=== PATIENT | female | born 1935 | race African-American/Black ===

== ENCOUNTER → 2016-10-19 | Outpatient (CLI) | payer OTHER ==
[2016-08-25 11:00] VITALS: BP 120/46
[~2016-10-19] MED LIST: ACET500T68 PO; AMIT25TA PO; AMLO10TA2 PO; AMLO5TAB2 PO; AMOX1TAB61 PO; ASPI-482 PO; ASPI81TA9 PO; ATOR20TA58 PO; ATORVASTATIN CA80 MG PO; AZIT250T6 PO; BISA10SU55 RC; BUPIVACAINE MPF 0.25% 10 ML VIAL. ONE; CEFP200T PO; CEFT1VIA IM; CHOL10002 PO; CITA20TA9 PO; CLON0.2T PO; CLOP75TA PO; CLOP75TA27 PO; COLE3.754 PO; CYCL10TA2 PO; CYCL1DRO EACHEYE; DEXL60CA PO; ERGO500012 PO; ESOM40CA PO; EZET10TA3 PO; GLUC1KIT IM; GUAI-42 PO; GUAI5SYR PO; HYDR-2666 PO; Hydralazine Hcl PO; IBUP-1027 PO; INSU100I17 SQ; IOHEXOL 180 MG/ML 10 ML VIAL. ONE; ISOS30TA4 PO; ISOS60TA PO; Isosorbide Mononitrate PO; LEVO500T38 PO; LIDO1ADH4 TP; LISI-334 PO; LISI10TA2 PO; LORA1TAB PO; LOSA25TA PO; MAGN400O4 PO; MELO-150 PO; METF100010 PO; METF500T3 PO; METO25TA4 PO; NAPR500T8 PO; NITR0.4T SL; OMEG1CAP16 PO; OMEG1CAP6 PO; OXYC-244 PO; OXYC1TAB9 PO; PANT40TA3 PO; PANT40TA5 PO; PRAM0.25 PO; PRAM0.255 PO; PRAV80TA2 PO; ROPI0.5T PO; SULF1TAB24 PO; TIZA2CAP PO; TIZA4TAB PO; VERA240C2 PO; methylPREDNISolone ACETATE 40 MG/ML VIAL. ONE
--- NOTE | 2016-10-20 00:32 | PAIN ---
DATE OF SERVICE: 10/19/2016 DIAGNOSES: 1. Lumbar radiculopathy, lumbar spinal stenosis, degenerative disk disease. 2. 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 HISTORY OF PRESENT ILLNESS: This is a middle-aged female who returns for followup status post bilateral acromioclavicular joint injections, most recently in June 2016, also lumbar epidural steroid injections in November 2015, which she had 100% improvement from over about 3 months period. The patient reports that her shoulders doing very well for about 3 months as well. That is her primary complaint today. Bilateral shoulder joint pain with weightbearing movement rotation and motion of the shoulder reaching above her head any weightbearing to her side, slightly more on the right than the left, but present bilaterally. The patient reports no new motor or sensory deficits, no new bowel or bladder incontinence, but also pain in the low back, bilateral lower extremities, radiating in the posterior gluteus, posterior thighs, right greater than left, again with pain into the lower leg, mostly in the posterior aspect of the calf, worse with walking, standing, change in positions, has been waking her from sleep at night. Again, she did very well with a lumbar epidural steroid injection in the past also. The patient reports also states she has been off her clopidogrel for the past month. I asked her if she had permission to do this with her primary care physician. She said no. She just stopped taking on her own. She feels better and more energetic when she is not taking it and has had no chest pain or other symptoms since she has discontinued it after. I asked her to please check with her primary physician to make sure that this is okay to stay off It if she can get clearance to stay off it. PHYSICAL EXAMINATION: VITAL SIGNS: Today, blood pressure 182/87, pulse 68, respirations 20, temperature 97.9 degrees Fahrenheit. Weight is 126 pounds. GENERAL: The patient is awake, alert, oriented, appropriate, very pleasant demeanor. HEENT: Head shows normocephalic, atraumatic. The patient's oral cavity, mucous membranes are moist and pink. Dentition is intact. NECK: Shows anterior throat supple without palpable lymphadenopathy noted. Swallow reflex is symmetrical. CHEST: Shows normal on inspection. Breath sounds are clear to auscultation bilaterally. HEART: Shows S1 and S2 clear. No murmurs auscultated. CHEST: Chest shows breath sounds clear to auscultation bilaterally. ABDOMEN: Shows a soft, nontender, nondistended. No palpable organomegaly is noted. No rebound or guarding demonstrated. BACK: The patient's back shows spine grossly midline. Lumbar paraspinous musculature shows some moderate tenderness to palpation in the lumbar distribution of paraspinous muscles bilaterally, right equal to left, but significant tenderness to palpation, especially in the low lumbar distribution again diffusely in the paraspinous muscles. The patient shows good rotation and motion of the lumbar spine, both laterally as well as extension and flexion without significant increase in pain. No tenderness over the sacrum or sacroiliac regions. Lower extremities show deep tendon reflexes at 1+ in the patellar and tendo calcaneus tendons. Motor exam is approximately 4 on a scale of 5, but equal dorsiflexion and extension. The patient does have positive straight leg raise on the right side at about 40-45 degrees, decreased with knee flexion, left side is negative. The patient's upper extremities show deep tendon reflexes at 1+ in the biceps and triceps tendons. Motor exam is strong with pan cleaner strength rated at 5/5 and equal. Shoulder shows significant tenderness and pain over the acromioclavicular joints both anteriorly and posteriorly with direct palpation, significant pain with radiation into the deltoid anteriorly in the biceps bilaterally with palpation. Options were discussed with the patient. Time patient's old chart was reviewed as her current medication regimen updated. Current review of systems updated today as well. We will proceed with bilateral acromioclavicular joint injections with fluoroscopic guidance. Risks were again discussed including, but not limited to bleeding, infection, possibility of intravascular injection sequelae, spread of local anesthetic and numbness, side effects of steroid medications, exposure to fluoroscopy and poor results regarding pain control. The patient understands and wishes to proceed. The patient also will have her return for lumbar epidural steroid injection on her next visit after preauthorization is obtained in this patient with significant radicular qualities in bilateral lower extremities, again right greater than left, continues to affect her ability to walk and stand. She is using a walker today on her visits did very well with the last injection in November 2015. We will have the preauthorized plan on a lumbar epidural steroid injection at next visit. Again, note to Dr. German to make him aware that she has stopped her Plavix on her own by about a month now and I asked her to please follow up to make sure she has clearance to stay on that prior to maintaining the current regimen of being off of that. DIAGNOSIS: Bilateral shoulder joint pain with osteoarthritis shoulder joints. PROCEDURE: Bilateral acromioclavicular joint injection with fluoroscopic guidance. Under sterile prep and draping using local anesthetic. MEDICATIONS INJECTED: Total of 80 mg Depo-Medrol 40 mg per side and total of 4 mL of 0.25% bupivacaine, 2 mL per side after negative aspiration each site. 2 mL of the contrast Isovue for contrast 1 mL in each joint with good local spread, no washout. CONDITION AT DISCHARGE: Stable. The patient tolerated procedure well, had no complications. EKATERINA COTTON MD DR: EL/yrn JOB#: [id number] / [id number]
== END ==
LOC: PNCL 08:22
PROVIDERS: ATTEND Anesthesiology
DX: M19.011 Primary osteoarthritis, right shoulder (principal); M19.012 Primary osteoarthritis, left shoulder; M51.16 Intervertebral disc disorders with radiculopathy, lumbar region; M48.06 Spinal stenosis, lumbar region; I10 Essential (primary) hypertension; E11.9 Type 2 diabetes mellitus without complications; E78.00 Pure hypercholesterolemia, unspecified; K21.9 Gastro-esophageal reflux disease without esophagitis; M19.90 Unspecified osteoarthritis, unspecified site; F41.9 Anxiety disorder, unspecified; K57.90 Diverticulosis of intestine, part unspecified, without perforation or abscess without bleeding; Z90.49 Acquired absence of other specified parts of digestive tract; Z98.51 Tubal ligation status; Z98.49 Cataract extraction status, unspecified eye
CPT/HCPCS: 20605; 77002; J1030; J3490

== ENCOUNTER → 2017-01-02 | Outpatient (CLI) | payer OTHER ==
[2016-08-25 11:00] VITALS: BP 120/46
--- NOTE | 2017-01-02 10:12 | PAIN ---
DATE OF SERVICE: 01/02/2017 PROGRESS NOTE FOR PAIN CLINIC DIAGNOSES: 1. Bilateral shoulder joint pain with osteoarthritis, bilateral shoulders. 2. Lumbar radiculopathy with lumbar spinal stenosis, degenerative disk disease. HISTORY OF PRESENT ILLNESS: The patient is an 82-year-old female who returns for followup status post bilateral acromioclavicular joint injections, last seen 10/19/2016. The patient reports she did very well with these, the left side is still doing very well with about 90% improvement with the right side is beginning to return over the past 2-3 weeks, painful in the shoulder, radiating to the anterior aspect of the biceps as well as the lateral deltoid, difficult with raising her arm out to the side or up above her head, has difficulty getting dressed, putting her arm through a sleeve of a shirt, etc., worse with carrying items to her side as well as carrying things over her shoulder such as a purse strap. The patient reports it as a 9 on a scale of 10 and reports no loss of motor function with significant pain, left side; however, is doing very well, is having good mobility without significant pain. The patient reports no new motor or sensory deficits, no new bowel or bladder incontinence or other complaints. 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 PHYSICAL EXAMINATION: VITAL SIGNS: The patient's blood pressure 148/61, pulse 71, respirations 18, temperature 98.2 degrees Fahrenheit, weight is 119 pounds. GENERAL: The patient is awake, alert, oriented, appropriate, has a very pleasant demeanor. HEENT: Shows normocephalic, atraumatic. The patient wears eyeglasses. Extraocular movements are intact and symmetrical. Oral cavity, mucous membranes are moist and pink. NECK: Shows anterior throat supple without palpable lymphadenopathy noted. Swallow reflex is symmetrical. Neck shows full rotational motion of the cervical spine without difficulty or tenderness. CHEST: Shows breath sounds clear to auscultation bilaterally and normal on inspection. HEART: Shows S1 and S2 clear. No murmurs are auscultated. ABDOMEN: Soft, nontender, nondistended. No palpable organomegaly is noted. No rebound or guarding demonstrated. BACK: Shows spine grossly in the midline. Cervical spine shows mild tenderness with palpation in the inferior aspect of the cervical paraspinous muscles, but only diffusely and into the right superior and lateral aspect of the trapezius with the examination of the patient's shoulders, has significant pain over the right acromioclavicular joint with direct palpation both anteriorly and posteriorly. Some mild tenderness with lateral deltoid with palpation, but no specific trigger points or radiation of pain is demonstrated. The patient shows good passive range of motion with tenderness at abduction greater than about 45-50 degrees, also with reaching above her head and reports significant pain in the right shoulder as well. EXTREMITIES: Upper extremities; deep tendon reflexes are 1+/4. 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 Options were discussed with the patient. The patient's old chart was reviewed as her current medication regimen updated. Current review of systems is updated today as well. We will proceed with a right-sided acromioclavicular joint injection with C-arm fluoroscopic guidance. Risks were again discussed including, but not limited to bleeding, infection, possibility of intravascular injection sequelae, spread of local anesthetic and numbness, side effects of steroid medications, exposure to fluoroscopy and poor results regarding pain control. The patient understands and wishes to proceed. The patient will return to clinic in approximately 2 weeks for followup, was counseled on return appointment, activity level and side effects to be aware of. DIAGNOSIS: Primary osteoarthritis, right shoulder with acromioclavicular joint pain. PROCEDURE: Right acromioclavicular joint injection with C-arm fluoroscopic guidance under sterile prep and drape using local anesthetic and C-arm fluoroscopic guidance. MEDICATIONS INJECTED: 40 mg of Depo-Medrol plus 2 mL of 0.25% bupivacaine and 1 mL of Isovue for contrast. CONDITION AT DISCHARGE: Stable. The patient tolerated the procedure well, had no complications. EKATERINA COTTON MD DR: EL/yrn JOB#: [id number] / [id number]
== END | disposition home or self-care (01) ==
LOC: PNCL 08:07
PROVIDERS: ATTEND Anesthesiology
DX: M19.011 Primary osteoarthritis, right shoulder (principal); E78.00 Pure hypercholesterolemia, unspecified; I10 Essential (primary) hypertension; Z90.49 Acquired absence of other specified parts of digestive tract; Z98.51 Tubal ligation status; K21.9 Gastro-esophageal reflux disease without esophagitis; E11.9 Type 2 diabetes mellitus without complications; F41.9 Anxiety disorder, unspecified
CPT/HCPCS: 20605; 77002; J1030; J3490

== ENCOUNTER 2017-01-22 09:54 | Inpatient (IN) | payer OTHER ==
[~2017-01-22] VITALS: Ht 149.9 cm; Wt 51.7 kg
[~2017-01-22 09:54] MED LIST changes: -BUPIVACAINE MPF 0.25% 10 ML VIAL. ONE; -IOHEXOL 180 MG/ML 10 ML VIAL. ONE; -methylPREDNISolone ACETATE 40 MG/ML VIAL. ONE
--- NOTE | 2017-01-22 10:00 | PHYS DOC ---
Past Medical History Past Medical History: Diabetes-Type II, Hypertension, Other Additional Past Medical Histor: Daughter unsure of history, patient unsure of current meds Past Surgical History: Appendectomy, Cholecystectomy Alcohol Use: None Drug Use: None Adult General Chief Complaint Chief Complaint: CHEST PAIN [facility] HPI Patient is a 82 year old -[place] female who presents with right sided chest pain. She states it started 2 days ago and is been getting worse since then. It's a pressure/pain sensation and taking big deep breaths makes the pain worse. She states nothing makes it better. She's tried some [id number]-[id number] medicines however it has not helped. She is taking her oxycodone without much relief. She denies any shortness of breath, radiation of her pain, diaphoresis or nausea with this. Review of Systems Review of Systems Constitutional: Denies fever or chills [] Eyes: Denies change in visual acuity, redness, or eye pain [] HENT: Denies nasal congestion or sore throat [] Respiratory: Denies cough or shortness of breath [] Cardiovascular: No additional information not addressed in HPI [] GI: Denies abdominal pain, nausea, vomiting, bloody stools or diarrhea [] : Denies dysuria or hematuria [] Musculoskeletal: Denies back pain or joint pain [] Integument: Denies rash or skin lesions [] Neurologic: Denies headache, focal weakness or sensory changes [] Endocrine: Denies polyuria or polydipsia [] Current Medications Current Medications Current Medications Medications (Trade) Dose Ordered Sig/[facility] Start Time Stop Time Status Last Admin Dose Admin Aspirin (Divya Aspirin) 325 mg 1X ONCE 01/22/17 15:00 01/22/17 15:01 DC Info (Do NOT chart on this entry -- for MONITORING) 1 each PRN DAILY PRN 01/22/17 11:45 01/24/17 11:44 Iohexol (Omnipaque 300 Mg/ml) 75 ml 1X ONCE 01/22/17 11:45 01/22/17 11:46 DC 01/22/17 11:42 75 ML Morphine Sulfate 2 mg PRN Q15MIN PRN 01/22/17 11:00 01/23/17 10:59 Nitroglycerin (Nitrostat) 0.4 mg PRN Q5MIN PRN 01/22/17 15:00 Allergies Allergies Allergies Coded Allergies Type Severity Reaction Last Updated Verified No Known Drug Allergies 07/01/15 No Physical Exam Physical Exam Constitutional: Well developed, well nourished, no acute distress, non-toxic appearance. [] HENT: Normocephalic, atraumatic, bilateral external ears normal, oropharynx moist, no oral exudates, nose normal. [] Eyes: PERRLA, EOMI, conjunctiva normal, no discharge. [] Neck: Normal range of motion, no tenderness, supple, no stridor. [] Cardiovascular/chest wall:Heart rate regular rhythm, no murmur, tender palpation across the anterior right hemithorax Lungs & Thorax: Bilateral breath sounds clear to auscultation [] Abdomen: Bowel sounds normal, soft, no tenderness, no masses, no pulsatile masses. [] Skin: Warm, dry, no erythema, no rash. [] Back: No tenderness, no CVA tenderness. [] Extremities: No tenderness, no cyanosis, no clubbing, ROM intact, no edema. [] Neurologic: Alert and oriented X 3, normal motor function, normal sensory function, no focal deficits noted. [] Psychologic: Affect normal, judgement normal, mood normal. [] Current Patient Data Vital Signs Vital Signs Date Time Temp Pulse Resp B/P Pulse Ox O2 Delivery O2 Flow Rate FiO2 01/22/17 13:47 64 22 161/70 97 Room Air 01/22/17 10:05 98.5 98.5 Lab Values Laboratory Tests Test 01/22/17 10:23 01/22/17 10:35 01/22/17 13:50 White Blood Count 9.4x10^3/uL (4.0-11.0) Red Blood Count 3.97x10^6/uL (3.50-5.40) Hemoglobin 12.4g/dL (12.0-15.5) Hematocrit 36.9% (36.0-47.0) Mean Corpuscular Volume 93fL (79-100) Mean Corpuscular Hemoglobin 31pg (25-35) Mean Corpuscular Hemoglobin Concent 34g/dL (31-37) Red Cell Distribution Width 13.8% (11.5-14.5) Platelet Count 257x10^3/uL (140-400) Neutrophils (%) (Auto) 54% (31-73) Lymphocytes (%) (Auto) 33% (24-48) Monocytes (%) (Auto) 11% (0-9) H Eosinophils (%) (Auto) 1% (0-3) Basophils (%) (Auto) 1% (0-3) Neutrophils # (Auto) 5.1x10^3uL (1.8-7.7) Lymphocytes # (Auto) 3.1x10^3/uL (1.0-4.8) Monocytes # (Auto) 1.0x10^3/uL (0.0-1.1) Eosinophils # (Auto) 0.1x10^3/uL (0.0-0.7) Basophils # (Auto) 0.1x10^3/uL (0.0-0.2) Prothrombin Time 13.4SEC (11.7-14.0) Prothrombin Time INR 1.1 (0.8-1.1) D-Dimer (Ruma) 2.09ug/mlFEU (0.00-0.50) H Sodium Level 145mmol/L (136-145) Potassium Level 3.6mmol/L (3.5-5.1) Chloride Level 108mmol/L (98-107) H Carbon Dioxide Level 26mmol/L (21-32) Anion Gap 11 (6-14) Blood Urea Nitrogen 16mg/dL (7-20) Creatinine 1.0mg/dL (0.6-1.0) Estimated GFR (Cockcroft-Gault) 63.9 Glucose Level 108mg/dL (70-99) H Calcium Level 9.3mg/dL (8.5-10.1) Magnesium Level 1.9mg/dL (1.8-2.4) Total Bilirubin 0.3mg/dL (0.2-1.0) Direct Bilirubin 0.1mg/dL (0.0-0.2) Aspartate Amino Transferase (AST) 18U/L (15-37) Alanine Aminotransferase (ALT) 13U/L (14-59) L Alkaline Phosphatase 58U/L (46-116) Creatine Kinase 77U/L (26-192) 65U/L (26-192) Creatine Kinase MB (Mass) 1.3ng/mL (0.0-3.6) 1.5ng/mL (0.0-3.6) Creatine Kinase MB Relative Index 1.7% (0-4) % (0-4) Troponin I Quantitative < 0.017ng/mL (0.000-0.055) < 0.017ng/mL (0.000-0.055) ST-Llb-A-Type Natriuretic Peptide 210pg/mL (0-449) Total Protein 7.2g/dL (6.4-8.2) Albumin 3.4g/dL (3.4-5.0) Lipase 67U/L (73-393) L Thyroid Stimulating Hormone (TSH) 1.212uIU/mL (0.358-3.74) Urine Collection Type Unknown Urine Color Yellow Urine Clarity Hazy Urine pH 5.5 Urine Specific Z[place]ki 1.025 Urine Protein Negativemg/dL (NEG-TRACE) Urine Glucose (UA) Negativemg/dL (NEG) Urine Ketones (Stick) Negativemg/dL (NEG) Urine Blood Negative (NEG) Urine Nitrite Negative (NEG) Urine Bilirubin Negative (NEG) Urine Urobilinogen Dipstick 0.2mg/dL (0.2 mg/dL) Urine Leukocyte Esterase Moderate (NEG) Urine RBC Occ/HPF (0-2) Urine WBC 11-20/HPF (0-4) Urine Squamous Epithelial Cells Many/LPF Urine Bacteria Moderate/HPF (0-FEW) Urine Mucus Marked/LPF Laboratory Tests 01/22/17 10:23 Laboratory Tests 01/22/17 10:23 EKG EKG EKG shows normal sinus rhythm with a rate of 61 bpm with left axis deviation, flattening of the T waves in lead 3, T-wave inversions V1 through V6, QTC 435 ms , as interpreted by me. Radiology/Procedures Radiology/Procedures [facility] [address] [place] [address] IMAGING REPORT Signed PATIENT: DANIEL ARMENDARIZ ACCOUNT: [id number] : 1935 LOCATION: ER AGE: 82 SEX: F EXAM STATUS: PRE ER ORD. PHYSICIAN: LATIA CARDONA MD REASON: chest pain PROCEDURE: PORTABLE CHEST 1V Portable chest, 01/22/2017: History: Right-sided chest pain Comparison is made to a study from 08/23/2016. The heart size and pulmonary vascularity are normal. There is calcific plaquing and tortuosity of the thoracic aorta. No pulmonary infiltrate is seen. A density in the left lateral costophrenic angles compatible with a prominent epicardial fat pad. Slight blunting right lateral costophrenic angle may be due to scarring or a tiny amount of pleural fluid. IMPRESSION: 1. No acute infiltrates. 2. Blunting of the right lateral costophrenic angle compatible with a tiny amount of pleural fluid versus scarring. 3. Aortic atherosclerosis. DICTATED and SIGNED BY: MIRYAM RUBIO MD DATE: 01/22/17 1048 CC: LATIA CARDONA MD; YASEMIN TORRES MD ~ [address] [id number] [place], [place] [id number] IMAGING REPORT Signed PATIENT: DANIEL ARMENDARIZ ACCOUNT: [id number] : 1935 LOCATION: ER AGE: 82 SEX: F EXAM STATUS: REG ER ORD. PHYSICIAN: LATIA CARDONA MD REASON: soa, chest pain PROCEDURE: CT ANGIOGRAPHY CHEST CT pulmonary angiogram with contrast History: Chest pain, shortness of air. Symptoms for 2-3 days. Comparison: CT chest 08/23/2016. Technique: Helical CT angiogram of the chest with attention to the pulmonary arteries was performed after the administration of intravenous contrast, 75 mL Omnipaque 300. Axial 2-D reconstructions were obtained. Coronal 3-D MIPS were also obtained. One or more of the following individualized dose reduction techniques were utilized for the study: Automated exposure control Adjustment of mA and/or kV according to patient's size Use of iterative reconstruction technique. Findings: Pulmonary arteries are adequately opacified. There is no evidence of pulmonary embolism. Visualized thyroid appears symmetric. No mediastinal lymphadenopathy is seen. Aortic atherosclerosis is noted. No thoracic aortic dissection is seen. No pericardial thickening is identified. Cardiac chambers do not appear overtly enlarged. No pneumothorax or pleural effusion is seen. No acute airspace disease is identified. Images of the upper abdomen again demonstrate thickening of the adrenal glands, similar previous study. Right hepatic lobe again demonstrates a low-density lesion measuring approximately 1 cm, similar to previous study. Degenerative changes are present in spine. Impression: No evidence of pulmonary embolism. No acute abnormality identified in the chest. Impressions: Chest pain Diabetes Course & Med Decision Making Course & Med Decision Making Pertinent Labs and Imaging studies reviewed. (See chart for details) EKG does show T-wave inversions in V4 V5 which is different than her previous EKG. We'll admit for chest pain rule out. She's been given aspirin and nitroglycerin and is in stable condition. Dragon Disclaimer Dragon Disclaimer This electronic medical record was generated, in whole or in part, using a voice recognition dictation system. Departure Departure Impression: Primary Impression: Chest pain Admitting Physician: Yasemin Torers Condition: STABLE Referrals: YASEMIN TORRES MD (PCP) Problem Qualifiers Primary Impression: Chest pain Chest pain type: unspecified Qualified Code: R07.9 - Chest pain, unspecified LATIA CARDONA MD Jan 22, 2017 10:00
[2017-01-22 10:32] LABS: BASO # 0.1 x10^3/uL (0.0-0.2); BASO % 1 % (0-3); EOS % 1 % (0-3); HEMATOCRIT 36.9 % (36.0-47.0); HEMOGLOBIN 12.4 g/dL (12.0-15.5); LYMPH # 3.1 x10^3/uL (1.0-4.8); LYMPH % 33 % (24-48); MEAN CORPUSCULAR HEMOGLOBIN 31 pg (25-35); MEAN CORPUSCULAR HGB CONC 34 g/dL (31-37); MEAN CORPUSCULAR VOLUME 93 fL (79-100); MONO % 11 % (0-9); NEUT % 54 % (31-73); PLATELET COUNT 257 x10^3/uL (140-400); RED BLOOD COUNT 3.97 x10^6/uL (3.50-5.40); RED CELL DISTRIBUTION WIDTH 13.8 % (11.5-14.5); WHITE BLOOD COUNT 9.4 x10^3/uL (4.0-11.0)
--- NOTE | 2017-01-22 10:35 | EKG ---
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
[2017-01-22 10:42] LABS: INR 1.1 (0.8-1.1); PROTHROMBIN TIME PATIENT 13.4 SEC (11.7-14.0)
[2017-01-22] MEDS: MORPHINE SULFATE 2 MG/ML DISP.SYRIN. IV/SQ PRN ×3 (10:46→20:14)
[2017-01-22 10:50] LABS: CALCIUM 9.3 mg/dL (8.5-10.1); GFR 63.9; POTASSIUM 3.6 mmol/L (3.5-5.1)
[2017-01-22 10:53] LABS: BILIRUBIN,URINE NEGATIVE (NEG); GLUCOSE,URINE NEGATIVE (NEG); NITRITE,URINE NEGATIVE (NEG); PH,URINE 5.5; PROTEIN,URINE NEGATIVE (NEG-TRACE); UROBILINOGEN,URINE 0.2 mg/dL (0.2 mg/dL)
--- NOTE | 2017-01-22 10:54 | RAD ---
Portable chest, 01/22/2017: History: Right-sided chest pain Comparison is made to a study from 08/23/2016. The heart size and pulmonary vascularity are normal. There is calcific plaquing and tortuosity of the thoracic aorta. No pulmonary infiltrate is seen. A density in the left lateral costophrenic angles compatible with a prominent epicardial fat pad. Slight blunting right lateral costophrenic angle may be due to scarring or a tiny amount of pleural fluid. IMPRESSION: 1. No acute infiltrates. 2. Blunting of the right lateral costophrenic angle compatible with a tiny amount of pleural fluid versus scarring. 3. Aortic atherosclerosis.
[2017-01-22 10:58] LABS: ALBUMIN 3.4 g/dL (3.4-5.0); DIRECT BILIRUBIN 0.1 mg/dL (0.0-0.2); MAGNESIUM 1.9 mg/dL (1.8-2.4); TOTAL BILIRUBIN 0.3 mg/dL (0.2-1.0); TOTAL PROTEIN 7.2 g/dL (6.4-8.2)
[2017-01-22] MEDS ORDERED: MORPHINE SULFATE 2 MG/ML DISP.SYRIN. IV/SQ PRN (11:00)
[2017-01-22 11:05] LABS: CKMB MASS 1.3 ng/mL (0.0-3.6)
[2017-01-22 11:09] LABS: BACTERIA,URINE MODERATE /HPF (0-FEW); RBC,URINE OCC /HPF (0-2); SQUAMOUS EPITHELIAL CELL,UR MANY /LPF
[2017-01-22] MEDS ORDERED: CONTRAST GIVEN MC PRN (11:45)
[2017-01-22] MEDS ORDERED: IOHEXOL 300 MG/ML 75 ML VIAL IV ONE (11:45)
--- NOTE | 2017-01-22 12:18 | RAD ---
CT pulmonary angiogram with contrast History: Chest pain, shortness of air. Symptoms for 2-3 days. Comparison: CT chest 08/23/2016. Technique: Helical CT angiogram of the chest with attention to the pulmonary arteries was performed after the administration of intravenous contrast, 75 mL Omnipaque 300. Axial 2-D reconstructions were obtained. Coronal 3-D MIPS were also obtained. One or more of the following individualized dose reduction techniques were utilized for the study: Automated exposure control Adjustment of mA and/or kV according to patient's size Use of iterative reconstruction technique. Findings: Pulmonary arteries are adequately opacified. There is no evidence of pulmonary embolism. Visualized thyroid appears symmetric. No mediastinal lymphadenopathy is seen. Aortic atherosclerosis is noted. No thoracic aortic dissection is seen. No pericardial thickening is identified. Cardiac chambers do not appear overtly enlarged. No pneumothorax or pleural effusion is seen. No acute airspace disease is identified. Images of the upper abdomen again demonstrate thickening of the adrenal glands, similar previous study. Right hepatic lobe again demonstrates a low-density lesion measuring approximately 1 cm, similar to previous study. Degenerative changes are present in spine. Impression: No evidence of pulmonary embolism. No acute abnormality identified in the chest.
[2017-01-22 14:24] LABS: CKMB MASS 1.5 ng/mL (0.0-3.6); CREATINE KINASE 65 U/L (26-192)
[2017-01-22] MEDS ORDERED: ASPIRIN 325 MG TABLET PO ONE (15:00)
[2017-01-22] MEDS ORDERED: NITROGLYCERIN SUBLINGUAL 0.4 MG BOTTLE OF 25. SL PRN (15:00)
[2017-01-22] MEDS ORDERED: ONDANSETRON PF 4 MG/2 ML VIAL. IV PRN (15:15)
--- NOTE | 2017-01-22 15:38 | PDOC2 ---
CARDIAC CONSULT DATE OF CONSULT Date of Consult DATE: 01/22/17 TIME: 15:29 REASON FOR CONSULT Reason for Consult: Chest pain REFERRING PHYSICIAN Referring Physician: Dr. Mcmullen SOURCE Source: Chart review, Patient HISTORY OF PRESENT ILLNESS HISTORY OF PRESENT ILLNESS This is an 82 yo female who presented with complaints of chest pain. Patient reports pain began 4 days ago. Located in her right chest. Describes at a " hurt." Has been constant since onset. Worsened by breathing and with certain movements. Improved with oxycodone. Also worse by pressing on her right chest. Denies any associated dizziness, diaphoresis, palpitations, diaphoresis, or nausea/vomiting. No recent illness/fevers, LE edema, or orthopnea. PAST MEDICAL HISTORY Cardiovascular: CAD (s/p remote stenting), HTN, Hyperlipidemia Pulmonary: Other (NEFTALY with CPAP) GI: GERD Heme/Onc: No pertinent hx Hepatobiliary: No pertinent hx Psych: Anxiety Musculoskeletal: low back pain, Osteoarthritis Rheumatologic: No pertinent hx Infectious disease: No pertinent hx ENT: No pertinent hx Renal/: No pertinent hx Endocrine: Diabetes Dermatology: No pertinent hx PAST SURGICAL HISTORY Past Surgical History: Appendectomy, Cholecystectomy FAMILY HISTORY Family History: Heart Disease, Hypertension SOCIAL HISTORY Smoke: No ALCOHOL: none Drugs: None Lives: with Family CURRENT MEDICATIONS CURRENT MEDICATIONS Current Medications Medications (Trade) Dose Ordered Sig/Kimberly Route PRN Reason Start Time Stop Time Status Last Admin Dose Admin Morphine Sulfate 2 mg PRN Q15MIN PRN IV/SQ PAIN GREATER THAN 3/10 01/22/17 10:15 01/23/17 10:14 01/22/17 10:46 Iohexol (Omnipaque 300 Mg/ml) 75 ml 1X ONCE IV 01/22/17 11:45 01/22/17 11:46 DC 01/22/17 11:42 ALLERGIES ALLERGIES: Coded Allergies: No Known Drug Allergies (Unverified , 07/01/15) ROS Review of System 14 point ROS conducted with pertinent positives noted above in HPI PHYSICAL EXAM General: Alert, Oriented X3, Cooperative, No acute distress HEENT: Atraumatic, Mucous membr. moist/pink Lungs: Clear to auscultation, Normal air movement, Other (right chest tendness upon palpation) Heart: Regular rate, Normal S1, Normal S2, Other (soft systolic murmur ) Abdomen: Soft, No tenderness Extremities: No edema, Normal pulses Skin: No significant lesion Neuro: Normal speech, Sensation intact Psych/Mental Status: Mental status NL, Mood NL MUSCULOSKELETAL: Osteoarthritic changes both hands VITALS VITALS Vital Signs Date Time Temp Pulse Resp B/P Pulse Ox O2 Delivery O2 Flow Rate FiO2 01/22/17 13:47 64 22 161/70 97 Room Air 01/22/17 10:05 98.5 98.5 LABS Lab: Laboratory Tests Test 01/22/17 10:23 01/22/17 10:35 01/22/17 13:50 White Blood Count 9.4x10^3/uL (4.0-11.0) Red Blood Count 3.97x10^6/uL (3.50-5.40) Hemoglobin 12.4g/dL (12.0-15.5) Hematocrit 36.9% (36.0-47.0) Mean Corpuscular Volume 93fL (79-100) Mean Corpuscular Hemoglobin 31pg (25-35) Mean Corpuscular Hemoglobin Concent 34g/dL (31-37) Red Cell Distribution Width 13.8% (11.5-14.5) Platelet Count 257x10^3/uL (140-400) Neutrophils (%) (Auto) 54% (31-73) Lymphocytes (%) (Auto) 33% (24-48) Monocytes (%) (Auto) 11% (0-9) Eosinophils (%) (Auto) 1% (0-3) Basophils (%) (Auto) 1% (0-3) Neutrophils # (Auto) 5.1x10^3uL (1.8-7.7) Lymphocytes # (Auto) 3.1x10^3/uL (1.0-4.8) Monocytes # (Auto) 1.0x10^3/uL (0.0-1.1) Eosinophils # (Auto) 0.1x10^3/uL (0.0-0.7) Basophils # (Auto) 0.1x10^3/uL (0.0-0.2) Prothrombin Time 13.4SEC (11.7-14.0) Prothromb Time International Ratio 1.1 (0.8-1.1) D-Dimer (Ruma) 2.09ug/mlFEU (0.00-0.50) Sodium Level 145mmol/L (136-145) Potassium Level 3.6mmol/L (3.5-5.1) Chloride Level 108mmol/L (98-107) Carbon Dioxide Level 26mmol/L (21-32) Anion Gap 11 (6-14) Blood Urea Nitrogen 16mg/dL (7-20) Creatinine 1.0mg/dL (0.6-1.0) Estimated GFR (Cockcroft-Gault) 63.9 Glucose Level 108mg/dL (70-99) Calcium Level 9.3mg/dL (8.5-10.1) Magnesium Level 1.9mg/dL (1.8-2.4) Total Bilirubin 0.3mg/dL (0.2-1.0) Direct Bilirubin 0.1mg/dL (0.0-0.2) Aspartate Amino Transf (AST/SGOT) 18U/L (15-37) Alanine Aminotransferase (ALT/SGPT) 13U/L (14-59) Alkaline Phosphatase 58U/L (46-116) Creatine Kinase 77U/L (26-192) 65U/L (26-192) Creatine Kinase MB (Mass) 1.3ng/mL (0.0-3.6) 1.5ng/mL (0.0-3.6) Creatine Kinase MB Relative Index 1.7% (0-4) % (0-4) Troponin I Quantitative < 0.017ng/mL (0.000-0.055) < 0.017ng/mL (0.000-0.055) PN-Npu-I-Type Natriuretic Peptide 210pg/mL (0-449) Total Protein 7.2g/dL (6.4-8.2) Albumin 3.4g/dL (3.4-5.0) Lipase 67U/L (73-393) Thyroid Stimulating Hormone (TSH) 1.212uIU/mL (0.358-3.74) Urine Collection Type Unknown Urine Color Yellow Urine Clarity Hazy Urine pH 5.5 Urine Specific [place] 1.025 Urine Protein Negativemg/dL (NEG-TRACE) Urine Glucose (UA) Negativemg/dL (NEG) Urine Ketones (Stick) Negativemg/dL (NEG) Urine Blood Negative (NEG) Urine Nitrite Negative (NEG) Urine Bilirubin Negative (NEG) Urine Urobilinogen Dipstick 0.2mg/dL (0.2 mg/dL) Urine Leukocyte Esterase Moderate (NEG) Urine RBC Occ/HPF (0-2) Urine WBC 11-20/HPF (0-4) Urine Squamous Epithelial Cells Many/LPF Urine Bacteria Moderate/HPF (0-FEW) Urine Mucus Marked/LPF ECHOCARDIOGRAM ECHOCARDIOGRAM <Conclusion> The left ventricular systolic function is normal. The Ejection Fraction is 60-65%. There is normal LV segmental wall motion. Transmitral Doppler flow pattern is Grade I-abnormal relaxation pattern. Trace to mild aortic regurgitation. Trace mitral regurgitation. Mild to moderate tricuspid regurgitation. The PA pressure was estimated at 48 mmHg. There is no evidence of significant pericardial effusion. DATE: 08/10/16 1413 STRESS TEST STRESS TEST Conclusion 1. Regadenoson cardioisotope stress test did not show any evidence of ischemia or infarct. 2. Normal left ventricular systolic function with ejection fraction calculated at 72%. 3. Low risk for cardiac events. DATE: 06/06/16 1457 ASSESSMENT/PLAN ASSESSMENT/PLAN 1. Chest pain, atypical trop neg. X 2- AMI ruled out 06/16 MPI without reversible ischemia 08/16 2D echo with preserved LV function pain possibly MSK in origin as it is reproducible with palpation will repeat echo to assess new WMA 2. CAD s/p remote stenting stable continue secondary prevention repeat echo as above. 3. Hypertension labile resume home antiHTN therapy and monitor to assess need for titration 4. Hyperlipidemia statin therapy 06/16 LDL = 96 5. NEFTALY with CPAP 6. Diabetes per PCP Problems: FRANCOISE COLUNGA APRN Jan 22, 2017 15:38
[2017-01-22] MEDS ORDERED: ASPIRIN 325 MG TABLET ONE (19:10)
[2017-01-22 20:30] VITALS: BP 179/73
[2017-01-22 23:38] VITALS: BP 160/58
--- NOTE | 2017-01-23 00:06 | ACF ---
Admission Forms Criteria CHEST PAIN Clinical Indications for Admission to Inpatient Care (Place 'X' for any and all applicable criteria): Admission is indicated for chest pain and ANY ONE of the following(1)(2)(3)(4)(5 ): [ ]I. Angina with acute coronary syndrome (Also use Myocardial Infarction or Angina guideline) [ ]II. Hemodynamic instability [ ]III. Angina needing acute intervention as indicated by ALL of the following( 11)(12): [ ]a) Unstable angina is present as indicated by angina that is ANY ONE of the following: [ ]i) New onset [ ]ii) Nocturnal [ ]iii) Prolonged at rest [ ]iv) Progressive [ ]b) Angina warrants acute intervention as indicated by ANY ONE of the following: [ ]i) Recurrent angina (e.g, not responding as previously to treatment) [ ]ii) Angina at rest or with low-level activities despite initial medical therapy [ ]iii) New or presumably new ST-segment depression on ECG [ ]iv) Signs or symptoms of heart failure (eg, dyspnea, pulmonary edema) [ ]v) New or worsening mitral regurgitation [ ]vi) Hemodynamic instability [ ]vii) Dangerous arrhythmia (eg, sustained ventricular tachycardia) [ ]viii) History of percutaneous coronary intervention within 6 months [ ]ix) History of coronary artery bypass graft surgery [ ]x) BELEN risk score of 2 or greater[A] [ ]xi) History of Diabetes(14) [ ]xii) High-risk cardiac ischemia findings on noninvasive testing (e.g, echocardiogram, treadmill testing, nuclear scan) [ ]xiii) Chronic renal insufficiency (ie, estimated GFR less than 60 mL/min/1.732m) [ ]xiv) Left ventricular ejection fraction less than 40% [ ]IV. Evidence of OR (eg, cardiac biomarkers positive, ST-segment elevation on ECG) also use Myocardial Infarction Criteria Form. [ ]V. Pulmonary edema [ ]. Respiratory distress [ ]VII. Chest pain indicative of serious diagnosis other than coronary artery disease (eg, aortic dissection) [ ]VIII. Contraindications and/or Inappropriate clinical situations for Observational Care in patients with Chest Pain, when ANY ONE of the following is required: [ ]a) Patient with risk factor for pulmonary embolism, acute coronary syndrome and myocardial infarction (18) [ ]b) Patient with Pulmonary embolism require an average LOS of 4.3 days, therefore emergency department observation management is inappropriate 18,23 [ ]c) Painful condition/s in the elderly, have the highest rate of recidivism after emergency department observation management (10.8%) 20,21,22 [ ]d) Elevated cardiac biomarker requires intensive and exhaustive care (19) [X]IX. General contraindications and/or Inappropriate clinical situations for Observational Care in patients with Chest Pain, when ANY ONE of the following is required: [ ]a) Prediction of prolongation of LOS based on ANY ONE of the following may be considered as a contraindication for observational care 2, 3, 4, 5, 6, 7, 8, 9, 10, 11 [ ]i) Age > 65 yrs. [ ]ii) Patient arriving by ambulance [ ]iii) Patient with high acuity [ ]iv) Patient requiring vital sign monitoring [ ]v) Patient on IV medication [X]b) Systolic blood pressures 180mmHg 3,12 [ ]c) Patient with altered mental status including delirium and other alteration of consciousness, (3) [ ]d) Patient whose discharge disposition will be to a fdc home or rehabilitation home should not be managed in Emergency Department Observation Unit. CMS rule requires 3 days hospital stay before such placement. 3,13 [ ]e) Patient with failure to thrive due to broad array of etiologies 3,16,17 [ ]f) Inability to ambulate 3,14 Extended stay beyond goal length of stay may be needed for (1)(28): [ ]a) Specific condition diagnosed after evaluation (eg, pulmonary embolism, aortic dissection) [ ]b) Unstable angina [ ]c) Continued suspicion of acute coronary syndrome with inability to complete needed cardiac evaluation (eg, patient clinically unable to undergo stress testing) [ ]d) Myocardial infarction (Contents from ANGINA and CHEST PAIN clinical indications for admission to inpatient care have been integrated in this form) The original [facility] content created by [employer] has been revised. The portions of the content which have been revised are identified through the use of italic text or in bold, and [facility] has neither reviewed nor approved the modified material. All other unmodified content is copyright [employer]. Please see references footnoted in the original [facility] edition 2016 Admission Criteria Met?: Yes JESUS GALLARDO Jan 23, 2017 00:06
[2017-01-23 03:21] VITALS: BP 175/79
[2017-01-23] MEDS: MORPHINE SULFATE 2 MG/ML DISP.SYRIN. IV PRN ×2 (03:30→10:01)
[2017-01-23 03:59] LABS: BASO # 0.1 x10^3/uL (0.0-0.2); BASO % 1 % (0-3); EOS % 2 % (0-3); HEMATOCRIT 43.2 % (36.0-47.0); HEMOGLOBIN 14.1 g/dL (12.0-15.5); LYMPH # 3.9 x10^3/uL (1.0-4.8); LYMPH % 35 % (24-48); MEAN CORPUSCULAR HEMOGLOBIN 31 pg (25-35); MEAN CORPUSCULAR HGB CONC 33 g/dL (31-37); MEAN CORPUSCULAR VOLUME 96 fL (79-100); MONO % 9 % (0-9); NEUT % 54 % (31-73); PLATELET COUNT 222 x10^3/uL (140-400); RED BLOOD COUNT 4.52 x10^6/uL (3.50-5.40); RED CELL DISTRIBUTION WIDTH 14.1 % (11.5-14.5); WHITE BLOOD COUNT 11.2 x10^3/uL (4.0-11.0)
[2017-01-23 04:16] LABS: CALCIUM 9.9 mg/dL (8.5-10.1); CREATININE 0.7 mg/dL (0.6-1.0); GFR 96.5; POTASSIUM 4.2 mmol/L (3.5-5.1)
[2017-01-23 04:38] LABS: CHOLESTEROL/HDL RATIO 6.1
[2017-01-23 07:00] VITALS: BP 188/88
[2017-01-23] MEDS ORDERED: tiZANidine 4 MG TABLET. PO PRN (08:00)
[2017-01-23] MEDS ORDERED: DEXTROSE 50% 25 GM / 50ML DISP.SYRIN. IV PRN (08:30)
[2017-01-23] MEDS ORDERED: ALBUTEROL SULFATE 2.5 MG/3 ML NEBU. NEB PRN (08:30)
--- NOTE | 2017-01-23 08:30 | PDOC ---
Provider Note Provider Note See admission H&P dictation #[id number] Impression: 1. Atypical right chest pain likely musculoskeletal in nature: 2. Inverted T waves in leads V3, V4, V5 which is different from prior EKGs of unknown significance: 3. Hypertension: 4. Abnormal UA concerning for urinary tract infection: 5. Increased d-dimer of questionable significance: 6. Diabetes mellitus type 2: 7. Hyperlipidemia: 8. Obstructive sleep apnea: YASEMIN TORRES MD Jan 23, 2017 08:29
[2017-01-23] MEDS: cycloSPORINE 0.05% OPTH 1 DROP DROPERETTE OU SCH ×3 (09:00→20:28)
[2017-01-23] MEDS: IBUPROFEN 600 MG TABLET. PO SCH ×3 (10:02→18:04)
[2017-01-23] MEDS: ASPIRIN ENTERIC COATED 81 MG TABLET.DR. PO SCH (10:02)
[2017-01-23] MEDS: PANTOPRAZOLE 40 MG TABLET.DR. PO SCH ×2 (10:02→18:03)
[2017-01-23] MEDS: ISOSORBIDE MONONITRATE ER 60 MG TAB.ER.24H. PO SCH (10:02)
[2017-01-23] MEDS: amLODIPine BESYLATE 10 MG TABLET PO SCH (10:03)
[2017-01-23] MEDS: METOPROLOL TART IMMED RELEASE 25 MG TABLET. PO SCH ×2 (10:03→20:28)
[2017-01-23] MEDS: LOSARTAN POTASSIUM 50 MG TABLET. PO SCH (10:04)
[2017-01-23 11:00] VITALS: BP 145/65
[2017-01-23] MEDS: INSULIN ASPART 300 UNITS/3 ML INSULN.PEN SQ SCH ×2 (12:00→17:00)
--- NOTE | 2017-01-23 13:10 | CARD ---
APPROVED REPORT EXAM: Two-dimensional and M-mode echocardiogram with Doppler and color Doppler. Other Information Quality : Excellent INDICATION Chest Pain 2D DIMENSIONS RVDd2.7 (2.9-3.5cm)Left Atrium(2D)3.3 (1.6-4.0cm) IVSd1.0 (0.7-1.1cm)Aortic Root(2D)2.6 (2.0-3.7cm) LVDd3.9 (3.9-5.9cm)LVOT Diameter1.9 (1.8-2.4cm) PWd1.0 (0.7-1.1cm)LVDs2.1 (2.5-4.0cm) FS (%) 30.0 %SV49.8 ml LVEF(%)60.0 (>50%) Aortic Valve AoV Peak Danie.129.6cm/sAoV VTI23.1cm AO Peak GR.6.7mmHgLVOT Peak Danie.135.7cm/s AO Mean GR.3mmHgAVA (VMAX)2.99cm2 MELONY (VTI)3.94gz9VN P 1/2 Jgbr169kt Mitral Valve MV E Hzfajzoj68.2cm/sMV DECEL EVOJ442uc MV A Yzupnqbm89.9cm/sE/A Ratio0.7 Tricuspid Valve TR P. Qtjhiehi300eg/sRAP UAJSVTPH9byOe TR Peak Gr.61fzBvJTJT02bfLk Pulmonary Vein S1 Tiyddych38.1cm/sD2 Uqgzutfo95.5cm/s PVa [id number] LEFT VENTRICLE The left ventricle is normal size. There is normal left ventricular wall thickness. The left ventricu lar systolic function is normal and the ejection fraction is within normal range. The Ejection Fracti on is 60-65%. There is normal LV segmental wall motion. Transmitral Doppler flow pattern is Grade I-a bnormal relaxation pattern. RIGHT VENTRICLE The right ventricle is normal size. The right ventricular systolic function is normal. ATRIA The left atrium size is normal. The right atrium size is normal. The interatrial septum is intact wit h no evidence for an atrial septal defect or patent foramen ovale as noted on 2-D or Doppler imaging. AORTIC VALVE The aortic valve is normal in structure and function. Doppler and Color Flow revealed trace aortic re gurgitation. There is no significant aortic valvular stenosis. MITRAL VALVE The mitral valve is normal in structure and function. There is no evidence of mitral valve prolapse. There is no mitral valve stenosis. Doppler and Color-flow revealed trace mitral regurgitation. TRICUSPID VALVE The tricuspid valve is normal in structure and function. Doppler and Color Flow revealed trace tricus pid regurgitation. There is mild pulmonary hypertension. The PA pressure was estimated at 42 mmHg. Th ere is no tricuspid valve stenosis. PULMONIC VALVE Doppler and Color Flow revealed trace pulmonic valvular regurgitation. There is no pulmonic valvular stenosis. GREAT VESSELS The aortic root is normal in size. The ascending aorta is normal in size. The IVC is normal in size a nd collapses >50% with inspiration. PERICARDIAL EFFUSION There is no evidence of significant pericardial effusion. Critical Notification Critical Value: No <Conclusion> The left ventricular systolic function is normal and the ejection fraction is within normal range. Th e Ejection Fraction is 60-65%. There is normal LV segmental wall motion. Doppler and Color Flow revealed trace tricuspid regurgitation. There is mild pulmonary hypertension. The PA pressure was estimated at 42 mmHg.
--- NOTE | 2017-01-23 14:30 | PDOC ---
CARDIO Progress Notes Date and Time Date of Service 01/23/17 Time of Evaluation 1220 Subjective Subjective: No shortness of breath, No Palpitations Comments: having mild CP- worse with certain movements and pressing on chest Vitals Vitals Vital Signs Date Time Temp Pulse Resp B/P Pulse Ox O2 Delivery O2 Flow Rate FiO2 01/23/17 13:44 65 145/65 01/23/17 11:17 Room Air 01/23/17 11:00 98.1 18 96 98.1 Weight Weight [ ] Laboratory Labs Laboratory Tests Test 01/22/17 20:46 01/22/17 21:15 01/23/17 03:25 01/23/17 08:01 Glucose (Fingerstick) 101mg/dL (70-99) 82mg/dL (70-99) Troponin I Quantitative < 0.017ng/mL (0.000-0.055) < 0.017ng/mL (0.000-0.055) White Blood Count 11.2x10^3/uL (4.0-11.0) Red Blood Count 4.52x10^6/uL (3.50-5.40) Hemoglobin 14.1g/dL (12.0-15.5) Hematocrit 43.2% (36.0-47.0) Mean Corpuscular Volume 96fL (79-100) Mean Corpuscular Hemoglobin 31pg (25-35) Mean Corpuscular Hemoglobin Concent 33g/dL (31-37) Red Cell Distribution Width 14.1% (11.5-14.5) Platelet Count 222x10^3/uL (140-400) Neutrophils (%) (Auto) 54% (31-73) Lymphocytes (%) (Auto) 35% (24-48) Monocytes (%) (Auto) 9% (0-9) Eosinophils (%) (Auto) 2% (0-3) Basophils (%) (Auto) 1% (0-3) Neutrophils # (Auto) 6.1x10^3uL (1.8-7.7) Lymphocytes # (Auto) 3.9x10^3/uL (1.0-4.8) Monocytes # (Auto) 1.0x10^3/uL (0.0-1.1) Eosinophils # (Auto) 0.2x10^3/uL (0.0-0.7) Basophils # (Auto) 0.1x10^3/uL (0.0-0.2) Sodium Level 140mmol/L (136-145) Potassium Level 4.2mmol/L (3.5-5.1) Chloride Level 103mmol/L (98-107) Carbon Dioxide Level 25mmol/L (21-32) Anion Gap 12 (6-14) Blood Urea Nitrogen 11mg/dL (7-20) Creatinine 0.7mg/dL (0.6-1.0) Estimated GFR (Cockcroft-Gault) 96.5 Glucose Level 91mg/dL (70-99) Calcium Level 9.9mg/dL (8.5-10.1) Triglycerides Level 177mg/dL (0-150) Cholesterol Level 239mg/dL (0-200) LDL Cholesterol, Calculated 165mg/dL (0-100) VLDL Cholesterol, Calculated 35mg/dL (0-40) Non-HDL Cholesterol Calculated 200mg/dL (0-129) HDL Cholesterol 39mg/dL (40-60) Cholesterol/HDL Ratio 6.1 Test 01/23/17 10:52 Glucose (Fingerstick) 122mg/dL (70-99) Microbiology Micro Microbiology 01/22/17 Urine Culture - Preliminary, Resulted 01/22/17 Urine Culture Result 1 (JUSTO) - Preliminary, Resulted Physical Exam HEENT: Neck Supple W Full Motion Chest: Symmetric LUNGS: Clear to Auscultation Heart: S1S2, RRR Abdomen: Soft N/T Extremities: 2+ Dorsalis Pedis, No Edema, No Calf Tenderness Neurology: alert, oriented, follow commands Assessment Assessment 1. Chest pain, atypical AMI ruled out 06/16 MPI without reversible ischemia 08/16 2D echo with preserved LV function Repeat echo with LVEF 55-60%; no WMA pain most probably MSK in origin as it is reproducible with palpation no further cardiac workup warranted; may discharge from CV standpoint. 2. CAD s/p remote stenting stable echo with preserved LV function continue secondary prevention 3. Hypertension controlled with meds 4. Hyperlipidemia statin therapy 06/16 LDL = 96 5. NEFTALY with CPAP 6. Diabetes per PCP FRANCOISE COLUNGA APRN Jan 23, 2017 14:29
[2017-01-23] MEDS: oxyCODONE/APAP 10/325 1 TAB TABLET PO PRN (14:51)
[2017-01-23 15:00] VITALS: BP 118/45
[2017-01-23 19:00] VITALS: BP 144/73
[2017-01-23] MEDS ORDERED: ATORVASTATIN CALCIUM 20 MG TABLET PO SCH (21:00)
[2017-01-23] MEDS ORDERED: tiZANidine 4 MG TABLET. PO SCH (21:00)
[2017-01-23 23:00] VITALS: BP 133/52
[2017-01-24 03:00] VITALS: BP 144/61
[2017-01-24] MEDS: PANTOPRAZOLE 40 MG TABLET.DR. PO SCH ×2 (06:32→16:30)
[2017-01-24 07:00] VITALS: BP 156/65
[2017-01-24] MEDS: INSULIN ASPART 300 UNITS/3 ML INSULN.PEN SQ SCH ×3 (08:00→17:00)
[2017-01-24] MEDS: cycloSPORINE 0.05% OPTH 1 DROP DROPERETTE OU SCH (08:40)
[2017-01-24] MEDS: oxyCODONE/APAP 10/325 1 TAB TABLET PO PRN (08:43)
[2017-01-24] MEDS: METOPROLOL TART IMMED RELEASE 25 MG TABLET. PO SCH (08:44)
[2017-01-24] MEDS: amLODIPine BESYLATE 10 MG TABLET PO SCH (08:44)
[2017-01-24] MEDS: ISOSORBIDE MONONITRATE ER 60 MG TAB.ER.24H. PO SCH (08:44)
[2017-01-24] MEDS: ASPIRIN ENTERIC COATED 81 MG TABLET.DR. PO SCH (08:44)
[2017-01-24] MEDS: LOSARTAN POTASSIUM 50 MG TABLET. PO SCH (08:45)
[2017-01-24] MEDS: IBUPROFEN 600 MG TABLET. PO SCH ×3 (08:45→18:00)
[2017-01-24 11:35] VITALS: BP 143/65
[2017-01-24 15:31] VITALS: BP 138/59
--- NOTE | 2017-01-24 17:28 | DISCH ---
DISCHARGE INSTRUCTIONS Condition on Discharge Condition on Discharge: Stable Activity After Discharge Activity Instructions for Disc: Activity as tolerated Other activity instructions: Heat to area on chest with pain Diet after Discharge Diet after Discharge: Cardiac, Diabetic No Calorie Level Checks after Discharge Checks after discharge: Check blood press - daily Contacting the after DC Call your doctor for: If your condition worsens Follow-Up Follow up with: Dr Rodrigez in 1-2 weeks, call for appt YASEMIN RODRIGEZ MD Jan 24, 2017 17:28
[2017-01-24] MEDS ORDERED: IBUP-985 PO (17:31)
--- NOTE | 2017-01-24 17:55 | PDOC ---
Provider Note Provider Note See discharge summary dictation #[id number] YASEMIN TORRES MD Jan 24, 2017 17:55
--- NOTE | 2017-01-24 20:45 | HP ---
ADMIT DATE: 01/23/2017 ATTENDING PHYSICIAN: Yasemin Torres MD. CHIEF COMPLAINT: Chest pain. HISTORY OF PRESENT ILLNESS: The patient is an 82-year-old female with a history of remote coronary artery disease status post stenting. She has had pain in the right chest wall for the last 3-4 days. It is primarily anteriorly. She woke up with the pain and it was severe. She described it should be "____" hurt. The pain is worse somewhat with movement. She denies any reflux symptoms. It does radiate somewhat into the shoulders as well. She is not having any significant shortness of breath associated with this. PAST MEDICAL HISTORY: Significant for coronary artery disease with stent placement in 2011, diabetes type 2, hypertension, hyperlipidemia, chronic back pain from osteoarthritis, thoracic diskitis in 2013, hiatal hernia, periodic limb movement disorder. PAST SURGICAL HISTORY: Cholecystectomy, appendectomy. FAMILY HISTORY: Sister with diabetes. SOCIAL HISTORY: The patient does live alone, but she has a family to provide a lot of support and care for her. She does not smoke or use any alcohol. ALLERGIES TO MEDICATIONS: No known drug allergies. MEDICATIONS: At the time of admission include Norvasc 10 mg p.o. daily, aspirin 81 mg p.o. daily, Lipitor 20 mg p.o. daily, vitamin D 2000 units p.o. daily, Restasis 1 drop each eye b.i.d., Imdur 60 mg p.o. daily, losartan 50 mg p.o. daily, metformin extended release 1000 mg p.o. daily, Lopressor 25 mg p.o. b.i.d., fish oil 1000 mg p.o. daily, Percocet 10/325 one p.o. every 4 hours p.r.n., Protonix 40 mg p.o. b.i.d., tizanidine 2 mg p.o. q.i.d. p.r.n., hydralazine 50 mg p.o. t.i.d. REVIEW OF SYSTEMS: The patient denies any fevers, no upper respiratory congestion. No recent injury. She denies any significant neck pain. She is swallowing without any difficulty. She denies any shortness of breath except for pain associated with when she does take a deep breath on the right side of her chest. She denies any other left-sided chest pain. There is no palpitations, no lower extremity edema. No nausea, vomiting, diarrhea or constipation. She has had some urinary frequency. There is some occasional urgency that is may be a little more prominent than what she has had in the past, but not significant. She denies any abdominal pain. She denies any localized weakness, numbness or paresthesia. Her mood is doing okay. PHYSICAL EXAMINATION: VITAL SIGNS: At the time of admission, temperature 98.5, pulse 62, respiratory rate 17, blood pressure 144/65, O2 sat 98% on room air. GENERAL: The patient is well developed and nourished female in no acute distress. She is alert and oriented. HEENT: The pupils are equal and round. The extraocular motions are intact. Sclerae are anicteric. Oropharynx is moist. NECK: Without JVD or bruit. There is no tenderness to palpation of the neck. CHEST: Clear to auscultation bilaterally with okay air movement. BACK: There is tenderness to palpation in the posterior chest wall in the interscapular area on the right. There is also significant tenderness to palpation along the right costosternal border. There is no deformity. There is some tenderness to palpation in the right shoulder. CARDIOVASCULAR: Heart has a regular rate and rhythm without murmur. ABDOMEN: Soft and nontender, without any guarding or rebound. EXTREMITIES: No edema. NEUROLOGIC: Grossly intact and nonfocal. Motor strength is intact throughout. Sensation is intact to light touch throughout. There is no lower extremity edema. PSYCHIATRIC: Mood and affect appear appropriate. LABORATORY DATA: WBC 9.4, hemoglobin 12.4, hematocrit 36.9, platelets 257. INR is 1.1. D-dimer was 2.09. UA showed moderate leukocyte esterase, 11-20 wbc's and many epithelial cells, marked mucus and moderate bacteria. Sodium was 145, potassium 3.6, chloride 108, CO2 of 26, BUN 16, creatinine 1.0. Glucose 108. LFTs are within normal limits. Initial troponin was less than 0.017. BNP was 210. Albumin 3.4, lipase 67. Chest x-ray showed no acute infiltrates, blunting of the right lateral costophrenic angle compatible with a tiny amount of pleural fluid versus scarring. There is a Port-A-Cath arthrosclerosis. She did undergo CT scan of the chest due to the elevated D-dimer that showed no evidence of pulmonary embolism. There is no acute abnormality identified in the chest. EKG showed inverted T waves in leads V3, V4, V5, which is somewhat different than her last EKG otherwise there are no evidence of acute ischemic changes. She was in a normal sinus rhythm with controlled rate. IMPRESSION: 1. Atypical right chest pain, likely musculoskeletal in nature. 2. Inverted T waves in leads V3, V4 and V5, which is different from prior EKGs of an unknown significance. 3. Hypertension. 4. Abnormal urinalysis, concerning for possible urinary tract infection. 5. Increased D-dimer of questionable significance as there is no pulmonary embolism and does not appear to be any lower extremity deep vein thrombosis clinically. 6. Diabetes mellitus type 2. 7. Hyperlipidemia. 8. Obstructive sleep apnea. PLAN: The patient is admitted. She will be seen in consultation with Cardiology. I think this is more musculoskeletal in nature. We will begin her on ibuprofen 600 mg p.o. t.i.d., we will use muscle relaxants as needed, heat to the area, due to the inverted T waves we will continue to do serial cardiac enzymes to rule out for any ischemic etiology. She has had recent stress testing; however, which was normal. We will place her on empiric Rocephin until we get results back of her urine culture for the abnormal UA, we will use sliding scale insulin as needed for her blood sugars, although she is usually well controlled. We will continue her other home medications. YASEMIN TORRES MD DR: BHARGAV/yrn JOB#: [id number] / [id number]
--- NOTE | 2017-01-25 00:07 | DS ---
DATE OF DISCHARGE: 01/24/2017 CHIEF COMPLAINT: Chest pain. HISTORY OF PRESENT ILLNESS: The patient is an 82-year-old female with history of remote coronary artery disease, status post stenting in 2011, who presented with the onset of right chest pain that have been going on for several days prior to admission. It was noted in the Emergency Room on her EKG that she had newly found inverted T-waves in leads V3, V4 and V5. HOSPITAL COURSE: The patient was admitted for evaluation of the atypical chest pain, but with EKG changes, she underwent serial cardiac enzymes, which were negative. She was seen in consultation with Cardiology. It was felt unlikely that this was cardiac in etiology due to her history of having had normal recent stress testing. She was placed on ibuprofen with resolution of her symptoms. She did have an abnormal UA, the urine culture, which came back with nonsignificant growth and not indicative of urinary tract infection. She did receive a dose of Rocephin after admission while we are waiting for culture results. At the time of discharge, the patient was tolerating her diet without any difficulty. Her pain was much improved and almost resolved. She is feeling better than she had been in a while. She denies any shortness of breath or chest pain. She is afebrile. PHYSICAL EXAMINATION: VITAL SIGNS: Stable. CHEST: Clear to auscultation bilaterally with good air movement. HEART: Had a regular rate and rhythm without murmur. ABDOMEN: Soft and nontender, without any guarding or rebound. EXTREMITIES: Without edema. She was much better at moving her right upper arm and had good range of motion. DISCHARGE DIAGNOSES: 1. Atypical right chest wall pain, likely musculoskeletal in nature. 2. Inverted T-waves in lead V3, V4 and V5 of unknown significance. 3. Hypertension. 4. Diabetes mellitus type 2. 5. Hyperlipidemia. DISCHARGE DIET: Diabetic cardiac diet. DISCHARGE ACTIVITIES: As tolerated. FOLLOWUP: The patient is to follow up with Dr. Torres in approximately 1 week. MEDICATIONS AT THE TIME OF DISCHARGE: Include amlodipine 10 mg p.o. daily, aspirin 81 mg p.o. daily, Lipitor 20 mg p.o. daily, vitamin D 2000 units p.o. daily, Restasis one drop in each eye b.i.d., Imdur 60 mg p.o. daily, losartan 50 mg p.o. daily, Metformin extended release 1000 mg p.o. daily, Lopressor 25 mg p.o. b.i.d., fish oil 1000 mg p.o. daily, Percocet 10/325 one p.o. q. 4 hours p.r.n. pain, Protonix 40 mg p.o. daily, tizanidine 2 mg p.o. q.i.d. p.r.n., hydralazine 50 mg p.o. t.i.d., ibuprofen 600 mg p.o. t.i.d. p.r.n. YASEMIN TORRES MD DR: BHARGAV/yrn JOB#: [id number] / [id number]
[2017-01-25] MEDS ORDERED: metFORMIN XR 500 MG TAB.ER.24H PO SCH (08:00)
== END 2017-01-24 18:30 | disposition home or self-care (01) | DRG 313 ==
LOC: ER 09:54 → ED HOLD 14:45 → 4 NORTH 20:55
PROVIDERS: ADMIT Family Medicine; ATTEND Family Medicine
DX: R07.89 Other chest pain (principal); E11.9 Type 2 diabetes mellitus without complications; E78.5 Hyperlipidemia, unspecified; G47.33 Obstructive sleep apnea (adult) (pediatric); I10 Essential (primary) hypertension; I25.10 Atherosclerotic heart disease of native coronary artery without angina pectoris; F41.9 Anxiety disorder, unspecified; G89.29 Other chronic pain; M54.5 Low back pain; K21.9 Gastro-esophageal reflux disease without esophagitis; Z82.49 Family history of ischemic heart disease and other diseases of the circulatory system; Z90.49 Acquired absence of other specified parts of digestive tract; Z83.3 Family history of diabetes mellitus; Z95.5 Presence of coronary angioplasty implant and graft
CPT/HCPCS: 36415; 71010; 71275; 80048; 80061; 80076; 81001; 82553; 82947; 83690; 83735; 83880; 84443; 84484; 85027; 85379; 85610; 87086; 93005; 93306; 96374; 96376; J0696; J1815; J2270; Q9967; 99285-25

== ENCOUNTER 2017-02-24 08:20 | Emergency (ER) | payer OTHER ==
[~2017-02-24] VITALS: Ht 149.9 cm; Wt 51.7 kg
[~2017-02-24 08:20] MED LIST changes: +IBUP-985 PO
[2017-02-24 08:22] VITALS: BP 188/84
--- NOTE | 2017-02-24 08:23 | PHYS DOC ---
Past Medical History Past Medical History: Diabetes-Type II, Hypertension, Other Additional Past Medical Histor: Daughter unsure of history, patient unsure of current meds Past Surgical History: Appendectomy, Cholecystectomy Alcohol Use: None Drug Use: None Adult General Chief Complaint Chief Complaint: NAUSEA/VOMITING/DIARRHA HPI HPI Patient is a 82 year old female presenting to the emergency department for evaluation of nausea and that has been present for 3-4 days. Patient reportedly has been feeling nauseated epigastric sensation but she has continued to eat and drink. She says that she started taking ibuprofen several days ago and that has made her nausea much worse. She denies any abdominal pain per se she just feels sick to her stomach. She denies any chest pain shortness of breath diaphoresis vomiting diarrhea constipation dysuria or hematuria. She says that she is not wanting any test done just wants to get something to make her feel better and then go home. Told her that I could try giving her some dissolving medication a GI cocktail and Protonix and see if that helps her symptoms. She is agreeable to this. Review of Systems Review of Systems Constitutional: Denies fever or chills [] Respiratory: Denies cough or shortness of breath [] Cardiovascular: No additional information not addressed in HPI [] GI: Denies abdominal pain. + nausea. No vomiting, bloody stools or diarrhea [] : Denies dysuria or hematuria [] Musculoskeletal: Denies back pain or joint pain [] Current Medications Current Medications Current Medications Medications (Trade) Dose Ordered Sig/Kimberly Start Time Stop Time Status Last Admin Dose Admin Multi-Ingredient Mouthwash/Gargle (Gi Cocktail Single Dose) 15 ml 1X ONCE 02/24/17 08:45 02/24/17 08:46 DC 02/24/17 08:59 15 ML Ondansetron HCl (Zofran Odt) 8 mg 1X ONCE 02/24/17 08:45 02/24/17 08:46 DC 02/24/17 08:49 8 MG Pantoprazole Sodium (Protonix) 40 mg 1X ONCE 02/24/17 08:45 02/24/17 08:46 DC 02/24/17 08:59 40 MG Allergies Allergies Allergies Coded Allergies Type Severity Reaction Last Updated Verified No Known Drug Allergies 07/01/15 No Physical Exam Physical Exam Constitutional: Well developed, well nourished, no acute distress, non-toxic appearance. [] Cardiovascular:Heart rate regular rhythm, no murmur [] Lungs & Thorax: Bilateral breath sounds clear to auscultation [] Abdomen: Bowel sounds normal, soft, no tenderness, no masses, no pulsatile masses. [] Skin: Warm, dry, no erythema, no rash. [] Back: No tenderness, no CVA tenderness. [] Current Patient Data Vital Signs Vital Signs Date Time Temp Pulse Resp B/P (MAP) Pulse Ox O2 Delivery O2 Flow Rate FiO2 02/24/17 08:22 99.5 76 20 188/84 (118) 97 Room Air 99.5 Lab Values Laboratory Tests Test 02/24/17 08:54 Glucose (Fingerstick) 113 mg/dL (70-99) H EKG EKG [] Radiology/Procedures Radiology/Procedures [] Course & Med Decision Making Course & Med Decision Making Patient with undifferentiated nausea. ACS felt to be unlikely given her recent admission for chest pain and recent negative nuclear stress and echo. Patient does not want to have any tests done so we will try supportive treatment for now and have her return with any new or worsening symptoms. Patient's nausea gone with Protonix Zofran and GI cocktail and she is feeling much better and asking to go home. Told to follow with the primary care physician and GI doctor and come back to the ER sooner with any worsening pain fevers vomiting or other general concerns. Patient aware and agreeable with the above plan and verbalized understanding. Dragon Disclaimer Dragon Disclaimer This electronic medical record was generated, in whole or in part, using a voice recognition dictation system. Departure Departure Impression: Primary Impression: Nausea alone Disposition: 01 HOME, SELF-CARE Condition: GOOD Referrals: YASEMIN TORRES MD (PCP) HARPREET CHAVES MD Patient Instructions: Gastritis, Adult Additional Instructions: AVOID ANY NSAIDS INCLUDING IBUPROFEN, ALLEVE, NAPROXEN. FOLLOW WITH YOUR PCP/ GI DOCTOR. COME BACK TO THE ED WITH ANY NEW OR WORSENING SYMPTOMS. THANK YOU! Scripts Omeprazole Magnesium (PRILOSEC OTC) 20 Mg Tablet. 20 MG PO DAILY, #30 TAB Prov: STEPHIE SPIVEY DO 02/24/17 Ondansetron (ZOFRAN ODT) 4 Mg Tab.rapdis 4 MG PO BID Y for NAUSEA/VOMITING, #14 TAB Prov: STEPHIE SPIVEY DO 02/24/17 STEPHIE SPIVEY DO February 24, 2017 08:23
[2017-02-24] MEDS ORDERED: ONDANSETRON ODT 4 MG TAB.RAPDIS. PO ONE (08:45)
[2017-02-24] MEDS ORDERED: LIDO:MAALOX:DONNATAL 1:1:1 15 ML SINGLE DOSE SWSW ONE (08:45)
[2017-02-24] MEDS ORDERED: PANTOPRAZOLE 40 MG TABLET.DR. PO ONE (08:45)
[2017-02-24] MEDS ORDERED: ONDA4TAB10 PO (09:37)
[2017-02-24] MEDS ORDERED: OMEP20TA63 PO (09:37)
== END 2017-02-24 09:58 | disposition home or self-care (01) ==
LOC: ER 08:20
DX: R11.0 Nausea (principal); R11.2 Nausea with vomiting, unspecified; I10 Essential (primary) hypertension
CPT/HCPCS: 82962; 99284; Q0162; 99283

== ENCOUNTER → 2017-05-18 | Outpatient (CLI) | payer OTHER ==
[2017-03-30 09:03] VITALS: BP 176/74
[~2017-05-18] MED LIST changes: +ASPI-612 PO; -ASPI81TA9 PO; -CLOP75TA27 PO; +CLOP75TA57 PO; +COLE3.753 PO; -COLE3.754 PO; -DEXL60CA PO; +DEXL60CA2 PO; +DOCU-109 PO; -ERGO500012 PO; +ERGO500027 PO; +EZET10TA18 PO; -EZET10TA3 PO; +GUAI-107 PO; -GUAI-42 PO; -HYDR-2666 PO; +HYDR-2758 PO; -LEVO500T38 PO; +LEVO500T59 PO; -MAGN400O4 PO; +MAGN400O7 PO; -MELO-150 PO; +MELO15TA23 PO; -OMEG1CAP16 PO; +OMEG1CAP27 PO; +OMEP20TA63 PO; +ONDA4TAB10 PO; -OXYC-244 PO; +OXYC-327 PO
--- NOTE | 2017-05-18 10:57 | RAD ---
Radionuclide gastric emptying study, 05/18/2017: History: Persistent nausea The study was performed utilizing a solid test meal radiolabeled with 2 mCi of technetium 99m sulfur colloid. The time activity curve is relatively flat. The T1/2 was estimated at 480 minutes. IMPRESSION: Markedly delayed gastric emptying
== END | disposition home or self-care (01) ==
LOC: NM 07:41
PROVIDERS: ATTEND Internal Medicine Gastroenterology
DX: K30 Functional dyspepsia (principal); R11.0 Nausea
CPT/HCPCS: 78264; A9541

== ENCOUNTER 2017-07-14 11:10 | Emergency (ER) | payer OTHER ==
[~2017-07-14] VITALS: Ht 149.9 cm; Wt 51.7 kg
[~2017-07-14 11:10] MED LIST changes: -GUAI-107 PO; +GUAI-108 PO
--- NOTE | 2017-07-14 11:14 | PHYS DOC ---
Past Medical History Past Medical History: CAD, Diabetes-Type II, High Cholesterol, Hypertension, Other Additional Past Medical Histor: Daughter unsure of history, patient unsure of current meds Past Surgical History: Appendectomy, Cholecystectomy Alcohol Use: None Drug Use: None Adult General Chief Complaint Chief Complaint: PAIN CONTROL HPI HPI Patient is a 82 year old -[place] female who presents with left-sided back pain. She states this is her chronic pain that she takes Percocet for. She states she doesn't always have to take Percocet but over the last week her left-sided back pain is getting worse and she's been having 2 use her Percocet without any relief. She states it flares up like this she gets a pain shot from her pain clinic. She denies any fevers chills nausea vomiting abdominal pain, dysuria chest pain or shortness of breath. She denies any numbness or tingling in her legs. She denies any recent trauma. She lives with her daughter who is present at bedside. Review of Systems Review of Systems Constitutional: Denies fever or chills [] Eyes: Denies change in visual acuity, redness, or eye pain [] HENT: Denies nasal congestion or sore throat [] Respiratory: Denies cough or shortness of breath [] Cardiovascular: No additional information not addressed in HPI [] GI: Denies abdominal pain, nausea, vomiting, bloody stools or diarrhea [] : Denies dysuria or hematuria [] Musculoskeletal: Positive for back pain Integument: Denies rash or skin lesions [] Neurologic: Denies headache, focal weakness or sensory changes [] Endocrine: Denies polyuria or polydipsia [] Current Medications Current Medications Current Medications Medications (Trade) Dose Ordered Sig/[facility] Start Time Stop Time Status Last Admin Dose Admin Morphine Sulfate 2 mg 1X ONCE 07/14/17 11:45 07/14/17 11:46 UNV Allergies Allergies Allergies Coded Allergies Type Severity Reaction Last Updated Verified No Known Drug Allergies 07/01/15 No Physical Exam Physical Exam Constitutional: Well developed, well nourished, no acute distress, non-toxic appearance. [] HENT: Normocephalic, atraumatic, bilateral external ears normal, oropharynx moist, no oral exudates, nose normal. [] Eyes: PERRLA, EOMI, conjunctiva normal, no discharge. [] Neck: Normal range of motion, no tenderness, supple, no stridor. [] Cardiovascular:Heart rate regular rhythm, no murmur [] Lungs & Thorax: Bilateral breath sounds clear to auscultation [] Abdomen: Bowel sounds normal, soft, no tenderness, no masses, no pulsatile masses. [] Skin: Warm, dry, no erythema, no rash. [] Back: No midline tenderness, tender palpation of the left flank, no CVA tenderness. [] Extremities: No tenderness, no cyanosis, no clubbing, ROM intact, no edema. [] Neurologic: Alert and oriented X 3, normal motor function, normal sensory function, no focal deficits noted. [] Psychologic: Affect normal, judgement normal, mood normal. [] Current Patient Data Vital Signs Vital Signs Date Time Temp Pulse Resp B/P (MAP) Pulse Ox O2 Delivery O2 Flow Rate FiO2 07/14/17 11:30 98.7 69 20 96 Room Air 98.7 EKG EKG [] Radiology/Procedures Radiology/Procedures [] Impressions: Chronic back pain Course & Med Decision Making Course & Med Decision Making Pertinent Labs and Imaging studies reviewed. (See chart for details) Patient does not want any blood work or urinalysis performed this time. She is just requesting a shot. She states she gets shots occasionally. Doesn't sometimes she gets a steroid injection perhaps her pain management physician and her joint. She's not having any shoulder discomfort is all left-sided paraspinal muscle related pain. Get 2 mg IM morphine and is being discharged home. Return precautions given. She is agreeable to the plan and being discharged in stable condition this time. She is to follow-up with primary care physician within the week. Dragon Disclaimer Dragon Disclaimer This electronic medical record was generated, in whole or in part, using a voice recognition dictation system. Departure Departure Impression: Primary Impression: Back pain Disposition: 01 HOME, SELF-CARE Condition: STABLE Referrals: YASEMIN TORRES MD (PCP) Patient Instructions: Chronic Back Pain Additional Instructions: You were seen today for your chronic back pain. I've offered to do urinalysis and lab studies be did not want this performed. You did received 2 mg IM morphine and now being discharged home. Continue your home pain medicines. Return ER if you develop fevers, worsening pain, or other concerns. Please be careful taking Tylenol with your oxycodone prescription as her is Tylenol already in her oxycodone prescription. It sounds like every pill of oxycodone contains 500 mg of Tylenol. You are allowed to take 3,000 mg a day which is 6 tablets of oxycodone. If you take 6 tablets a day of your oxycodone tablets, then you cannot take any additional Tylenol with it. Please follow-up with your primary care physician within the week. Problem Qualifiers Primary Impression: Back pain Back pain location: low back pain Chronicity: chronic Back pain laterality : left Sciatica presence: without sciatica Qualified Codes: M54.5 - Low back pain; G89.29 - Other chronic pain LATIA CARDONA MD Jul 14, 2017 11:14
[2017-07-14 11:30] VITALS: BP 210/91
[2017-07-14] MEDS ORDERED: MORPHINE SULFATE 2 MG/ML DISP.SYRIN. ONE (11:35)
[2017-07-14] MEDS ORDERED: MORPHINE SULFATE 2 MG/ML DISP.SYRIN. IV ONE (12:00)
[2017-07-14] MEDS ORDERED: MORPHINE SULFATE 2 MG/ML DISP.SYRIN. IM ONE (12:15)
== END 2017-07-14 12:20 | disposition home or self-care (01) ==
LOC: ER 11:10
DX: G89.29 Other chronic pain (principal); M54.5 Low back pain; E11.9 Type 2 diabetes mellitus without complications; E78.00 Pure hypercholesterolemia, unspecified; I10 Essential (primary) hypertension; I25.10 Atherosclerotic heart disease of native coronary artery without angina pectoris
CPT/HCPCS: 96372; 99283; J2270

== ENCOUNTER 2017-07-16 08:15 | Emergency (ER) | payer OTHER ==
[~2017-07-16] VITALS: Ht 149.9 cm; Wt 51.7 kg
--- NOTE | 2017-07-16 08:59 | PHYS DOC ---
Past Medical History Past Medical History: CAD, Diabetes-Type II, High Cholesterol, Hypertension, Other Additional Past Medical Histor: Daughter unsure of history, patient unsure of current meds Past Surgical History: Appendectomy, Cholecystectomy Alcohol Use: None Drug Use: None Adult General Chief Complaint Chief Complaint: FLANK PAIN HPI HPI Patient is a 82 year old female presents to the emergency department for the second time in 2 days with c/o left flank pain. Patient denies trauma or injury , denies urinary symptoms. Patient states she normally takes percocet that relieves the pain however the pain medication has not worked. Patient states she had a BM this morning that was normal. Denies abdominal pain, nausea or vomiting. Review of Systems Review of Systems Constitutional: Denies fever or chills [] Eyes: Denies change in visual acuity, redness, or eye pain [] HENT: Denies nasal congestion or sore throat [] Respiratory: Denies cough or shortness of breath [] Cardiovascular: No additional information not addressed in HPI [] GI: Denies abdominal pain, nausea, vomiting, bloody stools or diarrhea [] : Denies dysuria or hematuria [] Musculoskeletal: C/o left flank pain denies joint pain Neurologic: Denies headache, focal weakness or sensory changes [] Endocrine: Denies polyuria or polydipsia [] Current Medications Current Medications Current Medications Medications (Trade) Dose Ordered Sig/[facility] Start Time Stop Time Status Last Admin Dose Admin Fentanyl Citrate (Fentanyl 2ml Vial) 25 mcg 1X ONCE 07/16/17 09:00 07/16/17 09:01 DC 07/16/17 09:36 25 MCG Allergies Allergies Allergies Coded Allergies Type Severity Reaction Last Updated Verified No Known Drug Allergies 07/01/15 No Physical Exam Physical Exam Constitutional: Well developed, well nourished, no acute distress, non-toxic appearance. [] HENT: Normocephalic, atraumatic, bilateral external ears normal, oropharynx moist, no oral exudates, nose normal. [] Eyes: PERRLA, EOMI, conjunctiva normal, no discharge. [] Neck: Normal range of motion, no tenderness, supple, no stridor. [] Cardiovascular:Heart rate regular rhythm, no murmur [] Lungs & Thorax: Bilateral breath sounds clear to auscultation [] Abdomen: Bowel sounds normal, soft, left sided abdominal tenderness, no masses, no pulsatile masses. [] Skin: Warm, dry, no erythema, no rash. [] Back: left back tenderness,left CVA tenderness. [] Extremities: No tenderness, no cyanosis, no clubbing, ROM intact, no edema. [] Neurologic: Alert and oriented X 3, normal motor function, normal sensory function, no focal deficits noted. [] Psychologic: Affect normal, judgement normal, mood normal. [] Current Patient Data Vital Signs Vital Signs Date Time Temp Pulse Resp B/P (MAP) Pulse Ox O2 Delivery O2 Flow Rate FiO2 07/16/17 09:37 58 20 192/80 (117) 98 07/16/17 08:31 98.3 Room Air 98.3 Lab Values Laboratory Tests Test 07/16/17 08:45 07/16/17 09:00 Urine Collection Type U cath Urine Color Yellow Urine Clarity Clear Urine pH 5.5 Urine Specific [place] 1.025 Urine Protein 30 mg/dL (NEG-TRACE) Urine Glucose (UA) Negative mg/dL (NEG) Urine Ketones (Stick) Negative mg/dL (NEG) Urine Blood Negative (NEG) Urine Nitrite Negative (NEG) Urine Bilirubin Negative (NEG) Urine Urobilinogen Dipstick 0.2 mg/dL (0.2 mg/dL) Urine Leukocyte Esterase Negative (NEG) Urine RBC 0 /HPF (0-2) Urine WBC 0 /HPF (0-4) Urine Squamous Epithelial Cells Occ /LPF Urine Bacteria 0 /HPF (0-FEW) Urine Mucus Marked /LPF White Blood Count 10.0 x10^3/uL (4.0-11.0) Red Blood Count 4.53 x10^6/uL (3.50-5.40) Hemoglobin 14.0 g/dL (12.0-15.5) Hematocrit 42.6 % (36.0-47.0) Mean Corpuscular Volume 94 fL (79-100) Mean Corpuscular Hemoglobin 31 pg (25-35) Mean Corpuscular Hemoglobin Concent 33 g/dL (31-37) Red Cell Distribution Width 13.6 % (11.5-14.5) Platelet Count 251 x10^3/uL (140-400) Neutrophils (%) (Auto) 66 % (31-73) Lymphocytes (%) (Auto) 21 % (24-48) L Monocytes (%) (Auto) 10 % (0-9) H Eosinophils (%) (Auto) 1 % (0-3) Basophils (%) (Auto) 1 % (0-3) Neutrophils # (Auto) 6.7 x10^3uL (1.8-7.7) Lymphocytes # (Auto) 2.1 x10^3/uL (1.0-4.8) Monocytes # (Auto) 1.0 x10^3/uL (0.0-1.1) Eosinophils # (Auto) 0.1 x10^3/uL (0.0-0.7) Basophils # (Auto) 0.1 x10^3/uL (0.0-0.2) Sodium Level 143 mmol/L (136-145) Potassium Level 4.0 mmol/L (3.5-5.1) Chloride Level 107 mmol/L (98-107) Carbon Dioxide Level 25 mmol/L (21-32) Anion Gap 11 (6-14) Blood Urea Nitrogen 15 mg/dL (7-20) Creatinine 0.9 mg/dL (0.6-1.0) Estimated GFR (Cockcroft-Gault) 72.2 BUN/Creatinine Ratio 17 (6-20) Glucose Level 102 mg/dL (70-99) H Calcium Level 9.3 mg/dL (8.5-10.1) Total Bilirubin 0.3 mg/dL (0.2-1.0) Aspartate Amino Transferase (AST) 19 U/L (15-37) Alanine Aminotransferase (ALT) 16 U/L (14-59) Alkaline Phosphatase 90 U/L (46-116) Total Protein 7.2 g/dL (6.4-8.2) Albumin 3.3 g/dL (3.4-5.0) L Albumin/Globulin Ratio 0.8 (1.0-1.7) L Laboratory Tests 07/16/17 09:00 Laboratory Tests 07/16/17 09:00 EKG EKG [] Radiology/Procedures Radiology/Procedures [][facility] [address] [place] [address] IMAGING REPORT Signed PATIENT: DANIEL ARMENDARIZ ACCOUNT: [id number] : 1935 LOCATION: ER AGE: 82 SEX: F EXAM STATUS: PRE ER ORD. PHYSICIAN: TRU AGUILAR APRN REASON: left sided abdominal tenderness PROCEDURE: ACUTE ABDOMEN SERIES Indication: Left-sided abdominal pain and back pain. Technique: Abdominal series with PA chest radiograph contains 3 images. Comparison is from December 18, 2007. Findings: There is minimal left basilar opacity. The lungs otherwise are clear. The heart is not enlarged. There is atheromatous disease in the thoracic aorta. There are degenerative changes in the shoulders. Leads overlie the patient. There is no free air. There is no dilated small bowel loop or air-fluid level. Stool burden is increased. There are degenerative changes in the lumbar spine and hips. Impression: 1. Nonobstructive bowel gas pattern. 2. Increased stool in the colon can be a finding of constipation. 3. Left basilar opacity most likely is atelectasis or scarring. Streaky infiltrate cannot be excluded. DICTATED and SIGNED BY: ARVIN LEACH MD DATE: 07/16/17929 CC: TRU AGUILAR APRN; YASEMIN TORRES MD ~ Course & Med Decision Making Course & Med Decision Making Pertinent Labs and Imaging studies reviewed. (See chart for details) CBC, UA, CMP were normal. Patient x-ray noted to have . Nonobstructive bowel gas pattern, Increased stool in the colon can be a finding of constipation, Left basilar opacity most likely is atelectasis or scarring. Streaky infiltrate cannot be excluded. Patient will be encouraged to use Miralax over counter as prescribed. Patient will be provided with norco for severe pain. She was instructed this medication will cause drowsiness do not take if you need to be alert and oriented. Patient agrees with discharge instructions, treatment regimen and followup recommendations. Signs and symptoms to return to the emergency have been provided. [] Dragon Disclaimer Dragon Disclaimer This electronic medical record was generated, in whole or in part, using a voice recognition dictation system. Departure Departure Impression: Primary Impression: Left flank discomfort Additional Impression: Constipation Disposition: HOME, SELF-CARE Condition: STABLE Referrals: YASEMIN TORRES MD (PCP) Patient Instructions: Constipation, Adult, [id number], Flank Pain, Easy-to- Read Additional Instructions: Activity as tolerated. [place] for severe pain and discomfort. This medication will cause drowsiness do not take any be alert and oriented. MiraLAX as prescribed [id number]. This will help facilitate a bowel movement. Drink plenty of fluids Followup with primary care provider in 5-7 days Return to emergency department as needed for signs and symptoms that become worse. Scripts Hydrocodone/Apap 5-325 (NORCO 5-325 TABLET) 1 Each Tablet 1 TAB PO PRN Q6HRS Y for PAIN, #10 TAB 0 Refills Prov: TRU AGUILAR APRN 07/16/17 Problem Qualifiers TRU AGUILAR APRN Jul 16, 2017 08:59
[2017-07-16] MEDS ORDERED: fentaNYL PF VIAL 100 MCG/2 ML VIAL IV ONE (09:00)
[2017-07-16 09:17] LABS: BASO # 0.1 x10^3/uL (0.0-0.2); BASO % 1 % (0-3); EOS % 1 % (0-3); HEMATOCRIT 42.6 % (36.0-47.0); LYMPH # 2.1 x10^3/uL (1.0-4.8); LYMPH % 21 % (24-48); MEAN CORPUSCULAR HEMOGLOBIN 31 pg (25-35); MEAN CORPUSCULAR HGB CONC 33 g/dL (31-37); MEAN CORPUSCULAR VOLUME 94 fL (79-100); MONO % 10 % (0-9); NEUT % 66 % (31-73); PLATELET COUNT 251 x10^3/uL (140-400); RED BLOOD COUNT 4.53 x10^6/uL (3.50-5.40); RED CELL DISTRIBUTION WIDTH 13.6 % (11.5-14.5)
[2017-07-16 09:19] LABS: CALCIUM 9.3 mg/dL (8.5-10.1); CREATININE 0.9 mg/dL (0.6-1.0); GFR 72.2
[2017-07-16 09:31] LABS: ALBUMIN 3.3 g/dL (3.4-5.0); ALBUMIN/GLOBULIN RATIO 0.8 (1.0-1.7); TOTAL BILIRUBIN 0.3 mg/dL (0.2-1.0); TOTAL PROTEIN 7.2 g/dL (6.4-8.2)
--- NOTE | 2017-07-16 09:34 | RAD ---
Indication: Left-sided abdominal pain and back pain. Technique: Abdominal series with PA chest radiograph contains 3 images. Comparison is from December 18, 2007. Findings: There is minimal left basilar opacity. The lungs otherwise are clear. The heart is not enlarged. There is atheromatous disease in the thoracic aorta. There are degenerative changes in the shoulders. Leads overlie the patient. There is no free air. There is no dilated small bowel loop or air-fluid level. Stool burden is increased. There are degenerative changes in the lumbar spine and hips. Impression: 1. Nonobstructive bowel gas pattern. 2. Increased stool in the colon can be a finding of constipation. 3. Left basilar opacity most likely is atelectasis or scarring. Streaky infiltrate cannot be excluded.
[2017-07-16 09:55] LABS: BILIRUBIN,URINE NEGATIVE (NEG); GLUCOSE,URINE NEGATIVE (NEG); NITRITE,URINE NEGATIVE (NEG); PH,URINE 5.5; PROTEIN,URINE 30 mg/dL (NEG-TRACE); UROBILINOGEN,URINE 0.2 mg/dL (0.2 mg/dL)
[2017-07-16 10:05] LABS: BACTERIA,URINE 0 /HPF (0-FEW); RBC,URINE 0 /HPF (0-2); SQUAMOUS EPITHELIAL CELL,UR OCC /LPF; WBC,URINE 0 /HPF (0-4)
[2017-07-16] MEDS ORDERED: HYDR-971 PO (10:31)
[2017-07-16 10:41] VITALS: BP 160/71
== END 2017-07-16 10:48 | disposition home or self-care (01) ==
LOC: ER 08:15
DX: R10.9 Unspecified abdominal pain (principal); K59.00 Constipation, unspecified; E78.00 Pure hypercholesterolemia, unspecified; E11.9 Type 2 diabetes mellitus without complications; I10 Essential (primary) hypertension; I25.10 Atherosclerotic heart disease of native coronary artery without angina pectoris; Z90.49 Acquired absence of other specified parts of digestive tract
CPT/HCPCS: 36415; 74022; 80053; 81001; 85025; 96374; 99285; J3010

== ENCOUNTER → 2017-07-19 | Outpatient (CLI) | payer OTHER ==
[2017-07-16 10:41] VITALS: BP 160/71
[~2017-07-19] MED LIST changes: +BUPIVACAINE MPF 0.25% 10 ML VIAL. ONE; +HYDR-971 PO; +IOHEXOL 180 MG/ML 10 ML VIAL. ONE; +methylPREDNISolone ACETATE 80 MG/ML VIAL. ONE
--- NOTE | 2017-07-19 15:17 | PAIN ---
DATE OF SERVICE: 07/19/2017 DATE OF SERVICE: 07/19/2017 DIAGNOSES: 1. Lumbar radiculopathy with lumbar degenerative disk disease, spinal stenosis. 2. Bilateral shoulder joint pain. HISTORY OF PRESENT ILLNESS: The patient is an 82-year-old female who returns for followup, last seen 03/29/2017. The patient had a lumbar epidural steroid injection as inpatient, reports the pain has decreased by about 50%, but did not last more than about 3 weeks. The patient reports her main complaint today; however, is bilateral shoulder pain, right equal to left, seems to get worse when she is using her walker and putting some weight on her upper extremities. The patient reports constant severe pain in the bilateral shoulders and also in the low back, bilateral lower extremities, radiating in the posterior gluteus and thigh as well as the posterior calves. The patient reports it 10 on a scale of 10 at all times with average, worst and least at 10/10. The patient reports no new motor or sensory deficits, but still significant pain "all over." PHYSICAL EXAMINATION: VITAL SIGNS: Today, the patient's blood pressure 178/83, pulse 61, respirations are 16, temperature 98.0 degrees Fahrenheit, weight is 114 pounds. GENERAL: The patient is awake, alert, oriented, appropriate, very pleasant demeanor. HEENT: Head shows normocephalic, atraumatic. Extraocular movements are intact and symmetrical. Oral cavity shows mucous membranes moist and pink. Dentition is intact. NECK: Shows anterior throat supple without palpable lymphadenopathy noted. Swallow reflex is symmetrical. CHEST: Shows normal on inspection. Breath sounds are clear to auscultation bilaterally. HEART: Shows S1 and S2 clear. No murmurs auscultated. ABDOMEN: Soft, nontender, nondistended. No palpable organomegaly. There is no rebound or guarding demonstrated. BACK: The patient's back shows spine grossly midline, moderate increase in thoracic kyphosis is demonstrated as some mild flattening of lumbar lordotic curvature. Lumbar paraspinous muscle shows some [id number] tenderness with palpation in the lumbar paraspinous muscles bilaterally, but without asymmetry, without radiation. The patient shows good rotation on motion both laterally as well as extension and flexion of lumbar spine without increase in pain. EXTREMITIES: The patient's upper extremities show deep tendon reflexes 2+ in the biceps and triceps tendons with palpation over the acromioclavicular joint, very tender with both anterior and posterior palpation, mostly anterior bilaterally, right and left, essentially equal, very tender, also with abduction of the shoulders away from the body about 45 degrees, significant pain reported with this as well as with resistance the pain increases even further bilaterally. Upper extremity pulses are 2+ in radial distribution. Options were discussed with the patient. At this time, the patient's old chart was reviewed as her current medication regimen updated. Current review of systems updated today as well and we will proceed with bilateral acromioclavicular joint injection with fluoroscopic guidance. Risks were again discussed including, but not limited to bleeding, infection, possibility of intravascular injection sequelae, spread of local anesthetic and numbness, side effects of steroid medication and poor results regarding pain control. The patient understands and wishes to proceed. The patient will return to clinic in approximately 2 weeks for followup, was counseled as to return appointment, activity level and side effects to be aware of. DIAGNOSIS: Bilateral shoulder joint pain and acromioclavicular joints. PROCEDURES: Bilateral acromioclavicular joint injection using C-arm fluoroscopic guidance under sterile prep and drape using local anesthetic. MEDICATIONS INJECTED: A total of 4 mL of 0.25% bupivacaine total of 80 mg Depo-Medrol and 2 mL of Isovue for contrast. CONDITION AT DISCHARGE: Stable. The patient tolerated procedure well, had no complications. EKATERINA COTTON MD DR: EL/yrn JOB#: [id number] / [id number]
== END | disposition home or self-care (01) ==
LOC: PNCL 09:11
PROVIDERS: ATTEND Anesthesiology
DX: M25.511 Pain in right shoulder (principal); M25.512 Pain in left shoulder; M51.16 Intervertebral disc disorders with radiculopathy, lumbar region; M48.061 Spinal stenosis, lumbar region without neurogenic claudication; E78.00 Pure hypercholesterolemia, unspecified; I10 Essential (primary) hypertension; K21.9 Gastro-esophageal reflux disease without esophagitis; M19.91 Primary osteoarthritis, unspecified site; E11.9 Type 2 diabetes mellitus without complications; F41.9 Anxiety disorder, unspecified; Z87.39 Personal history of other diseases of the musculoskeletal system and connective tissue; Z90.49 Acquired absence of other specified parts of digestive tract; Z82.49 Family history of ischemic heart disease and other diseases of the circulatory system; Z86.39 Personal history of other endocrine, nutritional and metabolic disease
CPT/HCPCS: 20605; J1040; J3490

== ENCOUNTER → 2017-07-26 | Outpatient (CLI) | payer OTHER ==
[2017-07-16 10:41] VITALS: BP 160/71
[~2017-07-26] MED LIST changes: -BUPIVACAINE MPF 0.25% 10 ML VIAL. ONE; +OXYC-323 PO; +methylPREDNISolone ACETATE 40 MG/ML VIAL. ONE
--- NOTE | 2017-07-26 18:19 | PAIN ---
DATE OF SERVICE: 07/26/2017 DIAGNOSES: Lumbar radiculopathy with lumbar degenerative disk disease and lumbar spinal stenosis. HISTORY OF PRESENT ILLNESS: The patient is an 82-year-old female who returns for followup status post bilateral acromioclavicular joint injections. She reports near 90% improvement in her shoulders after last injections in the acromioclavicular joints, but her main complaint today is low back pain. We discussed her back pain on her last visit too. She has had an epidural injection in the lumbar spine in March of this year with very good results, but was still returning. The patient reports the pain now is her primary complaint across the low back into the bilateral lower extremities, mostly in the posterior gluteus and posterior thighs becoming more constant and severe in the low back itself. The patient reports no new motor or sensory deficits, no new bowel or bladder incontinence, no new recent injuries or accidents. The patient reports her pain is 10 on a scale of 10 at all times, worse with walking and standing, better with sitting, but it can awaken her from sleep about every 3-4 hours as well. The patient reports no new motor or sensory deficits, no new bowel or bladder incontinence or other complaints. PHYSICAL EXAMINATION: VITAL SIGNS: The patient's blood pressure 137/76, pulse 63, respirations 18, temperature is 98.4 degrees Fahrenheit. Height is 4 feet 11 inches, weighs 105 pounds. GENERAL: The patient is awake, alert, oriented, appropriate, very pleasant demeanor. HEENT: Head shows normocephalic, atraumatic. Extraocular movements are intact and symmetrical. Oral cavity shows mucous membranes moist and pink. Dentition is intact. NECK: Shows anterior throat supple without palpable lymphadenopathy noted. Swallow reflex is symmetrical. CHEST: Shows breath sounds clear to auscultation bilaterally, normal on inspection. HEART: Shows S1 and S2 clear. No murmurs auscultated. ABDOMEN: Soft, nontender, nondistended. BACK: Shows spine grossly in midline. Lumbar paraspinous musculature shows somewhat flattened lumbar lordotic curvature and symmetrical musculature, but with palpation shows some significant tenderness especially in the lower lumbar distribution bilaterally diffusely. The patient shows good rotational motion; however, both laterally as well as extension and flexion without significant pain reported. No tenderness over the sacrum or sacroiliac regions. EXTREMITIES: Lower extremities showed deep tendon reflexes at 1+ in the patellar and tendo calcaneus tendons. Motor exam is strong with approximately 4 on a scale of 5, but equal and symmetrical with dorsiflexion and extension bilaterally. Peripheral pulses are 1+ posterior tibial bilaterally. No peripheral edema is noted. Options were discussed with the patient and the patient's old chart was reviewed as her current medication regimen updated. Current review of systems is updated today as well. We will proceed with a second in this series of lumbar epidural steroid injection today with fluoroscopic guidance. Risks were again discussed including, but not limited to bleeding, infection, possibility of epidural hematoma, subsequent neurologic compromise, dural puncture, headaches, spinal cord and/or nerve damage, side effects of steroid medication and poor results regarding pain control. The patient understands and wishes to proceed. The patient will return to clinic in approximately 2 weeks for followup, was counseled on return appointment, activity level and side effects to be aware of. DIAGNOSIS: Lumbar radiculopathy with lumbar degenerative disk disease, lumbar spinal stenosis. PROCEDURE: Lumbar epidural steroid injection in translaminar approach at the L5-S1 level with C-arm fluoroscopic guidance under sterile prep and drape using local anesthetic. MEDICATION INJECTED: A total of 120 mg Depo-Medrol plus 10 mL of preservative-free normal saline and 2 mL of Isovue for contrast. CONDITION AT DISCHARGE: Stable. The patient tolerated procedure well, had no complications. EKATERINA COTTON MD DR: EL/yrn JOB#: [id number] / [id number]
== END | disposition home or self-care (01) ==
LOC: PNCL 09:19
PROVIDERS: ATTEND Anesthesiology
DX: M51.16 Intervertebral disc disorders with radiculopathy, lumbar region (principal); E78.00 Pure hypercholesterolemia, unspecified; I10 Essential (primary) hypertension; K21.9 Gastro-esophageal reflux disease without esophagitis; M19.91 Primary osteoarthritis, unspecified site; E11.9 Type 2 diabetes mellitus without complications; F41.9 Anxiety disorder, unspecified; Z87.39 Personal history of other diseases of the musculoskeletal system and connective tissue; Z90.49 Acquired absence of other specified parts of digestive tract; Z98.890 Other specified postprocedural states; Z98.51 Tubal ligation status
CPT/HCPCS: 62323; J1030; J1040

== ENCOUNTER 2017-10-19 08:21 | Outpatient (CLI) | payer OTHER ==
[2017-10-19 08:54] LABS: ADD MAN DIFF? NO
[2017-10-19 08:58] LABS: BASO # 0.1 x10^3/uL (0.0-0.2); BASO % 1 % (0-3); EOS # 0.1 x10^3/uL (0.0-0.7); EOS % 1 % (0-3); HEMATOCRIT 42.2 % (36.0-47.0); HEMOGLOBIN 13.8 g/dL (12.0-15.5); LYMPH # 2.3 x10^3/uL (1.0-4.8); LYMPH % 27 % (24-48); MEAN CORPUSCULAR HEMOGLOBIN 31 pg (25-35); MEAN CORPUSCULAR HGB CONC 33 g/dL (31-37); MEAN CORPUSCULAR VOLUME 96 fL (79-100); MONO # 0.9 x10^3/uL (0.0-1.1); MONO % 10 % (0-9); NEUT # 5.3 x10^3uL (1.8-7.7); NEUT % 61 % (31-73); PLATELET COUNT 255 x10^3/uL (140-400); RED CELL DISTRIBUTION WIDTH 13.4 % (11.5-14.5); WHITE BLOOD COUNT 8.7 x10^3/uL (4.0-11.0)
[2017-10-19 09:15] LABS: INR 1.1 (0.8-1.1); PROTHROMBIN TIME PATIENT 13.2 SEC (11.7-14.0)
[2017-10-19] MEDS ORDERED: LIDOCAINE WITH 8.4% SOD BICARB 3 ML DISP.SYRIN. IJ (09:51)
[2017-10-19] MEDS ORDERED: fentaNYL PF VIAL 100 MCG/2 ML VIAL ×2 (10:00→10:32)
[2017-10-19] MEDS ORDERED: ceFAZolin 1GM IVPB FOR OMNI 100 ML IV (10:00)
[2017-10-19] MEDS ORDERED: MIDAZOLAM HCL/PF 2 MG/2 ML VIAL. (10:00)
[2017-10-19] MEDS ORDERED: IOHEXOL 240 MG/ML 50ML VIAL. (10:05)
[2017-10-19] MEDS ORDERED: hydrALAZINE 20 MG/ML VIAL. (10:18)
[2017-10-19] MEDS: hydrALAZINE 20 MG/ML VIAL. IVP ×2 (10:23→10:29)
[2017-10-19] MEDS: fentaNYL PF VIAL 100 MCG/2 ML VIAL IV ×2 (10:30→10:45)
[2017-10-19] MEDS: MIDAZOLAM HCL/PF 2 MG/2 ML VIAL. IV (10:30)
[2017-10-19] MEDS: LIDOCAINE WITH 8.4% SOD BICARB 3 ML DISP.SYRIN. IJ (10:30)
[2017-10-19] MEDS: IOHEXOL 240 MG/ML 50ML VIAL. IJ ×2 (10:30)
== END 2017-10-19 14:20 | disposition home or self-care (01) ==
LOC: INTRAD 08:21
DX: S32.048A Other fracture of fourth lumbar vertebra, initial encounter for closed fracture (principal); X58.XXXA Exposure to other specified factors, initial encounter; Y93.89 Activity, other specified; Y92.89 Other specified places as the place of occurrence of the external cause; Y99.8 Other external cause status; E78.00 Pure hypercholesterolemia, unspecified; I10 Essential (primary) hypertension; K21.9 Gastro-esophageal reflux disease without esophagitis; E11.9 Type 2 diabetes mellitus without complications; F41.9 Anxiety disorder, unspecified; Z98.51 Tubal ligation status; Z98.890 Other specified postprocedural states; Z87.39 Personal history of other diseases of the musculoskeletal system and connective tissue; Z86.39 Personal history of other endocrine, nutritional and metabolic disease
CPT/HCPCS: 22514; 36415; 85025; 85610; 99152; 99153; C1725; J0360; J2250; J3010; Q9966

== ENCOUNTER → 2018-03-11 | Outpatient (CLI) | payer OTHER ==
[~2018-03-11] MED LIST changes: -ACET500T68 PO; -AMIT25TA PO; -AMLO10TA2 PO; -AMLO5TAB2 PO; -AMOX1TAB61 PO; -ASPI-482 PO; -ASPI-612 PO; -ATOR20TA58 PO; -ATORVASTATIN CA80 MG PO; -AZIT250T6 PO; -BISA10SU55 RC; -CEFP200T PO; -CEFT1VIA IM; -CHOL10002 PO; -CITA20TA9 PO; -CLON0.2T PO; -CLOP75TA PO; -CLOP75TA57 PO; -COLE3.753 PO; -CYCL10TA2 PO; -CYCL1DRO EACHEYE; -DEXL60CA2 PO; -DOCU-109 PO; -ERGO500027 PO; -ESOM40CA PO; -EZET10TA18 PO; -GLUC1KIT IM; -GUAI-108 PO; -GUAI5SYR PO; -HYDR-2758 PO; -HYDR-971 PO; -Hydralazine Hcl PO; -IBUP-1027 PO; -IBUP-985 PO; -INSU100I17 SQ; +IOHEXOL 180 MG/ML 10 ML VIAL.; -IOHEXOL 180 MG/ML 10 ML VIAL. ONE; -ISOS30TA4 PO; -ISOS60TA PO; -Isosorbide Mononitrate PO; -LEVO500T59 PO; -LIDO1ADH4 TP; +LIDOCAINE 1% PF 2 ML VIAL.; -LISI-334 PO; -LISI10TA2 PO; -LORA1TAB PO; -LOSA25TA PO; -MAGN400O7 PO; -MELO15TA23 PO; -METF100010 PO; -METF500T3 PO; -METO25TA4 PO; -NAPR500T8 PO; -NITR0.4T SL; -OMEG1CAP27 PO; -OMEG1CAP6 PO; -OMEP20TA63 PO; -ONDA4TAB10 PO; -OXYC-323 PO; -OXYC-327 PO; -OXYC1TAB9 PO; -PANT40TA3 PO; -PANT40TA5 PO; -PRAM0.25 PO; -PRAM0.255 PO; -PRAV80TA2 PO; -ROPI0.5T PO; -SULF1TAB24 PO; -TIZA2CAP PO; -TIZA4TAB PO; -VERA240C2 PO; +methylPREDNISolone ACETATE 40 MG/ML VIAL.; -methylPREDNISolone ACETATE 40 MG/ML VIAL. ONE; +methylPREDNISolone ACETATE 80 MG/ML VIAL.; -methylPREDNISolone ACETATE 80 MG/ML VIAL. ONE
== END | disposition home or self-care (01) ==
LOC: PNCL 10:41
DX: M51.16 Intervertebral disc disorders with radiculopathy, lumbar region (principal); M48.061 Spinal stenosis, lumbar region without neurogenic claudication; Z98.42 Cataract extraction status, left eye; Z98.41 Cataract extraction status, right eye; Z96.1 Presence of intraocular lens; E78.00 Pure hypercholesterolemia, unspecified; I10 Essential (primary) hypertension; Z95.5 Presence of coronary angioplasty implant and graft; G47.30 Sleep apnea, unspecified; Z90.49 Acquired absence of other specified parts of digestive tract; K21.9 Gastro-esophageal reflux disease without esophagitis; Z98.51 Tubal ligation status; Z98.890 Other specified postprocedural states; M19.90 Unspecified osteoarthritis, unspecified site; E11.9 Type 2 diabetes mellitus without complications; F41.9 Anxiety disorder, unspecified; Z82.49 Family history of ischemic heart disease and other diseases of the circulatory system; Z82.0 Family history of epilepsy and other diseases of the nervous system
CPT/HCPCS: 62323; J1030; J1040; Q9965

== ENCOUNTER → 2018-06-27 | Outpatient (CLI) | payer OTHER ==
[2017-12-21 11:00] VITALS: BP 148/56
[~2018-06-27] MED LIST changes: +ACET500T68 PO; +AMIT25TA PO; +AMLO10TA6 PO; +AMLO5TAB7 PO; +AMOX1TAB61 PO; +ASPI-482 PO; +ASPI-612 PO; +ATOR20TA58 PO; +ATORVASTATIN CA80 MG PO; +AZIT250T6 PO; +BISA10SU55 RC; +CEFP200T PO; +CEFT1VIA IM; +CHOL10002 PO; +CITA20TA9 PO; +CLON0.2T PO; +CLOP75TA PO; +CLOP75TA57 PO; +COLE3.753 PO; +CYCL10TA2 PO; +CYCL1DRO EACHEYE; +DEXL60CA2 PO; +DOCU-109 PO; +ERGO500027 PO; +ERYT250T16 PO; +ESOM40CA PO; +EZET10TA18 PO; +GLUC1KIT IM; +GUAI-108 PO; +GUAI5SYR PO; +HYDR-2758 PO; +HYDR-971 PO; +Hydralazine Hcl PO; +IBUP-1027 PO; +IBUP-985 PO; +INSU100I17 SQ; -IOHEXOL 180 MG/ML 10 ML VIAL.; +IOHEXOL 180 MG/ML 10 ML VIAL. ONE; +ISOS30TA4 PO; +ISOS60TA PO; +Isosorbide Mononitrate PO; +LEVO500T59 PO; +LIDO1ADH4 TP; -LIDOCAINE 1% PF 2 ML VIAL.; +LIDOCAINE 2% PF 2ML VIAL. ONE; +LISI-334 PO; +LISI10TA2 PO; +LORA1TAB PO; +LOSA25TA PO; +LOSA25TA5 PO; +MAGN400O7 PO; +MELO15TA23 PO; +METF100010 PO; +METF500T3 PO; +METO25TA4 PO; +NAPR500T8 PO; +NITR0.4T SL; +OMEG1CAP27 PO; +OMEG1CAP6 PO; +OMEP20TA63 PO; +ONDA4TAB10 PO; +OXYC-323 PO; +OXYC-327 PO; +OXYC-411 PO; +PANT40TA3 PO; +PANT40TA5 PO; +PRAM0.25 PO; +PRAM0.255 PO; +PRAV80TA2 PO; +ROPI0.5T PO; +SULF1TAB24 PO; +TIZA2CAP PO; +TIZA4TAB PO; +VERA240C2 PO; -methylPREDNISolone ACETATE 40 MG/ML VIAL.; +methylPREDNISolone ACETATE 40 MG/ML VIAL. ONE; -methylPREDNISolone ACETATE 80 MG/ML VIAL.; +methylPREDNISolone ACETATE 80 MG/ML VIAL. ONE
--- NOTE | 2018-06-27 13:02 | PAIN ---
DATE OF SERVICE: 06/27/2018 PROGRESS NOTE FOR PAIN CLINIC DIAGNOSIS: Lumbar radiculopathy with lumbar degenerative disk disease and lumbar spinal stenosis. HISTORY OF PRESENT ILLNESS: The patient is an 83-year-old female who returns for followup status post lumbar epidural steroid injection x 1 this series, last seen on 03/11/2018. The patient reports she did fairly well with about a 75% improvement after the last injection. The patient reports pain is returning now in the low back itself, in the bilateral lower extremities, slightly worse on the left than the right, in posterior gluteus, posterior thighs and posterior calves with some weakness on the left side with walking. The patient is using a walker to ambulate. The patient reports the pain is a 10 on a scale of 10 at its worst, 9 on average, 8 at its least and is an 8 today. The patient reports it does not awaken her from sleep at night. She was increasing her activity initially after the first injection, doing greater household activities, walking greater distances without significant pain, but is beginning to return now over the past 2 weeks or so. PHYSICAL EXAMINATION: VITAL SIGNS: The patient's blood pressure is 140/60, pulse 61, respirations are 16, temperature is 98.1 degrees Fahrenheit, height is 4 feet 11 inches, weight is 103 pounds. GENERAL: The patient is awake, alert, oriented, appropriate, very pleasant demeanor. HEENT: Head shows normocephalic, atraumatic. Extraocular movements are intact and symmetrical. Oral cavity: Mucous membranes are moist and pink. Dentition is intact. NECK: Shows anterior throat supple without palpable lymphadenopathy noted. Swallow reflex is symmetrical. CHEST: Shows normal on inspection. Breath sounds are clear to auscultation bilaterally. HEART: Shows S1, S2 clear. No murmurs auscultated. ABDOMEN: Soft, nontender, nondistended. No palpable organomegaly is noted. No rebound or guarding demonstrated. BACK: Shows spine grossly in the midline. Slight exaggeration of thoracic kyphosis, mild flattening of lumbar lordotic curvature. Lumbar paraspinous muscle shows symmetrical on inspection, on palpation shows some moderate tenderness diffusely throughout the upper, middle and lower distribution of the paraspinous muscles, but without radiation, without atrophy, hypertrophy. The patient shows good rotational motion of lumbar spine, both laterally as well as extension and flexion. EXTREMITIES: Lower extremities show deep tendon reflexes at 1+ in the patellar and tendo-calcaneus tendons. Motor exam is approximately 4 on a scale of 5 but equal and symmetrical. Peripheral pulses are 1+ posterior tibia. No peripheral edema is noted bilaterally. Options were discussed with the patient. The patient's old chart was reviewed as her current medication regimen updated. Current review of systems updated today as well. We will proceed with a second in the series of lumbar epidural steroid injection today with fluoroscopic guidance. Risks were again discussed including, but not limited to bleeding, infection, possibility of epidural hematoma, subsequent neurologic compromise, dural puncture, headaches, spinal cord and/or nerve damage, side effects of steroid medication and poor results regarding pain control. The patient understands and wished to proceed. The patient will return to the clinic in approximately 2 weeks for followup, was counseled on return appointment, activity level and side effects to be aware of. DIAGNOSIS: Lumbar radiculopathy with lumbar degenerative disk disease and lumbar spinal stenosis. PROCEDURE: Lumbar epidural steroid injection, translaminar approach at the L5-S1 level using C-arm fluoroscopic guidance under sterile prep and drape using local anesthetic. MEDICATION INJECTED: A total of 120 mg Depo-Medrol plus 10 mL of preservative-free normal saline and 2 mL of Isovue for contrast. CONDITION AT DISCHARGE: Stable. The patient tolerated the procedure well, had no complications. EKATERINA COTTON MD DR: EL/yrn JOB#: [id number] / [id number]
== END | disposition home or self-care (01) ==
LOC: PNCL 08:30
PROVIDERS: ATTEND Anesthesiology
DX: M51.16 Intervertebral disc disorders with radiculopathy, lumbar region (principal); M48.061 Spinal stenosis, lumbar region without neurogenic claudication
CPT/HCPCS: 62323; J1030; J1040; J2001; Q9965

== ENCOUNTER → 2018-12-19 | Outpatient (CLI) | payer OTHER ==
[2018-08-27 10:38] VITALS: BP 162/65
[~2018-12-19] MED LIST changes: -AMLO10TA6 PO; +AMLO10TA8 PO; +AMLO5TAB10 PO; -AMLO5TAB7 PO; -HYDR-2758 PO; +HYDR-2761 PO; +HYDR-2869 PO; +HYDR-3164 PO; -HYDR-971 PO; -LIDOCAINE 2% PF 2ML VIAL. ONE; -LOSA25TA5 PO; +LOSA25TA54 PO; -OXYC-323 PO; -OXYC-327 PO; +OXYC1TAB15 PO; +OXYC1TAB19 PO
--- NOTE | 2018-12-19 21:17 | PAIN ---
DATE OF SERVICE: 12/19/2018 PROGRESS NOTE FOR PAIN CLINIC DIAGNOSES: Lumbar radiculopathy with lumbar degenerative disk disease and lumbar spinal stenosis. HISTORY OF PRESENT ILLNESS: The patient is an 83-year-old female who returns for followup status post lumbar epidural steroid injection, last seen 06/27/2018. The patient did very well with this after the injection with about 75% improvement in the low back, bilateral lower extremities. The patient reports it is returning over the past month or so in the low back, bilateral lower extremities, right and left, essentially equal some days, one worse than the other, much worse in the morning, which is first getting up. The patient reports it is constant, becoming more severe, more sharp. The patient reports her pain is a 10 on scale of 10 at its worst, 6 on average and a 4 at its least and is a 6 today. The patient reports no new motor or sensory deficits and no new bowel or bladder incontinence or other complaints but still significant pain with ambulation, especially. The patient reports it awakens her from sleep at night about every 4 hours and prior to that, she was doing great with distance walking, able to do household activities and sleeping much better. She is still using her walker and has it with her today. PHYSICAL EXAMINATION: VITAL SIGNS: The patient's blood pressure 138/60, pulse 68, respirations 18 and temperature 98.4 degrees Fahrenheit. Height is 4 feet 11 inches and weighs 106 pounds. GENERAL: The patient is awake, alert, oriented, appropriate and very pleasant demeanor. HEENT: Head shows normocephalic and atraumatic. Extraocular movements are intact and symmetrical. Oral cavity: Mucous membranes moist and pink. Dentition is intact. NECK: Shows anterior throat supple without palpable lymphadenopathy noted. Swallow reflex symmetrical. CHEST: Shows normal on inspection. Breath sounds clear to auscultation bilaterally. HEART: Shows S1 and S2 clear. No murmurs auscultated. ABDOMEN: Soft, nontender and nondistended. No palpable organomegaly is noted. No rebound or guarding demonstrated. BACK: Shows spine grossly in the midline. Slight exaggeration of the thoracic kyphosis and some minor flattening of the lumbar lordotic curvature. Lumbar paraspinous muscle shows symmetrical on inspection, with palpation shows some moderate tenderness diffusely bilaterally, but only diffusely without radiation. The patient has good rotational motion of the lumbar spine, both laterally as well as extension and flexion without difficulty. EXTREMITIES: Lower extremities show deep tendon reflexes at 1+ in the patellar and tendo-calcaneus tendons are equal. Motor exam is strong with 4/5 dorsiflexion, extension and symmetrical and equal bilaterally. Peripheral pulses are 1+ posterior tibial. No peripheral edema is noted bilaterally. Options were discussed with the patient. The patient's old chart was reviewed as well as her current medication regimen updated. Current review of systems updated today as well and we will proceed with a lumbar epidural steroid injection, the first in this series with fluoroscopic guidance. Risks were again discussed including, but not limited to bleeding, infection, possibility of epidural hematoma and subsequent neurological compromise, dural puncture, headaches, spinal cord and/or nerve damage, side effects of steroid medication and poor results regarding pain control. The patient understands and wished to proceed. The patient will return to the clinic in approximately 2 weeks for followup, was counseled as to return appointment, activity level and side effects to be aware of. DIAGNOSES: Lumbar radiculopathy with lumbar degenerative disk disease and lumbar spinal stenosis. PROCEDURE: Lumbar epidural steroid injection, translaminar approach at L5-S1 level using C-arm fluoroscopic guidance under sterile prep and drape using local anesthetic. MEDICATION INJECTED: A total of 120 mg Depo-Medrol plus 10 mL of preservative-free normal saline and 2 mL of Isovue for contrast. CONDITION AT DISCHARGE: Stable. The patient tolerated the procedure well and had no complications. EKATERINA COTTON MD DR: EL/yrn JOB#: [id number] / [id number]
== END | disposition home or self-care (01) ==
LOC: PNCL 10:34
PROVIDERS: ATTEND Anesthesiology
DX: M51.16 Intervertebral disc disorders with radiculopathy, lumbar region (principal); M48.061 Spinal stenosis, lumbar region without neurogenic claudication
CPT/HCPCS: 62323; J1030; J1040; Q9965

== ENCOUNTER 2019-01-07 12:52 | Inpatient (IN) | payer OTHER ==
[~2019-01-07] VITALS: Ht 149.9 cm; Wt 49.5 kg
[~2019-01-07 12:52] MED LIST changes: -HYDR-2869 PO; -IOHEXOL 180 MG/ML 10 ML VIAL. ONE; -methylPREDNISolone ACETATE 40 MG/ML VIAL. ONE; -methylPREDNISolone ACETATE 80 MG/ML VIAL. ONE
[2019-01-07] MEDS ORDERED: fentaNYL PF VIAL 100 MCG/2 ML VIAL IV ONE (14:45)
[2019-01-07] MEDS ORDERED: ONDANSETRON PF 4 MG/2 ML VIAL. IV ONE (14:45)
[2019-01-07] MEDS ORDERED: FAMOTIDINE 20 MG/2 ML VIAL IVP ONE (14:45)
[2019-01-07] MEDS ORDERED: IV NORMAL SALINE 1000ML BAG 1,000 ML IV ONE (14:45)
--- NOTE | 2019-01-07 15:03 | EKG ---
[facility] [address] [place] [address] Test Date: 2019-01-07 Test Time: 14:44:07 Pat Name: DANIEL ARMENDARIZ Department: Room: Gender: F [employer]: : 1935 Requested By: EMANI GREENE Order Number: [id number] Reading MD: Ruddy Chan MD Measurements Intervals [place] Rate: 61 P: 54 FL: 122 QRS: 2 QRSD: 78 T: 68 QT: 480 QTc: 485 Interpretive Statements SINUS RHYTHM ANTERIOR/LATERAL ISCHEMIA POSSIBLE Electronically Signed On 01-15-2019 9:05:16 CDT by Ruddy Chan MD
[2019-01-07 15:24] LABS: BASO # 0.1 x10^3/uL (0.0-0.2); BASO % 1 % (0-3); EOS % 0 % (0-3); HEMATOCRIT 41.8 % (36.0-47.0); HEMOGLOBIN 13.6 g/dL (12.0-15.5); LYMPH % 18 % (24-48); MEAN CORPUSCULAR HEMOGLOBIN 31 pg (25-35); MEAN CORPUSCULAR HGB CONC 33 g/dL (31-37); MEAN CORPUSCULAR VOLUME 96 fL (79-100); MONO # 0.8 x10^3/uL (0.0-1.1); MONO % 7 % (0-9); NEUT # 8.1 x10^3uL (1.8-7.7); NEUT % 74 % (31-73); PLATELET COUNT 263 x10^3/uL (140-400); RED BLOOD COUNT 4.36 x10^6/uL (3.50-5.40); RED CELL DISTRIBUTION WIDTH 12.8 % (11.5-14.5)
[2019-01-07 15:40] LABS: CALCIUM 9.3 mg/dL (8.5-10.1); CREATININE 0.7 mg/dL (0.6-1.0)
[2019-01-07 15:44] LABS: ALBUMIN 3.6 g/dL (3.4-5.0); ALBUMIN/GLOBULIN RATIO 0.9 (1.0-1.7); MAGNESIUM 2.1 mg/dL (1.8-2.4); TOTAL BILIRUBIN 0.3 mg/dL (0.2-1.0); TOTAL PROTEIN 7.4 g/dL (6.4-8.2)
[2019-01-07] MEDS ORDERED: IOHEXOL 300 MG/ML 100ML VIAL. IV ONE ×2 (16:00→16:15)
[2019-01-07] MEDS ORDERED: CONTRAST GIVEN. MC PRN ×2 (16:00)
[2019-01-07 16:04] LABS: CREATINE KINASE 65 U/L (26-192)
--- NOTE | 2019-01-07 16:11 | PHYS DOC ---
Past Medical History Past Medical History: CAD, Diabetes-Type II, High Cholesterol, Hypertension, Other Additional Past Medical Histor: Daughter unsure of history, patient unsure of current meds Past Surgical History: Appendectomy, Cholecystectomy, Other Additional Past Surgical Histo: BACK SX Alcohol Use: None Drug Use: None Adult General Chief Complaint Chief Complaint: abdominal pain [facility] HPI Patient is a 84 year old female who presents with complaining of abdominal pain. Patient complaining of generalized abdominal pain for the last 2-3 days as a constant pain with radiation to her back and associated with nausea. Patient denies denies vomiting, diarrhea, urinary symptom. Patient also complaining of generalized weakness and not feeling good. Patient complaining of shortness of breath and chest pain intermittently. Review of Systems Review of Systems Constitutional: Denies fever or chills [] Eyes: Denies change in visual acuity, redness, or eye pain [] HENT: Denies nasal congestion or sore throat [] Respiratory: Reports shortness of breath Cardiovascular: No additional information not addressed in HPI [] GI: Reports abdominal pain, nausea, denies vomiting, bloody stools or diarrhea [ ] : Denies dysuria or hematuria [] Musculoskeletal: Denies back pain or joint pain [] Integument: Denies rash or skin lesions [] Neurologic: Denies headache, focal weakness or sensory changes [] Endocrine: Denies polyuria or polydipsia [] All other systems were reviewed and found to be within normal limits, except as documented in this note. Current Medications Current Medications Current Medications Medications (Trade) Dose Ordered Sig/Kimberly Start Time Stop Time Status Last Admin Dose Admin Clonidine HCl (Catapres) 0.2 mg QID PRN 01/07/19 17:15 Docusate Sodium (Colace) 100 mg PRN DAILY PRN 01/07/19 17:15 Famotidine (Pepcid Vial) 20 mg 1X ONCE 01/07/19 14:45 01/07/19 14:46 DC 01/07/19 15:33 20 MG Fentanyl Citrate (Fentanyl 2ml Vial) 25 mcg 1X ONCE 01/07/19 14:45 01/07/19 14:46 DC 01/07/19 15:34 25 MCG Info (CONTRAST GIVEN -- Rx MONITORING) 1 each PRN DAILY PRN 01/07/19 16:00 01/09/19 15:59 Iohexol (Omnipaque 300 Mg/ml) 75 ml 1X ONCE 01/07/19 16:15 01/07/19 16:16 DC 01/07/19 16:27 75 ML Morphine Sulfate (Morphine Sulfate) 2 mg PRN Q2HR PRN 01/07/19 17:15 Ondansetron HCl (Zofran) 4 mg 1X ONCE 01/07/19 14:45 01/07/19 14:46 DC 01/07/19 15:34 4 MG Oxycodone/ Acetaminophen (Percocet 10/325) 1 tab PRN Q4HRS PRN 01/07/19 17:15 Oxycodone/ Acetaminophen (Percocet 5/325) 1 tab PRN Q4HRS PRN 01/07/19 17:15 Sodium Chloride 1,000 ml @ 0 mls/hr 1X ONCE 01/07/19 14:45 01/07/19 14:46 DC 01/07/19 15:33 999 MLS/HR Temazepam (Restoril) 7.5 mg PRN QHS PRN 01/07/19 17:15 Allergies Allergies Allergies Coded Allergies Type Severity Reaction Last Updated Verified No Known Drug Allergies 07/01/15 No Physical Exam Physical Exam Constitutional: Well developed, well nourished, mild distress, non-toxic appearance. [] HENT: Normocephalic, atraumatic, oropharynx moist. Eyes: PERRLA, EOMI, conjunctiva normal, no discharge. [] Neck: Normal range of motion, no tenderness, supple, no stridor. [] Cardiovascular:Heart rate regular rhythm, no murmur [] Lungs & Thorax: Bilateral breath sounds clear to auscultation [] Abdomen: Bowel sounds normal, soft, voluntary guarding, no tenderness, no masses , no pulsatile masses. [] Skin: Warm, dry, no erythema, no rash. [] Back: No tenderness, no CVA tenderness. [] Extremities: No tenderness, no cyanosis, no clubbing, ROM intact, no edema. [] Neurologic: Alert and oriented X 3, normal motor function, normal sensory function, no focal deficits noted. [] Psychologic: Affect anxious, judgement normal, mood normal. [] Current Patient Data Vital Signs Vital Signs Date Time Temp Pulse Resp B/P (MAP) Pulse Ox O2 Delivery O2 Flow Rate FiO2 01/07/19 14:25 98.6 64 16 143/63 (89) 97 Room Air 98.6 Lab Values Laboratory Tests Test 01/07/19 15:15 01/07/19 15:30 01/07/19 16:31 White Blood Count 11.0 x10^3/uL (4.0-11.0) Red Blood Count 4.36 x10^6/uL (3.50-5.40) Hemoglobin 13.6 g/dL (12.0-15.5) Hematocrit 41.8 % (36.0-47.0) Mean Corpuscular Volume 96 fL (79-100) Mean Corpuscular Hemoglobin 31 pg (25-35) Mean Corpuscular Hemoglobin Concent 33 g/dL (31-37) Red Cell Distribution Width 12.8 % (11.5-14.5) Platelet Count 263 x10^3/uL (140-400) Neutrophils (%) (Auto) 74 % (31-73) H Lymphocytes (%) (Auto) 18 % (24-48) L Monocytes (%) (Auto) 7 % (0-9) Eosinophils (%) (Auto) 0 % (0-3) Basophils (%) (Auto) 1 % (0-3) Neutrophils # (Auto) 8.1 x10^3uL (1.8-7.7) H Lymphocytes # (Auto) 2.0 x10^3/uL (1.0-4.8) Monocytes # (Auto) 0.8 x10^3/uL (0.0-1.1) Eosinophils # (Auto) 0.0 x10^3/uL (0.0-0.7) Basophils # (Auto) 0.1 x10^3/uL (0.0-0.2) Sodium Level 143 mmol/L (136-145) Potassium Level 4.0 mmol/L (3.5-5.1) Chloride Level 105 mmol/L (98-107) Carbon Dioxide Level 27 mmol/L (21-32) Anion Gap 11 (6-14) Blood Urea Nitrogen 13 mg/dL (7-20) Creatinine 0.7 mg/dL (0.6-1.0) Estimated GFR (Cockcroft-Gault) 96.0 BUN/Creatinine Ratio 19 (6-20) Glucose Level 95 mg/dL (70-99) Calcium Level 9.3 mg/dL (8.5-10.1) Magnesium Level 2.1 mg/dL (1.8-2.4) Total Bilirubin 0.3 mg/dL (0.2-1.0) Aspartate Amino Transferase (AST) 29 U/L (15-37) Alanine Aminotransferase (ALT) 30 U/L (14-59) Alkaline Phosphatase 55 U/L (46-116) Creatine Kinase 65 U/L (26-192) Creatine Kinase MB (Mass) 1.8 ng/mL (0.0-3.6) Creatine Kinase MB Relative Index % (0-4) Troponin I Quantitative < 0.017 ng/mL (0.000-0.055) Total Protein 7.4 g/dL (6.4-8.2) Albumin 3.6 g/dL (3.4-5.0) Albumin/Globulin Ratio 0.9 (1.0-1.7) L Lactic Acid Level 1.4 mmol/L (0.4-2.0) Urine Collection Type Unknown Urine Color Yellow Urine Clarity Clear Urine pH 6.0 Urine Specific [place] >=1.030 Urine Protein Negative mg/dL (NEG-TRACE) Urine Glucose (UA) Negative mg/dL (NEG) Urine Ketones (Stick) Negative mg/dL (NEG) Urine Blood Negative (NEG) Urine Nitrite Negative (NEG) Urine Bilirubin Negative (NEG) Urine Urobilinogen Dipstick 0.2 mg/dL (0.2 mg/dL) Urine Leukocyte Esterase Small (NEG) Urine RBC Occ /HPF (0-2) Urine WBC 5-10 /HPF (0-4) Urine Squamous Epithelial Cells Mod /LPF Urine Bacteria 0 /HPF (0-FEW) Urine Hyaline Casts Few /HPF Urine Mucus Slight /LPF Laboratory Tests 01/07/19 15:15 Laboratory Tests 01/07/19 15:15 EKG EKG EKG interpreted by me. EKG at 1444 showed normal sinus rhythm at rate of 61, T- wave abnormalities in anterior leads, no acute ST and T-wave abnormalities, prolonged QT at 480. Radiology/Procedures Radiology/Procedures [facility] [address] [place] [address] IMAGING REPORT Signed PATIENT: DANIEL ARMENDARIZ ACCOUNT: [id number] : 1935 LOCATION: ER AGE: 84 SEX: F EXAM STATUS: REG ER ORD. PHYSICIAN: EMANI GREENE MD REASON: abdominal pain, N/V PROCEDURE: CT ABD PELV W/ IV CONTRST ONLY PQRS Compliance Statement: One or more of the following individualized dose reduction techniques were utilized for this examination: 1. Automated exposure control 2. Adjustment of the mA and/or kV according to patient size 3. Use of iterative reconstruction technique CT abdomen/pelvis with contrast 01/07/2019 4:03 PM INDICATION: Abdominal pain, nausea and vomiting COMPARISON: CT pelvis December 18, 2017 TECHNIQUE: Multiple axial CT images of the abdomen and pelvis were obtained after the intravenous administration of 75 mL Omnipaque 300. Coronal and sagittal reformats are provided. FINDINGS: Interstitial changes are identified at the lung bases, likely subsegmental atelectasis. Heart size is within normal limits. There is a 3 mm hypoattenuating lesion in the inferior right hepatic lobe, segment is statistically favored to represent a simple cyst. There is a 10 mm cyst in segments VII. Portal venous system is patent. Gallbladder surgically absent. Mild intrahepatic and extrahepatic bladder ductal dilatation is likely reservoir effect status post cholecystectomy. Spleen is nonenlarged. Fusiform thickening of the adrenal glands may reflect adrenal hyperplasia. Pancreas is normal in appearance. Abdominal aorta is ectatic measuring up to 15 mm. Dense calcified atherosclerotic plaque is identified in the abdominal aorta. There are no pathologically enlarged lymph nodes in abdomen and pelvis. There is no free fluid or free intraperitoneal air. Subcentimeter renal cortical lesions are too small to characterize and statistically favored represent simple cysts. There is an indeterminate hypoattenuating lesion in the medial interpolar left kidney which measures 10 mm. This may be further assessed with ultrasound. There is moderate colonic diverticulosis. No adjacent plantar changes are identified. Appendix is not definitively visualized. No pericecal inflammatory changes are identified. Urinary bladder is within normal limits given degree of distention. 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 No suspicious adnexal masses are identified. There is a treated compression deformity involving L4. No suspicious osseous abnormality is identified. IMPRESSION: No acute abnormality is identified within the abdomen and pelvis. Appendix is not visualized, however no pericecal inflammatory changes are identified. Mild intrahepatic and extra hepatic biliary ductal dilatation may be associated with reservoir effect status post cholecystectomy. Fusiform thickening of the adrenal glands bilaterally may reflect adrenal hyperplasia. Moderate colonic diverticulosis without adjacent inflammatory changes. Indeterminate hypoattenuating lesion in the medial interpolar left kidney measures 10 mm. Further assessment with renal ultrasound may be of benefit. Findings statistically favored represent a cyst or a cyst complicated by hemorrhage or protein. Electronically signed by: Sean Dorado MD (01/07/2019 4:37 PM) [id number] DICTATED and SIGNED BY: SEAN DORADO MD DATE: 01/07/19 1637 Course & Med Decision Making Course & Med Decision Making Pertinent Labs and Imaging studies reviewed. (See chart for details) Patient requiring admission for further evaluation and treatment. Discussed with Dr. Whiting who is in agreement with admission. Discussed findings and plan with patient and family, who acknowledge understanding and agreement. Dragon Disclaimer Dragon Disclaimer This electronic medical record was generated, in whole or in part, using a voice recognition dictation system. Departure Departure Impression: Primary Impression: Abdominal pain Additional Impression: UTI (urinary tract infection) Disposition: ADMITTED INPATIENT (at 1705) Admitting Physician: Roya Whiting (accepted admission at 1703) Condition: IMPROVED Referrals: YASEMIN TORRES MD (PCP) Problem Qualifiers EMANI GREENE MD Jan 07, 2019 16:11
--- NOTE | 2019-01-07 16:40 | RAD ---
PQRS Compliance Statement: One or more of the following individualized dose reduction techniques were utilized for this examination: 1. Automated exposure control 2. Adjustment of the mA and/or kV according to patient size 3. Use of iterative reconstruction technique CT abdomen/pelvis with contrast 01/07/2019 4:03 PM INDICATION: Abdominal pain, nausea and vomiting COMPARISON: CT pelvis December 18, 2017 TECHNIQUE: Multiple axial CT images of the abdomen and pelvis were obtained after the intravenous administration of 75 mL Omnipaque 300. Coronal and sagittal reformats are provided. FINDINGS: Interstitial changes are identified at the lung bases, likely subsegmental atelectasis. Heart size is within normal limits. There is a 3 mm hypoattenuating lesion in the inferior right hepatic lobe, segment is statistically favored to represent a simple cyst. There is a 10 mm cyst in segments VII. Portal venous system is patent. Gallbladder surgically absent. Mild intrahepatic and extrahepatic bladder ductal dilatation is likely reservoir effect status post cholecystectomy. Spleen is nonenlarged. Fusiform thickening of the adrenal glands may reflect adrenal hyperplasia. Pancreas is normal in appearance. Abdominal aorta is ectatic measuring up to 15 mm. Dense calcified atherosclerotic plaque is identified in the abdominal aorta. There are no pathologically enlarged lymph nodes in abdomen and pelvis. There is no free fluid or free intraperitoneal air. Subcentimeter renal cortical lesions are too small to characterize and statistically favored represent simple cysts. There is an indeterminate hypoattenuating lesion in the medial interpolar left kidney which measures 10 mm. This may be further assessed with ultrasound. There is moderate colonic diverticulosis. No adjacent plantar changes are identified. Appendix is not definitively visualized. No pericecal inflammatory changes are identified. Urinary bladder is within normal limits given degree of distention. 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 No suspicious adnexal masses are identified. There is a treated compression deformity involving L4. No suspicious osseous abnormality is identified. IMPRESSION: No acute abnormality is identified within the abdomen and pelvis. Appendix is not visualized, however no pericecal inflammatory changes are identified. Mild intrahepatic and extra hepatic biliary ductal dilatation may be associated with reservoir effect status post cholecystectomy. Fusiform thickening of the adrenal glands bilaterally may reflect adrenal hyperplasia. Moderate colonic diverticulosis without adjacent inflammatory changes. Indeterminate hypoattenuating lesion in the medial interpolar left kidney measures 10 mm. Further assessment with renal ultrasound may be of benefit. Findings statistically favored represent a cyst or a cyst complicated by hemorrhage or protein. Electronically signed by: Adelaida Knight MD (01/07/2019 4:37 PM) [id number]
[2019-01-07 16:44] LABS: BILIRUBIN,URINE NEGATIVE (NEG); CLARITY,URINE CLEAR; COLOR,URINE YELLOW; NITRITE,URINE NEGATIVE (NEG); PROTEIN,URINE NEGATIVE (NEG-TRACE); UROBILINOGEN,URINE 0.2 mg/dL (0.2 mg/dL)
[2019-01-07 16:51] LABS: HYALINE CASTS, URINE FEW /HPF; SQUAMOUS EPITHELIAL CELL,UR MOD /LPF
[2019-01-07 16:52] LABS: BACTERIA,URINE 0 /HPF (0-FEW); RBC,URINE OCC /HPF (0-2)
[2019-01-07] MEDS ORDERED: TEMAZEPAM 7.5 MG CAPSULE PO PRN (17:15)
[2019-01-07] MEDS ORDERED: oxyCODONE/APAP 10/325 1 TAB TABLET PO PRN (17:15)
[2019-01-07] MEDS ORDERED: MORPHINE SULFATE 2 MG/ML VIAL. IV PRN (17:15)
[2019-01-07] MEDS ORDERED: cloNIDine HCL 0.2 MG TABLET PO PRN (17:15)
[2019-01-07] MEDS ORDERED: DOCUSATE SODIUM 100 MG CAPSULE. PO PRN (17:15)
[2019-01-07] MEDS ORDERED: DEXTROSE 50% 25 GM / 50ML DISP.SYRIN. IV PRN (17:30)
[2019-01-07] MEDS ORDERED: cefTRIAXone IV Push 1 GM VIAL. IVP ONE (17:30)
[2019-01-07] MEDS ORDERED: ACETAMINOPHEN 500 MG TABLET PO PRN (17:30)
--- NOTE | 2019-01-07 18:35 | NUR ---
The patient, DANIEL ARMENDARIZ, 84 y/o, F admitted by DONAVAN BONILLA MD, was given written information regarding hospital policies, unit procedures and contact persons. Valuables were checked and left in patients room with patient.
--- NOTE | 2019-01-07 19:35 | PDOC1 ---
History and Physical Date of Admission Date of Admission DATE: 01/07/19 TIME: 19:32 Identification/Chief Complaint Chief Complaint multiple Complaints, nauseated, poor by mouth 3 days Source Source: Caregiver, Chart review, Patient History of Present Illness History of Present Illness 84-year-old female who lives at home, no assistive device of ambulation, PCP Dr. Ramon German. Multiple complaints mostly nausea discomfort poor by mouth intake 3 days because of nausea and she points to her midsternal chest. Triage note is as follows: :Pt. arrives via POV for c/o chronic nausea, upper abdominal pain, bilat leg pain. Pt. states she has medications for both pain and nausea, but they are not working. Her workup at ER including imaging and labs are unremarkable with normal VS. She wanted to be admitted. Admitted OBS Past Medical History Cardiovascular: CAD, HTN, Hyperlipidemia Pulmonary: Other CENTRAL NERVOUS SYSTEM: Other GI: GERD Heme/Onc: No pertinent hx Hepatobiliary: No pertinent hx Psych: Anxiety Musculoskeletal: low back pain, Osteoarthritis Rheumatologic: No pertinent hx Infectious disease: No pertinent hx Renal/: No pertinent hx Endocrine: Diabetes Past Surgical History Past Surgical History: Appendectomy, Cholecystectomy Family History Family History: Heart Disease, Hypertension Social History Smoke: No ALCOHOL: none Drugs: None Current Problem List Problem List Problems Medical Problems: (1) Abdominal pain Status: Acute (2) UTI (urinary tract infection) Status: Acute Current Medications Current Medications Current Medications Sodium Chloride 1,000 ml @ 0 mls/hr 1X ONCE IV Last administered on 01/07/19at 15:33; Start 01/07/19 at 14:45; Stop 01/07/19 at 14:46; Status DC Famotidine (Pepcid Vial) 20 mg 1X ONCE IVP Last administered on 01/07/19at 15:33 ; Start 01/07/19 at 14:45; Stop 01/07/19 at 14:46; Status DC Ondansetron HCl (Zofran) 4 mg 1X ONCE IV Last administered on 01/07/19at 15:34; Start 01/07/19 at 14:45; Stop 01/07/19 at 14:46; Status DC Fentanyl Citrate (Fentanyl 2ml Vial) 25 mcg 1X ONCE IV Last administered on 01/07/19at 15:34; Start 01/07/19 at 14:45; Stop 01/07/19 at 14:46; Status DC Iohexol (Omnipaque 300 Mg/ml) 75 ml 1X ONCE IV ; Start 01/07/19 at 16:00; Stop 01/07/19 at 16:01; Status DC Info (CONTRAST GIVEN -- Rx MONITORING) 1 each PRN DAILY PRN MC SEE COMMENTS; Start 01/07/19 at 16:00; Stop 01/09/19 at 15:59; Status Cancel Iohexol (Omnipaque 300 Mg/ml) 75 ml 1X ONCE IV Last administered on 01/07/19at 16:27; Start 01/07/19 at 16:15; Stop 01/07/19 at 16:16; Status DC Info (CONTRAST GIVEN -- Rx MONITORING) 1 each PRN DAILY PRN MC SEE COMMENTS; Start 01/07/19 at 16:00; Stop 01/09/19 at 15:59 Morphine Sulfate (Morphine Sulfate) 2 mg PRN Q2HR PRN IV PAIN; Start 01/07/19 at 17:15 Temazepam (Restoril) 7.5 mg PRN QHS PRN PO INSOMNIA; Start 01/07/19 at 17:15 Oxycodone/ Acetaminophen (Percocet 5/325) 1 tab PRN Q4HRS PRN PO PAIN; Start at 17:15 Amlodipine Besylate (Norvasc) 10 mg DAILY PO ; Start 01/08/19 at 09:00 Aspirin (Ecotrin) 81 mg DAILY PO ; Start 01/08/19 at 09:00 Atorvastatin Calcium (Lipitor) 20 mg HS PO ; Start 01/07/19 at 21:00 Clonidine HCl (Catapres) 0.2 mg QID PRN PO ELEVATED BP, SEE COMMENTS; Start 01/07/19 at 17:15 Docusate Sodium (Colace) 100 mg PRN DAILY PRN PO CONSTIPATION; Start 01/07/19 at 17:15 Isosorbide Mononitrate (Imdur) 60 mg DAILY PO ; Start 01/08/19 at 09:00 Losartan Potassium (Cozaar) 100 mg DAILY PO ; Start 01/08/19 at 09:00 Metoprolol Tartrate (Lopressor) 25 mg BID PO ; Start 01/07/19 at 21:00 Oxycodone/ Acetaminophen (Percocet 10/325) 1 tab PRN Q4HRS PRN PO PAIN; Start 01/07/19 at 17:15 Pantoprazole Sodium (Protonix) 40 mg BIDAC PO ; Start 01/07/19 at 18:00 Erythromycin (E-Mycin) 250 mg QIDACHS PO ; Start 01/07/19 at 21:00 Metformin HCl (Glucophage Xr) 1,000 mg DAILYWBKFT PO ; Start 01/08/19 at 08:00 Hydralazine HCl (Apresoline) 50 mg TID PO ; Start 01/07/19 at 21:00 Insulin Human Lispro (HumaLOG) 0-9 UNITS TIDWMEALS SQ ; Start 01/08/19 at 08:00 Dextrose (Dextrose 50%-Water Syringe) 12.5 gm PRN Q15MIN PRN IV SEE COMMENTS; Start 01/07/19 at 17:30 Acetaminophen (Tylenol) 500 mg PRN Q6HRS PRN PO MILD PAIN / TEMP; Start at 17:30 Ondansetron HCl (Zofran) 4 mg PRN Q6HRS PRN IV NAUSEA/VOMITING; Start 01/07/19 at 17:30 Ceftriaxone Sodium (Rocephin) 1 gm 1X ONCE IVP Last administered on 01/07/19at 18:27; Start 01/07/19 at 17:30; Stop 01/07/19 at 17:31; Status DC Active Scripts Active Oxycodone-Acetaminophen 10-325 (Oxycodone Hcl/Acetaminophen) 1 Each Tablet 1 Tab PO Q4HRS PRN Colace (Docusate Sodium) 100 Mg Capsule 100 Mg PO PRN DAILY PRN Aspirin Ec (Aspirin) 81 Mg Tablet.dr 81 Mg PO DAILY Isosorbide Mononitrate Er (Isosorbide Mononitrate) 30 Mg Tab.er.24h 60 Mg PO DAILY Metoprolol Tartrate 25 Mg Tablet 25 Mg PO BID [Hydralazine Hcl] 50 MG Tablet 50 Mg PO TID Reported Alek-Tab (Erythromycin Base) 250 Mg Tablet.dr 250 Mg PO QID Losartan Potassium (Losartan Potassium) 25 Mg Tablet 100 Mg PO DAILY Clonidine Hcl 0.2 Mg Tablet 0.2 Mg PO PRN PRN Atorvastatin Calcium 20 Mg Tablet 20 Mg PO HS Metformin Hcl Er (Metformin Hcl) 1,000 Mg Tab.er.24 1,000 Mg PO DAILYWBKFT Amlodipine Besylate 10 Mg Tablet 10 Mg PO DAILY Restasis (Cyclosporine) 1 Each Droperette 1 Drop EACHEYE BID Pantoprazole Sodium 40 Mg Tablet.dr 1 Tab PO BID LAST DOSE GIVEN: DATE: 08-09-15 TIME: 9 AM NEXT DOSE DUE: DATE: 08-10-15 TIME: 9 AM Allergies Allergies: Coded Allergies: No Known Drug Allergies (Unverified , 07/01/15) ROS Review of System back pain, nausea, midsternal chest pain, some anxiety Physical Exam General: Alert, Oriented X3, Cooperative, No acute distress HEENT: Atraumatic, PERRLA, EOMI Lungs: Clear to auscultation, Normal air movement Heart: S1S2, RRR, no thrills, no rubs, no gallops, no murmurs Cardiovascular: S1, S2 Breasts: Normal, Rt breast nml w/o mass, Lt breast nml w/o mass, Nipples normal Abdomen: Normal bowel sounds, Soft, No tenderness, No hepatosplenomegaly, No masses Rectal Exam: not examined PELVIC: Nml ext genitalia Extremities: No clubbing, No cyanosis, No edema, Normal pulses, No tenderness/ swelling Skin: No rashes, No breakdown, No significant lesion Neuro: Normal gait, Normal speech, Strength at 5/5 X4 ext, Normal tone, Sensation intact, Cranial nerves 3-12 NL, Reflexes 2+ Psych/Mental Status: Mental status NL, Mood NL Vitals Vitals Vital Signs Date Time Temp Pulse Resp B/P (MAP) Pulse Ox O2 Delivery O2 Flow Rate FiO2 01/07/19 17:42 66 16 140/65 (90) 98 Room Air 01/07/19 14:25 98.6 98.6 Labs Labs Laboratory Tests Test 01/07/19 15:15 01/07/19 15:30 01/07/19 16:31 White Blood Count 11.0 x10^3/uL (4.0-11.0) Red Blood Count 4.36 x10^6/uL (3.50-5.40) Hemoglobin 13.6 g/dL (12.0-15.5) Hematocrit 41.8 % (36.0-47.0) Mean Corpuscular Volume 96 fL (79-100) Mean Corpuscular Hemoglobin 31 pg (25-35) Mean Corpuscular Hemoglobin Concent 33 g/dL (31-37) Red Cell Distribution Width 12.8 % (11.5-14.5) Platelet Count 263 x10^3/uL (140-400) Neutrophils (%) (Auto) 74 % (31-73) Lymphocytes (%) (Auto) 18 % (24-48) Monocytes (%) (Auto) 7 % (0-9) Eosinophils (%) (Auto) 0 % (0-3) Basophils (%) (Auto) 1 % (0-3) Neutrophils # (Auto) 8.1 x10^3uL (1.8-7.7) Lymphocytes # (Auto) 2.0 x10^3/uL (1.0-4.8) Monocytes # (Auto) 0.8 x10^3/uL (0.0-1.1) Eosinophils # (Auto) 0.0 x10^3/uL (0.0-0.7) Basophils # (Auto) 0.1 x10^3/uL (0.0-0.2) Sodium Level 143 mmol/L (136-145) Potassium Level 4.0 mmol/L (3.5-5.1) Chloride Level 105 mmol/L (98-107) Carbon Dioxide Level 27 mmol/L (21-32) Anion Gap 11 (6-14) Blood Urea Nitrogen 13 mg/dL (7-20) Creatinine 0.7 mg/dL (0.6-1.0) Estimated GFR (Cockcroft-Gault) 96.0 BUN/Creatinine Ratio 19 (6-20) Glucose Level 95 mg/dL (70-99) Calcium Level 9.3 mg/dL (8.5-10.1) Magnesium Level 2.1 mg/dL (1.8-2.4) Total Bilirubin 0.3 mg/dL (0.2-1.0) Aspartate Amino Transf (AST/SGOT) 29 U/L (15-37) Alanine Aminotransferase (ALT/SGPT) 30 U/L (14-59) Alkaline Phosphatase 55 U/L (46-116) Creatine Kinase 65 U/L (26-192) Creatine Kinase MB (Mass) 1.8 ng/mL (0.0-3.6) Creatine Kinase MB Relative Index % (0-4) Troponin I Quantitative < 0.017 ng/mL (0.000-0.055) Total Protein 7.4 g/dL (6.4-8.2) Albumin 3.6 g/dL (3.4-5.0) Albumin/Globulin Ratio 0.9 (1.0-1.7) Lactic Acid Level 1.4 mmol/L (0.4-2.0) Urine Collection Type Unknown Urine Color Yellow Urine Clarity Clear Urine pH 6.0 Urine Specific [place] >=1.030 Urine Protein Negative mg/dL (NEG-TRACE) Urine Glucose (UA) Negative mg/dL (NEG) Urine Ketones (Stick) Negative mg/dL (NEG) Urine Blood Negative (NEG) Urine Nitrite Negative (NEG) Urine Bilirubin Negative (NEG) Urine Urobilinogen Dipstick 0.2 mg/dL (0.2 mg/dL) Urine Leukocyte Esterase Small (NEG) Urine RBC Occ /HPF (0-2) Urine WBC 5-10 /HPF (0-4) Urine Squamous Epithelial Cells Mod /LPF Urine Bacteria 0 /HPF (0-FEW) Urine Hyaline Casts Few /HPF Urine Mucus Slight /LPF Laboratory Tests Test 01/07/19 15:15 01/07/19 15:30 01/07/19 16:31 White Blood Count 11.0 x10^3/uL (4.0-11.0) Red Blood Count 4.36 x10^6/uL (3.50-5.40) Hemoglobin 13.6 g/dL (12.0-15.5) Hematocrit 41.8 % (36.0-47.0) Mean Corpuscular Volume 96 fL (79-100) Mean Corpuscular Hemoglobin 31 pg (25-35) Mean Corpuscular Hemoglobin Concent 33 g/dL (31-37) Red Cell Distribution Width 12.8 % (11.5-14.5) Platelet Count 263 x10^3/uL (140-400) Neutrophils (%) (Auto) 74 % (31-73) Lymphocytes (%) (Auto) 18 % (24-48) Monocytes (%) (Auto) 7 % (0-9) Eosinophils (%) (Auto) 0 % (0-3) Basophils (%) (Auto) 1 % (0-3) Neutrophils # (Auto) 8.1 x10^3uL (1.8-7.7) Lymphocytes # (Auto) 2.0 x10^3/uL (1.0-4.8) Monocytes # (Auto) 0.8 x10^3/uL (0.0-1.1) Eosinophils # (Auto) 0.0 x10^3/uL (0.0-0.7) Basophils # (Auto) 0.1 x10^3/uL (0.0-0.2) Sodium Level 143 mmol/L (136-145) Potassium Level 4.0 mmol/L (3.5-5.1) Chloride Level 105 mmol/L (98-107) Carbon Dioxide Level 27 mmol/L (21-32) Anion Gap 11 (6-14) Blood Urea Nitrogen 13 mg/dL (7-20) Creatinine 0.7 mg/dL (0.6-1.0) Estimated GFR (Cockcroft-Gault) 96.0 BUN/Creatinine Ratio 19 (6-20) Glucose Level 95 mg/dL (70-99) Calcium Level 9.3 mg/dL (8.5-10.1) Magnesium Level 2.1 mg/dL (1.8-2.4) Total Bilirubin 0.3 mg/dL (0.2-1.0) Aspartate Amino Transf (AST/SGOT) 29 U/L (15-37) Alanine Aminotransferase (ALT/SGPT) 30 U/L (14-59) Alkaline Phosphatase 55 U/L (46-116) Creatine Kinase 65 U/L (26-192) Creatine Kinase MB (Mass) 1.8 ng/mL (0.0-3.6) Creatine Kinase MB Relative Index % (0-4) Troponin I Quantitative < 0.017 ng/mL (0.000-0.055) Total Protein 7.4 g/dL (6.4-8.2) Albumin 3.6 g/dL (3.4-5.0) Albumin/Globulin Ratio 0.9 (1.0-1.7) Lactic Acid Level 1.4 mmol/L (0.4-2.0) Urine Collection Type Unknown Urine Color Yellow Urine Clarity Clear Urine pH 6.0 Urine Specific [place] >=1.030 Urine Protein Negative mg/dL (NEG-TRACE) Urine Glucose (UA) Negative mg/dL (NEG) Urine Ketones (Stick) Negative mg/dL (NEG) Urine Blood Negative (NEG) Urine Nitrite Negative (NEG) Urine Bilirubin Negative (NEG) Urine Urobilinogen Dipstick 0.2 mg/dL (0.2 mg/dL) Urine Leukocyte Esterase Small (NEG) Urine RBC Occ /HPF (0-2) Urine WBC 5-10 /HPF (0-4) Urine Squamous Epithelial Cells Mod /LPF Urine Bacteria 0 /HPF (0-FEW) Urine Hyaline Casts Few /HPF Urine Mucus Slight /LPF VTE Prophylaxis Ordered VTE Prophylaxis Devices: Yes VTE Pharmacological Prophylaxi: Yes Assessment/Plan Assessment/Plan Nausea, history of GERD with normal electrolytes and she ate a full regular diet this dinner Chronic back pain Anxiety NOS Hypertension chronic stable NO UTI - WBC 5-10 only with neg nitrites or leukocytes esterase PLAN: I have reconciled home meds Regular diet, supportive emds, anti nausea meds etc Home tomorrow OBS DONAVAN BONILLA MD Jan 07, 2019 19:35
[2019-01-07] MEDS: ERYTHROMYCIN BASE 250 MG TABLET PO SCH (20:45)
[2019-01-07] MEDS: ATORVASTATIN CALCIUM 20 MG TABLET PO SCH (20:45)
[2019-01-07] MEDS: PANTOPRAZOLE 40 MG TABLET.DR. PO SCH (20:45)
[2019-01-07] MEDS: METOPROLOL TART IMMED RELEASE 25 MG TABLET. PO SCH (20:46)
[2019-01-07 22:53] VITALS: BP 129/56
[2019-01-08] VITALS (7 sets, daily range): BP systolic 81–166; BP diastolic 35–72
[2019-01-08] MEDS: oxyCODONE/APAP 5/325 1 TAB TABLET PO PRN ×2 (03:55→09:07)
[2019-01-08] MEDS: INSULIN LISPRO 300 UNITS/3 ML INSULN.PEN. SQ SCH ×3 (08:00→17:00)
[2019-01-08] MEDS: ISOSORBIDE MONONITRATE ER 30 MG TAB.ER.24H PO SCH (08:56)
[2019-01-08] MEDS: ERYTHROMYCIN BASE 250 MG TABLET PO SCH ×4 (08:58→20:37)
[2019-01-08] MEDS: ASPIRIN ENTERIC COATED 81 MG TABLET.DR. PO SCH (08:58)
[2019-01-08] MEDS: METOPROLOL TART IMMED RELEASE 25 MG TABLET. PO SCH ×2 (08:59→20:42)
[2019-01-08] MEDS: metFORMIN XR 500 MG TAB.ER.24H PO SCH (09:00)
[2019-01-08] MEDS: PANTOPRAZOLE 40 MG TABLET.DR. PO SCH ×2 (09:00→17:26)
[2019-01-08] MEDS: amLODIPine BESYLATE 10 MG TABLET PO SCH (09:01)
[2019-01-08] MEDS: LOSARTAN POTASSIUM 50 MG TABLET. PO SCH (09:06)
--- NOTE | 2019-01-08 10:50 | PDOC3 ---
Discharge Summary Visit Information Date of Admission: Jan 07, 2019 Date of Discharge: Jan 08, 2019 Admitting Diagnosis Comment: Nausea, history of GERD with normal electrolytes and she ate a full regular diet this dinner Chronic back pain Anxiety NOS Hypertension chronic stable NO UTI - WBC 5-10 only with neg nitrites or leukocytes esterase PLAN: I have reconciled home meds Regular diet, supportive emds, anti nausea meds etc Home today OBS Final Diagnosis Problems Medical Problems: (1) Abdominal pain Status: Acute (2) UTI (urinary tract infection) Status: Acute Brief Hospital Course Allergies Allergies Coded Allergies Type Severity Reaction Last Updated Verified No Known Drug Allergies 07/01/15 No Vital Signs Vital Signs Date Time Temp Pulse Resp B/P (MAP) Pulse Ox O2 Delivery O2 Flow Rate FiO2 01/08/19 09:07 18 Room Air 01/08/19 09:06 57 163/62 01/08/19 07:00 98.3 96 98.3 Lab Results Laboratory Tests Test 01/07/19 15:15 01/07/19 15:30 01/07/19 16:31 01/07/19 20:48 White Blood Count 11.0 x10^3/uL (4.0-11.0) Red Blood Count 4.36 x10^6/uL (3.50-5.40) Hemoglobin 13.6 g/dL (12.0-15.5) Hematocrit 41.8 % (36.0-47.0) Mean Corpuscular Volume 96 fL (79-100) Mean Corpuscular Hemoglobin 31 pg (25-35) Mean Corpuscular Hemoglobin Concent 33 g/dL (31-37) Red Cell Distribution Width 12.8 % (11.5-14.5) Platelet Count 263 x10^3/uL (140-400) Neutrophils (%) (Auto) 74 % (31-73) Lymphocytes (%) (Auto) 18 % (24-48) Monocytes (%) (Auto) 7 % (0-9) Eosinophils (%) (Auto) 0 % (0-3) Basophils (%) (Auto) 1 % (0-3) Neutrophils # (Auto) 8.1 x10^3uL (1.8-7.7) Lymphocytes # (Auto) 2.0 x10^3/uL (1.0-4.8) Monocytes # (Auto) 0.8 x10^3/uL (0.0-1.1) Eosinophils # (Auto) 0.0 x10^3/uL (0.0-0.7) Basophils # (Auto) 0.1 x10^3/uL (0.0-0.2) Sodium Level 143 mmol/L (136-145) Potassium Level 4.0 mmol/L (3.5-5.1) Chloride Level 105 mmol/L (98-107) Carbon Dioxide Level 27 mmol/L (21-32) Anion Gap 11 (6-14) Blood Urea Nitrogen 13 mg/dL (7-20) Creatinine 0.7 mg/dL (0.6-1.0) Estimated GFR (Cockcroft-Gault) 96.0 BUN/Creatinine Ratio 19 (6-20) Glucose Level 95 mg/dL (70-99) Calcium Level 9.3 mg/dL (8.5-10.1) Magnesium Level 2.1 mg/dL (1.8-2.4) Total Bilirubin 0.3 mg/dL (0.2-1.0) Aspartate Amino Transf (AST/SGOT) 29 U/L (15-37) Alanine Aminotransferase (ALT/SGPT) 30 U/L (14-59) Alkaline Phosphatase 55 U/L (46-116) Creatine Kinase 65 U/L (26-192) Creatine Kinase MB (Mass) 1.8 ng/mL (0.0-3.6) Creatine Kinase MB Relative Index % (0-4) Troponin I Quantitative < 0.017 ng/mL (0.000-0.055) Total Protein 7.4 g/dL (6.4-8.2) Albumin 3.6 g/dL (3.4-5.0) Albumin/Globulin Ratio 0.9 (1.0-1.7) Lactic Acid Level 1.4 mmol/L (0.4-2.0) Urine Collection Type Unknown Urine Color Yellow Urine Clarity Clear Urine pH 6.0 Urine Specific [place] >=1.030 Urine Protein Negative mg/dL (NEG-TRACE) Urine Glucose (UA) Negative mg/dL (NEG) Urine Ketones (Stick) Negative mg/dL (NEG) Urine Blood Negative (NEG) Urine Nitrite Negative (NEG) Urine Bilirubin Negative (NEG) Urine Urobilinogen Dipstick 0.2 mg/dL (0.2 mg/dL) Urine Leukocyte Esterase Small (NEG) Urine RBC Occ /HPF (0-2) Urine WBC 5-10 /HPF (0-4) Urine Squamous Epithelial Cells Mod /LPF Urine Bacteria 0 /HPF (0-FEW) Urine Hyaline Casts Few /HPF Urine Mucus Slight /LPF Glucose (Fingerstick) 153 mg/dL (70-99) Test 01/08/19 07:42 Glucose (Fingerstick) 84 mg/dL (70-99) Laboratory Tests Test 01/07/19 15:15 01/07/19 15:30 01/07/19 16:31 01/07/19 20:48 White Blood Count 11.0 x10^3/uL (4.0-11.0) Red Blood Count 4.36 x10^6/uL (3.50-5.40) Hemoglobin 13.6 g/dL (12.0-15.5) Hematocrit 41.8 % (36.0-47.0) Mean Corpuscular Volume 96 fL (79-100) Mean Corpuscular Hemoglobin 31 pg (25-35) Mean Corpuscular Hemoglobin Concent 33 g/dL (31-37) Red Cell Distribution Width 12.8 % (11.5-14.5) Platelet Count 263 x10^3/uL (140-400) Neutrophils (%) (Auto) 74 % (31-73) Lymphocytes (%) (Auto) 18 % (24-48) Monocytes (%) (Auto) 7 % (0-9) Eosinophils (%) (Auto) 0 % (0-3) Basophils (%) (Auto) 1 % (0-3) Neutrophils # (Auto) 8.1 x10^3uL (1.8-7.7) Lymphocytes # (Auto) 2.0 x10^3/uL (1.0-4.8) Monocytes # (Auto) 0.8 x10^3/uL (0.0-1.1) Eosinophils # (Auto) 0.0 x10^3/uL (0.0-0.7) Basophils # (Auto) 0.1 x10^3/uL (0.0-0.2) Sodium Level 143 mmol/L (136-145) Potassium Level 4.0 mmol/L (3.5-5.1) Chloride Level 105 mmol/L (98-107) Carbon Dioxide Level 27 mmol/L (21-32) Anion Gap 11 (6-14) Blood Urea Nitrogen 13 mg/dL (7-20) Creatinine 0.7 mg/dL (0.6-1.0) Estimated GFR (Cockcroft-Gault) 96.0 BUN/Creatinine Ratio 19 (6-20) Glucose Level 95 mg/dL (70-99) Calcium Level 9.3 mg/dL (8.5-10.1) Magnesium Level 2.1 mg/dL (1.8-2.4) Total Bilirubin 0.3 mg/dL (0.2-1.0) Aspartate Amino Transf (AST/SGOT) 29 U/L (15-37) Alanine Aminotransferase (ALT/SGPT) 30 U/L (14-59) Alkaline Phosphatase 55 U/L (46-116) Creatine Kinase 65 U/L (26-192) Creatine Kinase MB (Mass) 1.8 ng/mL (0.0-3.6) Creatine Kinase MB Relative Index % (0-4) Troponin I Quantitative < 0.017 ng/mL (0.000-0.055) Total Protein 7.4 g/dL (6.4-8.2) Albumin 3.6 g/dL (3.4-5.0) Albumin/Globulin Ratio 0.9 (1.0-1.7) Lactic Acid Level 1.4 mmol/L (0.4-2.0) Urine Collection Type Unknown Urine Color Yellow Urine Clarity Clear Urine pH 6.0 Urine Specific [place] >=1.030 Urine Protein Negative mg/dL (NEG-TRACE) Urine Glucose (UA) Negative mg/dL (NEG) Urine Ketones (Stick) Negative mg/dL (NEG) Urine Blood Negative (NEG) Urine Nitrite Negative (NEG) Urine Bilirubin Negative (NEG) Urine Urobilinogen Dipstick 0.2 mg/dL (0.2 mg/dL) Urine Leukocyte Esterase Small (NEG) Urine RBC Occ /HPF (0-2) Urine WBC 5-10 /HPF (0-4) Urine Squamous Epithelial Cells Mod /LPF Urine Bacteria 0 /HPF (0-FEW) Urine Hyaline Casts Few /HPF Urine Mucus Slight /LPF Glucose (Fingerstick) 153 mg/dL (70-99) Test 01/08/19 07:42 Glucose (Fingerstick) 84 mg/dL (70-99) Brief Hospital Course Ms. Aldana is a 84 old [sex] who presented with [ ] 84-year-old female who lives at home, no assistive device of ambulation, PCP Dr. Yasemin Torres. Multiple complaints mostly nausea discomfort poor by mouth intake 3 days because of nausea and she points to her midsternal chest. Triage note is as follows: :Pt. arrives via POV for c/o chronic nausea, upper abdominal pain, bilat leg pain. Pt. states she has medications for both pain and nausea, but they are not working. Her workup at ER including imaging and labs are unremarkable with normal VS. She wanted to be admitted. Admitted OBS Discharge Information Condition at Discharge: Improved, Stable Disposition/Orders: D/C to Home Scheduled Amlodipine Besylate (Amlodipine Besylate) 10 Mg Tablet, 10 MG PO DAILY, ( Reported) Entered as Reported by: ERWIN MORRISON on 06/06/16 1005 Last Action: Continued on 01/07/191715 by DONAVAN BONILLA Aspirin (Aspirin Ec) 81 Mg Tablet., 81 MG PO DAILY, #1 Prescribed by: YASEMIN TORRES on 06/06/16 1736 Last Action: Continued on 01/07/191715 by DONAVAN BONILLA Atorvastatin Calcium (Atorvastatin Calcium) 20 Mg Tablet, 20 MG PO HS for FOR CHOLESTEROL, #30 Ref 0 (Reported) Entered as Reported by: GABRIELLE RUIZ on 10/18/17 1501 Last Action: Continued on 01/07/191715 by DONAVAN BONILLA Cyclosporine (Restasis) 1 Each Droperette, 1 DROP EACHEYE BID, #60 Ref 3 ( Reported) Entered as Reported by: ERWIN MORRISON on 06/06/16 1005 Last Action: Reviewed on 01/07/191715 by DONAVAN BONILLA Erythromycin Base (Alek-Tab) 250 Mg Tablet., 250 MG PO QID for infection, ( Reported) Entered as Reported by: WILMA MARKHAM on 08/24/18 2145 Last Action: Converted on 01/07/191715 by DONAVAN BONILLA Isosorbide Mononitrate (Isosorbide Mononitrate Er) 30 Mg Tab.er.24h, 60 MG PO DAILY, #30 Prescribed by: YASEMIN TORRES on 06/06/161735 Last Action: Continued on 01/07/191715 by DONAVAN BONILLA Losartan Potassium (Losartan Potassium ) 25 Mg Tablet, 100 MG PO DAILY for htn , (Reported) Entered as Reported by: CAITY CONTRERAS on 03/11/18 1203 Last Action: Continued on 01/07/191715 by DONAVAN BONILLA Metformin Hcl (Metformin Hcl Er) 1,000 Mg Tab.er.24, 1,000 MG PO DAILYWBKFT for ANTI-DIABETIC, Ref 0 (Reported) Entered as Reported by: JANE DUBOSE on 01/02/17 0824 Last Action: Converted on 01/07/191715 by DONAVAN BONILLA Metoprolol Tartrate (Metoprolol Tartrate) 25 Mg Tablet, 25 MG PO BID, #60 Prescribed by: YASEMIN TORRES on 06/06/161735 Last Action: Continued on 01/07/191715 by DONAVAN BONILLA Pantoprazole Sodium (Pantoprazole Sodium) 40 Mg Tablet.dr, 1 TAB PO BID, #30 Ref 3 (Reported) LAST DOSE GIVEN: DATE: 08-09-15 TIME: 9 AM NEXT DOSE DUE: DATE: 08-10-15 TIME : 9 AM Entered as Reported by: LIEN COWART on 09/15/14 1435 Last Action: Continued on 01/07/191715 by DONAVAN BONILLA [Hydralazine Hcl] 50 MG TABLET, 50 MG PO TID, #90 Prescribed by: YASEMIN TORRES on 08/09/15 1738 Last Action: Converted on 01/07/191715 by DONAVAN BONILLA Scheduled PRN Clonidine Hcl (Clonidine Hcl) 0.2 Mg Tablet, 0.2 MG PO PRN PRN for ELEVATED BP, SEE COMMENTS, (Reported) Entered as Reported by: GABRIELLE RUIZ on 10/18/17 1501 Last Action: Continued on 01/07/191715 by DONAVAN BONILLA Docusate Sodium (Colace) 100 Mg Capsule, 100 MG PO PRN DAILY PRN for CONSTIPATION, #10 Prescribed by: LONNIE TROTTER MD on 03/29/17 1126 Last Action: Continued on 01/07/191715 by DONAVAN BONILLA Oxycodone Hcl/Acetaminophen (Oxycodone-Acetaminophen 10-325) 1 Each Tablet, 1 TAB PO Q4HRS PRN for PAIN, #50 Prescribed by: CANDI MORAES on 12/21/17 1001 Last Action: Continued on 01/07/191715 by DONAVAN HELTON MD Jan 08, 2019 10:50
[2019-01-08] MEDS ORDERED: IV NORMAL SALINE 500ML BAG 500 ML IV ONE (12:45)
--- NOTE | 2019-01-08 12:45 | PDOC ---
Provider Note Provider Note CAlled by RN, Pt dizzy, BP 80s systolic, has been running high prior to this read Echo 08/2018: good EF and mild pulm HTN PLAN: NS 500cc bolus now CHeck TSH and cortisol and orthostatics Hold dc change to inpt stay DONAVAN BONILLA MD Jan 08, 2019 12:44
--- NOTE | 2019-01-08 13:14 | NUR ---
SW following pt for anticipated dc needs. Chart reviewed. [place] with daughter. Pt was seen by PT and does not have skilled needs.
[2019-01-08] MEDS: ONDANSETRON PF 4 MG/2 ML VIAL. IV PRN ×2 (17:27→23:44)
[2019-01-08] MEDS: ATORVASTATIN CALCIUM 20 MG TABLET PO SCH (20:36)
[2019-01-09 03:00] VITALS: BP 151/60
[2019-01-09] MEDS: ONDANSETRON PF 4 MG/2 ML VIAL. IV PRN (05:52)
[2019-01-09 07:00] VITALS: BP 151/68
[2019-01-09] MEDS: INSULIN LISPRO 300 UNITS/3 ML INSULN.PEN. SQ SCH ×2 (08:00→12:00)
[2019-01-09] MEDS: metFORMIN XR 500 MG TAB.ER.24H PO SCH (08:00)
[2019-01-09] MEDS: METOPROLOL TART IMMED RELEASE 25 MG TABLET. PO SCH ×2 (09:00→10:01)
[2019-01-09] MEDS: ISOSORBIDE MONONITRATE ER 30 MG TAB.ER.24H PO SCH (09:00)
[2019-01-09] MEDS: LOSARTAN POTASSIUM 50 MG TABLET. PO SCH (09:00)
[2019-01-09] MEDS: ERYTHROMYCIN BASE 250 MG TABLET PO SCH ×2 (09:51→12:46)
[2019-01-09] MEDS: PANTOPRAZOLE 40 MG TABLET.DR. PO SCH ×2 (09:51→10:01)
[2019-01-09] MEDS: ASPIRIN ENTERIC COATED 81 MG TABLET.DR. PO SCH (09:56)
[2019-01-09] MEDS: amLODIPine BESYLATE 10 MG TABLET PO SCH (09:56)
--- NOTE | 2019-01-09 10:23 | NUR ---
pt states that the meds in our system are not accurate and is getting too many HTN meds at one time instead of spread throughout the day. Discussed medication regimen with pt's daughter. Meds reconciled and updated in our system. Will continue to monitor.
[2019-01-09 11:00] VITALS: BP 157/59
[2019-01-09 11:47] VITALS: BP 157/59
--- NOTE | 2019-01-09 12:03 | PDOC ---
Provider Note Provider Note She did not DC yesterday as I was called by RN with blood pressure 80 systolic. Did receive bolus 500 mL. Patient claims she got all 12 pills at the same time. Blood pressure is much better 150s actually now. That was an isolated reading of hypotension. I did order TSH and cortisol which are both normal. 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 No evidence of UTI hence no need for antibiotic, no new meds dc summ done yesterday dw multiple RNs DONAVAN BONILLA MD Jan 09, 2019 12:03
[2019-01-09] MEDS ORDERED: HYDR-2869 PO (13:34)
--- NOTE | 2019-01-09 14:04 | NUR ---
D/C med summary is incorrect. Updated by manually. Copies in chart and also given to pt.
--- NOTE | 2019-01-09 14:04 | NUR ---
Discharge Note: DANIEL ARMENDARIZ [place] Discharge instructions and discharge home medications reviewed with Patient and a copy given. All questions have been answered and understanding verbalized. The following instructions and handouts were given: UTI, ABT Discontinued lines and drains: peripheral IV. Patient discharged to Home or Self Care with Family Member via Wheelchair
[2019-01-09] MEDS ORDERED: metFORMIN XR 500 MG TAB.ER.24H PO SCH (17:00)
[2019-01-09] MEDS ORDERED: ISOSORBIDE MONONITRATE ER 30 MG TAB.ER.24H PO SCH (17:00)
[2019-01-09] MEDS ORDERED: LOSARTAN POTASSIUM 50 MG TABLET. PO SCH (17:00)
[2019-01-09] MEDS ORDERED: AMITRIPTYLINE HCL 25 MG TABLET. PO SCH (21:00)
== END 2019-01-09 14:06 | disposition home or self-care (01) | DRG 392 ==
LOC: ER 12:52 → 5 NORTH 17:17 → UNDOADMIN 17:17 → UNDOADMOB 17:17 → OBSVTOIN 01-08 12:43 → UNDODISIN 01-09 14:06 → UNDODISOB 01-09 14:06
PROVIDERS: ADMIT Internal Medicine; ATTEND Internal Medicine
DX: K21.9 Gastro-esophageal reflux disease without esophagitis (principal); I10 Essential (primary) hypertension; E11.9 Type 2 diabetes mellitus without complications; I25.10 Atherosclerotic heart disease of native coronary artery without angina pectoris; E78.00 Pure hypercholesterolemia, unspecified; E78.5 Hyperlipidemia, unspecified; M19.90 Unspecified osteoarthritis, unspecified site; G89.29 Other chronic pain; M54.9 Dorsalgia, unspecified; F41.9 Anxiety disorder, unspecified; I27.20 Pulmonary hypertension, unspecified; R11.0 Nausea; Z90.49 Acquired absence of other specified parts of digestive tract; Z82.49 Family history of ischemic heart disease and other diseases of the circulatory system
CPT/HCPCS: 36415; 74177; 80053; 81001; 82533; 82553; 82962; 83605; 83735; 84443; 84484; 85025; 87086; 93005; 96361; 96374; 96375; G0378; G0379; J0696; J1815; J2270; J2405; J3010; J3490; J7030; J7040; Q9967; 99285-25

== ENCOUNTER → 2019-02-03 | Outpatient (CLI) | payer OTHER ==
[2019-01-09 11:47] VITALS: BP 157/59
[~2019-02-03] MED LIST changes: +BUPIVACAINE MPF 0.25% 10 ML VIAL. ONE; +HYDR-2869 PO; +IOHEXOL 180 MG/ML 10 ML VIAL. ONE; +methylPREDNISolone ACETATE 80 MG/ML VIAL. ONE
--- NOTE | 2019-02-04 05:23 | PAIN ---
DATE OF SERVICE: 02/03/2019 PROGRESS NOTE FOR PAIN CLINIC DIAGNOSES: 1. Lumbar radiculopathy with lumbar spinal stenosis and lumbar degenerative disk disease. 2. Bilateral shoulder joint pain. HISTORY OF PRESENT ILLNESS: The patient is an 84-year-old female who returns for followup status post lumbar epidural steroid injection, last seen 12/19/2018. The patient did very well with about 90% improvement and now about 50% improvement overall in her low back and lower extremities, right essentially equal to left, but her main complaint today is left shoulder pain and she has had issues with her acromioclavicular joints in the past as well. Most recently, we had injected those in 2017. The patient reports that her left side only as well and that is painful, worse with standing and reaching items lifting things, carrying things at her side as well as reaching over her head with her left side and shoulder. The patient reports it as a 10 on a scale of 10 at its worst, 9 on average, 7 at its least and is a 7 today, is severe at times with repetitive motions, weightbearing on the left arm and shoulder. Sharp and dull, alternating and tight in the left shoulder as well as some tingling and burning pain. The patient reports no new motor or sensory deficits and no new bowel or bladder incontinence. It does awaken her from sleep every 3-4 hours between her back and her left shoulder. PHYSICAL EXAMINATION: VITAL SIGNS: The patient's blood pressure is 149/74, pulse 81, respirations 16 and temperature 98.5 degrees Fahrenheit. Height is 4 feet 11 inches and weight is 105 pounds. GENERAL: The patient is awake, alert, oriented, appropriate and very pleasant demeanor. HEENT: Head shows normocephalic and atraumatic. Extraocular movements are intact and symmetrical. Oral cavity: Mucous membranes moist and pink. Dentition is intact. NECK: Shows anterior throat supple without palpable lymphadenopathy noted. The patient is wearing eyeglasses. CHEST: Shows normal on inspection. Breath sounds clear to auscultation bilaterally. HEART: Shows S1 and S2 clear. No murmurs auscultated. ABDOMEN: Soft, nontender and nondistended. No palpable organomegaly is noted. There is no rebound or guarding. BACK: Shows spine grossly in the midline, normal-appearing cervical lordotic curvature, thoracic kyphotic curvature and lumbar lordotic curvature. Lumbar paraspinous musculature shows symmetrical on inspection and palpation shows some mild tenderness in the low lumbar distribution bilaterally but only diffusely without radiation. The patient has good rotational motion of the lumbar spine, both laterally as well as extension and flexion without difficulty. EXTREMITIES: The patient's lower extremities show deep tendon reflexes 1+ in the patellar and tendo-calcaneus tendons. Motor exam is approximately 4 on a scale of 5 but equal and symmetrical bilaterally with dorsiflexion, extension, quadriceps and hamstring flexion. Peripheral pulses are 1+ posterior tibia. No peripheral edema is noted. The patient's upper extremities show deep tendon reflexes 2+ in the biceps and triceps tendons. The patient's shoulder shows left shoulder with significant pain over the acromioclavicular joint especially on the anterior superior aspect as it is worse with abduction of the shoulders, both actively and passively as well as with reaching to her side and reaching down towards her knee with significant pain with this maneuver. Options were discussed with the patient. The patient's old chart was reviewed as well as her current medication regimen updated. Current review of systems updated today as well. We will proceed with a left acromioclavicular joint injection. Risks were again discussed including, but not limited to bleeding, infection, possibility of intravascular injection sequelae, spread of local anesthetic and numbness, side effects of steroid medication, exposure to fluoroscopy and poor results regarding pain control. The patient understands and wished to proceed. The patient will return to the clinic in approximately 2 weeks for followup, was counseled as to return appointment, activity level and side effects to be aware of. DIAGNOSIS: Left shoulder pain with acromioclavicular osteoarthritis. PROCEDURE: Left acromioclavicular joint injection using C-arm fluoroscopic guidance under sterile prep and drape using local anesthetic. MEDICATION INJECTED: A total of 2 mL of 0.25% bupivacaine, 80 mg Depo-Medrol and 1.5 mL of contrast. CONDITION AT DISCHARGE: Stable. The patient tolerated procedure well and had no complications. EKATERINA COTTON MD DR: EL/yrn JOB#: [id number] / [id number]
== END | disposition home or self-care (01) ==
LOC: PNCL 08:56
PROVIDERS: ATTEND Anesthesiology
DX: M19.012 Primary osteoarthritis, left shoulder (principal); M51.16 Intervertebral disc disorders with radiculopathy, lumbar region; M48.061 Spinal stenosis, lumbar region without neurogenic claudication
CPT/HCPCS: 20605; 77002; J1040; J3490; Q9965

== ENCOUNTER 2019-04-15 10:03 | Emergency (ER) | payer OTHER ==
[~2019-04-15] VITALS: Ht 149.9 cm; Wt 48.1 kg
[~2019-04-15 10:03] MED LIST changes: -BUPIVACAINE MPF 0.25% 10 ML VIAL. ONE; -IOHEXOL 180 MG/ML 10 ML VIAL. ONE; -PANT40TA3 PO; -PANT40TA5 PO; +PANT40TA77 PO; -methylPREDNISolone ACETATE 80 MG/ML VIAL. ONE
[2019-04-15] MEDS ORDERED: oxyCODONE/APAP 10/325 1 TAB TABLET PO ONE (11:45)
--- NOTE | 2019-04-15 12:21 | EKG ---
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
--- NOTE | 2019-04-15 12:27 | RAD ---
EXAM: CHEST 1 VIEW History: Chest pain COMPARISON: 08/25/2018 TECHNIQUE: Single portable radiograph of the chest FINDINGS: The cardiac silhouette is unremarkable. The lungs are clear bilaterally. The costophrenic sulci are clear and well demarcated. IMPRESSION: No radiographic evidence of an acute cardiopulmonary process. Electronically signed by: Enrique Galloway MD (04/15/2019 12:24 PM) [id number]
--- NOTE | 2019-04-15 12:30 | RAD ---
Examination: 2 views of the right hip with frontal view the pelvis and 3 views of the lumbar spine HISTORY: History of hip pain, back pain COMPARISON: Lumbar spine from 03/27/2017 FINDINGS: The bilateral femoral heads within the acetabula. There is no acute fracture or dislocation identified. Moderate joint space loss identified in the bilateral hip joint likely degeneration. Moderate compression change of L1 vertebral body with kyphoplasty changes identified. Osseous demineralization changes identified. Moderate intervertebral disc identified throughout the lumbar spine likely degeneration. IMPRESSION: 1. Moderate degenerative changes lumbar spine and bilateral hip joints. Electronically signed by: Enrique Galloway MD (04/15/2019 12:27 PM) [id number]
[2019-04-15] MEDS: oxyCODONE IR 5 MG TABLET PO ONE ×2 (12:37→14:15)
[2019-04-15] MEDS: LIDO:MAALOX 1:1 20 ML SINGLE DOSE. PO ONE (12:38)
[2019-04-15 12:58] LABS: BASO # 0.1 x10^3/uL (0.0-0.2); BASO % 1 % (0-3); EOS # 0.1 x10^3/uL (0.0-0.7); EOS % 1 % (0-3); HEMATOCRIT 41.9 % (36.0-47.0); HEMOGLOBIN 14.1 g/dL (12.0-15.5); LYMPH # 2.9 x10^3/uL (1.0-4.8); LYMPH % 29 % (24-48); MEAN CORPUSCULAR HEMOGLOBIN 33 pg (25-35); MEAN CORPUSCULAR HGB CONC 34 g/dL (31-37); MEAN CORPUSCULAR VOLUME 98 fL (79-100); MONO # 0.9 x10^3/uL (0.0-1.1); MONO % 9 % (0-9); NEUT # 6.3 x10^3/uL (1.8-7.7); NEUT % 61 % (31-73); PLATELET COUNT 230 x10^3/uL (140-400); RED CELL DISTRIBUTION WIDTH 12.9 % (11.5-14.5); WHITE BLOOD COUNT 10.3 x10^3/uL (4.0-11.0)
[2019-04-15 13:18] LABS: BILIRUBIN,URINE NEGATIVE (NEG); CLARITY,URINE CLEAR; COLOR,URINE YELLOW; NITRITE,URINE NEGATIVE (NEG); PH,URINE 6.5; PROTEIN,URINE NEGATIVE (NEG-TRACE); UROBILINOGEN,URINE 0.2 mg/dL (0.2 mg/dL)
[2019-04-15 13:25] LABS: BACTERIA,URINE FEW /HPF (0-FEW); RBC,URINE 0 /HPF (0-2); SQUAMOUS EPITHELIAL CELL,UR OCC /LPF
[2019-04-15 13:31] LABS: CALCIUM 9.6 mg/dL (8.5-10.1); CREATININE 0.7 mg/dL (0.6-1.0); POTASSIUM 4.1 mmol/L (3.5-5.1)
[2019-04-15 13:37] LABS: ALBUMIN 3.3 g/dL (3.4-5.0); ALBUMIN/GLOBULIN RATIO 0.8 (1.0-1.7); TOTAL BILIRUBIN 0.2 mg/dL (0.2-1.0); TOTAL PROTEIN 7.3 g/dL (6.4-8.2)
[2019-04-15] MEDS ORDERED: PANT20TA2 PO (13:52)
--- NOTE | 2019-04-15 13:52 | PHYS DOC ---
Past Medical History Past Medical History: CAD, Diabetes-Type II, High Cholesterol, Hypertension, Other Additional Past Medical Histor: Daughter unsure of history, patient unsure of current meds Past Surgical History: Appendectomy, Cholecystectomy, Other Additional Past Surgical Histo: BACK SX Alcohol Use: None Drug Use: None Adult General Chief Complaint Chief Complaint: NAUSEA/VOMITING/DIARRHA HPI HPI Patient is a 84 year old female who presents the ER with for evaluation of multiple vague and chronic complaints. #1. Patient primarily concerned about her chronic back pain with radiation to bilateral hips. This is on state long-standing for many years. Patient follows with the pain clinic and has had corticosteroid injections before. Patient takes oxycodone muscle times a day but ran out approximately one week ago. Patient with complaint of uncontrolled pain. Is scheduled to get her prescription tomorrow. Patient denies any new trauma. No saddle anesthesia. No loss of bowel or bladder control #2. Patient with complaint of intermittent diarrhea, nausea, poor appetite for the last 4-5 days. No abdominal pain. No fever. No dysuria. No GI bleed symptoms. Review of Systems Review of Systems Constitutional: Denies fever or chills [] Eyes: Denies change in visual acuity, redness, or eye pain [] HENT: Denies nasal congestion or sore throat [] Respiratory: Denies cough or shortness of breath [] Cardiovascular: No chest pain, no palpitations, no edema. GI: +nausea, +diarrhea, no abdominal pain, no GI Bleed symptoms. : Denies dysuria or hematuria [] Musculoskeletal: +back pain, +bilateral hip pain] Integument: Denies rash or skin lesions [] Neurologic: Denies headache, focal weakness or sensory changes [] Endocrine: Denies polyuria or polydipsia [] All other systems were reviewed and found to be within normal limits, except as documented in this note. Current Medications Current Medications Current Medications Medications (Trade) Dose Ordered Sig/Kimberly Start Time Stop Time Status Last Admin Dose Admin Multi-Ingredient Mouthwash/Gargle (Gi Cocktail) 20 ml ONCE ONCE 04/15/19 11:45 04/15/19 11:46 DC 04/15/19 12:38 20 ML Oxycodone HCl (Roxicodone) 10 mg 1X ONCE 04/15/19 14:00 04/15/19 14:01 DC 04/15/19 14:15 10 MG Oxycodone/ Acetaminophen (Percocet ) 1 tab 1X ONCE 04/15/19 11:45 04/15/19 11:47 DC Allergies Allergies Allergies Coded Allergies Type Severity Reaction Last Updated Verified No Known Drug Allergies 07/01/15 No Physical Exam Physical Exam Constitutional: Frail, appears stated age. HENT: Normocephalic, atraumatic Eyes: PERRLA, EOMI, Neck: Normal range of motion, no tenderness, supple, no stridor. [] Cardiovascular:Heart rate regular rhythm, no murmur [] Lungs & Thorax: Bilateral breath sounds clear to auscultation [] Abdomen: Bowel sounds normal, soft, no tenderness, no masses, no pulsatile masses. [] Skin: Warm, dry, no erythema, no rash. [] Back: No midline spinal tenderness, moderately decreased ROM 2/2 age/pain Extremities:No swelling/deformities to extremities. Deconditioned strength to bilateral LE Neurologic: Alert and oriented X 3, no focal deficits noted. [] Psychologic: Affect normal, judgement normal, mood normal. [] Current Patient Data Vital Signs Vital Signs Date Time Temp Pulse Resp B/P (MAP) Pulse Ox O2 Delivery O2 Flow Rate FiO2 04/15/19 14:11 60 18 178/79 (112) 97 Room Air 04/15/19 11:48 98.7 98.7 Lab Values Laboratory Tests Test 04/15/19 12:40 04/15/19 12:55 White Blood Count 10.3 x10^3/uL (4.0-11.0) Red Blood Count 4.30 x10^6/uL (3.50-5.40) Hemoglobin 14.1 g/dL (12.0-15.5) Hematocrit 41.9 % (36.0-47.0) Mean Corpuscular Volume 98 fL (79-100) Mean Corpuscular Hemoglobin 33 pg (25-35) Mean Corpuscular Hemoglobin Concent 34 g/dL (31-37) Red Cell Distribution Width 12.9 % (11.5-14.5) Platelet Count 230 x10^3/uL (140-400) Neutrophils (%) (Auto) 61 % (31-73) Lymphocytes (%) (Auto) 29 % (24-48) Monocytes (%) (Auto) 9 % (0-9) Eosinophils (%) (Auto) 1 % (0-3) Basophils (%) (Auto) 1 % (0-3) Neutrophils # (Auto) 6.3 x10^3/uL (1.8-7.7) Lymphocytes # (Auto) 2.9 x10^3/uL (1.0-4.8) Monocytes # (Auto) 0.9 x10^3/uL (0.0-1.1) Eosinophils # (Auto) 0.1 x10^3/uL (0.0-0.7) Basophils # (Auto) 0.1 x10^3/uL (0.0-0.2) Sodium Level 138 mmol/L (136-145) Potassium Level 4.1 mmol/L (3.5-5.1) Chloride Level 103 mmol/L (98-107) Carbon Dioxide Level 25 mmol/L (21-32) Anion Gap 10 (6-14) Blood Urea Nitrogen 11 mg/dL (7-20) Creatinine 0.7 mg/dL (0.6-1.0) Estimated GFR (Cockcroft-Gault) 96.0 BUN/Creatinine Ratio 16 (6-20) Glucose Level 83 mg/dL (70-99) Calcium Level 9.6 mg/dL (8.5-10.1) Total Bilirubin 0.2 mg/dL (0.2-1.0) Aspartate Amino Transferase (AST) 23 U/L (15-37) Alanine Aminotransferase (ALT) 21 U/L (14-59) Alkaline Phosphatase 48 U/L (46-116) Troponin I Quantitative < 0.017 ng/mL (0.000-0.055) Total Protein 7.3 g/dL (6.4-8.2) Albumin 3.3 g/dL (3.4-5.0) L Albumin/Globulin Ratio 0.8 (1.0-1.7) L Lipase 86 U/L (73-393) Urine Collection Type Unknown Urine Color Yellow Urine Clarity Clear Urine pH 6.5 Urine Specific [place] 1.020 Urine Protein Negative mg/dL (NEG-TRACE) Urine Glucose (UA) Negative mg/dL (NEG) Urine Ketones (Stick) Negative mg/dL (NEG) Urine Blood Negative (NEG) Urine Nitrite Negative (NEG) Urine Bilirubin Negative (NEG) Urine Urobilinogen Dipstick 0.2 mg/dL (0.2 mg/dL) Urine Leukocyte Esterase Negative (NEG) Urine RBC 0 /HPF (0-2) Urine WBC 1-4 /HPF (0-4) Urine Squamous Epithelial Cells Occ /LPF Urine Bacteria Few /HPF (0-FEW) Urine Mucus Slight /LPF Laboratory Tests 04/15/19 12:40 Laboratory Tests 04/15/19 12:40 EKG EKG 11:35: Normal sinus rhythm, heart rate 61, no significant ST segment changes. T- wave inversions in leads V4, V5, V6[] Radiology/Procedures Radiology/Procedures CXR IMPRESSION: No radiographic evidence of an acute cardiopulmonary process. Lumbar IMPRESSION: 1. Moderate degenerative changes lumbar spine and bilateral hip joints. [] Bilateral Hip XR 1. Moderate degenerative changes lumbar spine and bilateral hip joints. Electronically signed by: Enrique Galloway MD (04/15/2019 12:27 PM) [email or web address] Course & Med Decision Making Course & Med Decision Making Pertinent Labs and Imaging studies reviewed. (See chart for details) X-rays with no acute fractures. Patient's pain control with her home oxycodone. Suspect patient's generalized GI upset secondary to narcotic withdrawal as patient is typically taking oxycodone 10 mg multiple times a day and has been out of it for the past 7 days. Patient is due to get her prescription filled tomorrow. Advised patient to contact her pain management doctor that she should not be requiring this much narcotics and should not be running out early. Labs otherwise reassuring with no acute life-threatening pathology in the current cli nical setting. Advised close PCP follow-up. ER return precautions given. Patient verbalized understanding. All questions answered. Dragon Disclaimer Dragon Disclaimer This electronic medical record was generated, in whole or in part, using a voice recognition dictation system. Departure Departure Impression: Primary Impression: Nausea Additional Impressions: Back pain Narcotic withdrawal Disposition: HOME, SELF-CARE Condition: STABLE Referrals: UNKNOWN PCP NAME (PCP) Patient Instructions: Narcotic Withdrawal Additional Instructions: Thank you for coming to [facility]. Please read the attached handouts. Please follow-up with your primary care physician. Return to the ER if your symptoms worsen or you have any other concerns. Please follow-up with your pain management doctor Scripts Pantoprazole Sodium (PROTONIX) 20 Mg Tablet. 1 TAB PO DAILY, #30 TAB Prov: STEPHENIE BACON DO 04/15/19 Problem Qualifiers STEPHENIE BACON DO Apr 15, 2019 13:52
[2019-04-15 14:11] VITALS: BP 178/79
== END 2019-04-15 15:01 | disposition home or self-care (01) ==
LOC: ER 10:03
DX: M54.5 Low back pain (principal); G89.29 Other chronic pain; R11.0 Nausea; F11.23 Opioid dependence with withdrawal; R19.7 Diarrhea, unspecified; M25.551 Pain in right hip; R07.89 Other chest pain; I25.10 Atherosclerotic heart disease of native coronary artery without angina pectoris; E11.9 Type 2 diabetes mellitus without complications; E78.00 Pure hypercholesterolemia, unspecified; I10 Essential (primary) hypertension; Z90.89 Acquired absence of other organs; Z90.49 Acquired absence of other specified parts of digestive tract
CPT/HCPCS: 36415; 71045; 72100; 73502; 80053; 81001; 83690; 84484; 85025; 93005; 99285

== ENCOUNTER 2019-07-11 18:48 | Inpatient (IN) | payer OTHER ==
[~2019-07-11] VITALS: Ht 149.9 cm; Wt 48.3 kg
[~2019-07-11 18:48] MED LIST changes: -EZET10TA18 PO; +EZET10TA20 PO; -NITR0.4T SL; +NITR0.4T24 SL; +PANT20TA2 PO; -TIZA4TAB PO; +TIZA4TAB2 PO
[2019-07-11] MEDS ORDERED: IV NORMAL SALINE 1000ML BAG 1,000 ML IV SCH (20:02)
--- NOTE | 2019-07-11 20:12 | PHYS DOC ---
Past Medical History Past Medical History: CAD, Diabetes-Type II, High Cholesterol, Hypertension, Other Additional Past Medical Histor: Daughter unsure of history, patient unsure of current meds Past Surgical History: Appendectomy, Cholecystectomy, Other Additional Past Surgical Histo: BACK SX Alcohol Use: None Drug Use: None Adult General Chief Complaint Chief Complaint: BACK PAIN OR INJURY HPI HPI Patient is a 84 year old Female who presents with chronic lower back with bilateral sciatica. Patient's daughter states the patient is in physical therapy for this but the back pain or worse. Patient and daughter also states the patient has been having epigastric pain cannot keep her medications down has been vomiting. Patient states she will vomit her food back up. Patient also states she's been having chills. Review of Systems Review of Systems Constitutional: fever or chills [] GI: Epigastric abdominal pain, nausea, vomiting, denies bloody stools or diarrhea [] Musculoskeletal: bilateral low back pain with sciatica or joint pain [] Neurologic: Denies headache, focal weakness or sensory changes [] All other systems were reviewed and found to be within normal limits, except as documented in this note. Current Medications Current Medications Current Medications Medications (Trade) Dose Ordered Sig/Kimberly Start Time Stop Time Status Last Admin Dose Admin Famotidine (Pepcid Vial) 20 mg 1X ONCE 07/11/19 20:15 07/11/19 20:16 DC 07/11/19 20:59 20 MG Fentanyl Citrate (Fentanyl 2ml Vial) 25 mcg 1X ONCE 07/11/19 20:15 07/11/19 20:16 DC 07/11/19 20:59 25 MCG Iohexol (Omnipaque 300 Mg/ml) 75 ml 1X ONCE 07/11/19 20:30 07/11/19 20:31 DC 07/11/19 20:30 75 ML Ondansetron HCl (Zofran) 4 mg 1X ONCE 07/11/19 20:15 07/11/19 20:16 DC 07/11/19 20:59 4 MG Sodium Chloride 1,000 ml @ 1,000 mls/hr Q1H 07/11/19 20:02 07/11/19 21:01 DC 07/11/19 20:02 1,000 MLS/HR Allergies Allergies Allergies Coded Allergies Type Severity Reaction Last Updated Verified No Known Drug Allergies 07/01/15 No Physical Exam Physical Exam Constitutional: Well developed, well nourished, no acute distress, non-toxic appearance. [] HENT: Normocephalic, atraumatic, bilateral external ears normal, oropharynx moist, no oral exudates, nose normal. [] Eyes: PERRLA, EOMI, conjunctiva normal, no discharge. [] Cardiovascular:Heart rate regular rhythm, no murmur [] Lungs & Thorax: Bilateral breath sounds clear to auscultation [] Abdomen: Bowel sounds normal, soft, generalized tenderness, no masses, no pulsatile masses. [] Skin: Warm, dry, no erythema, no rash. [] Back: No tenderness, no CVA tenderness. [] Extremities: No tenderness, no cyanosis, no clubbing, ROM intact, no edema. [] Neurologic: Alert and oriented X 3, normal motor function, normal sensory function, no focal deficits noted. [] Psychologic: Affect normal, judgement normal, mood normal. [] Current Patient Data Vital Signs Vital Signs Date Time Temp Pulse Resp B/P (MAP) Pulse Ox O2 Delivery O2 Flow Rate FiO2 07/11/19 20:59 Room Air 07/11/19 19:08 98.7 90 20 152/67 (95) 94 98.7 Lab Values Laboratory Tests Test 07/11/19 20:35 07/11/19 21:07 07/11/19 22:15 White Blood Count 10.1 x10^3/uL (4.0-11.0) Red Blood Count 3.92 x10^6/uL (3.50-5.40) Hemoglobin 13.0 g/dL (12.0-15.5) Hematocrit 38.2 % (36.0-47.0) Mean Corpuscular Volume 98 fL (79-100) Mean Corpuscular Hemoglobin 33 pg (25-35) Mean Corpuscular Hemoglobin Concent 34 g/dL (31-37) Red Cell Distribution Width 13.2 % (11.5-14.5) Platelet Count 280 x10^3/uL (140-400) Neutrophils (%) (Auto) 67 % (31-73) Lymphocytes (%) (Auto) 22 % (24-48) L Monocytes (%) (Auto) 10 % (0-9) H Eosinophils (%) (Auto) 1 % (0-3) Basophils (%) (Auto) 1 % (0-3) Neutrophils # (Auto) 6.8 x10^3/uL (1.8-7.7) Lymphocytes # (Auto) 2.2 x10^3/uL (1.0-4.8) Monocytes # (Auto) 1.0 x10^3/uL (0.0-1.1) Eosinophils # (Auto) 0.1 x10^3/uL (0.0-0.7) Basophils # (Auto) 0.1 x10^3/uL (0.0-0.2) Prothrombin Time 12.5 SEC (11.7-14.0) Prothrombin Time INR 1.0 (0.8-1.1) Urine Collection Type Unknown Urine Color Yellow Urine Clarity Clear Urine pH 7.0 Urine Specific [place] 1.020 Urine Protein Negative mg/dL (NEG-TRACE) Urine Glucose (UA) Negative mg/dL (NEG) Urine Ketones (Stick) Negative mg/dL (NEG) Urine Blood Negative (NEG) Urine Nitrite Negative (NEG) Urine Bilirubin Negative (NEG) Urine Urobilinogen Dipstick 0.2 mg/dL (0.2 mg/dL) Urine Leukocyte Esterase Small (NEG) Urine RBC 0 /HPF (0-2) Urine WBC 5-10 /HPF (0-4) Urine Squamous Epithelial Cells Few /LPF Urine Bacteria Few /HPF (0-FEW) Urine Mucus Slight /LPF Sodium Level 145 mmol/L (136-145) Potassium Level 4.5 mmol/L (3.5-5.1) Chloride Level 111 mmol/L (98-107) H Carbon Dioxide Level 22 mmol/L (21-32) Anion Gap 12 (6-14) Blood Urea Nitrogen 19 mg/dL (7-20) Creatinine 0.8 mg/dL (0.6-1.0) Estimated GFR (Cockcroft-Gault) 82.3 BUN/Creatinine Ratio 24 (6-20) H Glucose Level 93 mg/dL (70-99) Calcium Level 8.9 mg/dL (8.5-10.1) Total Bilirubin 0.1 mg/dL (0.2-1.0) L Aspartate Amino Transferase (AST) 25 U/L (15-37) Alanine Aminotransferase (ALT) 16 U/L (14-59) Alkaline Phosphatase 42 U/L (46-116) L Troponin I Quantitative < 0.017 ng/mL (0.000-0.055) Total Protein 6.2 g/dL (6.4-8.2) L Albumin 3.1 g/dL (3.4-5.0) L Albumin/Globulin Ratio 1.0 (1.0-1.7) Lipase 50 U/L (73-393) L Laboratory Tests 07/11/19 20:35 Laboratory Tests 07/11/19 22:15 EKG EKG Sinus Rhythm and no STEMI[] Interpretation Time: [address] Carrillo Radiology/Procedures Radiology/Procedures [] Impressions: [facility] [id number] [place] [address] IMAGING REPORT Signed PATIENT: DANIEL ARMENDARIZ ACCOUNT: [id number] : 1935 LOCATION: ER AGE: 84 SEX: F EXAM STATUS: REG ER ORD. PHYSICIAN: TRU UREÑA APRN REASON: epigastric pain PROCEDURE: PORTABLE CHEST 1V Exam: Chest one view INDICATION: Epigastric pain TECHNIQUE: Frontal view of the chest Comparisons: 04/15/2019 FINDINGS: The cardiomediastinal silhouette and pulmonary vessels are within normal limits. The lung and pleural spaces are clear. IMPRESSION: No acute cardiopulmonary process. Electronically signed by: Radha Katz MD (07/11/2019 8:35 PM) [facility] DICTATED and SIGNED BY: RADHA KATZ MD DATE: 07/11/192034 [address] [address] IMAGING REPORT Signed PATIENT: DANIEL ARMENDARIZ ACCOUNT: [id number] : 1935 LOCATION: ER AGE: 84 SEX: F EXAM STATUS: REG ER ORD. PHYSICIAN: TRU UREÑA APRN REASON: vomiting, epigastric pain PROCEDURE: CT ABD PELV W/ IV CONTRST ONLY Exam: CT abdomen and pelvis with contrast INDICATION: Vomiting and epigastric pain TECHNIQUE: Sequential axial images through the abdomen and pelvis obtained following the administration of 75 mL of Omni 300 IV contrast. Sagittal and coronal reformatted images were reconstructed from the axial data and reviewed. Comparisons: 01/07/2019 FINDINGS: Heart size is normal. No pericardial effusion. Strandy opacities at the dependent portion the lung bases likely representing atelectasis. No pleural effusion. Liver, spleen, and pancreas are unremarkable. Gallbladder surgically absent. There is stable thickening of the adrenal glands bilaterally. Kidneys demonstrate symmetric enhancement. No perinephric inflammation or hydronephrosis. No renal or ureteral calculi are identified. Several hypoattenuating cystic lesions are noted within the kidneys bilaterally which are too small to characterize. Bladder is distended and appears thin-walled. Uterus is not enlarged. No abnormal adnexal mass. Scattered diverticulosis noted predominantly in the descending and sigmoid colon without evidence of acute diverticulitis. Remainder of the large and small bowel are unremarkable. Appendix is not identified. No free intra-abdominal air or fluid. No obstruction. Abdominal aorta has a normal course and caliber. Abdominal vasculature is patent. No enlarged intra-abdominal lymph nodes are identified. No suspicious osseous lesions or acute fractures. Stable compression deformities of the L4 and L5 vertebral bodies. IMPRESSION: 1. No acute process identified within the abdomen or pelvis. 2. Stable incidental findings as described above. Exposure: One or more of the following in the visualized dose reduction techniques were utilized for this examination: 1. Automated exposure control 2. Adjustment of the MA and/or KV according to patient size 3. Use of iterative of reconstructive technique Electronically signed by: Radha Katz MD (07/11/2019 11:10 PM) [facility] DICTATED and SIGNED BY: RADHA KATZ MD DATE: 07/11/19 2208 Course & Med Decision Making Course & Med Decision Making Patient is a 84 year old Female who presents with chronic lower back with bilateral sciatica. Patient's daughter states the patient is in physical therapy for this but the back pain or worse. Patient and daughter also states the patient has been having epigastric pain cannot keep her medications down has b een vomiting. Patient states she will vomit her food back up for the last couple of days. Patient states she has not ate or drank much in the past week. Patient also states she's been having chills. Patient denies chest pain or shortness of air, cough, dizziness,dysuria, syncope, headache, visual changes, focal weaknesses, numbness or tingling. No extremity edema. Lungs are clear to upper lobes but diminished in lower lobes bilaterally. PERRLA. Skin pink warm and dry. Patient is tearful. Patient states generalized abdominal tenderness with palpation. I have spoken to Dr. Higginbotham for admission. Dragon Disclaimer Dragon Disclaimer This electronic medical record was generated, in whole or in part, using a voice recognition dictation system. Departure Departure Impression: Primary Impression: UTI (urinary tract infection) Additional Impressions: Nausea and vomiting Chronic back pain Disposition: ADMITTED INPATIENT Admitting Physician: Nilay Higginbotham Condition: STABLE Referrals: CELENA OWENS MD (PCP) Problem Qualifiers Primary Impression: UTI (urinary tract infection) Urinary tract infection type: site unspecified Hematuria presence: without hematuria Qualified Codes: N39.0 - Urinary tract infection, site not specified Additional Impressions: Nausea and vomiting Vomiting type: unspecified Vomiting Intractability: non-intractable Qualified Codes: R11.2 - Nausea with vomiting, unspecified Chronic back pain Back pain location: low back pain Back pain laterality: bilateral Sciatica presence: with sciatica Sciatica laterality: bilateral sciatica Qualified Codes: M54.42 - Lumbago with sciatica, left side; M54.41 - Lumbago with sciatica, right side; G89.29 - Other chronic pain TRU UREÑA APRN Jul 11, 2019 20:12
[2019-07-11] MEDS ORDERED: FAMOTIDINE 20 MG/2 ML VIAL IVP ONE (20:15)
[2019-07-11] MEDS ORDERED: fentaNYL PF VIAL 100 MCG/2 ML VIAL IV ONE (20:15)
[2019-07-11] MEDS ORDERED: ONDANSETRON PF 4 MG/2 ML VIAL. IV ONE (20:15)
[2019-07-11] MEDS ORDERED: IOHEXOL 300 MG/ML 100ML VIAL. IV ONE (20:30)
--- NOTE | 2019-07-11 20:38 | RAD ---
Exam: Chest one view INDICATION: Epigastric pain TECHNIQUE: Frontal view of the chest Comparisons: 04/15/2019 FINDINGS: The cardiomediastinal silhouette and pulmonary vessels are within normal limits. The lung and pleural spaces are clear. IMPRESSION: No acute cardiopulmonary process. Electronically signed by: Radha Jackson MD (07/11/2019 8:35 PM) [facility]
[2019-07-11 20:44] LABS: BASO # 0.1 x10^3/uL (0.0-0.2); BASO % 1 % (0-3); EOS # 0.1 x10^3/uL (0.0-0.7); EOS % 1 % (0-3); HEMATOCRIT 38.2 % (36.0-47.0); LYMPH # 2.2 x10^3/uL (1.0-4.8); LYMPH % 22 % (24-48); MEAN CORPUSCULAR HEMOGLOBIN 33 pg (25-35); MEAN CORPUSCULAR HGB CONC 34 g/dL (31-37); MEAN CORPUSCULAR VOLUME 98 fL (79-100); MONO % 10 % (0-9); NEUT # 6.8 x10^3/uL (1.8-7.7); NEUT % 67 % (31-73); PLATELET COUNT 280 x10^3/uL (140-400); RED BLOOD COUNT 3.92 x10^6/uL (3.50-5.40); RED CELL DISTRIBUTION WIDTH 13.2 % (11.5-14.5); WHITE BLOOD COUNT 10.1 x10^3/uL (4.0-11.0)
[2019-07-11 20:54] LABS: PROTHROMBIN TIME PATIENT 12.5 SEC (11.7-14.0)
[2019-07-11 21:20] LABS: BILIRUBIN,URINE NEGATIVE (NEG); CLARITY,URINE CLEAR; COLOR,URINE YELLOW; NITRITE,URINE NEGATIVE (NEG); PROTEIN,URINE NEGATIVE (NEG-TRACE); UROBILINOGEN,URINE 0.2 mg/dL (0.2 mg/dL)
[2019-07-11 21:25] LABS: BACTERIA,URINE FEW /HPF (0-FEW); RBC,URINE 0 /HPF (0-2); SQUAMOUS EPITHELIAL CELL,UR FEW /LPF
[2019-07-11 22:35] LABS: CALCIUM 8.9 mg/dL (8.5-10.1); CREATININE 0.8 mg/dL (0.6-1.0); GFR 82.3; POTASSIUM 4.5 mmol/L (3.5-5.1)
[2019-07-11 22:41] LABS: ALBUMIN 3.1 g/dL (3.4-5.0); TOTAL BILIRUBIN 0.1 mg/dL (0.2-1.0); TOTAL PROTEIN 6.2 g/dL (6.4-8.2)
[2019-07-11] MEDS ORDERED: CONTRAST GIVEN. MC PRN (23:00)
--- NOTE | 2019-07-11 23:13 | RAD ---
Exam: CT abdomen and pelvis with contrast INDICATION: Vomiting and epigastric pain TECHNIQUE: Sequential axial images through the abdomen and pelvis obtained following the administration of 75 mL of Omni 300 IV contrast. Sagittal and coronal reformatted images were reconstructed from the axial data and reviewed. Comparisons: 01/07/2019 FINDINGS: Heart size is normal. No pericardial effusion. Strandy opacities at the dependent portion the lung bases likely representing atelectasis. No pleural effusion. Liver, spleen, and pancreas are unremarkable. Gallbladder surgically absent. There is stable thickening of the adrenal glands bilaterally. Kidneys demonstrate symmetric enhancement. No perinephric inflammation or hydronephrosis. No renal or ureteral calculi are identified. Several hypoattenuating cystic lesions are noted within the kidneys bilaterally which are too small to characterize. Bladder is distended and appears thin-walled. Uterus is not enlarged. No abnormal adnexal mass. Scattered diverticulosis noted predominantly in the descending and sigmoid colon without evidence of acute diverticulitis. Remainder of the large and small bowel are unremarkable. Appendix is not identified. No free intra-abdominal air or fluid. No obstruction. Abdominal aorta has a normal course and caliber. Abdominal vasculature is patent. No enlarged intra-abdominal lymph nodes are identified. No suspicious osseous lesions or acute fractures. Stable compression deformities of the L4 and L5 vertebral bodies. IMPRESSION: 1. No acute process identified within the abdomen or pelvis. 2. Stable incidental findings as described above. Exposure: One or more of the following in the visualized dose reduction techniques were utilized for this examination: 1. Automated exposure control 2. Adjustment of the MA and/or KV according to patient size 3. Use of iterative of reconstructive technique Electronically signed by: Radha Jackson MD (07/11/2019 11:10 PM) [facility]
[2019-07-11] MEDS ORDERED: ACETAMINOPHEN 325 MG TABLET. PO PRN (23:45)
[2019-07-11] MEDS ORDERED: ONDANSETRON PF 4 MG/2 ML VIAL. IV PRN (23:45)
[2019-07-12] VITALS (9 sets, daily range): BP systolic 112–169; BP diastolic 43–162
[2019-07-12] MEDS ORDERED: cefTRIAXone IV Push 1 GM VIAL. IVP ONE
[2019-07-12] MEDS: fentaNYL PF VIAL 100 MCG/2 ML VIAL IV PRN ×4 (00:15→06:47)
[2019-07-12] MEDS ORDERED: ERGO500027 PO (01:20)
[2019-07-12] MEDS ORDERED: AMIT25TA PO (01:20)
[2019-07-12] MEDS ORDERED: OXYC1TAB22 PO (01:20)
[2019-07-12] MEDS: IV NORMAL SALINE 1000ML BAG 1,000 ML IV SCH ×2 (01:40→17:02)
[2019-07-12] MEDS ORDERED: DOCUSATE SODIUM 100 MG CAPSULE. PO PRN (11:30)
[2019-07-12] MEDS ORDERED: cloNIDine HCL 0.2 MG TABLET PO PRN (11:30)
[2019-07-12] MEDS: PANTOPRAZOLE 40 MG TABLET.DR. PO SCH (12:00)
--- NOTE | 2019-07-12 12:01 | HP ---
ADMIT DATE: 07/11/2019 CHIEF COMPLAINT: Abdominal pain. HISTORY OF PRESENT ILLNESS AND HOSPITAL COURSE: This patient is an 84-year-old female who has longstanding chronic back pain. She states that 3 days ago, she began having some increased nausea and vomiting. She also had frequent urination every 15 minutes. She became weaker and unable to care for herself; therefore came to the Emergency Room for further evaluation. She was found to have evidence of UTI and early signs of dehydration with BUN and creatinine ratio of greater than 20. She was also found to have mild protein malnutrition. Due to these findings, she was admitted for IV fluids, IV antibiotics, PT and OT modalities. PAST MEDICAL HISTORY: Significant for: 1. Coronary artery disease. 2. Type 2 diabetes. 3. High cholesterol. 4. Spinal stenosis and chronic low back pain. 5. Hypertension. 6. Reflux disease. FAMILY HISTORY: Significant for heart disease and hypertension. PAST SURGICAL HISTORY: Significant for appendectomy and cholecystectomy. The patient has had back surgery x 2. SOCIAL HISTORY: The patient does not smoke. She does not use alcohol. She has good family support. REVIEW OF SYSTEMS: The patient was doing well until approximately 3 days ago when she began having nausea and vomiting. She also had frequent urination and significant back pain. She also complains of chills. She has had no diarrhea. No significant shortness of breath or chest pains. PHYSICAL EXAMINATION: GENERAL: This is a well-nourished, well-developed, mildly obese female. HEENT: Benign. NECK: Supple. CARDIAC: Regular rate and rhythm. LUNGS: Clear. ABDOMEN: Diffusely tender without rebound or guarding. She has positive bowel sounds. She was more exquisitely tender in the parapubic area. EXTREMITIES: There are 2+ pulses without significant edema. NEUROLOGIC: Showed no unilateral findings. ASSESSMENT: 1. Abdominal pain, possible diabetic gastroparesis. 2. Urinary tract infection. 3. Debilitation. 4. Mild protein malnutrition. 5. Chronic low back pain with spinal stenosis. PLAN: To proceed with IV fluids, IV antibiotics, pain control. Monitor diet, consider senior care if the patient does not improve. Monitor the patient's hydration and pain levels and discharge to home with home health if symptoms do improve. MATTHEW COLUNGA MD DR: DIONICIO/yrn JOB#: [id number] / [id number]
[2019-07-12] MEDS: ISOSORBIDE MONONITRATE ER 30 MG TAB.ER.24H PO SCH (12:30)
[2019-07-12] MEDS: amLODIPine BESYLATE 10 MG TABLET PO SCH (12:31)
[2019-07-12] MEDS: LOSARTAN POTASSIUM 50 MG TABLET. PO SCH (12:31)
[2019-07-12] MEDS: cycloSPORINE 0.05% OPHTH DROPERETTE. OU SCH ×2 (12:32→22:08)
[2019-07-12] MEDS: ASPIRIN ENTERIC COATED 81 MG TABLET.DR. PO SCH (12:32)
[2019-07-12] MEDS: oxyCODONE/APAP 10/325 1 TAB TABLET PO PRN ×2 (12:32→22:07)
[2019-07-12] MEDS: ENOXAPARIN 30 MG/0.3 ML SYRINGE. SQ SCH (16:59)
[2019-07-12] MEDS: ATORVASTATIN CALCIUM 20 MG TABLET PO SCH (22:08)
[2019-07-12] MEDS: LACTOBACILLUS RHAMNOSUS GG 1 CAPSULE. PO SCH (22:08)
[2019-07-12] MEDS: AMITRIPTYLINE HCL 25 MG TABLET. PO SCH (22:08)
[2019-07-12] MEDS: cefTRIAXone IV Push 1 GM VIAL. IVP SCH (22:08)
[2019-07-13] VITALS (9 sets, daily range): BP systolic 103–157; BP diastolic 41–75
[2019-07-13 07:29] LABS: BASO % 1 % (0-3); EOS # 0.1 x10^3/uL (0.0-0.7); EOS % 2 % (0-3); HEMATOCRIT 36.8 % (36.0-47.0); HEMOGLOBIN 12.3 g/dL (12.0-15.5); LYMPH # 2.7 x10^3/uL (1.0-4.8); LYMPH % 34 % (24-48); MEAN CORPUSCULAR HEMOGLOBIN 33 pg (25-35); MEAN CORPUSCULAR HGB CONC 34 g/dL (31-37); MEAN CORPUSCULAR VOLUME 98 fL (79-100); MONO # 0.8 x10^3/uL (0.0-1.1); MONO % 10 % (0-9); NEUT # 4.2 x10^3/uL (1.8-7.7); NEUT % 53 % (31-73); PLATELET COUNT 243 x10^3/uL (140-400); RED BLOOD COUNT 3.75 x10^6/uL (3.50-5.40); RED CELL DISTRIBUTION WIDTH 13.3 % (11.5-14.5); WHITE BLOOD COUNT 7.8 x10^3/uL (4.0-11.0)
[2019-07-13 07:41] LABS: CALCIUM 8.8 mg/dL (8.5-10.1); CREATININE 0.7 mg/dL (0.6-1.0); POTASSIUM 4.4 mmol/L (3.5-5.1)
[2019-07-13] MEDS: PANTOPRAZOLE 40 MG TABLET.DR. PO SCH (08:07)
[2019-07-13] MEDS: LACTOBACILLUS RHAMNOSUS GG 1 CAPSULE. PO SCH ×2 (08:28→20:09)
[2019-07-13] MEDS: ASPIRIN ENTERIC COATED 81 MG TABLET.DR. PO SCH (08:28)
[2019-07-13] MEDS: oxyCODONE/APAP 10/325 1 TAB TABLET PO PRN ×3 (08:28→20:21)
[2019-07-13] MEDS: cycloSPORINE 0.05% OPHTH DROPERETTE. OU SCH ×2 (08:28→20:10)
[2019-07-13] MEDS: amLODIPine BESYLATE 10 MG TABLET PO SCH (08:28)
[2019-07-13] MEDS: ISOSORBIDE MONONITRATE ER 30 MG TAB.ER.24H PO SCH (08:29)
[2019-07-13] MEDS: LOSARTAN POTASSIUM 50 MG TABLET. PO SCH (08:30)
--- NOTE | 2019-07-13 11:39 | EKG ---
[facility] [address] [place] [address] Test Date: 2019-07-11 Test Time: 20:36:11 Pat Name: DANIEL ARMENDARIZ Department: Room: 548 1 Gender: F [employer]iting Internship: : 1935 Requested By: TRU UREÑA Order Number: [id number] Reading MD: Ruddy Chan MD Measurements Intervals [place] Rate: 74 P: 47 OK: 126 QRS: 18 QRSD: 78 T: 75 QT: 400 QTc: 449 Interpretive Statements SINUS RHYTHM NON-SPECIFIC ST/T CHANGES Electronically Signed On 07-21-2019 8:54:51 CDT by Ruddy Chan MD
[2019-07-13] MEDS: ENOXAPARIN 30 MG/0.3 ML SYRINGE. SQ SCH (15:55)
[2019-07-13] MEDS ORDERED: ONDANSETRON PF 4 MG/2 ML VIAL. IVP PRN (19:30)
[2019-07-13] MEDS: AMITRIPTYLINE HCL 25 MG TABLET. PO SCH (20:09)
[2019-07-13] MEDS: cefTRIAXone IV Push 1 GM VIAL. IVP SCH (20:09)
[2019-07-13] MEDS: ATORVASTATIN CALCIUM 20 MG TABLET PO SCH (20:10)
--- NOTE | 2019-07-13 20:36 | PDOC ---
PROGRESS NOTES Subjective Subjective Patient c/o pain down left leg. Patient has less nausea and tolerating diet today. OT recc SNU at this time. Objective Objective Vital Signs Date Time Temp Pulse Resp B/P (MAP) Pulse Ox O2 Delivery O2 Flow Rate FiO2 07/13/19 20:21 Room Air 07/13/19 19:00 98.4 66 18 114/66 (82) 99 98.4 Intake and Output 07/13/19 07:00 Intake Total 980 ml Output Total 3785 ml Balance -2805 ml Intake Oral 980 ml Output Urine Total 3785 ml # Voids 1 Physical Exam Abdomen: Normal bowel sounds Heart: Regular rate Extremities: No edema General: Alert Lungs: Clear to auscultation Assessment Assessment Problems Medical Problems: (1) Chronic back pain Status: Acute (2) Nausea and vomiting Status: Acute (3) UTI (urinary tract infection) Status: Acute Urinary tract infection. Debilitation. Mild protein malnutrition. Chronic low back pain with spinal stenosis. Plan Plan of Care Continue IV antibx Continue PT/OT possible SNU after 3 day stay If needed Comment Review of Relevant I have reviewed the following items rj (where applicable) has been applied. Labs Laboratory Tests Test 07/11/19 20:35 07/11/19 21:07 07/11/19 22:15 07/12/19 07:24 White Blood Count 10.1 x10^3/uL (4.0-11.0) Red Blood Count 3.92 x10^6/uL (3.50-5.40) Hemoglobin 13.0 g/dL (12.0-15.5) Hematocrit 38.2 % (36.0-47.0) Mean Corpuscular Volume 98 fL (79-100) Mean Corpuscular Hemoglobin 33 pg (25-35) Mean Corpuscular Hemoglobin Concent 34 g/dL (31-37) Red Cell Distribution Width 13.2 % (11.5-14.5) Platelet Count 280 x10^3/uL (140-400) Neutrophils (%) (Auto) 67 % (31-73) Lymphocytes (%) (Auto) 22 % (24-48) Monocytes (%) (Auto) 10 % (0-9) Eosinophils (%) (Auto) 1 % (0-3) Basophils (%) (Auto) 1 % (0-3) Neutrophils # (Auto) 6.8 x10^3/uL (1.8-7.7) Lymphocytes # (Auto) 2.2 x10^3/uL (1.0-4.8) Monocytes # (Auto) 1.0 x10^3/uL (0.0-1.1) Eosinophils # (Auto) 0.1 x10^3/uL (0.0-0.7) Basophils # (Auto) 0.1 x10^3/uL (0.0-0.2) Prothrombin Time 12.5 SEC (11.7-14.0) Prothromb Time International Ratio 1.0 (0.8-1.1) Urine Collection Type Unknown Urine Color Yellow Urine Clarity Clear Urine pH 7.0 Urine Specific [place] 1.020 Urine Protein Negative mg/dL (NEG-TRACE) Urine Glucose (UA) Negative mg/dL (NEG) Urine Ketones (Stick) Negative mg/dL (NEG) Urine Blood Negative (NEG) Urine Nitrite Negative (NEG) Urine Bilirubin Negative (NEG) Urine Urobilinogen Dipstick 0.2 mg/dL (0.2 mg/dL) Urine Leukocyte Esterase Small (NEG) Urine RBC 0 /HPF (0-2) Urine WBC 5-10 /HPF (0-4) Urine Squamous Epithelial Cells Few /LPF Urine Bacteria Few /HPF (0-FEW) Urine Mucus Slight /LPF Sodium Level 145 mmol/L (136-145) Potassium Level 4.5 mmol/L (3.5-5.1) Chloride Level 111 mmol/L (98-107) Carbon Dioxide Level 22 mmol/L (21-32) Anion Gap 12 (6-14) Blood Urea Nitrogen 19 mg/dL (7-20) Creatinine 0.8 mg/dL (0.6-1.0) Estimated GFR (Cockcroft-Gault) 82.3 BUN/Creatinine Ratio 24 (6-20) Glucose Level 93 mg/dL (70-99) Calcium Level 8.9 mg/dL (8.5-10.1) Total Bilirubin 0.1 mg/dL (0.2-1.0) Aspartate Amino Transf (AST/SGOT) 25 U/L (15-37) Alanine Aminotransferase (ALT/SGPT) 16 U/L (14-59) Alkaline Phosphatase 42 U/L (46-116) Troponin I Quantitative < 0.017 ng/mL (0.000-0.055) Total Protein 6.2 g/dL (6.4-8.2) Albumin 3.1 g/dL (3.4-5.0) Albumin/Globulin Ratio 1.0 (1.0-1.7) Lipase 50 U/L (73-393) Glucose (Fingerstick) 87 mg/dL (70-99) Test 07/12/19 11:42 07/12/19 17:12 07/12/19 21:17 07/13/19 05:15 Glucose (Fingerstick) 102 mg/dL (70-99) 112 mg/dL (70-99) 92 mg/dL (70-99) White Blood Count 7.8 x10^3/uL (4.0-11.0) Red Blood Count 3.75 x10^6/uL (3.50-5.40) Hemoglobin 12.3 g/dL (12.0-15.5) Hematocrit 36.8 % (36.0-47.0) Mean Corpuscular Volume 98 fL (79-100) Mean Corpuscular Hemoglobin 33 pg (25-35) Mean Corpuscular Hemoglobin Concent 34 g/dL (31-37) Red Cell Distribution Width 13.3 % (11.5-14.5) Platelet Count 243 x10^3/uL (140-400) Neutrophils (%) (Auto) 53 % (31-73) Lymphocytes (%) (Auto) 34 % (24-48) Monocytes (%) (Auto) 10 % (0-9) Eosinophils (%) (Auto) 2 % (0-3) Basophils (%) (Auto) 1 % (0-3) Neutrophils # (Auto) 4.2 x10^3/uL (1.8-7.7) Lymphocytes # (Auto) 2.7 x10^3/uL (1.0-4.8) Monocytes # (Auto) 0.8 x10^3/uL (0.0-1.1) Eosinophils # (Auto) 0.1 x10^3/uL (0.0-0.7) Basophils # (Auto) 0.0 x10^3/uL (0.0-0.2) Sodium Level 145 mmol/L (136-145) Potassium Level 4.4 mmol/L (3.5-5.1) Chloride Level 110 mmol/L (98-107) Carbon Dioxide Level 26 mmol/L (21-32) Anion Gap 9 (6-14) Blood Urea Nitrogen 10 mg/dL (7-20) Creatinine 0.7 mg/dL (0.6-1.0) Estimated GFR (Cockcroft-Gault) 96.0 Glucose Level 87 mg/dL (70-99) Calcium Level 8.8 mg/dL (8.5-10.1) Test 07/13/19 08:10 07/13/19 12:15 07/13/19 16:56 07/13/19 19:25 Glucose (Fingerstick) 90 mg/dL (70-99) 126 mg/dL (70-99) 85 mg/dL (70-99) 141 mg/dL (70-99) Laboratory Tests Test 07/12/19 21:17 07/13/19 05:15 07/13/19 08:10 07/13/19 12:15 Glucose (Fingerstick) 92 mg/dL (70-99) 90 mg/dL (70-99) 126 mg/dL (70-99) White Blood Count 7.8 x10^3/uL (4.0-11.0) Red Blood Count 3.75 x10^6/uL (3.50-5.40) Hemoglobin 12.3 g/dL (12.0-15.5) Hematocrit 36.8 % (36.0-47.0) Mean Corpuscular Volume 98 fL (79-100) Mean Corpuscular Hemoglobin 33 pg (25-35) Mean Corpuscular Hemoglobin Concent 34 g/dL (31-37) Red Cell Distribution Width 13.3 % (11.5-14.5) Platelet Count 243 x10^3/uL (140-400) Neutrophils (%) (Auto) 53 % (31-73) Lymphocytes (%) (Auto) 34 % (24-48) Monocytes (%) (Auto) 10 % (0-9) Eosinophils (%) (Auto) 2 % (0-3) Basophils (%) (Auto) 1 % (0-3) Neutrophils # (Auto) 4.2 x10^3/uL (1.8-7.7) Lymphocytes # (Auto) 2.7 x10^3/uL (1.0-4.8) Monocytes # (Auto) 0.8 x10^3/uL (0.0-1.1) Eosinophils # (Auto) 0.1 x10^3/uL (0.0-0.7) Basophils # (Auto) 0.0 x10^3/uL (0.0-0.2) Sodium Level 145 mmol/L (136-145) Potassium Level 4.4 mmol/L (3.5-5.1) Chloride Level 110 mmol/L (98-107) Carbon Dioxide Level 26 mmol/L (21-32) Anion Gap 9 (6-14) Blood Urea Nitrogen 10 mg/dL (7-20) Creatinine 0.7 mg/dL (0.6-1.0) Estimated GFR (Cockcroft-Gault) 96.0 Glucose Level 87 mg/dL (70-99) Calcium Level 8.8 mg/dL (8.5-10.1) Test 07/13/19 16:56 07/13/19 19:25 Glucose (Fingerstick) 85 mg/dL (70-99) 141 mg/dL (70-99) Medications Current Medications Sodium Chloride 1,000 ml @ 1,000 mls/hr Q1H IV Last administered on 07/11/19 20:02; Start 07/11/19 at 20:02; Stop 07/11/19 at 21:01; Status DC Fentanyl Citrate (Fentanyl 2ml Vial) 25 mcg 1X ONCE IV Last administered on 07/11/19 20:59; Start 07/11/19 at 20:15; Stop 07/11/19 at 20:16; Status DC Ondansetron HCl (Zofran) 4 mg 1X ONCE IV Last administered on 07/11/19 20:59; Start 07/11/19 at 20:15; Stop 07/11/19 at 20:16; Status DC Famotidine (Pepcid Vial) 20 mg 1X ONCE IVP Last administered on 07/11/19at 20:59; Start 07/11/19 at 20:15; Stop 07/11/19 at 20:16; Status DC Iohexol (Omnipaque 300 Mg/ml) 75 ml 1X ONCE IV Last administered on 07/11/19at 20:30; Start 07/11/19 at 20:30; Stop 07/11/19 at 20:31; Status DC Ceftriaxone Sodium (Rocephin) 1 gm 1X ONCE IVP Last administered on 07/12/19at 00:14; Start 07/12/19 at 00:00; Stop 07/12/19 at 00:01; Status DC Ondansetron HCl (Zofran) 4 mg PRN Q8HRS PRN IV NAUSEA/VOMITING 1ST CHOICE; Start 07/11/19 at 23:45; Stop 07/12/19 at 23:44; Status DC Fentanyl Citrate (Fentanyl 2ml Vial) 50 mcg PRN Q1HR PRN IV SEVERE PAIN 7-10 Last administered on 07/12/19at 06:47; Start 07/11/19 at 23:45; Stop 07/12/19 at 11:31; Status DC Sodium Chloride 1,000 ml @ 75 mls/hr [id number] IV Last administered on 17:02; Start 07/12/19 at 00:00; Stop 07/13/19 at 00:00; Status DC Acetaminophen (Tylenol) 650 mg PRN Q4HRS PRN PO FEVER; Start 07/11/19 at 23:45; Stop 07/12/19 at 23:44; Status DC Amitriptyline HCl (Elavil) 25 mg HS PO Last administered on 07/13/19 20:09; Start 07/12/19 at 21:00 Amlodipine Besylate (Norvasc) 10 mg DAILY PO Last administered on 07/13/19at 08:28; Start 07/12/19 at 12:00 Aspirin (Ecotrin) 81 mg DAILY PO Last administered on 07/13/19 08:28; Start 07/12/19 at 12:00 Atorvastatin Calcium (Lipitor) 20 mg HS PO Last administered on 07/13/19 20:10; Start 07/12/19 at 21:00 Clonidine HCl (Catapres) 0.2 mg PRN Q3HRS PRN PO ELEVATED BP, SEE COMMENTS; Start 07/12/19 at 11:30 Cyclosporine (Restasis) 1 drop BID OU Last administered on 07/13/19at 20:10; Start 07/12/19 at 12:00 Docusate Sodium (Colace) 100 mg PRN DAILY PRN PO CONSTIPATION; Start 07/12/19 at 11:30 Ergocalciferol (Vitamin D2) 50,000 unit We@0900 PO ; Start 07/16/19 at 09:00 Hydralazine HCl (Apresoline) 50 mg DAILY PO Last administered on 07/13/19 08:29; Start 07/12/19 at 12:00 Isosorbide Mononitrate (Imdur) 60 mg DAILY PO Last administered on 07/13/19 08:29; Start 07/12/19 at 12:00 Losartan Potassium (Cozaar) 100 mg DAILY PO Last administered on 07/13/19 08:30; Start 07/12/19 at 12:00 Oxycodone/ Acetaminophen (Percocet 10/325) 1 tab PRN TID PRN PO PAIN Last administered on 07/13/19 20:21; Start 07/12/19 at 11:30 Metformin HCl (Glucophage Xr) 1,000 mg DAILYWBKFT PO ; Start 07/14/19 at 08:00 Pantoprazole Sodium (Protonix) 40 mg DAILYAC PO Last administered on 07/13/19 08:07; Start 07/12/19 at 12:00 Enoxaparin Sodium (Lovenox 30mg Syringe) 30 mg Q24H SQ Last administered on 07/13/19 15:55; Start 07/12/19 at 16:00 Info (CONTRAST GIVEN -- Rx MONITORING) 1 each PRN DAILY PRN MC SEE COMMENTS; Start 07/11/19 at 23:00; Stop 07/13/19 at 22:59 Ceftriaxone Sodium (Rocephin) 1 gm Q24H IVP Last administered on 07/13/19 20:09; Start 07/12/19 at 21:00 Lactobacillus Rhamnosus (Culturelle) 1 cap BID PO Last administered on 07/13/19 20:09; Start 07/12/19 at 21:00 Ondansetron HCl (Zofran) 4 mg PRN Q4HRS PRN IVP NAUSEA/VOMITING Last administered on 07/13/19 20:09; Start 07/13/19 at 19:30 Active Scripts Active Protonix (Pantoprazole Sodium) 20 Mg Tablet.dr 1 Tab PO DAILY Hydralazine Hcl 50 Mg Tablet 1 Tab PO DAILY Colace (Docusate Sodium) 100 Mg Capsule 100 Mg PO PRN DAILY PRN Aspirin Ec (Aspirin) 81 Mg Tablet.dr 81 Mg PO DAILY Isosorbide Mononitrate Er (Isosorbide Mononitrate) 30 Mg Tab.er.24h 60 Mg PO DAILY Reported Vitamin D2 (Ergocalciferol (Vitamin D2)) 50,000 Unit Capsule 50,000 Unit PO QWE Amitriptyline Hcl 25 Mg Tablet 25 Mg PO HS Percocet 10-325 Mg Tablet (Oxycodone/Acetaminophen) 1 Each Tablet 1-2 Tab PO PRN TID PRN MDD 3 Tablet(s) 30 Days Losartan Potassium (Losartan Potassium) 25 Mg Tablet 100 Mg PO DAILY Clonidine Hcl 0.2 Mg Tablet 0.2 Mg PO PRN PRN Atorvastatin Calcium 20 Mg Tablet 20 Mg PO HS Metformin Hcl Er (Metformin Hcl) 1,000 Mg Tab.er.24 1,000 Mg PO DAILYWBKFT Amlodipine Besylate 10 Mg Tablet 10 Mg PO DAILY Restasis (Cyclosporine) 1 Each Droperette 1 Drop EACHEYE BID Vitals/I & O Vital Sign - Last 24 Hours 07/12/19 07/12/19 07/12/19 07/13/19 22:07 23:00 23:08 03:00 Temp 97.7 97.9 97.7 97.9 Pulse 77 62 Resp 16 20 B/P (MAP) 169/74 (105) 134/67 (89) Pulse Ox 95 96 O2 Delivery Room Air Room Air Room Air Room Air 07/13/19 07/13/19 07/13/19 07/13/19 07:00 08:12 08:20 08:28 Temp 98.1 98.1 Pulse 68 68 Resp 18 B/P (MAP) 113/71 (85) 113/71 Pulse Ox 94 O2 Delivery Room Air Room Air Room Air 07/13/19 07/13/19 07/13/19 07/13/19 08:28 08:29 08:29 08:30 Pulse 68 68 68 B/P (MAP) 113/71 113/71 113/71 O2 Delivery Room Air 07/13/19 07/13/19 07/13/19 07/13/19 10:26 10:28 15:11 15:48 Temp 97.9 98.0 97.6 97.9 98.0 97.6 Pulse 78 63 72 Resp 18 18 18 B/P (MAP) 157/75 (102) 117/41 (66) 103/62 (76) Pulse Ox 94 95 92 O2 Delivery Room Air Room Air Room Air Room Air 07/13/19 07/13/19 07/13/19 07/13/19 15:57 17:31 19:00 20:21 Temp 98.4 98.4 Pulse 66 Resp 18 B/P (MAP) 114/66 (82) Pulse Ox 99 O2 Delivery Room Air Room Air Room Air Room Air Intake and Output 07/12/19 07/12/19 07/13/19 15:00 23:00 07:00 Intake Total 120 ml 500 ml 360 ml Output Total 1335 ml 2450 ml Balance 120 ml -835 ml -2090 ml MATTHEW COLUNGA MD Jul 13, 2019 20:36
[2019-07-14 02:19] VITALS: BP 146/65
[2019-07-14] MEDS: oxyCODONE/APAP 10/325 1 TAB TABLET PO PRN ×3 (04:42→23:46)
[2019-07-14 07:00] VITALS: BP 170/76
[2019-07-14] MEDS: metFORMIN XR 500 MG TAB.ER.24H PO SCH (08:41)
[2019-07-14] MEDS: cycloSPORINE 0.05% OPHTH DROPERETTE. OU SCH ×2 (08:42→23:46)
[2019-07-14] MEDS: ISOSORBIDE MONONITRATE ER 30 MG TAB.ER.24H PO SCH (08:42)
[2019-07-14] MEDS: LOSARTAN POTASSIUM 50 MG TABLET. PO SCH (08:43)
[2019-07-14] MEDS: ASPIRIN ENTERIC COATED 81 MG TABLET.DR. PO SCH (08:43)
[2019-07-14] MEDS: LACTOBACILLUS RHAMNOSUS GG 1 CAPSULE. PO SCH ×2 (08:43→23:47)
[2019-07-14] MEDS: PANTOPRAZOLE 40 MG TABLET.DR. PO SCH (08:43)
[2019-07-14] MEDS: amLODIPine BESYLATE 10 MG TABLET PO SCH (08:44)
[2019-07-14 11:03] VITALS: BP 131/59
--- NOTE | 2019-07-14 13:15 | NUR ---
HARHSA consulted for SNU eval at [facility]. HARSHA phoned and faxed referral this morning. Pt acceptance and admission pending. Will continue to follow.
--- NOTE | 2019-07-14 13:43 | SNU/HH DC ---
DISCHARGE ORDERS DISCHARGE INFORMATION: DISCHARGE DATE: Jul 14, 2019 FINAL DIAGNOSIS Problems Medical Problems: (1) Chronic back pain Status: Acute (2) Debilitated Status: Acute (3) Nausea and vomiting Status: Acute (4) UTI (urinary tract infection) Status: Acute CONDITION ON DISCHARGE: Stable CODE STATUS: Code Status: Full LONGTERM: SNF STAY <30 DAYS: Yes POST DISCHARGE ORDERS: ACTIVITY ORDERS: Activity as tolerated WEIGHT BEARING STATUS: No restrictions DIET AFTER DISCHARGE: Regular WOUND/INCISION CARE: No wound care needed CHECKS AFTER DISCHARGE: CHECKS AFTER DISCHARGE: Check blood press - daily TREATMENT/EQUIPMENT ORDERS: ADAPTIVE EQUIPMENT NEEDED: None Physical Therapy For: Evalulation/Treatment Occupational Therapy For: Evaluation/Treatment DISCHARGE MEDICATIONS: Home Meds Active Scripts Pantoprazole Sodium (PROTONIX) 20 Mg Tablet.dr, 1 TAB PO DAILY, #30 TAB Prov:STEPHENIE BACON DO 04/15/19 Hydralazine Hcl (HYDRALAZINE HCL) 50 Mg Tablet, 1 TAB PO DAILY for htn, #90 TAB 5 Refills Prov:DONAVAN BONILLA MD 01/09/19 Docusate Sodium (COLACE) 100 Mg Capsule, 100 MG PO PRN DAILY PRN for CONSTIPATION, #10 CAP Prov:LONNIE TROTTER MD 03/29/17 Aspirin (ASPIRIN EC) 81 Mg Tablet.dr, 81 MG PO DAILY, #1 TAB Prov:YASEMIN TORRES MD 06/06/16 Isosorbide Mononitrate (ISOSORBIDE MONONITRATE ER) 30 Mg Tab.er.24h, 60 MG PO DAILY, #30 TAB Prov:YASEMIN TORRES MD 06/06/16 Reported Medications Ergocalciferol (Vitamin D2) (VITAMIN D2) 50,000 Unit Capsule, 00671 UNIT PO QWE for vitamin 07/12/19 Amitriptyline Hcl (AMITRIPTYLINE HCL) 25 Mg Tablet, 25 MG PO HS for sleep 07/12/19 Oxycodone/Apap 10-325 (PERCOCET 10-325 MG TABLET ) 1 Each Tablet, 1-2 TAB PO PRN TID PRN for PAIN MDD 3 Tablet(s) for 30 Days, #90 TAB 0 Refills 07/12/19 Losartan Potassium (LOSARTAN POTASSIUM ) 25 Mg Tablet, 100 MG PO DAILY for htn, TAB 03/11/18 Clonidine Hcl (CLONIDINE HCL) 0.2 Mg Tablet, 0.2 MG PO PRN PRN for ELEVATED BP, SEE COMMENTS, TAB 10/18/17 Atorvastatin Calcium (ATORVASTATIN CALCIUM) 20 Mg Tablet, 20 MG PO HS for FOR CHOLESTEROL, #30 TAB 0 Refills 10/18/17 Metformin Hcl (METFORMIN HCL ER) 1,000 Mg Tab.er.24, 1000 MG PO DAILYWBKFT for ANTI-DIABETIC, TAB 0 Refills 01/02/17 Amlodipine Besylate (AMLODIPINE BESYLATE) 10 Mg Tablet, 10 MG PO DAILY, TAB 06/06/16 Cyclosporine (RESTASIS) 1 Each Droperette, 1 DROP EACHEYE BID, #60 VIAL 3 Refills 06/06/16 Discontinued Reported Medications Pantoprazole Sodium (PANTOPRAZOLE SODIUM ) 40 Mg Tablet., 1 TAB PO BID, #30 TAB 3 Refills LAST DOSE GIVEN: DATE: 08-09-15 TIME: 9 AM NEXT DOSE DUE: DATE: 08-10-15 TIME: 9 AM 09/15/14 MATTHEW COLUNGA MD Jul 14, 2019 13:43
--- NOTE | 2019-07-14 13:47 | SNU/HH DC ---
DISCHARGE ORDERS DISCHARGE INFORMATION: DISCHARGE DATE: Jul 14, 2019 FINAL DIAGNOSIS Problems Medical Problems: (1) Chronic back pain Status: Acute (2) Debilitated Status: Acute (3) Nausea and vomiting Status: Acute (4) UTI (urinary tract infection) Status: Acute CONDITION ON DISCHARGE: Stable CODE STATUS: Code Status: Full POST DISCHARGE ORDERS: ACTIVITY ORDERS: Activity as tolerated WEIGHT BEARING STATUS: No restrictions DIET AFTER DISCHARGE: ADA WOUND/INCISION CARE: No wound care needed CHECKS AFTER DISCHARGE: CHECKS AFTER DISCHARGE: Check blood press - daily TREATMENT/EQUIPMENT ORDERS: ADAPTIVE EQUIPMENT NEEDED: None Physical Therapy For: Evalulation/Treatment Occupational Therapy For: Evaluation/Treatment DISCHARGE MEDICATIONS: Home Meds Active Scripts Pantoprazole Sodium (PROTONIX) 20 Mg Tablet.dr, 1 TAB PO DAILY, #30 TAB Prov:STEPHENIE BACON DO 04/15/19 Hydralazine Hcl (HYDRALAZINE HCL) 50 Mg Tablet, 1 TAB PO DAILY for htn, #90 TAB 5 Refills Prov:DONAVAN BONILLA MD 01/09/19 Docusate Sodium (COLACE) 100 Mg Capsule, 100 MG PO PRN DAILY PRN for CONSTIPATION, #10 CAP Prov:LONNIE TROTTER MD 03/29/17 Aspirin (ASPIRIN EC) 81 Mg Tablet.dr, 81 MG PO DAILY, #1 TAB Prov:YASEMIN TORRES MD 06/06/16 Isosorbide Mononitrate (ISOSORBIDE MONONITRATE ER) 30 Mg Tab.er.24h, 60 MG PO DAILY, #30 TAB Prov:YASEMIN TORRES MD 06/06/16 Reported Medications Ergocalciferol (Vitamin D2) (VITAMIN D2) 50,000 Unit Capsule, 63006 UNIT PO QWE for vitamin 07/12/19 Amitriptyline Hcl (AMITRIPTYLINE HCL) 25 Mg Tablet, 25 MG PO HS for sleep 07/12/19 Oxycodone/Apap 10-325 (PERCOCET 10-325 MG TABLET ) 1 Each Tablet, 1-2 TAB PO PRN TID PRN for PAIN MDD 3 Tablet(s) for 30 Days, #90 TAB 0 Refills 07/12/19 Losartan Potassium (LOSARTAN POTASSIUM ) 25 Mg Tablet, 100 MG PO DAILY for htn, TAB 03/11/18 Clonidine Hcl (CLONIDINE HCL) 0.2 Mg Tablet, 0.2 MG PO PRN PRN for ELEVATED BP, SEE COMMENTS, TAB 10/18/17 Atorvastatin Calcium (ATORVASTATIN CALCIUM) 20 Mg Tablet, 20 MG PO HS for FOR CHOLESTEROL, #30 TAB 0 Refills 10/18/17 Metformin Hcl (METFORMIN HCL ER) 1,000 Mg Tab.er.24, 1000 MG PO DAILYWBKFT for ANTI-DIABETIC, TAB 0 Refills 01/02/17 Amlodipine Besylate (AMLODIPINE BESYLATE) 10 Mg Tablet, 10 MG PO DAILY, TAB 06/06/16 Cyclosporine (RESTASIS) 1 Each Droperette, 1 DROP EACHEYE BID, #60 VIAL 3 Refills 06/06/16 Discontinued Reported Medications Pantoprazole Sodium (PANTOPRAZOLE SODIUM ) 40 Mg Tablet., 1 TAB PO BID, #30 TAB 3 Refills LAST DOSE GIVEN: DATE: 08-09-15 TIME: 9 AM NEXT DOSE DUE: DATE: 08-10-15 TIME: 9 AM 09/15/14 MATTHEW COLUNGA MD Jul 14, 2019 13:47
[2019-07-14 15:00] VITALS: BP 133/60
--- NOTE | 2019-07-14 15:22 | DS ---
DATE OF DISCHARGE: 07/14/2019 ADMIT DIAGNOSIS: Abdominal pain with nausea and vomiting. DISMISSAL DIAGNOSIS: Lumbar spinal stenosis with mobility deficit. ADDITIONAL DIAGNOSES: 1. Urinary tract infection, culture negative at the time of discharge. 2. Mild protein malnutrition. 3. Lumbar spinal stenosis. 4. 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 5. Coronary artery disease. 6. Hypertension. 7. Gastrointestinal reflux. HISTORY OF PRESENT ILLNESS AND HOSPITAL COURSE: This is an 84-year-old -[place] female who came to the Emergency Room, unable to care for herself complaining of nausea, vomiting, and abdominal pain. She was found to have a UTI. She also said her legs were weak; therefore, she underwent PT and OT modalities. The patient improved with IV fluids and IV antibiotics and PT and OT modalities, but still was unable to care for herself. UA, urine culture returned negative for bacteria; therefore, antibiotics were discontinued. PT and OT recommended senior living; therefore, this was ordered. The patient's biggest issue is mobility and radicular low back pain and leg weakness; therefore, MRI scan of the L-spine was ordered and Physical Rehab Medicine was consulted just prior to discharge. These will be done prior to discharge or early upon senior living course. She will be discharged on the following medications: Amitriptyline 25 mg at bedtime, amlodipine 10 mg daily, aspirin 81 mg daily, atorvastatin 20 mg daily, clonidine 0.2 p.r.n. blood pressures greater than 185/105, Restasis eye drops 1 drop to each eye b.i.d., Colace 100 mg daily, vitamin D 50,000 units weekly, hydralazine 50 mg daily, Imdur 60 mg daily, losartan 100 mg daily, metformin 500 mg b.i.d., oxycodone 10 1-2 q. 8 hours p.r.n. pain, pantoprazole 20 mg daily. MATTHEW COLUNGA MD DR: DIONICIO/yrn JOB#: [id number] / [id number]
--- NOTE | 2019-07-14 16:08 | NUR ---
HARSHA following pt. [facility] has been accepted [facility] pending insurance authJameel Higgins will submit for auth today. Pt and RN notified.
[2019-07-14] MEDS ORDERED: methylPREDNISolone ACETATE 40 MG/ML VIAL. IM ONE (17:00)
[2019-07-14] MEDS ORDERED: BUPIVACAINE MPF 0.25% 10 ML VIAL. IJ ONE (17:00)
[2019-07-14] MEDS: LIDOCAINE (700MG/PATCH) PATCH. TD SCH (17:12)
[2019-07-14] MEDS: ENOXAPARIN 30 MG/0.3 ML SYRINGE. SQ SCH (17:13)
[2019-07-14 19:00] VITALS: BP 149/71
[2019-07-14] MEDS ORDERED: PATCH REMOVAL. MC SCH (21:00)
[2019-07-14 23:00] VITALS: BP 120/68
[2019-07-14] MEDS: cefTRIAXone IV Push 1 GM VIAL. IVP SCH (23:47)
[2019-07-14] MEDS: AMITRIPTYLINE HCL 25 MG TABLET. PO SCH (23:47)
[2019-07-14] MEDS: ATORVASTATIN CALCIUM 20 MG TABLET PO SCH (23:47)
--- NOTE | 2019-07-15 01:46 | CONS ---
DATE OF CONSULTATION: 07/14/2019 I saw her at the request of Dr. Nilay Higginbotham on 07/14/2019. LOCATION: She is in room 548. HISTORY OF PRESENT ILLNESS: This is an 84-year-old female known to me. The patient with known coronary artery disease, hypertension, hyperlipidemia, gastroesophageal reflux disease, anxiety, chronic lower back pain, osteoarthritis, diabetes mellitus, status post appendectomy, cholecystectomy, family history of heart disease and hypertension, not known allergic to any medication. She lives in a high-rise apartment with her daughter and has been independent with her mobility and self-care skills and she had L4 kyphoplasty done in early 2017. She was admitted in 11/2017 when I saw her last time after she slid off from the chair to the floor slowly on 12/17/2017 and had increased lower back pain with radiation to her right lower extremity without any trouble with her bowel or bladder control. She usually walks using a roller walker. CT scan of the pelvis and lumbar spine done at that time revealed diverticulosis, mild grade 1 anterolisthesis of L5 on S1 which is stable and compression fracture of inferior endplate of L5 that was not noted in the prior study and probably acute. She also had multilevel degenerative disk disease and degenerative joint disease of lumbar vertebrae combined with ligamentum flavum redundancy, produces multilevel central spinal and neural foraminal compromise, more so at L4-L5. The patient was admitted with increasing lower back pain with associated abdominal pain on 07/11/2019. She had chest x-ray, which failed to reveal any acute abnormalities and CT scan of the abdomen and pelvis done on the same date of 07/11/2019 revealed no acute process, stable compression deformities of L4-L5 vertebral bodies was noted. The patient admits continued lower back pain with radiation to her left lower extremity. She denies any trouble with her bowel or bladder control. PHYSICAL EXAMINATION: On physical examination today revealed an elderly female. She is alert, oriented to time, place, person and circumstance and follows commands appropriately, moves all 4 extremities voluntarily where she had 4+/5 grade muscle strength. Deep tendon reflexes are decreased at both knees, absent at both ankles and she had equal perception of touch and pinprick sensation bilaterally. She had painful limited movements of her lumbar spine and tenderness to palpation over right lower thoracic and lumbar paraspinal muscles extending over to sacroiliac joint area and straight leg raising test is negative bilaterally. She had pain free range of motion of both lower extremity joints. She is independent with bed mobility and transfers and up walking using a roller walker. ASSESSMENT: An elderly female with chronic lower back pain from degenerative joint disease and degenerative disk disease of lumbar vertebrae with some degree of lumbar spinal stenosis. No clinical evidence of ongoing lumbar radiculopathy, but she presents with clinical evidence of peripheral neuropathy from her diabetes mellitus. The patient also with known coronary artery disease, hyperlipidemia, hypertension, gastroesophageal reflux disease, status post L4-L5 kyphoplasty done last year. RECOMMENDATIONS: At her request, I have injected under aseptic skin technique painful left sacroiliac joint area using Marcaine 0.25%, 2 mL and 1 mL of Depo-Medrol 40 mg per 1 mL solution after skin prep using alcohol swab to her left sacroiliac joint area and she tolerated the procedure satisfactorily without any side effects. Agree with the plan for transfer to custodial care unit when medically stable. Dr. Higginbotham, I appreciate asking me to participate in the care of this interesting patient. I will be glad to see her for followup with you on an as-needed basis. NAVEED VELÁZQUEZ MD DR: NATALY/yrn JOB#: [id number] / [id number]
[2019-07-15 03:00] VITALS: BP 131/70
[2019-07-15 07:00] VITALS: BP 165/64
[2019-07-15] MEDS: cycloSPORINE 0.05% OPHTH DROPERETTE. OU SCH (09:01)
[2019-07-15] MEDS: metFORMIN XR 500 MG TAB.ER.24H PO SCH (09:01)
[2019-07-15] MEDS: oxyCODONE/APAP 10/325 1 TAB TABLET PO PRN (09:02)
[2019-07-15] MEDS: amLODIPine BESYLATE 10 MG TABLET PO SCH (09:02)
[2019-07-15] MEDS: PANTOPRAZOLE 40 MG TABLET.DR. PO SCH (09:02)
[2019-07-15] MEDS: ISOSORBIDE MONONITRATE ER 30 MG TAB.ER.24H PO SCH (09:02)
[2019-07-15] MEDS: ASPIRIN ENTERIC COATED 81 MG TABLET.DR. PO SCH (09:03)
[2019-07-15] MEDS: LOSARTAN POTASSIUM 50 MG TABLET. PO SCH (09:03)
[2019-07-15] MEDS: LACTOBACILLUS RHAMNOSUS GG 1 CAPSULE. PO SCH (09:03)
[2019-07-15] MEDS: LIDOCAINE (700MG/PATCH) PATCH. TD SCH (09:04)
[2019-07-15] MEDS ORDERED: methylPREDNISolone ACETATE 40 MG/ML VIAL. IM ONE (09:15)
[2019-07-15] MEDS ORDERED: BUPIVACAINE MPF 0.25% 10 ML VIAL. IJ ONE (09:15)
--- NOTE | 2019-07-15 09:38 | PDOC ---
PROGRESS NOTES Subjective Subjective She admits some help with left sacroiliac joint injection and wants right side injected. Objective Objective Vital Signs Date Time Temp Pulse Resp B/P (MAP) Pulse Ox O2 Delivery O2 Flow Rate FiO2 07/15/19 09:03 62 165/64 07/15/19 07:00 98.0 16 99 98.0 07/15/19 00:46 Room Air Intake and Output 07/15/19 07:00 Intake Total 1240 ml Output Total 400 ml Balance 840 ml Intake Oral 1240 ml Output Urine Total 400 ml # Voids 6 # Bowel Movements 1 Physical Exam Physical Exam She is alert and slept better and seh had tenderness to palpation over right sacroiliac joint and adjoining lumbar paraspinal muscles. Assessment Assessment Problems Medical Problems: (1) Chronic back pain Status: Acute (2) Debilitated Status: Acute (3) Nausea and vomiting Status: Acute (4) UTI (urinary tract infection) Status: Acute Plan Plan of Care At her request,I have injected painful right sacroiliac joint under aseptic skin technique with alcohol skin prep using 2 ml of ).25% bupivacaine solution mixed with 1 ml of methylprednisone 40 mg/ 1 ml solution and she tolerated the procedure satisfactorily without any side effects. Comment Review of Relevant I have reviewed the following items rj (where applicable) has been applied. Labs Laboratory Tests Test 07/13/19 12:15 07/13/19 16:56 07/13/19 19:25 07/14/19 07:32 Glucose (Fingerstick) 126 mg/dL (70-99) 85 mg/dL (70-99) 141 mg/dL (70-99) 78 mg/dL (70-99) Test 07/14/19 11:07 07/14/19 16:21 07/14/19 21:24 07/15/19 08:16 Glucose (Fingerstick) 82 mg/dL (70-99) 89 mg/dL (70-99) 110 mg/dL (70-99) 111 mg/dL (70-99) Laboratory Tests Test 07/14/19 11:07 07/14/19 16:21 07/14/19 21:24 07/15/19 08:16 Glucose (Fingerstick) 82 mg/dL (70-99) 89 mg/dL (70-99) 110 mg/dL (70-99) 111 mg/dL (70-99) Microbiology 07/11/19 Urine Culture - Final, Complete 07/11/19 Urine Culture Result 1 (JUSTO) - Final, Complete Medications Current Medications Sodium Chloride 1,000 ml @ 1,000 mls/hr Q1H IV Last administered on 07/11/19 20:02; Start 07/11/19 at 20:02; Stop 07/11/19 at 21:01; Status DC Fentanyl Citrate (Fentanyl 2ml Vial) 25 mcg 1X ONCE IV Last administered on 07/11/19 20:59; Start 07/11/19 at 20:15; Stop 07/11/19 at 20:16; Status DC Ondansetron HCl (Zofran) 4 mg 1X ONCE IV Last administered on 07/11/19at 20:59; Start 07/11/19 at 20:15; Stop 07/11/19 at 20:16; Status DC Famotidine (Pepcid Vial) 20 mg 1X ONCE IVP Last administered on 07/11/19at 20:59; Start 07/11/19 at 20:15; Stop 07/11/19 at 20:16; Status DC Iohexol (Omnipaque 300 Mg/ml) 75 ml 1X ONCE IV Last administered on 07/11/19at 20:30; Start 07/11/19 at 20:30; Stop 07/11/19 at 20:31; Status DC Ceftriaxone Sodium (Rocephin) 1 gm 1X ONCE IVP Last administered on 07/12/19at 00:14; Start 07/12/19 at 00:00; Stop 07/12/19 at 00:01; Status DC Ondansetron HCl (Zofran) 4 mg PRN Q8HRS PRN IV NAUSEA/VOMITING 1ST CHOICE; Start 07/11/19 at 23:45; Stop 07/12/19 at 23:44; Status DC Fentanyl Citrate (Fentanyl 2ml Vial) 50 mcg PRN Q1HR PRN IV SEVERE PAIN 7-10 Last administered on 07/12/19at 06:47; Start 07/11/19 at 23:45; Stop 07/12/19 at 11:31; Status DC Sodium Chloride 1,000 ml @ 75 mls/hr [id number] IV Last administered on 07/12/19at 17:02; Start 07/12/19 at 00:00; Stop 07/13/19 at 00:00; Status DC Acetaminophen (Tylenol) 650 mg PRN Q4HRS PRN PO FEVER; Start 07/11/19 at 23:45; Stop 07/12/19 at 23:44; Status DC Amitriptyline HCl (Elavil) 25 mg HS PO Last administered on 07/14/19 23:47; Start 07/12/19 at 21:00 Amlodipine Besylate (Norvasc) 10 mg DAILY PO Last administered on 07/15/19 09:02; Start 07/12/19 at 12:00 Aspirin (Ecotrin) 81 mg DAILY PO Last administered on 07/15/19 09:03; Start 07/12/19 at 12:00 Atorvastatin Calcium (Lipitor) 20 mg HS PO Last administered on 07/14/19 23:47; Start 07/12/19 at 21:00 Clonidine HCl (Catapres) 0.2 mg PRN Q3HRS PRN PO ELEVATED BP, SEE COMMENTS; Start 07/12/19 at 11:30 Cyclosporine (Restasis) 1 drop BID OU Last administered on 07/15/19 09:01; Start 07/12/19 at 12:00 Docusate Sodium (Colace) 100 mg PRN DAILY PRN PO CONSTIPATION Last administered on 07/14/19 17:43; Start 07/12/19 at 11:30 Ergocalciferol (Vitamin D2) 50,000 unit We@0900 PO ; Start 07/16/19 at 09:00 Hydralazine HCl (Apresoline) 50 mg DAILY PO Last administered on 07/15/19 09:03; Start 07/12/19 at 12:00 Isosorbide Mononitrate (Imdur) 60 mg DAILY PO Last administered on 07/15/19 09:02; Start 07/12/19 at 12:00 Losartan Potassium (Cozaar) 100 mg DAILY PO Last administered on 07/15/19 09:03; Start 07/12/19 at 12:00 Oxycodone/ Acetaminophen (Percocet 10/325) 1 tab PRN TID PRN PO PAIN Last a dministered on 07/15/19 09:02; Start 07/12/19 at 11:30 Metformin HCl (Glucophage Xr) 1,000 mg DAILYWBKFT PO Last administered on 07/15/19 09:01; Start 07/14/19 at 08:00 Pantoprazole Sodium (Protonix) 40 mg DAILYAC PO Last administered on 07/15/19 09:02; Start 07/12/19 at 12:00 Enoxaparin Sodium (Lovenox 30mg Syringe) 30 mg Q24H SQ Last administered on 07/14/19at 17:13; Start 07/12/19 at 16:00 Info (CONTRAST GIVEN -- Rx MONITORING) 1 each PRN DAILY PRN MC SEE COMMENTS; Start 07/11/19 at 23:00; Stop 07/13/19 at 22:59; Status DC Ceftriaxone Sodium (Rocephin) 1 gm Q24H IVP Last administered on 07/14/19at 23:47; Start 07/12/19 at 21:00 Lactobacillus Rhamnosus (Culturelle) 1 cap BID PO Last administered on 07/15/19 09:03; Start 07/12/19 at 21:00 Ondansetron HCl (Zofran) 4 mg PRN Q4HRS PRN IVP NAUSEA/VOMITING Last administered on 07/13/19at 20:09; Start 07/13/19 at 19:30 Methylprednisolone Acetate (DEPO-Medrol 40MG VIAL) 40 mg 1X ONCE IM Last administered on 07/14/19at 17:00; Start 07/14/19 at 17:00; Stop 07/14/19 at 17:01; Status DC Bupivacaine HCl (Sensorcaine-Mpf 0.25%) 10 ml 1X ONCE IJ Last administered on 07/14/19 17:00; Start 07/14/19 at 17:00; Stop 07/14/19 at 17:01; Status DC Lidocaine (Lidoderm) 1 patch DAILY TD Last administered on 07/15/19 09:04; Start 07/14/19 at 17:00 Miscellaneous (Lidoderm Patch Removal) 1 ea QHS MC Last administered on 07/14/19at 21:00; Start 07/14/19 at 21:00 Methylprednisolone Acetate (DEPO-Medrol 40MG VIAL) 40 mg 1X ONCE IM ; Start 07/15/19 at 09:15; Stop 07/15/19 at 09:16; Status DC Bupivacaine HCl (Sensorcaine-Mpf 0.25%) 10 ml 1X ONCE IJ ; Start 07/15/19 at 09:15; Stop 07/15/19 at 09:16; Status DC Active Scripts Active Protonix (Pantoprazole Sodium) 20 Mg Tablet.dr 1 Tab PO DAILY Hydralazine Hcl 50 Mg Tablet 1 Tab PO DAILY Colace (Docusate Sodium) 100 Mg Capsule 100 Mg PO PRN DAILY PRN Aspirin Ec (Aspirin) 81 Mg Tablet.dr 81 Mg PO DAILY Isosorbide Mononitrate Er (Isosorbide Mononitrate) 30 Mg Tab.er.24h 60 Mg PO DAILY Reported Vitamin D2 (Ergocalciferol (Vitamin D2)) 50,000 Unit Capsule 50,000 Unit PO QWE Amitriptyline Hcl 25 Mg Tablet 25 Mg PO HS Percocet 10-325 Mg Tablet (Oxycodone/Acetaminophen) 1 Each Tablet 1-2 Tab PO PRN TID PRN MDD 3 Tablet(s) 30 Days Losartan Potassium (Losartan Potassium) 25 Mg Tablet 100 Mg PO DAILY Clonidine Hcl 0.2 Mg Tablet 0.2 Mg PO PRN PRN Atorvastatin Calcium 20 Mg Tablet 20 Mg PO HS Metformin Hcl Er (Metformin Hcl) 1,000 Mg Tab.er.24 1,000 Mg PO DAILYWBKFT Amlodipine Besylate 10 Mg Tablet 10 Mg PO DAILY Restasis (Cyclosporine) 1 Each Droperette 1 Drop EACHEYE BID Vitals/I & O Vital Sign - Last 24 Hours 07/14/19 07/14/19 07/14/19 07/14/19 11:03 15:00 19:00 19:54 Temp 97.7 97.8 98.8 97.7 97.8 98.8 Pulse 67 68 71 Resp 17 17 20 B/P (MAP) 131/59 (83) 133/60 (84) 149/71 (97) Pulse Ox 97 96 99 O2 Delivery Room Air Room Air Room Air Room Air 07/14/19 07/14/19 07/15/19 07/15/19 23:00 23:46 00:46 03:00 Temp 99.1 99.0 99.1 99.0 Pulse 69 67 Resp 16 18 18 16 B/P (MAP) 120/68 (85) 131/70 (90) Pulse Ox 100 100 100 98 O2 Delivery Room Air Room Air 07/15/19 07/15/19 07/15/19 07/15/19 07:00 09:02 09:02 09:03 Temp 98.0 98.0 Pulse 62 62 62 62 Resp 16 B/P (MAP) 165/64 (97) 165/64 165/64 165/64 Pulse Ox 99 07/15/19 09:03 Pulse 62 B/P (MAP) 165/64 Intake and Output 07/14/19 07/14/19 07/15/19 15:00 23:00 07:00 Intake Total 600 ml 400 ml 240 ml Output Total 400 ml Balance 200 ml 400 ml 240 ml NAVEED VELÁZQUEZ MD Jul 15, 2019 09:38
[2019-07-15 11:00] VITALS: BP 165/63
--- NOTE | 2019-07-15 12:02 | NUR ---
[facility] following pt. Insurance has approved SNU and orders faxed to [facility]. SW arranged transport via central transport at 1300. Pt, pt's daughter and RN notified.
--- NOTE | 2019-07-15 13:50 | NUR ---
pt discharged to [facility]. report given to Steve @ . meds and follow up reviewed. pt iv removed, cath intact. pt dressed by daughter. transported via our transportation service in w/c. stable upon dc.
[2019-07-16] MEDS ORDERED: ERGOCALCIFEROL (VITAMIN D2) 50,000 UNIT CAPSULE. PO SCH (09:00)
== END 2019-07-15 13:30 | DRG 74 ==
LOC: ER 18:48 → 5 SOUTH 23:57
PROVIDERS: ADMIT Family Medicine; ATTEND Family Medicine
PROC: 3E0U33Z Introduction of Anti-inflammatory into Joints, Percutaneous Approach (ICD-10-PCS; principal; 2019-07-11)
PROC: 3E0U3BZ Introduction of Anesthetic Agent into Joints, Percutaneous Approach (ICD-10-PCS; 2019-07-11)
DX: E11.42 Type 2 diabetes mellitus with diabetic polyneuropathy (principal); N39.0 Urinary tract infection, site not specified; E44.1 Mild protein-calorie malnutrition; M48.061 Spinal stenosis, lumbar region without neurogenic claudication; M48.00 Spinal stenosis, site unspecified; E78.00 Pure hypercholesterolemia, unspecified; E78.5 Hyperlipidemia, unspecified; G89.29 Other chronic pain; I10 Essential (primary) hypertension; I25.10 Atherosclerotic heart disease of native coronary artery without angina pectoris; K21.9 Gastro-esophageal reflux disease without esophagitis; M47.816 Spondylosis without myelopathy or radiculopathy, lumbar region; M51.36 Other intervertebral disc degeneration, lumbar region; M54.31 Sciatica, right side; M54.32 Sciatica, left side; Z82.49 Family history of ischemic heart disease and other diseases of the circulatory system; Z90.49 Acquired absence of other specified parts of digestive tract; Z68.21 Body mass index [BMI] 21.0-21.9, adult
CPT/HCPCS: 36415; 71045; 72148; 74177; 80048; 80053; 81001; 82962; 83690; 84484; 85025; 85610; 87086; 93005; 96360; J0696; J1030; J1650; J2405; J3010; J3490; J7030; Q9967; 97116; 97530; 97535; 99285-25; G0378

== ENCOUNTER → 2019-10-01 | Outpatient (CLI) | payer OTHER ==
[~2019-10-01] MED LIST changes: +OXYC1TAB22 PO
[2019-10-01 06:04] LABS: ALBUMIN 3.2 g/dL (3.4-5.0); ALBUMIN/GLOBULIN RATIO 0.8 (1.0-1.7); CALCIUM 8.8 mg/dL (8.5-10.1); CREATININE 0.7 mg/dL (0.6-1.0); POTASSIUM 3.8 mmol/L (3.5-5.1); TOTAL BILIRUBIN 0.1 mg/dL (0.2-1.0); TOTAL PROTEIN 7.3 g/dL (6.4-8.2)
[2019-10-01 06:05] LABS: CHOLESTEROL/HDL RATIO 3.5
[2019-10-07 05:13] LABS: VITAMIN D3 6.5 ng/mL (.)
== END | disposition home or self-care (01) ==
LOC: SPEC
PROVIDERS: ATTEND Family Medicine
DX: E11.9 Type 2 diabetes mellitus without complications (principal); E55.9 Vitamin D deficiency, unspecified; E78.5 Hyperlipidemia, unspecified
CPT/HCPCS: 36415; 80053; 80061; 82306; 83036

== ENCOUNTER → 2019-10-10 | Outpatient (CLI) | payer OTHER ==
[2019-10-10 05:30] LABS: BASO # 0.1 x10^3/uL (0.0-0.2); BASO % 1 % (0-3); EOS # 0.1 x10^3/uL (0.0-0.7); EOS % 2 % (0-3); HEMATOCRIT 36.7 % (36.0-47.0); HEMOGLOBIN 12.1 g/dL (12.0-15.5); LYMPH # 3.2 x10^3/uL (1.0-4.8); LYMPH % 38 % (24-48); MEAN CORPUSCULAR HEMOGLOBIN 32 pg (25-35); MEAN CORPUSCULAR HGB CONC 33 g/dL (31-37); MEAN CORPUSCULAR VOLUME 97 fL (79-100); MONO % 12 % (0-9); NEUT # 4.1 x10^3/uL (1.8-7.7); NEUT % 48 % (31-73); PLATELET COUNT 272 x10^3/uL (140-400); RED BLOOD COUNT 3.78 x10^6/uL (3.50-5.40); RED CELL DISTRIBUTION WIDTH 13.1 % (11.5-14.5); WHITE BLOOD COUNT 8.4 x10^3/uL (4.0-11.0)
[2019-10-10 06:01] LABS: ALBUMIN 3.1 g/dL (3.4-5.0); CALCIUM 9.3 mg/dL (8.5-10.1); CREATININE 0.9 mg/dL (0.6-1.0); GFR 71.8; TOTAL BILIRUBIN 0.1 mg/dL (0.2-1.0); TOTAL PROTEIN 6.2 g/dL (6.4-8.2)
== END | disposition home or self-care (01) ==
LOC: SPEC 02:42
PROVIDERS: ATTEND Family Medicine
DX: E11.22 Type 2 diabetes mellitus with diabetic chronic kidney disease (principal); E44.1 Mild protein-calorie malnutrition; E78.5 Hyperlipidemia, unspecified; N18.9 Chronic kidney disease, unspecified
CPT/HCPCS: 36415; 80053; 85025

== ENCOUNTER → 2019-11-09 | Outpatient (CLI) | payer OTHER | END | disposition home or self-care (01) | PROVIDERS: ATTEND Family Medicine | DX: Z01.818 Encounter for other preprocedural examination (principal); M48.061 Spinal stenosis, lumbar region without neurogenic claudication; Z79.899 Other long term (current) drug therapy | CPT/HCPCS: 36415; 87641 ==

== ENCOUNTER → 2019-11-10 | Outpatient (CLI) | payer OTHER ==
[2019-11-10 06:23] LABS: BASO # 0.1 x10^3/uL (0.0-0.2); BASO % 1 % (0-3); EOS # 0.1 x10^3/uL (0.0-0.7); EOS % 2 % (0-3); HEMATOCRIT 38.3 % (36.0-47.0); HEMOGLOBIN 12.6 g/dL (12.0-15.5); LYMPH % 33 % (24-48); MEAN CORPUSCULAR HEMOGLOBIN 32 pg (25-35); MEAN CORPUSCULAR HGB CONC 33 g/dL (31-37); MEAN CORPUSCULAR VOLUME 97 fL (79-100); MONO # 1.2 x10^3/uL (0.0-1.1); MONO % 13 % (0-9); NEUT # 4.7 x10^3/uL (1.8-7.7); NEUT % 52 % (31-73); PLATELET COUNT 299 x10^3/uL (140-400); RED BLOOD COUNT 3.95 x10^6/uL (3.50-5.40)
[2019-11-10 06:34] LABS: PROTHROMBIN TIME PATIENT 13.2 SEC (11.7-14.0)
[2019-11-10 06:41] LABS: ALBUMIN 3.1 g/dL (3.4-5.0); ALBUMIN/GLOBULIN RATIO 0.8 (1.0-1.7); CALCIUM 9.3 mg/dL (8.5-10.1); CREATININE 0.8 mg/dL (0.6-1.0); GFR 82.3; TOTAL BILIRUBIN 0.1 mg/dL (0.2-1.0); TOTAL PROTEIN 6.8 g/dL (6.4-8.2)
[2019-11-10 23:08] LABS: HEMOGLOBIN A1C 6.6 % (4.8-5.6)
== END | disposition home or self-care (01) ==
LOC: SPEC 00:12
PROVIDERS: ATTEND Family Medicine
DX: Z01.818 Encounter for other preprocedural examination (principal); M48.061 Spinal stenosis, lumbar region without neurogenic claudication; Z79.899 Other long term (current) drug therapy
CPT/HCPCS: 36415; 80053; 83036; 85025; 85610; 85730

== ENCOUNTER → 2020-03-03 | Outpatient (CLI) | payer OTHER ==
[2019-11-13 15:00] VITALS: BP 123/46
[2020-03-03 13:39] LABS: BILIRUBIN,URINE NEGATIVE (NEG); CLARITY,URINE CLEAR; COLOR,URINE YELLOW; NITRITE,URINE NEGATIVE (NEG); PROTEIN,URINE NEGATIVE (NEG-TRACE); UROBILINOGEN,URINE 0.2 mg/dL (0.2 mg/dL)
[2020-03-03 13:53] LABS: SQUAMOUS EPITHELIAL CELL,UR MOD /LPF
[2020-03-03 13:55] LABS: BACTERIA,URINE FEW /HPF (0-FEW); HYALINE CASTS, URINE FEW /HPF; RBC,URINE OCC /HPF (0-2); WBC,URINE OCC /HPF (0-4)
== END ==
LOC: SPEC 11:36
PROVIDERS: ATTEND Family Medicine
DX: R39.198 Other difficulties with micturition (principal); R10.9 Unspecified abdominal pain
CPT/HCPCS: 81001

== ENCOUNTER → 2020-03-11 | Outpatient (CLI) | payer OTHER ==
[2019-11-13 15:00] VITALS: BP 123/46
[2020-03-11 09:44] LABS: BASO # 0.1 x10^3/uL (0.0-0.2); BASO % 1 % (0-3); EOS # 0.1 x10^3/uL (0.0-0.7); EOS % 2 % (0-3); HEMATOCRIT 38.9 % (36.0-47.0); HEMOGLOBIN 12.8 g/dL (12.0-15.5); LYMPH # 2.1 x10^3/uL (1.0-4.8); LYMPH % 26 % (24-48); MEAN CORPUSCULAR HEMOGLOBIN 31 pg (25-35); MEAN CORPUSCULAR HGB CONC 33 g/dL (31-37); MEAN CORPUSCULAR VOLUME 93 fL (79-100); MONO # 0.9 x10^3/uL (0.0-1.1); MONO % 11 % (0-9); NEUT % 61 % (31-73); PLATELET COUNT 286 x10^3/uL (140-400); RED BLOOD COUNT 4.16 x10^6/uL (3.50-5.40); RED CELL DISTRIBUTION WIDTH 13.1 % (11.5-14.5); WHITE BLOOD COUNT 8.2 x10^3/uL (4.0-11.0)
[2020-03-11 09:59] LABS: ALBUMIN 3.3 g/dL (3.4-5.0); CALCIUM 9.2 mg/dL (8.5-10.1); GFR 63.5; POTASSIUM 4.1 mmol/L (3.5-5.1); TOTAL BILIRUBIN 0.1 mg/dL (0.2-1.0); TOTAL PROTEIN 6.6 g/dL (6.4-8.2)
[2020-03-12 01:08] LABS: HEMOGLOBIN A1C 6.5 % (4.8-5.6)
== END ==
LOC: SPEC 09:18
PROVIDERS: ATTEND Family Medicine
DX: E11.22 Type 2 diabetes mellitus with diabetic chronic kidney disease (principal); I25.10 Atherosclerotic heart disease of native coronary artery without angina pectoris
CPT/HCPCS: 36415; 80053; 83036; 85025

== ENCOUNTER → 2020-03-22 | Outpatient (CLI) | payer OTHER ==
[2019-11-13 15:00] VITALS: BP 123/46
[~2020-03-22] MED LIST changes: +BUPIVACAINE MPF 0.25% 10 ML VIAL. ONE; +DENO60DI SQ; +FAMO-63 PO; +GABA-585 PO; +IOHEXOL 180 MG/ML 10 ML VIAL. ONE; +METH-38 PO; +OXYC-325 PO; +POLY17PO29 PO; +SENN1TAB62 PO; +methylPREDNISolone ACETATE 80 MG/ML VIAL. ONE
--- NOTE | 2020-03-22 12:12 | PAIN ---
DATE OF SERVICE: 03/22/2020 PROGRESS NOTE FOR PAIN CLINIC DIAGNOSES: 1. Lumbar radiculopathy with lumbar degenerative disk disease and lumbar spinal stenosis and post-lumbar laminectomy syndrome. 2. Left sacroiliitis. 3. Bilateral shoulder joint pain, acromioclavicular joint. HISTORY OF PRESENT ILLNESS: The patient is an 85-year-old female who returns for followup status post left acromioclavicular joint injection in 01/2019. The patient had lumbar epidural steroid injections prior to that, did very well, eventually had surgery at the L3-L4, L4-L5 and L5-S1 levels with hemilaminectomies at each of these levels with Dr. Edinson Hoang in November of this year and did very well. The patient reports nearly 100% improvement of the pain in her back. Her chief complaint is pain in the left posterior hip radiating into the posterior thigh and some into the lower lateral thigh, mostly just in the upper thigh and into the hip itself. The patient reports it is sharp and constant at times, worse with walking, standing, changing positions, getting up from seated position or standing for more than 5-10 minutes. The patient reports it generally does not awaken her from sleep at night, much better with sitting or lying down. The pain is fairly sharp and constant in the low back and the posterior aspect of the hip. The patient reports she is doing better with distance walking since her surgery, doing household activities, sleeping much better. Again, does not awaken her from sleep. The patient reports the pain is an 8 on a scale of 10 at its worst over the past week, 6 on average, 4 at its least and is 6 today. PHYSICAL EXAMINATION: VITAL SIGNS: The patient's blood pressure 120/57, pulse 81, respirations 16, temperature is 98.2 degrees Fahrenheit, height is 4 feet 11 inches, weight is 131 pounds. GENERAL: The patient is awake, alert, oriented, appropriate, very pleasant demeanor. The patient is accompanied by her daughter. HEENT: Shows normocephalic, atraumatic. Extraocular movements are intact and symmetrical. Oral cavity: Mucous membranes moist and pink. Dentition is intact. NECK: Shows anterior throat supple without palpable lymphadenopathy noted. Swallow reflex symmetrical. CHEST: Shows normal on inspection. Breath sounds are clear bilaterally. No rales, rhonchi, or wheezes auscultated. HEART: Shows S1, S2 clear. No murmurs auscultated. ABDOMEN: Soft, nontender, nondistended. No palpable organomegaly is noted. No rebound or guarding demonstrated. BACK: Shows spine grossly in the midline. Normal appearing thoracic kyphosis and some flattening of lumbar lordotic curvature with well-healed midline surgical scar. Lumbar paraspinous muscle shows symmetrical on inspection, on palpation shows some moderate tenderness diffusely bilaterally, but only diffusely without significant radiation. The patient shows good rotational motion of lumbar spine, both laterally as well as extension and flexion without significant increase in pain. EXTREMITIES: Lower extremities show deep tendon reflexes 2+ in the patellar, 1+ tendo-calcaneus tendons. Motor exam is 5/5 with dorsiflexion, extension and equal. The patient's left posterior superior iliac spine shows significant tenderness with palpation over the posterior spine compared to the right, also over the superior and middle aspect of the left sacroiliac joint shows very tender with palpation, even moderate palpation, significant tenderness with deeper palpation, but with some radiation into the left posterior and lateral thigh and gluteus. Options were discussed with the patient and patient's daughter. The patient's old chart was reviewed as her current medication regimen updated. Current review of systems updated today as well. We will proceed with a left sacroiliac joint injection today with fluoroscopic guidance. Risks were discussed including but not limited to bleeding, infection, possibility of intravascular injection sequelae, spread of local anesthetic and numbness, side effects of steroid medication, exposure to fluoroscopy and poor results regarding pain control. The patient understands and wished to proceed. The patient will return to the clinic in approximately 2 weeks for followup. She was counseled on return appointment, activity level and side effects to be aware of. DIAGNOSIS: Left sacroiliitis. PROCEDURE: Left sacroiliac joint injection using C-arm fluoroscopic guidance under sterile prep and drape using local anesthetic. MEDICATION INJECTED: Total of 80 mg Depo-Medrol plus 3 mL of 0.25% bupivacaine, 2 mL of contrast. CONDITION AT DISCHARGE: Stable. The patient tolerated procedure well, had no complications. EKATERINA COTTON MD DR: EL/yrn JOB#: [id number] / [id number]
== END ==
LOC: PNCL 10:09
PROVIDERS: ATTEND Anesthesiology
DX: M46.1 Sacroiliitis, not elsewhere classified (principal); M51.16 Intervertebral disc disorders with radiculopathy, lumbar region; M48.061 Spinal stenosis, lumbar region without neurogenic claudication; M96.1 Postlaminectomy syndrome, not elsewhere classified; M19.011 Primary osteoarthritis, right shoulder; M19.012 Primary osteoarthritis, left shoulder
CPT/HCPCS: 27096; J1040; J3490; Q9965

== ENCOUNTER → 2020-04-19 | Outpatient (CLI) | payer OTHER ==
[2019-11-13 15:00] VITALS: BP 123/46
[~2020-04-19] MED LIST changes: -ASPI-612 PO; +ASPI-886 PO; -BUPIVACAINE MPF 0.25% 10 ML VIAL. ONE; -IOHEXOL 180 MG/ML 10 ML VIAL. ONE; -OXYC-411 PO; +OXYC1TAB20 PO; -methylPREDNISolone ACETATE 80 MG/ML VIAL. ONE
[2020-04-19 20:15] LABS: BILIRUBIN,URINE NEGATIVE (NEG); CLARITY,URINE CLEAR; COLOR,URINE YELLOW; NITRITE,URINE NEGATIVE (NEG); PROTEIN,URINE NEGATIVE (NEG-TRACE); UROBILINOGEN,URINE 0.2 mg/dL (0.2 mg/dL)
[2020-04-19 20:24] LABS: BACTERIA,URINE 0 /HPF (0-FEW); SQUAMOUS EPITHELIAL CELL,UR FEW /LPF
== END | disposition home or self-care (01) ==
LOC: SPEC 19:58
PROVIDERS: ATTEND Family Medicine
DX: R35.0 Frequency of micturition (principal)
CPT/HCPCS: 81001; 87086

== ENCOUNTER → 2020-06-23 | Outpatient (CLI) | payer OTHER ==
[2019-11-13 15:00] VITALS: BP 123/46
--- NOTE | 2020-06-23 13:55 | RAD ---
ABDOMEN COMPLETE History: Abdominal pain Comparison: None. Findings: Multiple sonographic images of the abdomen are submitted. There is coarsening of the hepatic echotexture. Right lobe of the liver measured 13.3 cm longitudinal. There has been cholecystectomy. Right kidney measured 11 x 5.4 x 4.9 cm, no hydronephrosis. Left kidney measured 9 x 4 x 4.7 cm, no hydronephrosis. There is no abnormality of the visualized pancreas, tail not as well-visualized due to bowel gas. There is no abnormality of the spleen, measuring about 6.4 cm. Common bile duct at 0.7 cm is within normal limits given the patient's age. There is segmental visualization of the inferior vena cava. Visualized abdominal aortic caliber is within normal limits in greatest dimension 2 cm proximally, distal abdominal aorta obscured by bowel gas. Impression: 1. There is hepatic steatosis. 2. There has been cholecystectomy. Electronically signed by: Teofilo Valdez MD (06/23/2020 1:52 PM) [id number]
== END | disposition home or self-care (01) ==
LOC: US 07:57
PROVIDERS: ATTEND Family Medicine
DX: K76.0 Fatty (change of) liver, not elsewhere classified (principal); R10.9 Unspecified abdominal pain; Z90.49 Acquired absence of other specified parts of digestive tract
CPT/HCPCS: 76700

== ENCOUNTER → 2020-06-28 | Outpatient (CLI) | payer OTHER ==
[2019-11-13 15:00] VITALS: BP 123/46
[~2020-06-28] MED LIST changes: +IOHEXOL 180 MG/ML 10 ML VIAL. ONE; +methylPREDNISolone ACETATE 40 MG/ML VIAL. ONE; +methylPREDNISolone ACETATE 80 MG/ML VIAL. ONE
--- NOTE | 2020-06-28 09:31 | PDOC ---
Progress Note - Pain Clinic Date of Service: DOS: DATE: 06/28/20 TIME: 09:27 Diagnosis: Dx: Lumbar radiculopathy with lumbar degenerative disc disease lumbar spinal stenosis and post lumbar laminectomy syndrome Left sacroiliitis Bilateral shoulder joint pain with osteoarthritis History or Present Illness: HPI: 85-year-old female returns follow-up status post left sacroiliac joint injection March 22, 2020. Patient reports the pain is still significant in the back of the left hip is doing better but she is now having pain traveling into the posterior gluteus posterior thighs bilaterally with standing and walking weightbearing patient reports is better with sitting or laying down but now traveling down both legs worse on the left than the right patient which is aching and sharp at times can be cramping and stabbing in the back with more constant severe pain with standing walking and weightbearing. Patient is using an walker to ambulate patient reports her pain is a 9 on scale 10 is worse over the past week 7 on average 6 its least is a 7 today. Patient reports no loss of motor function no bowel or bladder incontinence Physical Exam: VS: Blood pressure is 151/58 pulse 78 respirations are 16 temperature is 98.3 F weight is 133 pounds PE: PHYSICAL EXAMINATION: GENERAL: The patient is awake, alert, oriented, appropriate, very pleasant demeanor, patient accompanied by her daughter HEENT: Shows normocephalic, atraumatic. Extraocular movements are intact and symmetrical. Oral cavity: Mucous membranes moist and pink. NECK: Shows anterior throat supple without palpable lymphadenopathy noted. Swallow reflex symmetrical. CHEST: Shows normal on inspection. Breath sounds are clear bilaterally, no rales rhonchi or wheezes auscultated. HEART: Shows S1, S2 clear. No murmurs auscultated. ABDOMEN: Soft, nontender, nondistended. No palpable organomegaly is noted. No rebound or guarding demonstrated. BACK: Shows spine grossly in the midline. Normal-appearing cervical lordotic curvature. There is slightly increased thoracic kyphosis, some minor flattening of the lumbar lordotic curvature. Lumbar paraspinous muscles show symmetrical on inspection, on palpation shows some moderate tenderness diffusely throughout the upper, middle and lower distribution of the paraspinous muscles bilaterally without specific trigger points, without radiation of pain. The patient has good rotational motion of the lumbar spine, both laterally as well as extension and flexion without significant difficulty. No tenderness over the spinous processes,or sacrum, sacroiliac regions shows moderate tenderness posterior superior iliac spine on the left but not the right but without radiation. EXTREMITIES: Lower extremities show deep tendon reflexes 1+ in the patellar and tendo calcaneus tendons. Motor exam is 5 on a scale of 5 with right dorsiflexion, extension, quadriceps and hamstring flexion and 5/5 on the left. Peripheral pulses are 1+ posterior tibial. No peripheral edema is noted bilaterally. Lower extremities are warm and dry to touch, equal in color and appearance. SKIN: Shows warm and dry, good turgor. No edema. No sores, rashes or bruising throughout. Procedure: Procedure: Options were discussed with the patient patient daughter who accompanied her to her visit today. We will plan on a lumbar epidural steroid injection today with fluoroscopic guidance. Risks were discussed including but not limited to: Bleeding, infection, possibility of epidural hematoma and subsequent neurological compromise, dural puncture, headaches, spinal cord and/or nerve damage, side effects of steroid medication, and poor results regarding pain control. Patient understands wished to proceed. Patient return to the clinic in approximate 2 weeks for follow-up was counseled as to return appointment activity level and side effects to be aware of. Medication Injected: Med Injected: Procedure is lumbar epidural steroid injection under local anesthetic using sterile prep and drape at the L5-S1 level using C-arm fluoroscopic guidance in both AP and lateral views medications injected is 120 mg Depo-Medrol + 10 mL preservative-free normal saline and 2 mL contrast- condition at discharge is stable patient tolerated procedure well had no complications. Condition at Discharge: Condition at Discharge: Condition at discharge is stable patient tolerated procedure well had no complications. EKATERINA COTTON MD Jun 28, 2020 09:31
== END | disposition home or self-care (01) ==
LOC: PNCL 08:34
PROVIDERS: ATTEND Anesthesiology
DX: M51.16 Intervertebral disc disorders with radiculopathy, lumbar region (principal); M96.1 Postlaminectomy syndrome, not elsewhere classified; M48.061 Spinal stenosis, lumbar region without neurogenic claudication; M46.1 Sacroiliitis, not elsewhere classified; M19.012 Primary osteoarthritis, left shoulder; M19.011 Primary osteoarthritis, right shoulder; Z98.890 Other specified postprocedural states; Z91.041 Radiographic dye allergy status
CPT/HCPCS: 62323; J1030; J1040; Q9965

== ENCOUNTER → 2020-09-07 | Outpatient (CLI) | payer OTHER ==
[2019-11-13 15:00] VITALS: BP 123/46
[~2020-09-07] MED LIST changes: +AMLO-186 PO; +AMLO-187 PO; -AMLO10TA8 PO; -AMLO5TAB10 PO; -IOHEXOL 180 MG/ML 10 ML VIAL. ONE; -methylPREDNISolone ACETATE 40 MG/ML VIAL. ONE; -methylPREDNISolone ACETATE 80 MG/ML VIAL. ONE
[2020-09-07 12:02] LABS: BASO # 0.1 x10^3/uL (0.0-0.2); BASO % 1 % (0-3); EOS # 0.2 x10^3/uL (0.0-0.7); EOS % 2 % (0-3); HEMATOCRIT 38.6 % (36.0-47.0); LYMPH # 2.9 x10^3/uL (1.0-4.8); LYMPH % 32 % (24-48); MEAN CORPUSCULAR HEMOGLOBIN 33 pg (25-35); MEAN CORPUSCULAR HGB CONC 34 g/dL (31-37); MEAN CORPUSCULAR VOLUME 97 fL (79-100); MONO # 1.1 x10^3/uL (0.0-1.1); MONO % 12 % (0-9); NEUT # 4.8 x10^3/uL (1.8-7.7); NEUT % 53 % (31-73); PLATELET COUNT 302 x10^3/uL (140-400); RED CELL DISTRIBUTION WIDTH 12.7 % (11.5-14.5)
[2020-09-07 12:41] LABS: ALBUMIN 3.4 g/dL (3.4-5.0); CALCIUM 9.5 mg/dL (8.5-10.1); CREATININE 0.8 mg/dL (0.6-1.0); GFR 82.1; TOTAL BILIRUBIN 0.2 mg/dL (0.2-1.0); TOTAL PROTEIN 6.9 g/dL (6.4-8.2)
[2020-09-08 03:13] LABS: HEMOGLOBIN A1C 6.7 % (4.8-5.6)
== END ==
LOC: SPEC 09:32
PROVIDERS: ATTEND Family Medicine
DX: E55.9 Vitamin D deficiency, unspecified (principal)
CPT/HCPCS: 36415; 80053; 82306; 83036; 85025

== ENCOUNTER → 2020-09-08 | Outpatient (CLI) | payer OTHER ==
[2019-11-13 15:00] VITALS: BP 123/46
--- NOTE | 2020-09-08 10:14 | RAD ---
Right shoulder 3 views. HISTORY: Pain, M 25.511 3 views were taken of the right shoulder. There is loss of the space between the humeral head and acromion consistent with rotator cuff degeneration. There is spurring on the humeral head and glenoid from moderate glenohumeral arthritis. There is no fracture or dislocation. IMPRESSION: 1. Arthritis right shoulder. 2. Rotator cuff degeneration. 3. No fracture or dislocation. Electronically signed by: Yan Dumont MD (09/08/2020 10:11 AM) [id number]
== END ==
LOC: RAD 09:27
PROVIDERS: ATTEND Family Medicine
DX: S43.421A Sprain of right rotator cuff capsule, initial encounter (principal); M19.011 Primary osteoarthritis, right shoulder; X58.XXXA Exposure to other specified factors, initial encounter; Y93.89 Activity, other specified; Y92.89 Other specified places as the place of occurrence of the external cause; Y99.8 Other external cause status
CPT/HCPCS: 73030

== ENCOUNTER → 2020-11-23 | Outpatient (CLI) | payer OTHER ==
[2019-11-13 15:00] VITALS: BP 123/46
[~2020-11-23] MED LIST changes: +IOHEXOL 180 MG/ML 10 ML VIAL. ONE; -ISOS30TA4 PO; +ISOS30TA68 PO; -LISI-334 PO; +LISI10TA16 PO; -LISI10TA2 PO; +LISI20TA18 PO; +methylPREDNISolone ACETATE 40 MG/ML VIAL. ONE; +methylPREDNISolone ACETATE 80 MG/ML VIAL. ONE
--- NOTE | 2020-11-23 11:39 | PDOC ---
Progress Note - Pain Clinic Date of Service: DOS: DATE: 11/23/20 TIME: 11:36 Diagnosis: Dx: Lumbar radiculopathy with lumbar degenerative disease lumbar spinal stenosis with post lumbar laminectomy Left sacroiliitis Bilateral shoulder joint pain History or Present Illness: HPI: 85-year-old female returns in follow-up status post lumbar epidurals or injection x1 on June 28, 2020. Patient reports this was helpful but only a little bit was not long-lasting the pain in the low back the bilateral posterior gluteus and thighs. Patient reports is increasing getting worse with walking standing changing positions better with sitting or laying down generally not awaken her from sleep but over the last few weeks it has every 3-4 hours patient reports worse with changing positions standing getting up from seated position and walking and weightbearing patient ports pain is a 10 on scale 10 is worse over the past week 9 on average 7 its least is a 9 today patient ports aching and sharp in the low back and the bilateral lower extremities posterior gluteus posterior thighs primarily right equal to left. Patient reports function but difficulty with all ambulation. Patient is using a walker which she has with her today. Physical Exam: VS: Pressure is 181/77 pulse 76 respirations 18 temperature 98.2 F height is 4 feet 11 inches weight 122 pounds PE: PHYSICAL EXAMINATION: GENERAL: The patient is awake, alert, oriented, appropriate, very pleasant demeanor HEENT: Shows normocephalic, atraumatic. Extraocular movements are intact and symmetrical. NECK: Shows anterior throat supple without palpable lymphadenopathy noted. Swallow reflex symmetrical. CHEST: Shows normal on inspection. Breath sounds are clear bilaterally, distant but no rales or rhonchi. HEART: Shows S1, S2 clear. No murmurs auscultated. ABDOMEN: Soft, nontender, nondistended, obese. No palpable organomegaly is noted. BACK: Shows spine grossly in the midline. Normal-appearing cervical lordotic curvature. There is slightly increased thoracic kyphosis, some minor flattening of the lumbar lordotic curvature. Lumbar paraspinous muscles show symmetrical on inspection, on palpation shows some moderate tenderness diffusely throughout the upper, middle and lower distribution of the paraspinous muscles bilaterally, without specific trigger points, without radiation of pain. The patient has good rotational motion of the lumbar spine, both laterally as well as extension and flexion without significant difficulty. EXTREMITIES: Lower extremities show deep tendon reflexes 1+ in the patellar and tendo calcaneus tendons. Motor exam is 5 on a scale of 5 with right dorsiflexion, extension, quadriceps and hamstring flexion and 5/5 on the left. Peripheral pulses are 1+ posterior tibial. No peripheral edema is noted bilaterally. Lower extremities are warm and dry to touch, equal in color and appearance. SKIN: Shows warm and dry, good turgor. No edema. No sores, rashes or bruising throughout. Procedure: Procedure: Options were discussed with the patient. Patient chart reviews her current medication regimen updated current review of systems updated today as well. We will proceed with a second in the series lumbar epidural steroid injection today with fluoroscopic guidance. Risks were discussed including but not limited to: Bleeding, infection, possibility of epidural hematoma and subsequent neurological compromise, dural puncture, headaches, spinal cord and/or nerve damage, side effects of steroid medication, and poor results regarding pain control. Patient understands and wished to proceed. Patient return to clinic in approximate 2 weeks for follow-up, was counseled as return appointment activity level and side effects to be aware of. Medication Injected: Med Injected: Procedure is lumbar epidural steroid injection under local anesthetic using sterile prep and drape at the L5-S1 level using C-arm fluoroscopic guidance in both AP and lateral views medications injected is 120 mg Depo-Medrol + 10 mL preservative-free normal saline and 2 mL contrast- condition at discharge is stable patient tolerated procedure well had no complications. Condition at Discharge: Condition at Discharge: Condition at discharge stable, patient alert procedure well and had no complications. EKATERINA COTTON MD Nov 23, 2020 11:39
--- NOTE | 2020-11-23 11:39 | PDOC4 ---
PROCEDURE Procedure Patient was consented for lumbar epidural steroid injection. Risks were dis cussed including but not limited to: Bleeding, infection, possibility of epidural hematoma and subsequent neurological compromise, dural puncture, headaches, spinal cord and/or nerve damage, side effects of steroid medication, and poor results regarding pain control. Patient understands and wished to proceed. Procedure is lumbar epidural steroid injection under local anesthetic using sterile prep and drape at the L5-S1 level using C-arm fluoroscopic guidance in both AP and lateral views medications injected is 120 mg Depo-Medrol + 10 mL preservative-free normal saline and 2 mL contrast- condition at discharge is stable patient tolerated procedure well had no complications. EKATERINA COTTON MD Nov 23, 2020 11:39
== END | disposition home or self-care (01) ==
LOC: PNCL 10:01
PROVIDERS: ATTEND Anesthesiology
DX: M51.16 Intervertebral disc disorders with radiculopathy, lumbar region (principal); M48.061 Spinal stenosis, lumbar region without neurogenic claudication; M96.1 Postlaminectomy syndrome, not elsewhere classified; M25.512 Pain in left shoulder; M25.511 Pain in right shoulder; M46.1 Sacroiliitis, not elsewhere classified; E78.00 Pure hypercholesterolemia, unspecified; I10 Essential (primary) hypertension; G47.30 Sleep apnea, unspecified; K21.9 Gastro-esophageal reflux disease without esophagitis; M19.90 Unspecified osteoarthritis, unspecified site; E11.9 Type 2 diabetes mellitus without complications; F41.9 Anxiety disorder, unspecified; Z90.49 Acquired absence of other specified parts of digestive tract; Z98.51 Tubal ligation status; Z90.710 Acquired absence of both cervix and uterus; Z98.890 Other specified postprocedural states; Z79.82 Long term (current) use of aspirin; Z79.84 Long term (current) use of oral hypoglycemic drugs; Z79.899 Other long term (current) drug therapy; Z88.8 Allergy status to other drugs, medicaments and biological substances; Z82.49 Family history of ischemic heart disease and other diseases of the circulatory system
CPT/HCPCS: 62323; J1030; J1040; Q9965

== ENCOUNTER 2021-03-09 16:08 | Observation (INO) | payer OTHER ==
[~2021-03-09] VITALS: Ht 147.3 cm; Wt 52.5 kg
[~2021-03-09 16:08] MED LIST changes: -ERYT250T16 PO; +ERYT250T84 PO; -IOHEXOL 180 MG/ML 10 ML VIAL. ONE; -methylPREDNISolone ACETATE 40 MG/ML VIAL. ONE; -methylPREDNISolone ACETATE 80 MG/ML VIAL. ONE
[2021-03-09 17:04] LABS: BASO # 0.1 x10^3/uL (0.0-0.2); BASO % 1 % (0-3); EOS % 0 % (0-3); HEMATOCRIT 40.9 % (36.0-47.0); HEMOGLOBIN 13.8 g/dL (12.0-15.5); LYMPH # 2.3 x10^3/uL (1.0-4.8); LYMPH % 22 % (24-48); MEAN CORPUSCULAR HEMOGLOBIN 33 pg (25-35); MEAN CORPUSCULAR HGB CONC 34 g/dL (31-37); MEAN CORPUSCULAR VOLUME 98 fL (79-100); MONO # 1.1 x10^3/uL (0.0-1.1); MONO % 10 % (0-9); NEUT # 6.9 x10^3/uL (1.8-7.7); NEUT % 66 % (31-73); PLATELET COUNT 320 x10^3/uL (140-400); RED BLOOD COUNT 4.19 x10^6/uL (3.50-5.40); RED CELL DISTRIBUTION WIDTH 13.2 % (11.5-14.5); WHITE BLOOD COUNT 10.5 x10^3/uL (4.0-11.0)
[2021-03-09 17:11] LABS: CALCIUM 10.4 mg/dL (8.5-10.1); CREATININE 0.9 mg/dL (0.6-1.0); GFR 71.5; POTASSIUM 3.5 mmol/L (3.5-5.1)
[2021-03-09 17:18] LABS: ALBUMIN 3.8 g/dL (3.4-5.0); DIRECT BILIRUBIN 0.1 mg/dL (0.0-0.2); TOTAL BILIRUBIN 0.4 mg/dL (0.2-1.0); TOTAL PROTEIN 7.8 g/dL (6.4-8.2)
[2021-03-09] MEDS ORDERED: IOHEXOL 300 MG/ML 100ML VIAL. IV ONE (17:30)
[2021-03-09] MEDS ORDERED: CONTRAST GIVEN. MC PRN (17:30)
--- NOTE | 2021-03-09 17:52 | PHYS DOC ---
Past Medical History Past Medical History: CAD, Diabetes-Type II, High Cholesterol, Hypertension Additional Past Medical Histor: Daughter unsure of history, patient unsure of current meds Past Surgical History: Appendectomy, Cholecystectomy, Other Additional Past Surgical Histo: BACK SX Smoking Status: Never Smoker Alcohol Use: None Drug Use: None General Adult EDM: Chief Complaint: ABDOMINAL PAIN HPI: HPI: This is a pleasant 86-year-old female who presents with decreased appetite and general nausea after taking Tylenol yesterday. She denies any abdominal pain but feels generally unwell and mildly generally weak without a focal neurologic deficit. She denies chest pain or shortness of breath. She is well-appearing in the examination room and comfortable. Location generalized. Duration intermittent. No alleviating factors. Review of systems negative for abdominal pain chest pain shortness of breath vomiting fevers chills head injury. Negative for syncope. All other review of systems negative. Heart Score: C/O Chest Pain: No Risk Factors: Risk Factors: DM, Current or recent (<one month) smoker, HTN, HLP, family history of CAD, obesity. Risk Scores: Score 0 - 3: 2.5% MACE over next 6 weeks - Discharge Home Score 4 - 6: 20.3% MACE over next 6 weeks - Admit for Clinical Observation Score 7 - 10: 72.7% MACE over next 6 weeks - Early Invasive Strategies Current Medications: Current Medications Medications (Trade) Dose Ordered Sig/Kimberly Start Time Stop Time Status Last Admin Dose Admin Info (CONTRAST GIVEN -- Rx MONITORING) 1 each PRN DAILY PRN 03/09/21 17:30 03/11/21 17:29 Iohexol (Omnipaque 300 Mg/ml) 75 ml 1X ONCE 03/09/21 17:30 03/09/21 17:31 DC 03/09/21 17:27 75 ML Allergies: Allergies: Allergies Coded Allergies Type Severity Reaction Last Updated Verified No Known Medication Allergies Allergy Intermediate 11/11/19 Yes I S O L A T I O N *CONTACT* Allergy Unknown Unknown 11/11/19 Yes Physical Exam: PE: Constitutional: Well developed, well nourished, no acute distress, non-toxic appearance. [] HENT: Normocephalic, atraumatic, bilateral external ears normal, oropharynx moist, no oral exudates, nose normal. [] Eyes: PERRLA, EOMI, conjunctiva normal, no discharge. [] Neck: Normal range of motion, no tenderness, supple, no stridor. [] Cardiovascular:Heart rate regular rhythm, no murmur [] Lungs & Thorax: Bilateral breath sounds clear to auscultation [] Abdomen: Bowel sounds normal, soft, no tenderness, no masses, no pulsatile masses. [] Skin: Warm, dry, no erythema, no rash. [] Back: No tenderness, no CVA tenderness. [] Extremities: No tenderness, no cyanosis, no clubbing, ROM intact, no edema. [] Neurologic: Mental status: Awake oriented and alert x3 Cranial nerves: Extraocular movements intact, eyebrows sydnie bilaterally, smile symmetric, uvula elevation nl, shoulder shrug intact bilaterally, tongue protrusion normal Clear speech. Normal [id number]. Sensation: equal and normal in all extremities Strength: 5/5 in upper and lower extremities bilaterally Psychologic: Affect normal, judgement normal, mood normal. [] Current Patient Data: Labs: Laboratory Tests Test 03/09/21 16:50 White Blood Count 10.5 x10^3/uL (4.0-11.0) Red Blood Count 4.19 x10^6/uL (3.50-5.40) Hemoglobin 13.8 g/dL (12.0-15.5) Hematocrit 40.9 % (36.0-47.0) Mean Corpuscular Volume 98 fL (79-100) Mean Corpuscular Hemoglobin 33 pg (25-35) Mean Corpuscular Hemoglobin Concent 34 g/dL (31-37) Red Cell Distribution Width 13.2 % (11.5-14.5) Platelet Count 320 x10^3/uL (140-400) Neutrophils (%) (Auto) 66 % (31-73) Lymphocytes (%) (Auto) 22 % (24-48) L Monocytes (%) (Auto) 10 % (0-9) H Eosinophils (%) (Auto) 0 % (0-3) Basophils (%) (Auto) 1 % (0-3) Neutrophils # (Auto) 6.9 x10^3/uL (1.8-7.7) Lymphocytes # (Auto) 2.3 x10^3/uL (1.0-4.8) Monocytes # (Auto) 1.1 x10^3/uL (0.0-1.1) Eosinophils # (Auto) 0.0 x10^3/uL (0.0-0.7) Basophils # (Auto) 0.1 x10^3/uL (0.0-0.2) Sodium Level 145 mmol/L (136-145) Potassium Level 3.5 mmol/L (3.5-5.1) Chloride Level 107 mmol/L (98-107) Carbon Dioxide Level 26 mmol/L (21-32) Anion Gap 12 (6-14) Blood Urea Nitrogen 16 mg/dL (7-20) Creatinine 0.9 mg/dL (0.6-1.0) Estimated GFR (Cockcroft-Gault) 71.5 Glucose Level 132 mg/dL (70-99) H Calcium Level 10.4 mg/dL (8.5-10.1) H Total Bilirubin 0.4 mg/dL (0.2-1.0) Direct Bilirubin 0.1 mg/dL (0.0-0.2) Aspartate Amino Transferase (AST) 21 U/L (15-37) Alanine Aminotransferase (ALT) 18 U/L (14-59) Alkaline Phosphatase 57 U/L (46-116) Troponin I Quantitative < 0.017 ng/mL (0.000-0.055) Total Protein 7.8 g/dL (6.4-8.2) Albumin 3.8 g/dL (3.4-5.0) Lipase 40 U/L (73-393) L Laboratory Tests 03/09/21 16:50 Laboratory Tests 03/09/21 16:50 Vital Signs: Vital Signs Date Time Temp Pulse Resp B/P (MAP) Pulse Ox O2 Delivery O2 Flow Rate FiO2 03/09/21 16:36 99.9 75 16 171/78 (109) 97 Room Air 99.9 EKG: EKG: EKG shows sinus rhythm with a regular rate. ST segments show some mild ST depression in the lateral leads. Does not meet STEMI criteria. Nonspecific. [] Radiology/Procedures: Radiology/Procedures: [] Course & Med Decision Making: Course & Med Decision Making Pertinent Labs and Imaging studies reviewed. (See chart for details) []86 yo female with nausea and lack of appetite. mildly elevated temp at triage. workup here is unremarkable. will give a dose of rocephin to cover for underlying infection. ct neg. will admit for observation. Dragon Disclaimer: Dragon Disclaimer: This electronic medical record was generated, in whole or in part, using a voice recognition dictation system. Departure Departure Impression: Primary Impression: Nausea Additional Impression: Abdominal pain Disposition: ADMITTED INPATIENT Condition: STABLE Referrals: CELENA OWENS MD (PCP) CK VERA MD Mar 09, 2021 17:52
--- NOTE | 2021-03-09 17:52 | RAD ---
Exam: CT abdomen/pelvis with intravenous contrast Indication: Abdominal pain Comparison: CT abdomen and pelvis 07/11/2019 Technique: Helical CT imaging performed of the abdomen and pelvis after the intravenous administratio n of 75 mL Omnipaque 300 contrast. Sagittal and coronal reformats were obtained. One or more of the following individualized dose reduction techniques were utilized for this examinat ion: 1. Automated exposure control 2. Adjustment of the mA and/or kV according to patient size 3. Use of iterative reconstruction technique. Findings: Lower chest: Mild atelectasis in the lower lobes the heart is normal in size. There are coronary luigi ry calcifications. Liver: There is a 9 mm cyst in the posterior right hepatic lobe. Gallbladder/Biliary Tree: The gallbladder is absent. Bile ducts are prominent, likely related to chol ecystectomy. Pancreas: Normal. Spleen: Normal. Adrenal Glands: Unchanged thickening of the adrenal glands bilaterally. Kidneys/Ureters/Bladder: There is unchanged focal atrophy or scarring of the inferior left renal pole . The right kidney is normal in size. Both kidneys enhance normally. There is a 1.5 cm peripelvic cys t in the left kidney. Ureters and bladder are normal Reproductive Organs: Uterus and ovaries are prominent for age. There calcified parametrial vessels an d probable calcified fibroid in the uterus. Stomach, small bowel, and colon: Small hiatal hernia. No small bowel obstruction. There is mild sigmo id diverticulosis. Vasculature: No aortic aneurysm. Moderate calcified atherosclerosis. Lymph Nodes: There is no lymphadenopathy. Peritoneum and retroperitoneum: No free fluid or free air. Bones: Old compression fractures of L4 and L5 with mild height loss are unchanged. There is bone ceme nt in the L4 vertebral body. The bones are diffusely demineralized. There is severe facet arthrosis a t L3-L4 through L5-S1. There are surgical changes of laminectomies at L4 and L5. Impression: 1. No acute abnormality in the abdomen and pelvis. 2. Unchanged bilateral adrenal gland thickening. 3. Probable 1.5 cm peripelvic cyst in the left kidney. Unchanged scarring or atrophy in the inferior left renal pole. 4. Unchanged prominent size of uterus and ovaries for age, probable small fibroids. 5. Unchanged L4 and L5 compression fractures. Electronically signed by: Elizabeth Muir MD (03/09/2021 5:49 PM) [id number]
[2021-03-09] MEDS ORDERED: IV NORMAL SALINE 1000ML BAG 1,000 ML IV SCH (18:00)
[2021-03-09] MEDS ORDERED: ONDANSETRON PF 4 MG/2 ML VIAL. IV PRN (18:00)
[2021-03-09 18:17] LABS: BILIRUBIN,URINE NEGATIVE (NEG); CLARITY,URINE CLEAR; COLOR,URINE YELLOW; NITRITE,URINE NEGATIVE (NEG); PROTEIN,URINE NEGATIVE (NEG-TRACE); UROBILINOGEN,URINE 0.2 mg/dL (0.2 mg/dL)
[2021-03-09 18:29] LABS: BACTERIA,URINE 0 /HPF (0-FEW); RBC,URINE OCC /HPF (0-2); WBC,URINE OCC /HPF (0-4)
[2021-03-09] MEDS ORDERED: cefTRIAXone IV Push 1 GM VIAL. IVP ONE (18:30)
[2021-03-09 19:00] VITALS: BP 154/60
[2021-03-09] MEDS ORDERED: ALPRAZolam 0.5 MG TABLET PO ONE (19:00)
--- NOTE | 2021-03-09 20:26 | PDOC1 ---
History and Physical Date of Admission Date of Admission DATE: 03/09/21 TIME: 20:25 History of Present Illness History of Present Illness Ms. Corbin, is a pleasant 86-year-old female admit with headache abd nuasea. She has marked decreased appetite for 2 days and general nausea after taking Tylenol yesterday. She was takign tylenol for her headache pain. She denies any abdominal pain but feels generally unwell and mildly generally weak without a focal neurologic deficit. She denies chest pain or shortness of breath. She is well-appearing in the examination room and comfortable. Location generalized. Duration intermittent. No alleviating factors. PCP has been Dr. Marrufo, has recently seen Dr. Klein for insomnia Past Medical History Cardiovascular: CAD, HTN, Hyperlipidemia Pulmonary: Other CENTRAL NERVOUS SYSTEM: Other GI: GERD Heme/Onc: No pertinent hx Hepatobiliary: No pertinent hx Psych: Anxiety Musculoskeletal: low back pain, Osteoarthritis Rheumatologic: No pertinent hx Infectious disease: No pertinent hx Renal/: No pertinent hx Endocrine: Diabetes Past Surgical History Past Surgical History: Appendectomy, Cholecystectomy Family History Family History: Heart Disease, Hypertension Social History Smoke: No ALCOHOL: none Drugs: None Current Problem List Problem List Problems Medical Problems: (1) Abdominal pain Status: Acute (2) Nausea Status: Acute Current Medications Current Medications Current Medications Iohexol (Omnipaque 300 Mg/ml) 75 ml 1X ONCE IV Last administered on 03/09/21at 17:27; Start 03/09/21 at 17:30; Stop 03/09/21 at 17:31; Status DC Info (CONTRAST GIVEN -- Rx MONITORING) 1 each PRN DAILY PRN MC SEE COMMENTS; Start 03/09/21 at 17:30; Stop 03/11/21 at 17:29 Ondansetron HCl (Zofran) 4 mg PRN Q8HRS PRN IV NAUSEA/VOMITING Last administered on 03/09/21at 18:20; Start 03/09/21 at 18:00; Stop 03/10/21 at 17:59 Sodium Chloride 1,000 ml @ 100 mls/hr Q10H IV Last administered on 03/09/21at 18:20; Start 03/09/21 at 18:00; Stop 03/09/21 at 21:59 Ceftriaxone Sodium (Rocephin) 1 gm 1X ONCE IVP Last administered on 03/09/21at 18:20; Start 03/09/21 at 18:30; Stop 03/09/21 at 18:31; Status DC Alprazolam (Xanax) 0.5 mg 1X ONCE PO ; Start 03/09/21 at 19:00; Stop 03/09/21 at 19:01; Status Cancel Active Scripts Active Hydralazine Hcl 50 Mg Tablet 1 Tab PO DAILY Colace (Docusate Sodium) 100 Mg Capsule 100 Mg PO PRN DAILY PRN Aspirin Ec (Aspirin) 81 Mg Tablet. 81 Mg PO DAILY Isosorbide Mononitrate Er (Isosorbide Mononitrate) 30 Mg Tab.er.24h 60 Mg PO DAILY Reported Nitrostat (Nitroglycerin) 0.4 Mg Tab.subl 0.4 Mg SL PRN Q5MIN PRN Nexium Capsule (Esomeprazole Magnesium) 40 Mg Capsule.dr 1 Cap PO DAILY Prolia (Denosumab) 60 Mg/1 Ml Disp.syrin 60 Mg SQ EVERY 6 MOS Miralax (Polyethylene Glycol 3350) 17 Gm Powd.pack 1 Packet PO DAILY PRN 2 Days dissolve in water Gabapentin (Gabapentin) 100 Mg Capsule 100 Mg PO TID Percocet 5-325 mg Tablet (Oxycodone HCl/Acetaminophen) 1 Each Tablet 2 Tab PO QIDPRN PRN MDD 4 Tablet(s) 5 Days Senna Plus Tablet (Sennosides/Docusate Sodium) 1 Each Tablet 1 Each PO BID Robaxin-750 (Methocarbamol) 750 Mg Tablet 1 Tab PO TID PRN 30 Days Pepcid (Famotidine) 20 Mg Tablet 20 Mg PO BID Vitamin D2 (Ergocalciferol (Vitamin D2)) 50,000 Unit Capsule 50,000 Unit PO QWE Losartan Potassium (Losartan Potassium) 25 Mg Tablet 100 Mg PO DAILY Atorvastatin Calcium 20 Mg Tablet 20 Mg PO HS Metformin Hcl Er (Metformin Hcl) 1,000 Mg Tab.er.24 1,000 Mg PO DAILYWBKFT Amlodipine Besylate 10 Mg Tablet 10 Mg PO DAILY Restasis (Cyclosporine) 1 Each Droperette 1 Drop EACHEYE BID Allergies Allergies: Coded Allergies: No Known Medication Allergies (Verified Allergy, Intermediate, 11/11/19) I S O L A T I O N *CONTACT* (Verified Allergy, Unknown, Unknown, 11/11/19) ROS Review of System Review of systems negative for abdominal pain chest pain shortness of breath vomiting fevers chills head injury, no syncope General: YES: Chills, Fatigue PSYCHOLOGICAL ROS: No: Anxiety, Behavioral Disorder, Concentration difficultie, Decreased libido, Depression, Disorientation, Hallucinations, Hostility, Irritablity, Memory difficulties, Mood Swings, Obsessive thoughts, Physical abuse, Sexual abuse, Sleep disturbances, Suicidal ideation, Other Eyes: No Blurry vision, No Decreased vision, No Double vision, No Dry eyes, No Excessive tearing, No Eye Pain, No Itchy Eyes, No Loss of vision, No Photophobia, No Scotomata, No Uses contacts, No Uses glasses, No Other HEENT: YES: Heacaches Respiratory: No: Cough, Hemoptysis, Orthopnea, Pleuritic Pain, Shortness of breath, SOB with excertion, Sputum Changes, Stridor, Tachypnea, Wheezing, Other Cardiovascular: No Chest Pain, No Palpitations, No Orthopnea, No Paroxysmal Noc. Dyspnea, No Edema, No Lt Headedness, No Other Gastrointestinal: Yes Nausea, Yes Abdominal Pain; No Vomiting, No Diarrhea, No Constipation, No Melena, No Hematochezia, No Other Genitourinary: No Dysuria, No Frequency, No Incontinence, No Hematuria, No Retention, No Discharge, No Urgency, No Pain, No Flank Pain, No Other, No , No , No , No , No , No , No Musculoskeletal: Yes Joint Pain, Yes Joint Stiffness Neurological: No Behavorial Changes, No Bowel/Bladder ControlChng, No Confusion, No Dizziness, No Gait Disturbance, No Headaches, No Impaired Coord/balance, No Memory Loss, No Numbness/Tingling, No Seizures, No Speech Problems, No Tremors, No Visual Changes, No Weakness, No Other Skin: Yes Dry Skin; No Eczema, No Hair Changes, No Lumps, No Mole Changes, No Mottling, No Nail Changes, No Pruritus, No Rash, No Skin Lesion Changes, No Other, No Acne Physical Exam General: Alert, Oriented X3, Cooperative, moderate distress HEENT: PERRLA Lungs: Clear to auscultation Heart: S1S2, RRR Abdomen: Soft (tender, + sounds, ) Extremities: No clubbing, Normal pulses Skin: No rashes, No significant lesion Neuro: Normal speech, Sensation intact Psych/Mental Status: Mental status NL, Mood NL Vitals Vitals Vital Signs Date Time Temp Pulse Resp B/P (MAP) Pulse Ox O2 Delivery O2 Flow Rate FiO2 03/09/21 16:36 99.9 75 16 171/78 (109) 97 Room Air 99.9 Labs Labs Laboratory Tests Test 03/09/21 16:50 03/09/21 18:07 White Blood Count 10.5 x10^3/uL (4.0-11.0) Red Blood Count 4.19 x10^6/uL (3.50-5.40) Hemoglobin 13.8 g/dL (12.0-15.5) Hematocrit 40.9 % (36.0-47.0) Mean Corpuscular Volume 98 fL (79-100) Mean Corpuscular Hemoglobin 33 pg (25-35) Mean Corpuscular Hemoglobin Concent 34 g/dL (31-37) Red Cell Distribution Width 13.2 % (11.5-14.5) Platelet Count 320 x10^3/uL (140-400) Neutrophils (%) (Auto) 66 % (31-73) Lymphocytes (%) (Auto) 22 % (24-48) Monocytes (%) (Auto) 10 % (0-9) Eosinophils (%) (Auto) 0 % (0-3) Basophils (%) (Auto) 1 % (0-3) Neutrophils # (Auto) 6.9 x10^3/uL (1.8-7.7) Lymphocytes # (Auto) 2.3 x10^3/uL (1.0-4.8) Monocytes # (Auto) 1.1 x10^3/uL (0.0-1.1) Eosinophils # (Auto) 0.0 x10^3/uL (0.0-0.7) Basophils # (Auto) 0.1 x10^3/uL (0.0-0.2) Sodium Level 145 mmol/L (136-145) Potassium Level 3.5 mmol/L (3.5-5.1) Chloride Level 107 mmol/L (98-107) Carbon Dioxide Level 26 mmol/L (21-32) Anion Gap 12 (6-14) Blood Urea Nitrogen 16 mg/dL (7-20) Creatinine 0.9 mg/dL (0.6-1.0) Estimated GFR (Cockcroft-Gault) 71.5 Glucose Level 132 mg/dL (70-99) Calcium Level 10.4 mg/dL (8.5-10.1) Total Bilirubin 0.4 mg/dL (0.2-1.0) Direct Bilirubin 0.1 mg/dL (0.0-0.2) Aspartate Amino Transf (AST/SGOT) 21 U/L (15-37) Alanine Aminotransferase (ALT/SGPT) 18 U/L (14-59) Alkaline Phosphatase 57 U/L (46-116) Troponin I Quantitative < 0.017 ng/mL (0.000-0.055) Total Protein 7.8 g/dL (6.4-8.2) Albumin 3.8 g/dL (3.4-5.0) Lipase 40 U/L (73-393) Urine Collection Type Void Urine Color Yellow Urine Clarity Clear Urine pH 6.0 (<5.0-8.0) Urine Specific [place] >=1.030 (1.000-1.030) Urine Protein Negative mg/dL (NEG-TRACE) Urine Glucose (UA) Negative mg/dL (NEG) Urine Ketones (Stick) Negative mg/dL (NEG) Urine Blood Negative (NEG) Urine Nitrite Negative (NEG) Urine Bilirubin Negative (NEG) Urine Urobilinogen Dipstick 0.2 mg/dL (0.2 mg/dL) Urine Leukocyte Esterase Negative (NEG) Urine RBC Occ /HPF (0-2) Urine WBC Occ /HPF (0-4) Urine Squamous Epithelial Cells Few /LPF Urine Bacteria 0 /HPF (0-FEW) Laboratory Tests Test 03/09/21 16:50 03/09/21 18:07 White Blood Count 10.5 x10^3/uL (4.0-11.0) Red Blood Count 4.19 x10^6/uL (3.50-5.40) Hemoglobin 13.8 g/dL (12.0-15.5) Hematocrit 40.9 % (36.0-47.0) Mean Corpuscular Volume 98 fL (79-100) Mean Corpuscular Hemoglobin 33 pg (25-35) Mean Corpuscular Hemoglobin Concent 34 g/dL (31-37) Red Cell Distribution Width 13.2 % (11.5-14.5) Platelet Count 320 x10^3/uL (140-400) Neutrophils (%) (Auto) 66 % (31-73) Lymphocytes (%) (Auto) 22 % (24-48) Monocytes (%) (Auto) 10 % (0-9) Eosinophils (%) (Auto) 0 % (0-3) Basophils (%) (Auto) 1 % (0-3) Neutrophils # (Auto) 6.9 x10^3/uL (1.8-7.7) Lymphocytes # (Auto) 2.3 x10^3/uL (1.0-4.8) Monocytes # (Auto) 1.1 x10^3/uL (0.0-1.1) Eosinophils # (Auto) 0.0 x10^3/uL (0.0-0.7) Basophils # (Auto) 0.1 x10^3/uL (0.0-0.2) Sodium Level 145 mmol/L (136-145) Potassium Level 3.5 mmol/L (3.5-5.1) Chloride Level 107 mmol/L (98-107) Carbon Dioxide Level 26 mmol/L (21-32) Anion Gap 12 (6-14) Blood Urea Nitrogen 16 mg/dL (7-20) Creatinine 0.9 mg/dL (0.6-1.0) Estimated GFR (Cockcroft-Gault) 71.5 Glucose Level 132 mg/dL (70-99) Calcium Level 10.4 mg/dL (8.5-10.1) Total Bilirubin 0.4 mg/dL (0.2-1.0) Direct Bilirubin 0.1 mg/dL (0.0-0.2) Aspartate Amino Transf (AST/SGOT) 21 U/L (15-37) Alanine Aminotransferase (ALT/SGPT) 18 U/L (14-59) Alkaline Phosphatase 57 U/L (46-116) Troponin I Quantitative < 0.017 ng/mL (0.000-0.055) Total Protein 7.8 g/dL (6.4-8.2) Albumin 3.8 g/dL (3.4-5.0) Lipase 40 U/L (73-393) Urine Collection Type Void Urine Color Yellow Urine Clarity Clear Urine pH 6.0 (<5.0-8.0) Urine Specific [place] >=1.030 (1.000-1.030) Urine Protein Negative mg/dL (NEG-TRACE) Urine Glucose (UA) Negative mg/dL (NEG) Urine Ketones (Stick) Negative mg/dL (NEG) Urine Blood Negative (NEG) Urine Nitrite Negative (NEG) Urine Bilirubin Negative (NEG) Urine Urobilinogen Dipstick 0.2 mg/dL (0.2 mg/dL) Urine Leukocyte Esterase Negative (NEG) Urine RBC Occ /HPF (0-2) Urine WBC Occ /HPF (0-4) Urine Squamous Epithelial Cells Few /LPF Urine Bacteria 0 /HPF (0-FEW) VTE Prophylaxis Ordered VTE Prophylaxis Devices: Yes VTE Pharmacological Prophylaxi: Yes Assessment/Plan Assessment/Plan headache, poss migrane, will try tryptan acute abdominal pain with nausea imaging, labs, urine OK likely viral enteritis, will give pain and nausea meds and supportive care htn, chronic diastolic CHF Dm2 peripheral neuropathy Justifications for Admission Other Justification CANDI MORAES MD Mar 09, 2021 20:26
[2021-03-09] MEDS ORDERED: oxyCODONE/APAP 5/325 1 TAB TABLET PO PRN (20:30)
[2021-03-09] MEDS ORDERED: NITROGLYCERIN SUBLINGUAL 0.4 MG BOTTLE OF 25. SL PRN (20:30)
[2021-03-09] MEDS ORDERED: METHOCARBAMOL 750 MG TABLET PO PRN (20:30)
[2021-03-09] MEDS ORDERED: POLYETHYLENE GLYCOL 3350 17 GM PACKET. PO PRN (20:30)
[2021-03-09] MEDS ORDERED: DOCUSATE SODIUM 100 MG CAPSULE. PO PRN (20:30)
[2021-03-09] MEDS ORDERED: ACETAMINOPHEN 325 MG TABLET. PO PRN (21:00)
[2021-03-09] MEDS ORDERED: ONDANSETRON PF 4 MG/2 ML VIAL. IM PRN (21:00)
[2021-03-09] MEDS ORDERED: ATORVASTATIN CALCIUM 20 MG TABLET PO SCH (21:00)
[2021-03-09] MEDS: SENNOSIDES/DOCUSATE 8.6/50MG TABLET. PO SCH (21:14)
[2021-03-09] MEDS: cycloSPORINE 0.05% OPHTH DROPERETTE. OU SCH (21:14)
[2021-03-09] MEDS: GABAPENTIN 100 MG CAPSULE. PO SCH (21:14)
[2021-03-09] MEDS ORDERED: MORPHINE SULFATE 2 MG/ML VIAL. IV ONE (21:30)
[2021-03-09 23:00] VITALS: BP 143/56
[2021-03-10 03:00] VITALS: BP 157/60
[2021-03-10 06:17] LABS: ALBUMIN 3.4 g/dL (3.4-5.0); ALBUMIN/GLOBULIN RATIO 1.1 (1.0-1.7); CALCIUM 9.2 mg/dL (8.5-10.1); CREATININE 0.8 mg/dL (0.6-1.0); GFR 81.9; POTASSIUM 3.8 mmol/L (3.5-5.1); TOTAL BILIRUBIN 0.2 mg/dL (0.2-1.0); TOTAL PROTEIN 6.5 g/dL (6.4-8.2)
[2021-03-10 06:39] LABS: BASO # 0.1 x10^3/uL (0.0-0.2); BASO % 1 % (0-3); EOS # 0.1 x10^3/uL (0.0-0.7); EOS % 1 % (0-3); HEMATOCRIT 39.4 % (36.0-47.0); HEMOGLOBIN 13.1 g/dL (12.0-15.5); LYMPH # 3.3 x10^3/uL (1.0-4.8); LYMPH % 30 % (24-48); MEAN CORPUSCULAR HEMOGLOBIN 33 pg (25-35); MEAN CORPUSCULAR HGB CONC 33 g/dL (31-37); MEAN CORPUSCULAR VOLUME 98 fL (79-100); MONO # 1.2 x10^3/uL (0.0-1.1); MONO % 11 % (0-9); NEUT # 6.5 x10^3/uL (1.8-7.7); NEUT % 58 % (31-73); PLATELET COUNT 284 x10^3/uL (140-400); RED CELL DISTRIBUTION WIDTH 13.1 % (11.5-14.5); WHITE BLOOD COUNT 11.2 x10^3/uL (4.0-11.0)
[2021-03-10 07:00] VITALS: BP 136/53
[2021-03-10] MEDS: cycloSPORINE 0.05% OPHTH DROPERETTE. OU SCH (08:36)
[2021-03-10] MEDS: GABAPENTIN 100 MG CAPSULE. PO SCH (08:37)
[2021-03-10] MEDS: SENNOSIDES/DOCUSATE 8.6/50MG TABLET. PO SCH (08:38)
[2021-03-10] MEDS ORDERED: FAMOTIDINE 20 MG TABLET. PO SCH (09:00)
[2021-03-10] MEDS ORDERED: ASPIRIN ENTERIC COATED 81 MG TABLET.DR. PO SCH (09:00)
[2021-03-10] MEDS ORDERED: ISOSORBIDE MONONITRATE ER 30 MG TAB.ER.24H PO SCH (09:00)
[2021-03-10] MEDS ORDERED: LOSARTAN POTASSIUM 50 MG TABLET. PO SCH (09:00)
--- NOTE | 2021-03-10 09:50 | NUR ---
SW following. Discussed with RN, pt from home with daughter, room air, regular diet, ad maria fernanda. RN advised no SW needs at this time. SW will continue to follow.
[2021-03-10 11:00] VITALS: BP 113/43
[2021-03-10] MEDS ORDERED: SUMA25TA3 PO (11:07)
--- NOTE | 2021-03-10 11:11 | PDOC ---
[employer] PROGRESS NOTE Date of Service DOS: DATE: 03/10/21 TIME: 10:53 Chief Complaint Chief Complaint A/P: Headache, poss migrane, will try triptan. Not worst of life Acute abdominal pain with nausea - imaging, labs, urine OK. likely viral enteritis, will give pain and nausea meds and supportive care HTN - cont home meds Chronic diastolic CHF DM2 Peripheral neuropathy Unchanged L4 and L5 compression fractures. History of Present Illness History of Present Illness Ms. Corbin is an 86 yo F w/ PMHx CAD, HTN, HLD, GERD, DM2 admitted through ED c/o headache abdominal pain and nausea. She has marked decreased appetite for 2 days and general nausea after taking Tylenol. She denies any abdominal pain but feels generally unwell and mildly generally weak without a focal neurologic deficit. She denies chest pain or shortness of breath. She is well-appearing in the examination room and comfortable. Location generalized. Duration intermittent. No alleviating factors. EKG with lateral ST depressions unchanged from prior in 2019. Labs no abnormalities CT abdomen pelvis with L4-5 compression fractures previously seen. Adnexal cyst on the left side of pelvis. Otherwise no GI abnormalities. Some right shoulder pain. After 150 mg dose of Imitrex for abdominal pain and headache completely resolved. Advised she can take 25 mg tabs no more than 3/month at home needs cardiology follow-up. Okay to go home today Vitals/I&O Vitals/I&O: Vital Signs Date Time Temp Pulse Resp B/P (MAP) Pulse Ox O2 Delivery O2 Flow Rate FiO2 03/10/21 08:38 63 136/53 03/10/21 08:00 Room Air 03/10/21 07:00 98.0 18 97 98.0 I & O 03/09/21 03/09/21 03/10/21 15:00 23:00 07:00 Intake Total 250 ml 1000 ml Balance 250 ml 1000 ml Physical Exam General: Alert, Oriented X3, Cooperative, moderate distress Lungs: Clear Abdomen: Soft (tender, + sounds, ) Extremities: No clubbing, Normal pulses Skin: No rashes, No significant lesion Labs Labs: Laboratory Tests Test 03/09/21 16:50 03/09/21 18:07 03/09/21 23:10 03/10/21 00:40 White Blood Count 10.5 x10^3/uL (4.0-11.0) Red Blood Count 4.19 x10^6/uL (3.50-5.40) Hemoglobin 13.8 g/dL (12.0-15.5) Hematocrit 40.9 % (36.0-47.0) Mean Corpuscular Volume 98 fL (79-100) Mean Corpuscular Hemoglobin 33 pg (25-35) Mean Corpuscular Hemoglobin Concent 34 g/dL (31-37) Red Cell Distribution Width 13.2 % (11.5-14.5) Platelet Count 320 x10^3/uL (140-400) Neutrophils (%) (Auto) 66 % (31-73) Lymphocytes (%) (Auto) 22 % (24-48) Monocytes (%) (Auto) 10 % (0-9) Eosinophils (%) (Auto) 0 % (0-3) Basophils (%) (Auto) 1 % (0-3) Neutrophils # (Auto) 6.9 x10^3/uL (1.8-7.7) Lymphocytes # (Auto) 2.3 x10^3/uL (1.0-4.8) Monocytes # (Auto) 1.1 x10^3/uL (0.0-1.1) Eosinophils # (Auto) 0.0 x10^3/uL (0.0-0.7) Basophils # (Auto) 0.1 x10^3/uL (0.0-0.2) Sodium Level 145 mmol/L (136-145) Potassium Level 3.5 mmol/L (3.5-5.1) Chloride Level 107 mmol/L (98-107) Carbon Dioxide Level 26 mmol/L (21-32) Anion Gap 12 (6-14) Blood Urea Nitrogen 16 mg/dL (7-20) Creatinine 0.9 mg/dL (0.6-1.0) Estimated GFR (Cockcroft-Gault) 71.5 Glucose Level 132 mg/dL (70-99) Calcium Level 10.4 mg/dL (8.5-10.1) Total Bilirubin 0.4 mg/dL (0.2-1.0) Direct Bilirubin 0.1 mg/dL (0.0-0.2) Aspartate Amino Transf (AST/SGOT) 21 U/L (15-37) Alanine Aminotransferase (ALT/SGPT) 18 U/L (14-59) Alkaline Phosphatase 57 U/L (46-116) Troponin I Quantitative < 0.017 ng/mL (0.000-0.055) < 0.017 ng/mL (0.000-0.055) Total Protein 7.8 g/dL (6.4-8.2) Albumin 3.8 g/dL (3.4-5.0) Lipase 40 U/L (73-393) Urine Collection Type Void Urine Color Yellow Urine Clarity Clear Urine pH 6.0 (<5.0-8.0) Urine Specific [place] >=1.030 (1.000-1.030) Urine Protein Negative mg/dL (NEG-TRACE) Urine Glucose (UA) Negative mg/dL (NEG) Urine Ketones (Stick) Negative mg/dL (NEG) Urine Blood Negative (NEG) Urine Nitrite Negative (NEG) Urine Bilirubin Negative (NEG) Urine Urobilinogen Dipstick 0.2 mg/dL (0.2 mg/dL) Urine Leukocyte Esterase Negative (NEG) Urine RBC Occ /HPF (0-2) Urine WBC Occ /HPF (0-4) Urine Squamous Epithelial Cells Few /LPF Urine Bacteria 0 /HPF (0-FEW) Glucose (Fingerstick) 152 mg/dL (70-99) Test 03/10/21 05:47 03/10/21 07:46 White Blood Count 11.2 x10^3/uL (4.0-11.0) Red Blood Count 4.00 x10^6/uL (3.50-5.40) Hemoglobin 13.1 g/dL (12.0-15.5) Hematocrit 39.4 % (36.0-47.0) Mean Corpuscular Volume 98 fL (79-100) Mean Corpuscular Hemoglobin 33 pg (25-35) Mean Corpuscular Hemoglobin Concent 33 g/dL (31-37) Red Cell Distribution Width 13.1 % (11.5-14.5) Platelet Count 284 x10^3/uL (140-400) Neutrophils (%) (Auto) 58 % (31-73) Lymphocytes (%) (Auto) 30 % (24-48) Monocytes (%) (Auto) 11 % (0-9) Eosinophils (%) (Auto) 1 % (0-3) Basophils (%) (Auto) 1 % (0-3) Neutrophils # (Auto) 6.5 x10^3/uL (1.8-7.7) Lymphocytes # (Auto) 3.3 x10^3/uL (1.0-4.8) Monocytes # (Auto) 1.2 x10^3/uL (0.0-1.1) Eosinophils # (Auto) 0.1 x10^3/uL (0.0-0.7) Basophils # (Auto) 0.1 x10^3/uL (0.0-0.2) Sodium Level 147 mmol/L (136-145) Potassium Level 3.8 mmol/L (3.5-5.1) Chloride Level 111 mmol/L (98-107) Carbon Dioxide Level 25 mmol/L (21-32) Anion Gap 11 (6-14) Blood Urea Nitrogen 12 mg/dL (7-20) Creatinine 0.8 mg/dL (0.6-1.0) Estimated GFR (Cockcroft-Gault) 81.9 BUN/Creatinine Ratio 15 (6-20) Glucose Level 103 mg/dL (70-99) Calcium Level 9.2 mg/dL (8.5-10.1) Ionized Calcium 1.24 mmol/L (1.13-1.32) Total Bilirubin 0.2 mg/dL (0.2-1.0) Aspartate Amino Transf (AST/SGOT) 19 U/L (15-37) Alanine Aminotransferase (ALT/SGPT) 17 U/L (14-59) Alkaline Phosphatase 54 U/L (46-116) Troponin I Quantitative < 0.017 ng/mL (0.000-0.055) Total Protein 6.5 g/dL (6.4-8.2) Albumin 3.4 g/dL (3.4-5.0) Albumin/Globulin Ratio 1.1 (1.0-1.7) Glucose (Fingerstick) 108 mg/dL (70-99) Assessment and Plan Assessmemt and Plan Problems Medical Problems: (1) Abdominal pain Status: Acute (2) Nausea Status: Acute Comment Review of Relevant I have reviewed the following items rj (where applicable) has been applied. Medications: Current Medications Medications (Trade) Dose Ordered Sig/Kimberly Route PRN Reason Start Time Stop Time Status Last Admin Dose Admin Iohexol (Omnipaque 300 Mg/ml) 75 ml 1X ONCE IV 03/09/21 17:30 03/09/21 17:31 DC 03/09/21 17:27 Ondansetron HCl (Zofran) 4 mg PRN Q8HRS PRN IV NAUSEA/VOMITING 03/09/21 18:00 03/10/21 17:59 03/09/21 18:20 Sodium Chloride 1,000 ml @ 100 mls/hr Q10H IV 03/09/21 18:00 03/09/21 21:59 DC 03/09/21 18:20 Ceftriaxone Sodium (Rocephin) 1 gm 1X ONCE IVP 03/09/21 18:30 03/09/21 18:31 DC 03/09/21 18:20 Methocarbamol (Robaxin) 750 mg PRN TID PRN PO muscle spasms 03/09/21 20:30 03/09/21 21:17 Amlodipine Besylate (Norvasc) 10 mg DAILY PO 03/10/21 09:00 03/10/21 08:38 Aspirin (Ecotrin) 81 mg DAILY PO 03/10/21 09:00 03/10/21 08:38 Atorvastatin Calcium (Lipitor) 20 mg HS PO 03/09/21 21:00 03/09/21 21:14 Cyclosporine (Restasis) 1 drop BID OU 03/09/21 21:00 03/10/21 08:36 Famotidine (Pepcid) 20 mg DAILY PO 03/10/21 09:00 03/10/21 08:37 Gabapentin (Neurontin) 100 mg TID PO 03/09/21 21:00 03/10/21 08:37 Hydralazine HCl (Apresoline) 50 mg DAILY PO 03/10/21 09:00 03/10/21 08:37 Isosorbide Mononitrate (Imdur) 60 mg DAILY PO 03/10/21 09:00 03/10/21 08:37 Losartan Potassium (Cozaar) 100 mg DAILY PO 03/10/21 09:00 03/10/21 08:37 Senna/Docusate Sodium (Senna Plus) 1 tab BID PO 03/09/21 21:00 03/10/21 08:38 Morphine Sulfate (Morphine Sulfate) 2 mg 1X ONCE IV 03/09/21 21:30 03/09/21 21:31 DC 03/09/21 21:14 Sumatriptan Succinate (Imitrex) 50 mg PRN Q8HRS PRN PO MIGRAINE HEADACHE 03/09/21 20:45 03/10/21 08:38 Justifications for Admission Other Justification ARVIN BAEKR MD Mar 10, 2021 11:11
--- NOTE | 2021-03-10 11:12 | PDOC3 ---
Discharge Summary Visit Information Date of Admission: Mar 09, 2021 Date of Discharge: Mar 10, 2021 Admitting Diagnosis: Abdominal pain, migraine headache Final Diagnosis Problems Medical Problems: (1) Abdominal pain Status: Acute (2) Nausea Status: Acute Brief Hospital Course Allergies Allergies Coded Allergies Type Severity Reaction Last Updated Verified No Known Medication Allergies Allergy Intermediate 11/11/19 Yes I S O L A T I O N *CONTACT* Allergy Unknown Unknown 11/11/19 Yes Vital Signs Vital Signs Date Time Temp Pulse Resp B/P (MAP) Pulse Ox O2 Delivery O2 Flow Rate FiO2 03/10/21 08:38 63 136/53 03/10/21 08:00 Room Air 03/10/21 07:00 98.0 18 97 98.0 Lab Results Laboratory Tests Test 03/09/21 16:50 03/09/21 18:07 03/09/21 23:10 03/10/21 00:40 White Blood Count 10.5 x10^3/uL (4.0-11.0) Red Blood Count 4.19 x10^6/uL (3.50-5.40) Hemoglobin 13.8 g/dL (12.0-15.5) Hematocrit 40.9 % (36.0-47.0) Mean Corpuscular Volume 98 fL (79-100) Mean Corpuscular Hemoglobin 33 pg (25-35) Mean Corpuscular Hemoglobin Concent 34 g/dL (31-37) Red Cell Distribution Width 13.2 % (11.5-14.5) Platelet Count 320 x10^3/uL (140-400) Neutrophils (%) (Auto) 66 % (31-73) Lymphocytes (%) (Auto) 22 % (24-48) Monocytes (%) (Auto) 10 % (0-9) Eosinophils (%) (Auto) 0 % (0-3) Basophils (%) (Auto) 1 % (0-3) Neutrophils # (Auto) 6.9 x10^3/uL (1.8-7.7) Lymphocytes # (Auto) 2.3 x10^3/uL (1.0-4.8) Monocytes # (Auto) 1.1 x10^3/uL (0.0-1.1) Eosinophils # (Auto) 0.0 x10^3/uL (0.0-0.7) Basophils # (Auto) 0.1 x10^3/uL (0.0-0.2) Sodium Level 145 mmol/L (136-145) Potassium Level 3.5 mmol/L (3.5-5.1) Chloride Level 107 mmol/L (98-107) Carbon Dioxide Level 26 mmol/L (21-32) Anion Gap 12 (6-14) Blood Urea Nitrogen 16 mg/dL (7-20) Creatinine 0.9 mg/dL (0.6-1.0) Estimated GFR (Cockcroft-Gault) 71.5 Glucose Level 132 mg/dL (70-99) Calcium Level 10.4 mg/dL (8.5-10.1) Total Bilirubin 0.4 mg/dL (0.2-1.0) Direct Bilirubin 0.1 mg/dL (0.0-0.2) Aspartate Amino Transf (AST/SGOT) 21 U/L (15-37) Alanine Aminotransferase (ALT/SGPT) 18 U/L (14-59) Alkaline Phosphatase 57 U/L (46-116) Troponin I Quantitative < 0.017 ng/mL (0.000-0.055) < 0.017 ng/mL (0.000-0.055) Total Protein 7.8 g/dL (6.4-8.2) Albumin 3.8 g/dL (3.4-5.0) Lipase 40 U/L (73-393) Urine Collection Type Void Urine Color Yellow Urine Clarity Clear Urine pH 6.0 (<5.0-8.0) Urine Specific [place] >=1.030 (1.000-1.030) Urine Protein Negative mg/dL (NEG-TRACE) Urine Glucose (UA) Negative mg/dL (NEG) Urine Ketones (Stick) Negative mg/dL (NEG) Urine Blood Negative (NEG) Urine Nitrite Negative (NEG) Urine Bilirubin Negative (NEG) Urine Urobilinogen Dipstick 0.2 mg/dL (0.2 mg/dL) Urine Leukocyte Esterase Negative (NEG) Urine RBC Occ /HPF (0-2) Urine WBC Occ /HPF (0-4) Urine Squamous Epithelial Cells Few /LPF Urine Bacteria 0 /HPF (0-FEW) Glucose (Fingerstick) 152 mg/dL (70-99) Test 03/10/21 05:47 03/10/21 07:46 White Blood Count 11.2 x10^3/uL (4.0-11.0) Red Blood Count 4.00 x10^6/uL (3.50-5.40) Hemoglobin 13.1 g/dL (12.0-15.5) Hematocrit 39.4 % (36.0-47.0) Mean Corpuscular Volume 98 fL (79-100) Mean Corpuscular Hemoglobin 33 pg (25-35) Mean Corpuscular Hemoglobin Concent 33 g/dL (31-37) Red Cell Distribution Width 13.1 % (11.5-14.5) Platelet Count 284 x10^3/uL (140-400) Neutrophils (%) (Auto) 58 % (31-73) Lymphocytes (%) (Auto) 30 % (24-48) Monocytes (%) (Auto) 11 % (0-9) Eosinophils (%) (Auto) 1 % (0-3) Basophils (%) (Auto) 1 % (0-3) Neutrophils # (Auto) 6.5 x10^3/uL (1.8-7.7) Lymphocytes # (Auto) 3.3 x10^3/uL (1.0-4.8) Monocytes # (Auto) 1.2 x10^3/uL (0.0-1.1) Eosinophils # (Auto) 0.1 x10^3/uL (0.0-0.7) Basophils # (Auto) 0.1 x10^3/uL (0.0-0.2) Sodium Level 147 mmol/L (136-145) Potassium Level 3.8 mmol/L (3.5-5.1) Chloride Level 111 mmol/L (98-107) Carbon Dioxide Level 25 mmol/L (21-32) Anion Gap 11 (6-14) Blood Urea Nitrogen 12 mg/dL (7-20) Creatinine 0.8 mg/dL (0.6-1.0) Estimated GFR (Cockcroft-Gault) 81.9 BUN/Creatinine Ratio 15 (6-20) Glucose Level 103 mg/dL (70-99) Calcium Level 9.2 mg/dL (8.5-10.1) Ionized Calcium 1.24 mmol/L (1.13-1.32) Total Bilirubin 0.2 mg/dL (0.2-1.0) Aspartate Amino Transf (AST/SGOT) 19 U/L (15-37) Alanine Aminotransferase (ALT/SGPT) 17 U/L (14-59) Alkaline Phosphatase 54 U/L (46-116) Troponin I Quantitative < 0.017 ng/mL (0.000-0.055) Total Protein 6.5 g/dL (6.4-8.2) Albumin 3.4 g/dL (3.4-5.0) Albumin/Globulin Ratio 1.1 (1.0-1.7) Glucose (Fingerstick) 108 mg/dL (70-99) Laboratory Tests Test 03/09/21 16:50 03/09/21 18:07 03/09/21 23:10 03/10/21 00:40 White Blood Count 10.5 x10^3/uL (4.0-11.0) Red Blood Count 4.19 x10^6/uL (3.50-5.40) Hemoglobin 13.8 g/dL (12.0-15.5) Hematocrit 40.9 % (36.0-47.0) Mean Corpuscular Volume 98 fL (79-100) Mean Corpuscular Hemoglobin 33 pg (25-35) Mean Corpuscular Hemoglobin Concent 34 g/dL (31-37) Red Cell Distribution Width 13.2 % (11.5-14.5) Platelet Count 320 x10^3/uL (140-400) Neutrophils (%) (Auto) 66 % (31-73) Lymphocytes (%) (Auto) 22 % (24-48) Monocytes (%) (Auto) 10 % (0-9) Eosinophils (%) (Auto) 0 % (0-3) Basophils (%) (Auto) 1 % (0-3) Neutrophils # (Auto) 6.9 x10^3/uL (1.8-7.7) Lymphocytes # (Auto) 2.3 x10^3/uL (1.0-4.8) Monocytes # (Auto) 1.1 x10^3/uL (0.0-1.1) Eosinophils # (Auto) 0.0 x10^3/uL (0.0-0.7) Basophils # (Auto) 0.1 x10^3/uL (0.0-0.2) Sodium Level 145 mmol/L (136-145) Potassium Level 3.5 mmol/L (3.5-5.1) Chloride Level 107 mmol/L (98-107) Carbon Dioxide Level 26 mmol/L (21-32) Anion Gap 12 (6-14) Blood Urea Nitrogen 16 mg/dL (7-20) Creatinine 0.9 mg/dL (0.6-1.0) Estimated GFR (Cockcroft-Gault) 71.5 Glucose Level 132 mg/dL (70-99) Calcium Level 10.4 mg/dL (8.5-10.1) Total Bilirubin 0.4 mg/dL (0.2-1.0) Direct Bilirubin 0.1 mg/dL (0.0-0.2) Aspartate Amino Transf (AST/SGOT) 21 U/L (15-37) Alanine Aminotransferase (ALT/SGPT) 18 U/L (14-59) Alkaline Phosphatase 57 U/L (46-116) Troponin I Quantitative < 0.017 ng/mL (0.000-0.055) < 0.017 ng/mL (0.000-0.055) Total Protein 7.8 g/dL (6.4-8.2) Albumin 3.8 g/dL (3.4-5.0) Lipase 40 U/L (73-393) Urine Collection Type Void Urine Color Yellow Urine Clarity Clear Urine pH 6.0 (<5.0-8.0) Urine Specific [place] >=1.030 (1.000-1.030) Urine Protein Negative mg/dL (NEG-TRACE) Urine Glucose (UA) Negative mg/dL (NEG) Urine Ketones (Stick) Negative mg/dL (NEG) Urine Blood Negative (NEG) Urine Nitrite Negative (NEG) Urine Bilirubin Negative (NEG) Urine Urobilinogen Dipstick 0.2 mg/dL (0.2 mg/dL) Urine Leukocyte Esterase Negative (NEG) Urine RBC Occ /HPF (0-2) Urine WBC Occ /HPF (0-4) Urine Squamous Epithelial Cells Few /LPF Urine Bacteria 0 /HPF (0-FEW) Glucose (Fingerstick) 152 mg/dL (70-99) Test 03/10/21 05:47 03/10/21 07:46 White Blood Count 11.2 x10^3/uL (4.0-11.0) Red Blood Count 4.00 x10^6/uL (3.50-5.40) Hemoglobin 13.1 g/dL (12.0-15.5) Hematocrit 39.4 % (36.0-47.0) Mean Corpuscular Volume 98 fL (79-100) Mean Corpuscular Hemoglobin 33 pg (25-35) Mean Corpuscular Hemoglobin Concent 33 g/dL (31-37) Red Cell Distribution Width 13.1 % (11.5-14.5) Platelet Count 284 x10^3/uL (140-400) Neutrophils (%) (Auto) 58 % (31-73) Lymphocytes (%) (Auto) 30 % (24-48) Monocytes (%) (Auto) 11 % (0-9) Eosinophils (%) (Auto) 1 % (0-3) Basophils (%) (Auto) 1 % (0-3) Neutrophils # (Auto) 6.5 x10^3/uL (1.8-7.7) Lymphocytes # (Auto) 3.3 x10^3/uL (1.0-4.8) Monocytes # (Auto) 1.2 x10^3/uL (0.0-1.1) Eosinophils # (Auto) 0.1 x10^3/uL (0.0-0.7) Basophils # (Auto) 0.1 x10^3/uL (0.0-0.2) Sodium Level 147 mmol/L (136-145) Potassium Level 3.8 mmol/L (3.5-5.1) Chloride Level 111 mmol/L (98-107) Carbon Dioxide Level 25 mmol/L (21-32) Anion Gap 11 (6-14) Blood Urea Nitrogen 12 mg/dL (7-20) Creatinine 0.8 mg/dL (0.6-1.0) Estimated GFR (Cockcroft-Gault) 81.9 BUN/Creatinine Ratio 15 (6-20) Glucose Level 103 mg/dL (70-99) Calcium Level 9.2 mg/dL (8.5-10.1) Ionized Calcium 1.24 mmol/L (1.13-1.32) Total Bilirubin 0.2 mg/dL (0.2-1.0) Aspartate Amino Transf (AST/SGOT) 19 U/L (15-37) Alanine Aminotransferase (ALT/SGPT) 17 U/L (14-59) Alkaline Phosphatase 54 U/L (46-116) Troponin I Quantitative < 0.017 ng/mL (0.000-0.055) Total Protein 6.5 g/dL (6.4-8.2) Albumin 3.4 g/dL (3.4-5.0) Albumin/Globulin Ratio 1.1 (1.0-1.7) Glucose (Fingerstick) 108 mg/dL (70-99) Brief Hospital Course Ms. Corbin is an 86 yo F w/ PMHx CAD, HTN, HLD, GERD, DM2 admitted through ED c/o headache abdominal pain and nausea. She has marked decreased appetite for 2 days and general nausea after taking Tylenol. She denies any abdominal pain but feels generally unwell and mildly generally weak without a focal neurologic deficit. She denies chest pain or shortness of breath. She is well-appearing in the examination room and comfortable. Location generalized. Duration intermittent. No alleviating factors. EKG with lateral ST depressions unchanged from prior in 2019. Labs no abnormalities CT abdomen pelvis with L4-5 compression fractures previously seen. Adnexal cyst on the left side of pelvis. Otherwise no GI abnormalities. Some right shoulder pain. After 150 mg dose of Imitrex for abdominal pain and headache completely resolved. Advised she can take 25 mg tabs no more than 3/month at home needs cardiology follow-up. Okay to go home today Problem list: Headache, poss migrane, will try triptan. Not worst of life Acute abdominal pain with nausea - imaging, labs, urine OK. likely viral enteritis, will give pain and nausea meds and supportive care HTN - cont home meds Chronic diastolic CHF DM2 Peripheral neuropathy Unchanged L4 and L5 compression fractures. Greater than 30 minutes spent on d/c home Discharge Information Condition at Discharge: Improved Follow Up: Weeks (1) Disposition/Orders: D/C to Home Scheduled Amlodipine Besylate (Amlodipine Besylate) 10 Mg Tablet, 10 MG PO DAILY, (Reported) Entered as Reported by: ERWIN MORRISON on 06/06/16 1005 Last Action: Continued on 03/09/212028 by CANDI MORAES Aspirin (Aspirin Ec) 81 Mg Tablet., 81 MG PO DAILY, #1 Prescribed by: YASEMIN TORRES on 06/06/16 1736 Last Action: Continued on 03/09/212028 by CANDI MORAES Atorvastatin Calcium (Atorvastatin Calcium) 20 Mg Tablet, 20 MG PO HS for FOR CHOLESTEROL, #30 Ref 0 (Reported) Entered as Reported by: GABRIELLE RUIZ on 10/18/17 1501 Last Action: Continued on 03/09/212028 by CANDI MORAES Cyclosporine (Restasis) 1 Each Droperette, 1 DROP EACHEYE BID, #60 Ref 3 (Reported) Entered as Reported by: ERWIN MORRISON on 06/06/16 1005 Last Action: Continued on 03/09/212028 by CANDI MORAES Denosumab (Prolia) 60 Mg/1 Ml Disp.syrin, 60 MG SQ every 6 mos for osteoporosis, (Reported) Entered as Reported by: CAITY CONTRERAS on 03/22/20 1259 Ergocalciferol (Vitamin D2) (Vitamin D2) 50,000 Unit Capsule, 50,000 UNIT PO QWE for vitamin, (Reported) Entered as Reported by: JON RIVAS on 07/12/19 0120 Last Action: HELD on 03/09/212028 by CANDI MORAES Esomeprazole Magnesium (Nexium Capsule) 40 Mg Capsule.dr, 1 CAP PO DAILY for gerd, #30 Ref 5 (Reported) Entered as Reported by: CAITY CONTRERAS on 03/22/20 1259 Famotidine (Pepcid) 20 Mg Tablet, 20 MG PO BID for gerd, (Reported) Entered as Reported by: CAITY CONTRERAS on 03/22/20 1259 Last Action: Continued on 03/09/212028 by CANDI MORAES Gabapentin (Gabapentin ) 100 Mg Capsule, 100 MG PO TID for NEUROGENIC PAIN, (Reported) Entered as Reported by: CAITY CONTRERAS on 03/22/20 1259 Last Action: Continued on 03/09/212028 by CANDI MORAES Hydralazine Hcl (Hydralazine Hcl) 50 Mg Tablet, 1 TAB PO DAILY for htn, #90 Ref 5 Prescribed by: DONAVAN BONILLA on 01/09/19 1334 Last Action: Continued on 03/09/212028 by CANDI MORAES Isosorbide Mononitrate (Isosorbide Mononitrate Er) 30 Mg Tab.er.24h, 60 MG PO DAILY, #30 Prescribed by: YASEMIN TORRES on 06/06/16 1736 Last Action: Continued on 03/09/212028 by CANDI MORAES Losartan Potassium (Losartan Potassium ) 25 Mg Tablet, 100 MG PO DAILY for htn, (Reported) Entered as Reported by: CAITY CONTRERAS on 03/11/18 1203 Last Action: Continued on 03/09/212028 by CANDI MORAES Sennosides/Docusate Sodium (Senna Plus Tablet) 1 Each Tablet, 1 EACH PO BID for constipation, (Reported) Entered as Reported by: CAITY CONTRERAS on 03/22/20 125 Last Action: Continued on 03/09/212028 by CANDI MORAES Scheduled PRN Docusate Sodium (Colace) 100 Mg Capsule, 100 MG PO PRN DAILY PRN for CONSTIPATION, #10 Prescribed by: LONNIE TROTTER MD on 03/29/17 1126 Last Action: Continued on 03/09/212028 by CANDI MORAES Methocarbamol (Robaxin-750) 750 Mg Tablet, 1 TAB PO TID PRN for spasms for 30 Days, #90 Ref 0 (Reported) Entered as Reported by: CAITY CONTRERAS on 03/22/201258 Last Action: Continued on 03/09/212026 by CANDI MORAES Nitroglycerin (Nitrostat) 0.4 Mg Tab.subl, 0.4 MG SL PRN Q5MIN PRN for CHEST PAIN, (Reported) Entered as Reported by: CAITY CONTRERAS on 03/22/201258 Last Action: Continued on 03/09/212028 by CANDI MORAES Oxycodone HCl/Acetaminophen (Percocet 5-325 mg Tablet) 1 Each Tablet, 2 TAB PO QIDPRN PRN for PAIN MDD 4 Tablet(s) for 5 Days, #20 Ref 0 (Reported) Entered as Reported by: CAITY CONTRERAS on 03/22/201258 Last Action: Continued on 03/09/212028 by CANDI MORAES Polyethylene Glycol 3350 (Miralax) 17 Gm Powd.pack, 1 PACKET PO DAILY PRN for CONSTIPATION for 2 Days, #2 Ref 0 (Reported) dissolve in water Entered as Reported by: CIATY CONTRERAS on 03/22/201258 Last Action: Continued on 03/09/212028 by CANDI MORAES Sumatriptan Succinate (Imitrex) 25 Mg Tablet, 25 MG PO PRN Q8HRS PRN for MIGRAINE HEADACHE for 30 Days, #3 Prescribed by: ARVIN BAKER MD on 03/10/21 1107 Discontinued Medications Metformin Hcl (Metformin Hcl Er) 1,000 Mg Tab.er.24, 1,000 MG PO DAILYWBKFT for ANTI-DIABETIC, Ref 0 (Reported) Entered as Reported by: JANE DUBOSE on 01/02/17 0824 Justicifation of Admission Dx: Justifications for Admission: Justification of Admission Dx: Yes ARVIN BAKER MD Mar 10, 2021 11:12
--- NOTE | 2021-03-10 13:57 | NUR ---
Pt discharged to home with daughter. Discharge teaching done with both. Stressed the importance of using the imatrex only in case of a severe headache. Medication should not be used routinely. Both verbalized understanding.
== END 2021-03-10 11:19 | disposition home or self-care (01) ==
LOC: ER 16:08 → 4 NORTH 18:02
PROVIDERS: ADMIT Internal Medicine; ATTEND Internal Medicine
DX: R51.9 Headache, unspecified (principal); I11.0 Hypertensive heart disease with heart failure; I50.32 Chronic diastolic (congestive) heart failure; E11.42 Type 2 diabetes mellitus with diabetic polyneuropathy; G62.9 Polyneuropathy, unspecified; G47.00 Insomnia, unspecified; I25.10 Atherosclerotic heart disease of native coronary artery without angina pectoris; A08.4 Viral intestinal infection, unspecified; E78.5 Hyperlipidemia, unspecified; M48.56XA Collapsed vertebra, not elsewhere classified, lumbar region, initial encounter for fracture; R11.0 Nausea; M19.90 Unspecified osteoarthritis, unspecified site; Z90.49 Acquired absence of other specified parts of digestive tract; Z79.899 Other long term (current) drug therapy; Z98.890 Other specified postprocedural states; Z79.82 Long term (current) use of aspirin; Z79.84 Long term (current) use of oral hypoglycemic drugs
CPT/HCPCS: 36415; 74177; 80048; 80053; 80076; 81001; 82310; 82962; 83690; 84484; 85025; 87641; 93005; 96361; 96374; 96375; 99285; G0378; J0696; J2270; J2405; J7030; Q9967; G0379

== ENCOUNTER 2021-04-04 12:49 | Inpatient (IN) | payer OTHER ==
[~2021-04-04] VITALS: Ht 175.3 cm; Wt 54.6 kg
[~2021-04-04 12:49] MED LIST changes: +SUMA25TA3 PO
[2021-04-04] MEDS ORDERED: IV NORMAL SALINE 1000ML BAG 1,000 ML IV ONE ×2 (14:00→17:00)
[2021-04-04] MEDS ORDERED: FAMOTIDINE 20 MG/2 ML VIAL IVP ONE (14:15)
[2021-04-04] MEDS ORDERED: ONDANSETRON PF 4 MG/2 ML VIAL. IVP ONE (14:15)
--- NOTE | 2021-04-04 14:15 | EKG ---
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
[2021-04-04 15:01] LABS: BASO # 0.1 x10^3/uL (0.0-0.2); BASO % 1 % (0-3); EOS % 0 % (0-3); HEMATOCRIT 38.5 % (36.0-47.0); LYMPH # 2.2 x10^3/uL (1.0-4.8); LYMPH % 20 % (24-48); MEAN CORPUSCULAR HEMOGLOBIN 32 pg (25-35); MEAN CORPUSCULAR HGB CONC 34 g/dL (31-37); MEAN CORPUSCULAR VOLUME 96 fL (79-100); MONO # 0.8 x10^3/uL (0.0-1.1); MONO % 7 % (0-9); NEUT # 8.3 x10^3/uL (1.8-7.7); NEUT % 72 % (31-73); PLATELET COUNT 292 x10^3/uL (140-400); RED BLOOD COUNT 4.02 x10^6/uL (3.50-5.40); RED CELL DISTRIBUTION WIDTH 12.9 % (11.5-14.5); WHITE BLOOD COUNT 11.4 x10^3/uL (4.0-11.0)
[2021-04-04 15:14] LABS: CREATININE 0.9 mg/dL (0.6-1.0); GFR 71.5; POTASSIUM 3.2 mmol/L (3.5-5.1)
[2021-04-04 15:20] LABS: ALBUMIN 3.5 g/dL (3.4-5.0); ALBUMIN/GLOBULIN RATIO 0.9 (1.0-1.7); MAGNESIUM 2.2 mg/dL (1.8-2.4); TOTAL BILIRUBIN 0.4 mg/dL (0.2-1.0); TOTAL PROTEIN 7.2 g/dL (6.4-8.2)
[2021-04-04] MEDS ORDERED: POTASSIUM CHLORIDE 20 MEQ TABLET.ER. PO ONE (16:00)
[2021-04-04 16:45] LABS: BILIRUBIN,URINE NEGATIVE (NEG); CLARITY,URINE CLEAR; COLOR,URINE YELLOW; NITRITE,URINE NEGATIVE (NEG); PROTEIN,URINE NEGATIVE (NEG-TRACE); UROBILINOGEN,URINE 0.2 mg/dL (0.2 mg/dL)
[2021-04-04] MEDS ORDERED: cloNIDine HCL 0.1 MG TABLET PO ONE (16:45)
[2021-04-04 16:57] LABS: RBC,URINE 0 /HPF (0-2); WBC,URINE OCC /HPF (0-4)
[2021-04-04 16:58] LABS: BACTERIA,URINE FEW /HPF (0-FEW)
--- NOTE | 2021-04-04 17:24 | PDOC1 ---
History and Physical Date of Admission Date of Admission DATE: 04/04/21 TIME: 17:20 Identification/Chief Complaint Chief Complaint Nausea and Weakness Source Source: Patient History of Present Illness History of Present Illness Ms. Aldana is an 86 yo F w/ PMHx CAD, HTN, HLD, GERD, DM2 admitted through ED c/o progressive weakness and nausea. She has marked decreased appetite for 2 days and general nausea after taking Tylenol 1000mg QHS. She denies any abdominal pain but feels generally unwell and mildly generally weak without a focal neurologic deficit. She denies chest pain or shortness of breath. She is well-appearing in the examination room and comfortable. Duration intermittent. No alleviating factors. Abdominal imaging reviewed from prior hospital stay. No change in bowel or bladder habits She notes the nausea is persistent and she really has not eaten anything significant for over 3 days. She is also been having difficulty sleeping. She was admitted 1 month ago for headaches and nausea. This improved with as needed Zofran and triptan's but she has run out. She also notes anxiety which has been progressive for her recently. Sinus bradycardia rate of 58 bpm leftward axis, LVH criteria met, lateral ST depressions unchanged from prior in 2019 and 1 month ago. Labs with bland urinalysis positive for ketones. WBC 11.4, Hb 13, platelets 292, NA 145, K3.2, mag 2.2 BUN 9, Cr 0.9, glucose 114 ,tsh 0.380. Troponin 0 BP notably 205/92 and HR 48 BPM. She takes no AV reji blocking agents at home, just losartan, amlodipine, Imdur, hydralazine. She is unable to rn circulating the ED without assistance. No focal neurologic deficits, just generalized weakness. CT head ordered and admitted for further care. Past Medical History Cardiovascular: CAD, HTN, Hyperlipidemia Pulmonary: Other CENTRAL NERVOUS SYSTEM: Other GI: GERD Heme/Onc: No pertinent hx Hepatobiliary: No pertinent hx Psych: Anxiety Musculoskeletal: low back pain, Osteoarthritis Rheumatologic: No pertinent hx Infectious disease: No pertinent hx Renal/: No pertinent hx Endocrine: Diabetes Past Surgical History Past Surgical History: Appendectomy, Cholecystectomy Family History Family History: Heart Disease, Hypertension Social History Smoke: No ALCOHOL: none Drugs: None Current Medications Current Medications Current Medications Sodium Chloride 1,000 ml @ 1,000 mls/hr 1X ONCE IV Last administered on 04/04/21at 14:49; Start 04/04/21 at 14:00; Stop 04/04/21 at 14:59; Status DC Ondansetron HCl (Zofran) 4 mg 1X ONCE IVP Last administered on 04/04/21at 14:49; Start 04/04/21 at 14:15; Stop 04/04/21 at 14:16; Status DC Famotidine (Pepcid Vial) 20 mg 1X ONCE IVP Last administered on 04/04/21at 14:49; Start 04/04/21 at 14:15; Stop 04/04/21 at 14:16; Status DC Potassium Chloride (Klor-Con) 40 meq 1X ONCE PO Last administered on 04/04/21at 16:24; Start 04/04/21 at 16:00; Stop 04/04/21 at 16:01; Status DC Clonidine HCl (Catapres) 0.2 mg 1X ONCE PO Last administered on 04/04/21at 16:48; Start 04/04/21 at 16:45; Stop 04/04/21 at 16:46; Status DC Sodium Chloride 1,000 ml @ 1,000 mls/hr 1X ONCE IV ; Start 04/04/21 at 17:00; Stop 04/04/21 at 17:59 Active Scripts Active Imitrex (Sumatriptan Succinate) 25 Mg Tablet 25 Mg PO PRN Q8HRS PRN 30 Days Hydralazine Hcl 50 Mg Tablet 1 Tab PO DAILY Colace (Docusate Sodium) 100 Mg Capsule 100 Mg PO PRN DAILY PRN Aspirin Ec (Aspirin) 81 Mg Tablet.dr 81 Mg PO DAILY Isosorbide Mononitrate Er (Isosorbide Mononitrate) 30 Mg Tab.er.24h 60 Mg PO DAILY Reported Nitrostat (Nitroglycerin) 0.4 Mg Tab.subl 0.4 Mg SL PRN Q5MIN PRN Nexium Capsule (Esomeprazole Magnesium) 40 Mg Capsule.dr 1 Cap PO DAILY Prolia (Denosumab) 60 Mg/1 Ml Disp.syrin 60 Mg SQ EVERY 6 MOS Miralax (Polyethylene Glycol 3350) 17 Gm Powd.pack 1 Packet PO DAILY PRN 2 Days dissolve in water Gabapentin (Gabapentin) 100 Mg Capsule 100 Mg PO TID Percocet 5-325 mg Tablet (Oxycodone HCl/Acetaminophen) 1 Each Tablet 2 Tab PO QIDPRN PRN MDD 4 Tablet(s) 5 Days Senna Plus Tablet (Sennosides/Docusate Sodium) 1 Each Tablet 1 Each PO BID Robaxin-750 (Methocarbamol) 750 Mg Tablet 1 Tab PO TID PRN 30 Days Pepcid (Famotidine) 20 Mg Tablet 20 Mg PO BID Vitamin D2 (Ergocalciferol (Vitamin D2)) 50,000 Unit Capsule 50,000 Unit PO QWE Losartan Potassium (Losartan Potassium) 25 Mg Tablet 100 Mg PO DAILY Atorvastatin Calcium 20 Mg Tablet 20 Mg PO HS Amlodipine Besylate 10 Mg Tablet 10 Mg PO DAILY Restasis (Cyclosporine) 1 Each Droperette 1 Drop EACHEYE BID Allergies Allergies: Coded Allergies: No Known Medication Allergies (Verified Allergy, Intermediate, 11/11/19) I S O L A T I O N *CONTACT* (Verified Allergy, Unknown, Unknown, 11/11/19) ROS General: YES: Fatigue, Malaise, Appetite; No: Chills, Night Sweats, Other PSYCHOLOGICAL ROS: YES: Anxiety, Sleep disturbances; No: Behavioral Disorder, Concentration difficultie, Decreased libido, Depression, Disorientation, Hallucinations, Hostility, Irritablity, Memory difficulties, Mood Swings, Obsessive thoughts, Physical abuse, Sexual abuse, Suicidal ideation, Other Eyes: No Blurry vision, No Decreased vision, No Double vision, No Dry eyes, No Excessive tearing, No Eye Pain, No Itchy Eyes, No Loss of vision, No Photophobia, No Scotomata, No Uses contacts, No Uses glasses, No Other HEENT: No: Heacaches, Visual Changes, Hearing change, Nasal congestion, Nasal discharge, Oral lesions, Sinus pain, Sore Throat, Epistaxis, Sneezing, Snoring, Tinnitus, Vertigo, Vocal changes, Other ALLERGY AND IMMUNOLOGY: No: Hives, Insect Bite Sensitivity, Itchy/Watery Eyes, Nasal Congestion, Post Nasal Drip, Seasonal Allergies, Other Hematological and Lymphatic: No: Bleeding Problems, Blood Clots, Blood Transfusions, Brusing, Night Sweats, Pallor, Swollen Lymph Nodes, Other ENDOCRINE: No: Breast Changes, Galactorrhea, Hair Pattern Changes, Hot Flashes, Malaise/lethargy, Mood Swings, Palpitations, Polydipsia/polyuria, Skin Changes, Temperature Intolerance, Unexpected Weight Changes, Other Breast: No New/Changing Breast Lumps, No Nipple changes, No Nipple discharge, No Other Respiratory: No: Cough, Hemoptysis, Orthopnea, Pleuritic Pain, Shortness of breath, SOB with excertion, Sputum Changes, Stridor, Tachypnea, Wheezing, Other Cardiovascular: yes Lt Headedness; No Chest Pain, No Palpitations, No Orthopnea, No Paroxysmal Noc. Dyspnea, No Edema, No Other Gastrointestinal: Yes Nausea; No Vomiting, No Abdominal Pain, No Diarrhea, No Constipation, No Melena, No Hematochezia, No Other Genitourinary: No Dysuria, No Frequency, No Incontinence, No Hematuria, No Retention, No Discharge, No Urgency, No Pain, No Flank Pain, No Other, No , No , No , No , No , No , No Musculoskeletal: Yes Gait Disturbance, Yes Muscular Weakness; No Joint Pain, No Joint Stiffness, No Joint Swelling, No Muscle Pain, No Pain In:, No Swelling In:, No Other Neurological: Yes Gait Disturbance; No Behavorial Changes, No Bowel/Bladder ControlChng, No Confusion, No Dizziness, No Headaches, No Impaired Coord/balance, No Memory Loss, No Numbness/Tingling, No Seizures, No Speech Problems, No Tremors, No Visual Changes, No Weakness, No Other Skin: No Dry Skin, No Eczema, No Hair Changes, No Lumps, No Mole Changes, No Mottling, No Nail Changes, No Pruritus, No Rash, No Skin Lesion Changes, No Other, No Acne Physical Exam General: Alert, Oriented X3, Cooperative, mild distress HEENT: Atraumatic, PERRLA, EOMI, Mucous membr. moist/pink Lungs: Clear to auscultation, Normal air movement Heart: S1S2, RRR, no thrills, no rubs, no gallops, no murmurs Abdomen: Normal bowel sounds, Soft, No tenderness, No hepatosplenomegaly, No masses Rectal Exam: not examined Extremities: No clubbing, No cyanosis, No edema, Normal pulses, No tenderness/swelling Skin: No rashes, No breakdown, No significant lesion Neuro: Normal gait, Normal speech, Strength at 5/5 X4 ext, Normal tone, Sensation intact, Cranial nerves 3-12 NL, Reflexes 2+ Psych/Mental Status: Mental status NL, Mood NL Vitals Vitals Vital Signs Date Time Temp Pulse Resp B/P (MAP) Pulse Ox O2 Delivery O2 Flow Rate FiO2 04/04/21 16:48 56 207/81 04/04/21 16:30 26 98 Room Air 04/04/21 13:46 98.0 98.0 Labs Labs Laboratory Tests Test 04/04/21 14:40 04/04/21 16:29 White Blood Count 11.4 x10^3/uL (4.0-11.0) Red Blood Count 4.02 x10^6/uL (3.50-5.40) Hemoglobin 13.0 g/dL (12.0-15.5) Hematocrit 38.5 % (36.0-47.0) Mean Corpuscular Volume 96 fL (79-100) Mean Corpuscular Hemoglobin 32 pg (25-35) Mean Corpuscular Hemoglobin Concent 34 g/dL (31-37) Red Cell Distribution Width 12.9 % (11.5-14.5) Platelet Count 292 x10^3/uL (140-400) Neutrophils (%) (Auto) 72 % (31-73) Lymphocytes (%) (Auto) 20 % (24-48) Monocytes (%) (Auto) 7 % (0-9) Eosinophils (%) (Auto) 0 % (0-3) Basophils (%) (Auto) 1 % (0-3) Neutrophils # (Auto) 8.3 x10^3/uL (1.8-7.7) Lymphocytes # (Auto) 2.2 x10^3/uL (1.0-4.8) Monocytes # (Auto) 0.8 x10^3/uL (0.0-1.1) Eosinophils # (Auto) 0.0 x10^3/uL (0.0-0.7) Basophils # (Auto) 0.1 x10^3/uL (0.0-0.2) Sodium Level 145 mmol/L (136-145) Potassium Level 3.2 mmol/L (3.5-5.1) Chloride Level 107 mmol/L (98-107) Carbon Dioxide Level 31 mmol/L (21-32) Anion Gap 7 (6-14) Blood Urea Nitrogen 9 mg/dL (7-20) Creatinine 0.9 mg/dL (0.6-1.0) Estimated GFR (Cockcroft-Gault) 71.5 BUN/Creatinine Ratio 10 (6-20) Glucose Level 114 mg/dL (70-99) Calcium Level 10.0 mg/dL (8.5-10.1) Magnesium Level 2.2 mg/dL (1.8-2.4) Total Bilirubin 0.4 mg/dL (0.2-1.0) Aspartate Amino Transf (AST/SGOT) 23 U/L (15-37) Alanine Aminotransferase (ALT/SGPT) 15 U/L (14-59) Alkaline Phosphatase 55 U/L (46-116) Troponin I Quantitative < 0.017 ng/mL (0.000-0.055) Total Protein 7.2 g/dL (6.4-8.2) Albumin 3.5 g/dL (3.4-5.0) Albumin/Globulin Ratio 0.9 (1.0-1.7) Lipase 30 U/L (73-393) Thyroid Stimulating Hormone (TSH) 0.380 uIU/mL (0.358-3.74) Urine Collection Type Unknown Urine Color Yellow Urine Clarity Clear Urine pH 6.0 (<5.0-8.0) Urine Specific [place] 1.015 (1.000-1.030) Urine Protein Negative mg/dL (NEG-TRACE) Urine Glucose (UA) Negative mg/dL (NEG) Urine Ketones (Stick) Trace mg/dL (NEG) Urine Blood Negative (NEG) Urine Nitrite Negative (NEG) Urine Bilirubin Negative (NEG) Urine Urobilinogen Dipstick 0.2 mg/dL (0.2 mg/dL) Urine Leukocyte Esterase Trace (NEG) Urine RBC 0 /HPF (0-2) Urine WBC Occ /HPF (0-4) Urine Squamous Epithelial Cells Few /LPF Urine Bacteria Few /HPF (0-FEW) Urine Mucus Mod /LPF Laboratory Tests Test 04/04/21 14:40 04/04/21 16:29 White Blood Count 11.4 x10^3/uL (4.0-11.0) Red Blood Count 4.02 x10^6/uL (3.50-5.40) Hemoglobin 13.0 g/dL (12.0-15.5) Hematocrit 38.5 % (36.0-47.0) Mean Corpuscular Volume 96 fL (79-100) Mean Corpuscular Hemoglobin 32 pg (25-35) Mean Corpuscular Hemoglobin Concent 34 g/dL (31-37) Red Cell Distribution Width 12.9 % (11.5-14.5) Platelet Count 292 x10^3/uL (140-400) Neutrophils (%) (Auto) 72 % (31-73) Lymphocytes (%) (Auto) 20 % (24-48) Monocytes (%) (Auto) 7 % (0-9) Eosinophils (%) (Auto) 0 % (0-3) Basophils (%) (Auto) 1 % (0-3) Neutrophils # (Auto) 8.3 x10^3/uL (1.8-7.7) Lymphocytes # (Auto) 2.2 x10^3/uL (1.0-4.8) Monocytes # (Auto) 0.8 x10^3/uL (0.0-1.1) Eosinophils # (Auto) 0.0 x10^3/uL (0.0-0.7) Basophils # (Auto) 0.1 x10^3/uL (0.0-0.2) Sodium Level 145 mmol/L (136-145) Potassium Level 3.2 mmol/L (3.5-5.1) Chloride Level 107 mmol/L (98-107) Carbon Dioxide Level 31 mmol/L (21-32) Anion Gap 7 (6-14) Blood Urea Nitrogen 9 mg/dL (7-20) Creatinine 0.9 mg/dL (0.6-1.0) Estimated GFR (Cockcroft-Gault) 71.5 BUN/Creatinine Ratio 10 (6-20) Glucose Level 114 mg/dL (70-99) Calcium Level 10.0 mg/dL (8.5-10.1) Magnesium Level 2.2 mg/dL (1.8-2.4) Total Bilirubin 0.4 mg/dL (0.2-1.0) Aspartate Amino Transf (AST/SGOT) 23 U/L (15-37) Alanine Aminotransferase (ALT/SGPT) 15 U/L (14-59) Alkaline Phosphatase 55 U/L (46-116) Troponin I Quantitative < 0.017 ng/mL (0.000-0.055) Total Protein 7.2 g/dL (6.4-8.2) Albumin 3.5 g/dL (3.4-5.0) Albumin/Globulin Ratio 0.9 (1.0-1.7) Lipase 30 U/L (73-393) Thyroid Stimulating Hormone (TSH) 0.380 uIU/mL (0.358-3.74) Urine Collection Type Unknown Urine Color Yellow Urine Clarity Clear Urine pH 6.0 (<5.0-8.0) Urine Specific [place] 1.015 (1.000-1.030) Urine Protein Negative mg/dL (NEG-TRACE) Urine Glucose (UA) Negative mg/dL (NEG) Urine Ketones (Stick) Trace mg/dL (NEG) Urine Blood Negative (NEG) Urine Nitrite Negative (NEG) Urine Bilirubin Negative (NEG) Urine Urobilinogen Dipstick 0.2 mg/dL (0.2 mg/dL) Urine Leukocyte Esterase Trace (NEG) Urine RBC 0 /HPF (0-2) Urine WBC Occ /HPF (0-4) Urine Squamous Epithelial Cells Few /LPF Urine Bacteria Few /HPF (0-FEW) Urine Mucus Mod /LPF VTE Prophylaxis Ordered VTE Prophylaxis Devices: No VTE Pharmacological Prophylaxi: Yes Assessment/Plan Assessment/Plan A/P: Weakness - possibly symptomatic bradycardia. PT/OT eval and treat Nausea - no clear etiology, though symptomatic bradycardia is possible. abdominal imaging reviewed from prior hospital stay. No abdominal pain, no change in bowel or bladder habits Bradycardia - symptomatic currently. Will maintain on telemetry and if persistent will consult cardiology HTN urgency - concerning with bradycardia, CT head ordered to r/o intracranial pathology. PRN hydralazine Headache, poss migrane, will try triptan. Not worst of life HTN - cont home meds Insomnia - will add low dose remeron Chronic diastolic CHF - cannot take BB with bradycardia. On imdur, hydralazine DM2 - sliding scale Peripheral neuropathy - gabapentin Unchanged L4 and L5 compression fractures - no back pain currently FEN - ADA cardiac diet PPX - lovenox CODE - FULL Dispo - inpatient Justifications for Admission Other Justification ARVIN BAKER MD Apr 04, 2021 17:24
[2021-04-04] MEDS ORDERED: hydrALAZINE 20 MG/ML VIAL. IVP PRN (17:45)
[2021-04-04] MEDS ORDERED: ONDANSETRON PF 4 MG/2 ML VIAL. IVP PRN (17:45)
[2021-04-04] MEDS ORDERED: ONDANSETRON ODT 4 MG TAB.RAPDIS. PO PRN (17:45)
[2021-04-04] MEDS ORDERED: ACETAMINOPHEN 325 MG TABLET. PO PRN ×2 (17:45→18:30)
--- NOTE | 2021-04-04 17:48 | EKG ---
[facility] [address] [place] [address] Test Date: 2021-04-04 Test Time: 17:03:53 Pat Name: DANIEL ARMENDARIZ Department: Room: Gender: F Ladle Operator: : [id number] Requested By: ERNIE BRAND Order Number: [id number] Reading MD: Preston Ruiz Measurements Intervals [place] Rate: 49 P: 47 CA: 132 QRS: -3 QRSD: 74 T: 30 QT: 468 QTc: 425 Interpretive Statements SINUS BRADYCARDIA LEFTWARD AXIS T ABNORMALITY IN ANTERIOR LEADS ABNORMAL ECG Electronically Signed On 04-06-2021 11:56:38 CDT by Preston Ruiz
[2021-04-04] MEDS ORDERED: DEXTROSE 50% 25 GM / 50ML DISP.SYRIN. IV PRN (18:00)
--- NOTE | 2021-04-04 18:06 | RAD ---
CT brain without contrast. HISTORY: Weakness CT scan of brain was done without contrast. Sinuses are clear. There is no skull fracture. There is m ild diffuse atrophy. There is no intracranial hemorrhage or subdural hematoma. An acute CVA is not id entified. There is an old lacunar infarct in the white matter adjacent to the lateral ventricle on th e right also involving the superior basal ganglia. The pattern is unchanged from the old study. IMPRESSION: 1. 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 2. Mild atrophy and diffuse chronic white matter changes. 3. No intracranial hemorrhage or acute CVA noted. PQRS Compliance Statement: One or more of the following individualized dose reduction techniques were utilized for this examinat ion: 1. Automated exposure control 2. Adjustment of the mA and/or kV according to patient size 3. Use of iterative reconstruction technique Electronically signed by: Yan Dumont MD (04/04/2021 6:04 PM) [facility]
--- NOTE | 2021-04-04 18:16 | PHYS DOC ---
Past Medical History Past Medical History: CAD, Diabetes-Type II, High Cholesterol, Hypertension Additional Past Medical Histor: Daughter unsure of history, patient unsure of current meds (ERNIE BRAND SENIOR RUBY DEVELOPER) Past Surgical History: Appendectomy, Cholecystectomy, Other Additional Past Surgical Histo: BACK SX (ERNIE BRAND SENIOR RUBY DEVELOPER) Smoking Status: Never Smoker Alcohol Use: None Drug Use: None (ERNIE BRAND SENIOR RUBY DEVELOPER) General Adult EDM: Chief Complaint: WEAKNESS/GENERALIZED HPI: HPI: Patient is a 86 year old female with a history of diabetes type 2, hypertension, high cholesterol, CAD, who presents to the ED today complaining of nausea and generalized weakness. Patient states symptoms have been going on and off for the last 3 weeks. She states 3 weeks ago she was admitted to the hospital for similar symptoms. Patient states the nausea has been inhibiting her eating. Denies any abdominal pain. Denies any diarrhea. She states she has tried taking Tylenol every night with no relief. She states she does not feel well for 3 weeks. (ERNIE BRAND SENIOR RUBY DEVELOPER) Review of Systems: Review of Systems: Constitutional: Reports generalized weakness. Denies fever or chills. [] Eyes: Denies change in visual acuity. [] HENT: Denies nasal congestion or sore throat. [] Respiratory: Denies cough or shortness of breath. [] Cardiovascular: Denies chest pain or edema. [] GI: Reports nausea, denies abdominal pain, vomiting, bloody stools or diarr hea. [] : Denies dysuria. [] Musculoskeletal: Denies back pain or joint pain. [] Integument: Denies rash. [] Neurologic: Denies headache, focal weakness or sensory changes. [] Psychiatric: Denies depression or anxiety. [] (ERNIE BRAND SENIOR RUBY DEVELOPER) Heart Score: C/O Chest Pain: N/A Risk Factors: Risk Factors: DM, Current or recent (<one month) smoker, HTN, HLP, family history of CAD, obesity. Risk Scores: Score 0 - 3: 2.5% MACE over next 6 weeks - Discharge Home Score 4 - 6: 20.3% MACE over next 6 weeks - Admit for Clinical Observation Score 7 - 10: 72.7% MACE over next 6 weeks - Early Invasive Strategies (ERNIE BRAND SENIOR RUBY DEVELOPER) Current Medications: Current Medications Medications (Trade) Dose Ordered Sig/Kimberly Start Time Stop Time Status Last Admin Dose Admin Acetaminophen (Tylenol) 650 mg PRN Q6HRS PRN 04/04/21 17:45 Clonidine HCl (Catapres) 0.2 mg 1X ONCE 04/04/21 16:45 04/04/21 16:46 DC 04/04/21 16:48 0.2 MG Dextrose (Dextrose 50%-Water Syringe) 12.5 gm PRN Q15MIN PRN 04/04/21 18:00 Famotidine (Pepcid Vial) 20 mg 1X ONCE 04/04/21 14:15 04/04/21 14:16 DC 04/04/21 14:49 20 MG Hydralazine HCl (Apresoline Inj) 10 mg PRN Q4HRS PRN 04/04/21 17:45 Insulin Human Lispro (HumaLOG) 0-7 UNITS TIDWMEALS 04/05/21 08:00 Mirtazapine (Remeron) 7.5 mg QHS 04/04/21 21:00 Olanzapine (ZyPREXA ZYDIS) 5 mg PRN BID PRN 04/04/21 17:45 Ondansetron HCl (Zofran Odt) 4 mg PRN Q4HRS PRN 04/04/21 17:45 Ondansetron HCl (Zofran) 4 mg PRN Q4HRS PRN 04/04/21 17:45 Potassium Chloride (Klor-Con) 40 meq 1X ONCE 04/04/21 16:00 04/04/21 16:01 DC 04/04/21 16:24 40 MEQ Sodium Chloride 1,000 ml @ 1,000 mls/hr 1X ONCE 04/04/21 17:00 04/04/21 17:59 04/04/21 17:00 1,000 MLS/HR (ERNIE BRAND APRN) Allergies: Allergies: Allergies Coded Allergies Type Severity Reaction Last Updated Verified No Known Medication Allergies Allergy Intermediate 11/11/19 Yes I S O L A T I O N *CONTACT* Allergy Unknown Unknown 11/11/19 Yes (ERNIE BRAND APRN) Physical Exam: PE: Constitutional: Well developed, well nourished, no acute distress, non-toxic appearance. [] HENT: Normocephalic, atraumatic, bilateral external ears normal, oropharynx moist, no oral exudates, nose normal. [] Eyes: PERRLA, EOMI, conjunctiva normal, no discharge. [] Neck: Normal range of motion, no tenderness, supple, no stridor. [] Cardiovascular:Heart rate regular rhythm, no murmur [] Lungs & Thorax: Bilateral breath sounds clear to auscultation [] Abdomen: Bowel sounds normal, soft, no tenderness, no masses, no pulsatile masses. [] Skin: Warm, dry, no erythema, no rash. [] Back: No tenderness, no CVA tenderness. [] Extremities: No tenderness, no cyanosis, no clubbing, ROM intact, no edema. [] Neurologic: Alert and oriented X 3, normal motor function, normal sensory functi on, no focal deficits noted. Cranial nerves II through XII intact Psychologic: Affect normal, judgement normal, mood normal. [] (ERNIE BRAND SENIOR RUBY DEVELOPER) Current Patient Data: Labs: Laboratory Tests Test 04/04/21 14:40 04/04/21 16:29 White Blood Count 11.4 x10^3/uL (4.0-11.0) H Red Blood Count 4.02 x10^6/uL (3.50-5.40) Hemoglobin 13.0 g/dL (12.0-15.5) Hematocrit 38.5 % (36.0-47.0) Mean Corpuscular Volume 96 fL (79-100) Mean Corpuscular Hemoglobin 32 pg (25-35) Mean Corpuscular Hemoglobin Concent 34 g/dL (31-37) Red Cell Distribution Width 12.9 % (11.5-14.5) Platelet Count 292 x10^3/uL (140-400) Neutrophils (%) (Auto) 72 % (31-73) Lymphocytes (%) (Auto) 20 % (24-48) L Monocytes (%) (Auto) 7 % (0-9) Eosinophils (%) (Auto) 0 % (0-3) Basophils (%) (Auto) 1 % (0-3) Neutrophils # (Auto) 8.3 x10^3/uL (1.8-7.7) H Lymphocytes # (Auto) 2.2 x10^3/uL (1.0-4.8) Monocytes # (Auto) 0.8 x10^3/uL (0.0-1.1) Eosinophils # (Auto) 0.0 x10^3/uL (0.0-0.7) Basophils # (Auto) 0.1 x10^3/uL (0.0-0.2) Sodium Level 145 mmol/L (136-145) Potassium Level 3.2 mmol/L (3.5-5.1) L Chloride Level 107 mmol/L (98-107) Carbon Dioxide Level 31 mmol/L (21-32) Anion Gap 7 (6-14) Blood Urea Nitrogen 9 mg/dL (7-20) Creatinine 0.9 mg/dL (0.6-1.0) Estimated GFR (Cockcroft-Gault) 71.5 BUN/Creatinine Ratio 10 (6-20) Glucose Level 114 mg/dL (70-99) H Calcium Level 10.0 mg/dL (8.5-10.1) Magnesium Level 2.2 mg/dL (1.8-2.4) Total Bilirubin 0.4 mg/dL (0.2-1.0) Aspartate Amino Transferase (AST) 23 U/L (15-37) Alanine Aminotransferase (ALT) 15 U/L (14-59) Alkaline Phosphatase 55 U/L (46-116) Troponin I Quantitative < 0.017 ng/mL (0.000-0.055) Total Protein 7.2 g/dL (6.4-8.2) Albumin 3.5 g/dL (3.4-5.0) Albumin/Globulin Ratio 0.9 (1.0-1.7) L Lipase 30 U/L (73-393) L Thyroid Stimulating Hormone (TSH) 0.380 uIU/mL (0.358-3.74) Urine Collection Type Unknown Urine Color Yellow Urine Clarity Clear Urine pH 6.0 (<5.0-8.0) Urine Specific [place] 1.015 (1.000-1.030) Urine Protein Negative mg/dL (NEG-TRACE) Urine Glucose (UA) Negative mg/dL (NEG) Urine Ketones (Stick) Trace mg/dL (NEG) Urine Blood Negative (NEG) Urine Nitrite Negative (NEG) Urine Bilirubin Negative (NEG) Urine Urobilinogen Dipstick 0.2 mg/dL (0.2 mg/dL) Urine Leukocyte Esterase Trace (NEG) Urine RBC 0 /HPF (0-2) Urine WBC Occ /HPF (0-4) Urine Squamous Epithelial Cells Few /LPF Urine Bacteria Few /HPF (0-FEW) Urine Mucus Mod /LPF Laboratory Tests 04/04/21 14:40 Laboratory Tests 04/04/21 14:40 Vital Signs: Vital Signs Date Time Temp Pulse Resp B/P (MAP) Pulse Ox O2 Delivery O2 Flow Rate FiO2 04/04/21 16:48 56 207/81 04/04/21 16:30 26 98 Room Air 04/04/21 13:46 98.0 98.0 (ERNIE BRAND SENIOR RUBY DEVELOPER) EKG: EK interpreted by Dr. Cool sinus rhythm heart rate 58 no STEMI [] [address] Cool sinus bradycardia heart rate 49 no STEMI [] (ERNIE BRAND SENIOR RUBY DEVELOPER) Radiology/Procedures: Radiology/Procedures: []PROCEDURE: CT HEAD WO CONTRAST CT brain without contrast. HISTORY: Weakness CT scan of brain was done without contrast. Sinuses are clear. There is no skull fracture. There is mild diffuse atrophy. There is no intracranial hemorrhage or subdural hematoma. An acute CVA is not identified. There is an old lacunar infarct in the white matter adjacent to the lateral ventricle on the right also involving the superior basal ganglia. The pattern is unchanged from the old study. IMPRESSION: 1. 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 2. Mild atrophy and diffuse chronic white matter changes. 3. No intracranial hemorrhage or acute CVA noted. PQRS Compliance Statement: One or more of the following individualized dose reduction techniques were utilized for this examination: 1. Automated exposure control 2. Adjustment of the mA and/or kV according to patient size 3. Use of iterative reconstruction technique Electronically signed by: Yan Dumont MD (04/04/2021 6:04 PM) [facility] DICTATED and SIGNED BY: YAN DUMONT MD DATE: 04/04/21 [id number] 0 (ERNIE BRAND SENIOR RUBY DEVELOPER) Course & Med Decision Making: Course & Med Decision Making Pertinent Labs and Imaging studies reviewed. (See chart for details) This is a 86-year-old female patient presented to the ED today with generalized weakness and nausea intermittently for 3 weeks. Vitals on arrival to the ED temperature 98.0 heart rate 57 respiration 23 on room air blood pressure 131/65 O2 sats 98%. CBC with nothing really acute, CMP with potassium of 3.2, patient was given oral potassium replacement. Patient's heart rate started to slow down into the high 40s with blood pressure in the 200s over 80s, CT of the head was ordered, CT is negative. Spoke with Dr. Pollock who accepted patient for admission (ERNIE BRAND APRN) Course & Med Decision Making I oversaw on the above date of service of this patient. This patient was evaluated, examined, treated, and dispositioned from the emergency department by the mid-level practitioner. I reviewed care with the PATIENT SERVICES REPRESENTATIVE and agreed need for hospital admission. I reviewed note and agree to findings, plan of care, and disposition as stated. Electronically signed, Jackie Cool DO (JACKIE COOL DO) Delilah Disclaimer: Delilah Disclaimer: This electronic medical record was generated, in whole or in part, using a voice recognition dictation system. (ERNIE BRAND APRN) Departure Departure Impression: Primary Impression: Generalized weakness Additional Impression: Nausea Disposition: ADMITTED INPATIENT Condition: STABLE Referrals: CELENA OWENS MD (PCP) ERNIE BRAND APRN Apr 04, 2021 18:16 JACKIE COOL DO Apr 05, 2021 05:59
[2021-04-04] MEDS ORDERED: ONDANSETRON PF 4 MG/2 ML VIAL. IV PRN (18:30)
[2021-04-04 19:30] VITALS: BP 132/67
[2021-04-04] MEDS ORDERED: MIRTAZAPINE 7.5 MG TABLET. PO SCH (21:00)
[2021-04-04] MEDS ORDERED: METHOCARBAMOL 750 MG TABLET PO PRN (21:15)
[2021-04-04] MEDS ORDERED: POLYETHYLENE GLYCOL 3350 17 GM PACKET. PO PRN (21:15)
[2021-04-04] MEDS ORDERED: DOCUSATE SODIUM 100 MG CAPSULE. PO PRN (21:15)
[2021-04-04] MEDS ORDERED: NITROGLYCERIN SUBLINGUAL 0.4 MG BOTTLE OF 25. SL PRN (21:15)
[2021-04-04] MEDS ORDERED: oxyCODONE/APAP 5/325 1 TAB TABLET PO PRN (21:30)
[2021-04-04] MEDS: GABAPENTIN 100 MG CAPSULE. PO SCH (21:54)
[2021-04-04] MEDS: cycloSPORINE 0.05% OPHTH DROPERETTE. OU SCH (21:57)
[2021-04-04] MEDS ORDERED: ATORVASTATIN CALCIUM 20 MG TABLET PO SCH (22:00)
[2021-04-04 23:47] VITALS: BP 125/80
[2021-04-05 02:54] VITALS: BP 146/65
--- NOTE | 2021-04-05 06:53 | NUR ---
IP: Pt has a rcent hx of + mrsa screen on 03/10/21. Pt to be in contact precautions. Recommend Jovanni and CATE protocol.
[2021-04-05 07:00] VITALS: BP 142/65
[2021-04-05 07:20] LABS: BASO # 0.1 x10^3/uL (0.0-0.2); BASO % 1 % (0-3); EOS # 0.1 x10^3/uL (0.0-0.7); EOS % 1 % (0-3); HEMATOCRIT 36.3 % (36.0-47.0); HEMOGLOBIN 12.3 g/dL (12.0-15.5); LYMPH % 28 % (24-48); MEAN CORPUSCULAR HEMOGLOBIN 33 pg (25-35); MEAN CORPUSCULAR HGB CONC 34 g/dL (31-37); MEAN CORPUSCULAR VOLUME 98 fL (79-100); MONO # 0.9 x10^3/uL (0.0-1.1); MONO % 8 % (0-9); NEUT # 6.6 x10^3/uL (1.8-7.7); NEUT % 61 % (31-73); PLATELET COUNT 222 x10^3/uL (140-400); RED BLOOD COUNT 3.72 x10^6/uL (3.50-5.40); WHITE BLOOD COUNT 10.8 x10^3/uL (4.0-11.0)
[2021-04-05] MEDS ORDERED: PANTOPRAZOLE 40 MG TABLET.DR. PO SCH (07:30)
[2021-04-05 07:53] LABS: CALCIUM 9.1 mg/dL (8.5-10.1); CREATININE 0.8 mg/dL (0.6-1.0); GFR 81.9; POTASSIUM 4.3 mmol/L (3.5-5.1); TOTAL BILIRUBIN 0.1 mg/dL (0.2-1.0); TOTAL PROTEIN 6.1 g/dL (6.4-8.2)
--- NOTE | 2021-04-05 07:56 | PDOC ---
[employer] PROGRESS NOTE Date of Service DOS: DATE: 04/05/21 TIME: 07:51 History of Present Illness History of Present Illness Ms. Aldana is an 86 yo F w/ PMHx CAD, HTN, HLD, GERD, DM2 admitted through ED c/o progressive weakness and nausea. She has marked decreased appetite for 2 days and general nausea after taking Tylenol 1000mg QHS. She denies any abdominal pain but feels generally unwell and mildly generally weak without a focal neurologic deficit. She denies chest pain or shortness of breath. She is well-appearing in the examination room and comfortable. Duration intermittent. No alleviating factors. Abdominal imaging reviewed from prior hospital stay. No change in bowel or bladder habits She notes the nausea is persistent and she really has not eaten anything significant for over 3 days. She is also been having difficulty sleeping. She was admitted 1 month ago for headaches and nausea. This improved with as needed Zofran and triptan's but she has run out. She also notes anxiety which has been progressive for her recently. Sinus bradycardia rate of 58 bpm leftward axis, LVH criteria met, lateral ST depressions unchanged from prior in 2019 and 1 month ago. Labs with bland urinalysis positive for ketones. WBC 11.4, Hb 13, platelets 292, NA 145, K3.2, mag 2.2 BUN 9, Cr 0.9, glucose 114 ,tsh 0.380. Troponin 0 BP notably 205/92 and HR 48 BPM. She takes no AV reji blocking agents at home, just losartan, amlodipine, Imdur, hydralazine. She is unable to county ordinary the ED without assistance. No focal neurologic deficits, just generalized weakness. CT head ordered and admitted for further care. 04/05/2021: Afebrile, no acute events overnight. CTA yesterday old lacunar infarct on the right, mild atrophy and diffuse chronic white matter changes, no intracranial hemorrhage or acute CVA. Encouraged working with PT and OT. Still with complaint of some nausea; denies abdominal pain or vomiting. Still with significant bradycardia noted on telemetry, heart rate as low as [address] consultation to cardiology. Vitals/I&O Vitals/I&O: Vital Signs Date Time Temp Pulse Resp B/P (MAP) Pulse Ox O2 Delivery O2 Flow Rate FiO2 04/05/21 02:54 97.6 55 18 146/65 (92) 94 Room Air 97.6 I & O 04/04/21 04/04/21 04/05/21 15:00 23:00 07:00 Intake Total 2000 ml 60 ml Balance 2000 ml 60 ml Physical Exam General: Alert, Oriented X3, Cooperative, No acute distress Heart: Other (Bradycardic) Lungs: Clear Abdomen: Normal bowel sounds, Soft, No tenderness, No hepatosplenomegaly, No masses Extremities: No clubbing, No cyanosis, No edema, Normal pulses, No tenderness/swelling Skin: No rashes, No breakdown, No significant lesion Labs Labs: Laboratory Tests Test 04/04/21 14:40 04/04/21 16:29 04/04/21 19:50 04/05/21 06:40 White Blood Count 11.4 x10^3/uL (4.0-11.0) 10.8 x10^3/uL (4.0-11.0) Red Blood Count 4.02 x10^6/uL (3.50-5.40) 3.72 x10^6/uL (3.50-5.40) Hemoglobin 13.0 g/dL (12.0-15.5) 12.3 g/dL (12.0-15.5) Hematocrit 38.5 % (36.0-47.0) 36.3 % (36.0-47.0) Mean Corpuscular Volume 96 fL (79-100) 98 fL (79-100) Mean Corpuscular Hemoglobin 32 pg (25-35) 33 pg (25-35) Mean Corpuscular Hemoglobin Concent 34 g/dL (31-37) 34 g/dL (31-37) Red Cell Distribution Width 12.9 % (11.5-14.5) 13.0 % (11.5-14.5) Platelet Count 292 x10^3/uL (140-400) 222 x10^3/uL (140-400) Neutrophils (%) (Auto) 72 % (31-73) 61 % (31-73) Lymphocytes (%) (Auto) 20 % (24-48) 28 % (24-48) Monocytes (%) (Auto) 7 % (0-9) 8 % (0-9) Eosinophils (%) (Auto) 0 % (0-3) 1 % (0-3) Basophils (%) (Auto) 1 % (0-3) 1 % (0-3) Neutrophils # (Auto) 8.3 x10^3/uL (1.8-7.7) 6.6 x10^3/uL (1.8-7.7) Lymphocytes # (Auto) 2.2 x10^3/uL (1.0-4.8) 3.0 x10^3/uL (1.0-4.8) Monocytes # (Auto) 0.8 x10^3/uL (0.0-1.1) 0.9 x10^3/uL (0.0-1.1) Eosinophils # (Auto) 0.0 x10^3/uL (0.0-0.7) 0.1 x10^3/uL (0.0-0.7) Basophils # (Auto) 0.1 x10^3/uL (0.0-0.2) 0.1 x10^3/uL (0.0-0.2) Sodium Level 145 mmol/L (136-145) Potassium Level 3.2 mmol/L (3.5-5.1) Chloride Level 107 mmol/L (98-107) Carbon Dioxide Level 31 mmol/L (21-32) Anion Gap 7 (6-14) Blood Urea Nitrogen 9 mg/dL (7-20) Creatinine 0.9 mg/dL (0.6-1.0) Estimated GFR (Cockcroft-Gault) 71.5 BUN/Creatinine Ratio 10 (6-20) Glucose Level 114 mg/dL (70-99) Calcium Level 10.0 mg/dL (8.5-10.1) Magnesium Level 2.2 mg/dL (1.8-2.4) Total Bilirubin 0.4 mg/dL (0.2-1.0) Aspartate Amino Transf (AST/SGOT) 23 U/L (15-37) Alanine Aminotransferase (ALT/SGPT) 15 U/L (14-59) Alkaline Phosphatase 55 U/L (46-116) Troponin I Quantitative < 0.017 ng/mL (0.000-0.055) < 0.017 ng/mL (0.000-0.055) Total Protein 7.2 g/dL (6.4-8.2) Albumin 3.5 g/dL (3.4-5.0) Albumin/Globulin Ratio 0.9 (1.0-1.7) Lipase 30 U/L (73-393) Thyroid Stimulating Hormone (TSH) 0.380 uIU/mL (0.358-3.74) Urine Collection Type Unknown Urine Color Yellow Urine Clarity Clear Urine pH 6.0 (<5.0-8.0) Urine Specific [place] 1.015 (1.000-1.030) Urine Protein Negative mg/dL (NEG-TRACE) Urine Glucose (UA) Negative mg/dL (NEG) Urine Ketones (Stick) Trace mg/dL (NEG) Urine Blood Negative (NEG) Urine Nitrite Negative (NEG) Urine Bilirubin Negative (NEG) Urine Urobilinogen Dipstick 0.2 mg/dL (0.2 mg/dL) Urine Leukocyte Esterase Trace (NEG) Urine RBC 0 /HPF (0-2) Urine WBC Occ /HPF (0-4) Urine Squamous Epithelial Cells Few /LPF Urine Bacteria Few /HPF (0-FEW) Urine Mucus Mod /LPF Assessment and Plan Assessmemt and Plan Problems Medical Problems: (1) Generalized weakness Status: Acute (2) Nausea Status: Acute Comment Review of Relevant I have reviewed the following items rj (where applicable) has been applied. Medications: Current Medications Medications (Trade) Dose Ordered Sig/Kimberly Route PRN Reason Start Time Stop Time Status Last Admin Dose Admin Sodium Chloride 1,000 ml @ 1,000 mls/hr 1X ONCE IV 04/04/21 14:00 04/04/21 14:59 DC 04/04/21 14:49 Ondansetron HCl (Zofran) 4 mg 1X ONCE IVP 04/04/21 14:15 04/04/21 14:16 DC 04/04/21 14:49 Famotidine (Pepcid Vial) 20 mg 1X ONCE IVP 04/04/21 14:15 04/04/21 14:16 DC 04/04/21 14:49 Potassium Chloride (Klor-Con) 40 meq 1X ONCE PO 04/04/21 16:00 04/04/21 16:01 DC 04/04/21 16:24 Clonidine HCl (Catapres) 0.2 mg 1X ONCE PO 04/04/21 16:45 7/5/21 16:46 DC 04/04/21 16:48 Sodium Chloride 1,000 ml @ 1,000 mls/hr 1X ONCE IV 04/04/21 17:00 04/04/21 17:59 DC 04/04/21 17:00 Mirtazapine (Remeron) 7.5 mg QHS PO 04/04/21 21:00 04/04/21 21:54 Atorvastatin Calcium (Lipitor) 20 mg HS PO 04/04/21 22:00 04/04/21 21:55 Gabapentin (Neurontin) 100 mg TID PO 04/04/21 22:00 04/04/21 21:54 Hydralazine HCl (Apresoline) 50 mg TID PO 04/04/21 22:00 04/04/21 21:55 Justifications for Admission Other Justification RICHIE ADAN MD Apr 05, 2021 07:56
[2021-04-05] MEDS: INSULIN LISPRO 300 UNITS/3 ML VIAL. SQ SCH ×3 (08:00→17:00)
[2021-04-05] MEDS: GABAPENTIN 100 MG CAPSULE. PO SCH ×2 (08:42→15:05)
[2021-04-05] MEDS: cycloSPORINE 0.05% OPHTH DROPERETTE. OU SCH (08:44)
[2021-04-05] MEDS ORDERED: SENNOSIDES/DOCUSATE 8.6/50MG TABLET. PO SCH (09:00)
[2021-04-05] MEDS ORDERED: ASPIRIN ENTERIC COATED 81 MG TABLET.DR. PO SCH (09:00)
[2021-04-05] MEDS ORDERED: ISOSORBIDE MONONITRATE ER 30 MG TAB.ER.24H PO SCH (09:00)
[2021-04-05 11:00] VITALS: BP 167/71
--- NOTE | 2021-04-05 12:10 | PDOC2 ---
FRANCOISE COLUNGA READING PROFESSOR 04/05/21 1210: CARDIAC CONSULT DATE OF CONSULT Date of Consult DATE: 04/05/21 TIME: 11:54 REASON FOR CONSULT Reason for Consult: Symptomatic bradycardia REFERRING PHYSICIAN Referring Physician: Dr. Kendall SOURCE Source: Chart review, Patient HISTORY OF PRESENT ILLNESS HISTORY OF PRESENT ILLNESS This is an 86 yo female who presented secondary to weakness and nausea. Patient reports intermittent nausea for the last week. Waxes and wanes. No specific precipitating factors. No dizziness, lightheadedness, vision changes, chest pain, or near syncope. No recent illness/fevers. No changes in bowel patterns. Nausea improved today and patient is wanting to be discharged. PAST MEDICAL HISTORY Past Medical History Cardiovascular: HTN, Hyperlipidemia Pulmonary: Other (NEFTALY with CPAP) CENTRAL NERVOUS SYSTEM: Other (CVA) GI: GERD Heme/Onc: No pertinent hx Hepatobiliary: No pertinent hx Psych: Anxiety Musculoskeletal: low back pain, Osteoarthritis Rheumatologic: No pertinent hx Infectious disease: No pertinent hx Renal/: No pertinent hx Endocrine: Diabetes PAST SURGICAL HISTORY Past Surgical History: Appendectomy, Cholecystectomy, Hernia Repair FAMILY HISTORY Family History: Heart Disease, Hypertension SOCIAL HISTORY Smoke: No ALCOHOL: none Drugs: None CURRENT MEDICATIONS CURRENT MEDICATIONS Current Medications Medications (Trade) Dose Ordered Sig/Kimberly Route PRN Reason Start Time Stop Time Status Last Admin Dose Admin Sodium Chloride 1,000 ml @ 1,000 mls/hr 1X ONCE IV 04/04/21 14:00 04/04/21 14:59 DC 04/04/21 14:49 Ondansetron HCl (Zofran) 4 mg 1X ONCE IVP 04/04/21 14:15 04/04/21 14:16 DC 04/04/21 14:49 Famotidine (Pepcid Vial) 20 mg 1X ONCE IVP 04/04/21 14:15 04/04/21 14:16 DC 04/04/21 14:49 Potassium Chloride (Klor-Con) 40 meq 1X ONCE PO 04/04/21 16:00 04/04/21 16:01 DC 04/04/21 16:24 Clonidine HCl (Catapres) 0.2 mg 1X ONCE PO 04/04/21 16:45 04/04/21 16:46 DC 04/04/21 16:48 Sodium Chloride 1,000 ml @ 1,000 mls/hr 1X ONCE IV 04/04/21 17:00 04/04/21 17:59 DC 04/04/21 17:00 Mirtazapine (Remeron) 7.5 mg QHS PO 04/04/21 21:00 04/04/21 21:54 Amlodipine Besylate (Norvasc) 10 mg DAILY PO 04/05/21 09:00 04/05/21 08:42 Aspirin (Ecotrin) 81 mg DAILY PO 04/05/21 09:00 04/05/21 08:41 Atorvastatin Calcium (Lipitor) 20 mg HS PO 04/04/21 22:00 04/04/21 21:55 Cyclosporine (Restasis) 1 drop BID OU 04/04/21 22:00 04/05/21 08:44 Gabapentin (Neurontin) 100 mg TID PO 04/04/21 22:00 04/05/21 08:42 Isosorbide Mononitrate (Imdur) 60 mg DAILY PO 04/05/21 09:00 04/05/21 08:42 Pantoprazole Sodium (Protonix) 40 mg DAILYAC PO 04/05/21 07:30 04/05/21 08:41 Hydralazine HCl (Apresoline) 50 mg TID PO 04/04/21 22:00 04/05/21 08:42 ALLERGIES ALLERGIES: Coded Allergies: No Known Medication Allergies (Verified Allergy, Intermediate, 11/11/19) I S O L A T I O N *CONTACT* (Verified Allergy, Unknown, Unknown, 11/11/19) ROS Review of System 14 point ROS conducted with pertinent positives noted above in hPI PHYSICAL EXAM General: Alert, Oriented X3, Cooperative, No acute distress HEENT: Atraumatic, Mucous membr. moist/pink Lungs: Clear to auscultation Heart: Regular rate Abdomen: Soft, No tenderness Extremities: No edema, Normal pulses Skin: No significant lesion Neuro: Normal speech, Sensation intact Psych/Mental Status: Mental status NL, Mood NL MUSCULOSKELETAL: Osteoarthritic changes both hands VITALS/I&O VITALS/I&O: Vital Signs Date Time Temp Pulse Resp B/P (MAP) Pulse Ox O2 Delivery O2 Flow Rate FiO2 04/05/21 11:00 97.8 74 18 167/71 (103) 96 Room Air 97.8 I & O 04/04/21 04/04/21 04/05/21 15:00 23:00 07:00 Intake Total 2000 ml 60 ml Balance 2000 ml 60 ml LABS Lab: Laboratory Tests Test 04/04/21 14:40 04/04/21 16:29 04/04/21 19:50 04/05/21 06:40 White Blood Count 11.4 x10^3/uL (4.0-11.0) H 10.8 x10^3/uL (4.0-11.0) Red Blood Count 4.02 x10^6/uL (3.50-5.40) 3.72 x10^6/uL (3.50-5.40) Hemoglobin 13.0 g/dL (12.0-15.5) 12.3 g/dL (12.0-15.5) Hematocrit 38.5 % (36.0-47.0) 36.3 % (36.0-47.0) Mean Corpuscular Volume 96 fL (79-100) 98 fL (79-100) Mean Corpuscular Hemoglobin 32 pg (25-35) 33 pg (25-35) Mean Corpuscular Hemoglobin Concent 34 g/dL (31-37) 34 g/dL (31-37) Red Cell Distribution Width 12.9 % (11.5-14.5) 13.0 % (11.5-14.5) Platelet Count 292 x10^3/uL (140-400) 222 x10^3/uL (140-400) Neutrophils (%) (Auto) 72 % (31-73) 61 % (31-73) Lymphocytes (%) (Auto) 20 % (24-48) L 28 % (24-48) Monocytes (%) (Auto) 7 % (0-9) 8 % (0-9) Eosinophils (%) (Auto) 0 % (0-3) 1 % (0-3) Basophils (%) (Auto) 1 % (0-3) 1 % (0-3) Neutrophils # (Auto) 8.3 x10^3/uL (1.8-7.7) H 6.6 x10^3/uL (1.8-7.7) Lymphocytes # (Auto) 2.2 x10^3/uL (1.0-4.8) 3.0 x10^3/uL (1.0-4.8) Monocytes # (Auto) 0.8 x10^3/uL (0.0-1.1) 0.9 x10^3/uL (0.0-1.1) Eosinophils # (Auto) 0.0 x10^3/uL (0.0-0.7) 0.1 x10^3/uL (0.0-0.7) Basophils # (Auto) 0.1 x10^3/uL (0.0-0.2) 0.1 x10^3/uL (0.0-0.2) Sodium Level 145 mmol/L (136-145) 148 mmol/L (136-145) H Potassium Level 3.2 mmol/L (3.5-5.1) L 4.3 mmol/L (3.5-5.1) # Chloride Level 107 mmol/L (98-107) 112 mmol/L (98-107) H Carbon Dioxide Level 31 mmol/L (21-32) 27 mmol/L (21-32) Anion Gap 7 (6-14) 9 (6-14) Blood Urea Nitrogen 9 mg/dL (7-20) 7 mg/dL (7-20) Creatinine 0.9 mg/dL (0.6-1.0) 0.8 mg/dL (0.6-1.0) Estimated GFR (Cockcroft-Gault) 71.5 81.9 BUN/Creatinine Ratio 10 (6-20) 9 (6-20) Glucose Level 114 mg/dL (70-99) H 97 mg/dL (70-99) Calcium Level 10.0 mg/dL (8.5-10.1) 9.1 mg/dL (8.5-10.1) Magnesium Level 2.2 mg/dL (1.8-2.4) Total Bilirubin 0.4 mg/dL (0.2-1.0) 0.1 mg/dL (0.2-1.0) L Aspartate Amino Transferase (AST) 23 U/L (15-37) 20 U/L (15-37) Alanine Aminotransferase (ALT) 15 U/L (14-59) 15 U/L (14-59) Alkaline Phosphatase 55 U/L (46-116) 48 U/L (46-116) Troponin I Quantitative < 0.017 ng/mL (0.000-0.055) < 0.017 ng/mL (0.000-0.055) < 0.017 ng/mL (0.000-0.055) Total Protein 7.2 g/dL (6.4-8.2) 6.1 g/dL (6.4-8.2) L Albumin 3.5 g/dL (3.4-5.0) 3.0 g/dL (3.4-5.0) L Albumin/Globulin Ratio 0.9 (1.0-1.7) L 1.0 (1.0-1.7) Lipase 30 U/L (73-393) L Thyroid Stimulating Hormone (TSH) 0.380 uIU/mL (0.358-3.74) Urine Collection Type Unknown Urine Color Yellow Urine Clarity Clear Urine pH 6.0 (<5.0-8.0) Urine Specific [place] 1.015 (1.000-1.030) Urine Protein Negative mg/dL (NEG-TRACE) Urine Glucose (UA) Negative mg/dL (NEG) Urine Ketones (Stick) Trace mg/dL (NEG) Urine Blood Negative (NEG) Urine Nitrite Negative (NEG) Urine Bilirubin Negative (NEG) Urine Urobilinogen Dipstick 0.2 mg/dL (0.2 mg/dL) Urine Leukocyte Esterase Trace (NEG) Urine RBC 0 /HPF (0-2) Urine WBC Occ /HPF (0-4) Urine Squamous Epithelial Cells Few /LPF Urine Bacteria Few /HPF (0-FEW) Urine Mucus Mod /LPF Test 04/05/21 08:10 Glucose (Fingerstick) 100 mg/dL (70-99) H Laboratory Tests 04/04/21 14:40 04/05/21 06:40 Laboratory Tests 04/04/21 14:40 04/05/21 06:40 ECHOCARDIOGRAM ECHOCARDIOGRAM <Conclusion> The left ventricular systolic function is normal. The Ejection Fraction is 60-65%. There is normal LV segmental wall motion. Transmitral Doppler flow pattern is Grade I-abnormal relaxation pattern. Doppler and color suggests possible left to right interatrial shunt. Mild to moderate aortic regurgitation. Mild mitral regurgitation. Mild to moderate tricuspid regurgitation. There is mild pulmonary hypertension. The PA pressure was estimated at 37 mmHg. There is no evidence of significant pericardial effusion. DATE: 08/26/18 1210 STRESS TEST STRESS TEST Conclusion 1. Regadenoson cardioisotope stress test did not show any evidence of ischemia or infarct. 2. Normal left ventricular systolic function with ejection fraction calculated at 72%. 3. Low risk for cardiac events. DATE: 06/06/16 1457 ASSESSMENT/PLAN ASSESSMENT/PLAN 1. Recurrent nausea; resolved 2. Bradycardia; lowest 43 overnight. No pauses. appropriate chronotropic response. Presently SR with HR 60-70 range 3. Accelerated hypertension; now controlled 4. Hyperlipidemia; statin 5. Diabetes, II 6. NEFTALY with CPAP 7. H/o CVA Recommendations Secondary prevention Avoid AV reji blocking agents Will arrange outpatient event monitor and follow up Consider outpatient ischemic evaluation given risk factors BELA BORGES MD 04/05/21 1807: CARDIAC CONSULT ASSESSMENT/PLAN ASSESSMENT/PLAN The patient was seen and interviewed as well as examined at the bedside. The chart was reviewed. The case was discussed. Agree with the plan of care. FRANCOISE COLUNGA APRN Apr 05, 2021 12:10 BELA BORGES MD Apr 05, 2021 18:07
--- NOTE | 2021-04-05 14:40 | NUR ---
SS following for discharge planning. SS reviewed pt chart and discussed with pt RN. Pt is from home with family and is currently on room air. PT/OT recommended home independent. SS will continue to follow for discharge planning.
--- NOTE | 2021-04-05 14:50 | PDOC3 ---
Discharge Summary Visit Information Date of Admission: Apr 04, 2021 Date of Discharge: Apr 05, 2021 Final Diagnosis Problems Medical Problems: (1) Generalized weakness Status: Acute (2) Nausea Status: Acute Brief Hospital Course Allergies Allergies Coded Allergies Type Severity Reaction Last Updated Verified No Known Medication Allergies Allergy Intermediate 11/11/19 Yes I S O L A T I O N *CONTACT* Allergy Unknown Unknown 11/11/19 Yes Vital Signs Vital Signs Date Time Temp Pulse Resp B/P (MAP) Pulse Ox O2 Delivery O2 Flow Rate FiO2 04/05/21 12:27 18 Room Air 04/05/21 11:00 97.8 74 167/71 (103) 96 97.8 Lab Results Laboratory Tests Test 04/04/21 14:40 04/04/21 16:29 04/04/21 19:50 04/05/21 06:40 White Blood Count 11.4 x10^3/uL (4.0-11.0) 10.8 x10^3/uL (4.0-11.0) Red Blood Count 4.02 x10^6/uL (3.50-5.40) 3.72 x10^6/uL (3.50-5.40) Hemoglobin 13.0 g/dL (12.0-15.5) 12.3 g/dL (12.0-15.5) Hematocrit 38.5 % (36.0-47.0) 36.3 % (36.0-47.0) Mean Corpuscular Volume 96 fL (79-100) 98 fL (79-100) Mean Corpuscular Hemoglobin 32 pg (25-35) 33 pg (25-35) Mean Corpuscular Hemoglobin Concent 34 g/dL (31-37) 34 g/dL (31-37) Red Cell Distribution Width 12.9 % (11.5-14.5) 13.0 % (11.5-14.5) Platelet Count 292 x10^3/uL (140-400) 222 x10^3/uL (140-400) Neutrophils (%) (Auto) 72 % (31-73) 61 % (31-73) Lymphocytes (%) (Auto) 20 % (24-48) 28 % (24-48) Monocytes (%) (Auto) 7 % (0-9) 8 % (0-9) Eosinophils (%) (Auto) 0 % (0-3) 1 % (0-3) Basophils (%) (Auto) 1 % (0-3) 1 % (0-3) Neutrophils # (Auto) 8.3 x10^3/uL (1.8-7.7) 6.6 x10^3/uL (1.8-7.7) Lymphocytes # (Auto) 2.2 x10^3/uL (1.0-4.8) 3.0 x10^3/uL (1.0-4.8) Monocytes # (Auto) 0.8 x10^3/uL (0.0-1.1) 0.9 x10^3/uL (0.0-1.1) Eosinophils # (Auto) 0.0 x10^3/uL (0.0-0.7) 0.1 x10^3/uL (0.0-0.7) Basophils # (Auto) 0.1 x10^3/uL (0.0-0.2) 0.1 x10^3/uL (0.0-0.2) Sodium Level 145 mmol/L (136-145) 148 mmol/L (136-145) Potassium Level 3.2 mmol/L (3.5-5.1) 4.3 mmol/L (3.5-5.1) Chloride Level 107 mmol/L (98-107) 112 mmol/L (98-107) Carbon Dioxide Level 31 mmol/L (21-32) 27 mmol/L (21-32) Anion Gap 7 (6-14) 9 (6-14) Blood Urea Nitrogen 9 mg/dL (7-20) 7 mg/dL (7-20) Creatinine 0.9 mg/dL (0.6-1.0) 0.8 mg/dL (0.6-1.0) Estimated GFR (Cockcroft-Gault) 71.5 81.9 BUN/Creatinine Ratio 10 (6-20) 9 (6-20) Glucose Level 114 mg/dL (70-99) 97 mg/dL (70-99) Calcium Level 10.0 mg/dL (8.5-10.1) 9.1 mg/dL (8.5-10.1) Magnesium Level 2.2 mg/dL (1.8-2.4) Total Bilirubin 0.4 mg/dL (0.2-1.0) 0.1 mg/dL (0.2-1.0) Aspartate Amino Transf (AST/SGOT) 23 U/L (15-37) 20 U/L (15-37) Alanine Aminotransferase (ALT/SGPT) 15 U/L (14-59) 15 U/L (14-59) Alkaline Phosphatase 55 U/L (46-116) 48 U/L (46-116) Troponin I Quantitative < 0.017 ng/mL (0.000-0.055) < 0.017 ng/mL (0.000-0.055) < 0.017 ng/mL (0.000-0.055) Total Protein 7.2 g/dL (6.4-8.2) 6.1 g/dL (6.4-8.2) Albumin 3.5 g/dL (3.4-5.0) 3.0 g/dL (3.4-5.0) Albumin/Globulin Ratio 0.9 (1.0-1.7) 1.0 (1.0-1.7) Lipase 30 U/L (73-393) Thyroid Stimulating Hormone (TSH) 0.380 uIU/mL (0.358-3.74) Urine Collection Type Unknown Urine Color Yellow Urine Clarity Clear Urine pH 6.0 (<5.0-8.0) Urine Specific [place] 1.015 (1.000-1.030) Urine Protein Negative mg/dL (NEG-TRACE) Urine Glucose (UA) Negative mg/dL (NEG) Urine Ketones (Stick) Trace mg/dL (NEG) Urine Blood Negative (NEG) Urine Nitrite Negative (NEG) Urine Bilirubin Negative (NEG) Urine Urobilinogen Dipstick 0.2 mg/dL (0.2 mg/dL) Urine Leukocyte Esterase Trace (NEG) Urine RBC 0 /HPF (0-2) Urine WBC Occ /HPF (0-4) Urine Squamous Epithelial Cells Few /LPF Urine Bacteria Few /HPF (0-FEW) Urine Mucus Mod /LPF Test 04/05/21 08:10 04/05/21 11:58 Glucose (Fingerstick) 100 mg/dL (70-99) 139 mg/dL (70-99) Laboratory Tests Test 04/04/21 16:29 04/04/21 19:50 04/05/21 06:40 04/05/21 08:10 Urine Collection Type Unknown Urine Color Yellow Urine Clarity Clear Urine pH 6.0 (<5.0-8.0) Urine Specific [place] 1.015 (1.000-1.030) Urine Protein Negative mg/dL (NEG-TRACE) Urine Glucose (UA) Negative mg/dL (NEG) Urine Ketones (Stick) Trace mg/dL (NEG) Urine Blood Negative (NEG) Urine Nitrite Negative (NEG) Urine Bilirubin Negative (NEG) Urine Urobilinogen Dipstick 0.2 mg/dL (0.2 mg/dL) Urine Leukocyte Esterase Trace (NEG) Urine RBC 0 /HPF (0-2) Urine WBC Occ /HPF (0-4) Urine Squamous Epithelial Cells Few /LPF Urine Bacteria Few /HPF (0-FEW) Urine Mucus Mod /LPF Troponin I Quantitative < 0.017 ng/mL (0.000-0.055) < 0.017 ng/mL (0.000-0.055) White Blood Count 10.8 x10^3/uL (4.0-11.0) Red Blood Count 3.72 x10^6/uL (3.50-5.40) Hemoglobin 12.3 g/dL (12.0-15.5) Hematocrit 36.3 % (36.0-47.0) Mean Corpuscular Volume 98 fL (79-100) Mean Corpuscular Hemoglobin 33 pg (25-35) Mean Corpuscular Hemoglobin Concent 34 g/dL (31-37) Red Cell Distribution Width 13.0 % (11.5-14.5) Platelet Count 222 x10^3/uL (140-400) Neutrophils (%) (Auto) 61 % (31-73) Lymphocytes (%) (Auto) 28 % (24-48) Monocytes (%) (Auto) 8 % (0-9) Eosinophils (%) (Auto) 1 % (0-3) Basophils (%) (Auto) 1 % (0-3) Neutrophils # (Auto) 6.6 x10^3/uL (1.8-7.7) Lymphocytes # (Auto) 3.0 x10^3/uL (1.0-4.8) Monocytes # (Auto) 0.9 x10^3/uL (0.0-1.1) Eosinophils # (Auto) 0.1 x10^3/uL (0.0-0.7) Basophils # (Auto) 0.1 x10^3/uL (0.0-0.2) Sodium Level 148 mmol/L (136-145) Potassium Level 4.3 mmol/L (3.5-5.1) Chloride Level 112 mmol/L (98-107) Carbon Dioxide Level 27 mmol/L (21-32) Anion Gap 9 (6-14) Blood Urea Nitrogen 7 mg/dL (7-20) Creatinine 0.8 mg/dL (0.6-1.0) Estimated GFR (Cockcroft-Gault) 81.9 BUN/Creatinine Ratio 9 (6-20) Glucose Level 97 mg/dL (70-99) Calcium Level 9.1 mg/dL (8.5-10.1) Total Bilirubin 0.1 mg/dL (0.2-1.0) Aspartate Amino Transf (AST/SGOT) 20 U/L (15-37) Alanine Aminotransferase (ALT/SGPT) 15 U/L (14-59) Alkaline Phosphatase 48 U/L (46-116) Total Protein 6.1 g/dL (6.4-8.2) Albumin 3.0 g/dL (3.4-5.0) Albumin/Globulin Ratio 1.0 (1.0-1.7) Glucose (Fingerstick) 100 mg/dL (70-99) Test 04/05/21 11:58 Glucose (Fingerstick) 139 mg/dL (70-99) Brief Hospital Course Ms. Aldana is a 86 old female who presented with weakness, nausea, and bradycardia. Consultation was placed to cardiology. She was recommended secondary prevention, avoid AV reji blockers, and outpatient event monitor and ischemic evaluation. She worked with physical therapy and was recommended home independently. Patient was stable for discharge with PCP and cardiology follow- up. Discharge Information Condition at Discharge: Stable Follow Up: Weeks Disposition/Orders: D/C to Home Scheduled Amlodipine Besylate (Amlodipine Besylate) 10 Mg Tablet, 10 MG PO DAILY, (Reported) Entered as Reported by: ERWIN MORRISON on 06/06/16 1005 Last Action: Continued on 04/04/212115 by JOSEPH ESPARZA RN Aspirin (Aspirin Ec) 81 Mg Tablet.dr, 81 MG PO DAILY, #1 Prescribed by: YASEMIN TORRES on 06/06/16 1736 Last Action: Continued on 04/04/212115 by JOSEPH ESPARZA RN Atorvastatin Calcium (Atorvastatin Calcium) 20 Mg Tablet, 20 MG PO HS for FOR CHOLESTEROL, #30 Ref 0 (Reported) Entered as Reported by: GABRIELLE RUIZ on 10/18/17 1501 Last Action: Continued on 04/04/212115 by JOSEPH ESPARZA RN Cyclosporine (Restasis) 1 Each Droperette, 1 DROP EACHEYE BID, #60 Ref 3 (Reported) Entered as Reported by: ERWIN MORRISON on 06/06/16 1005 Last Action: Continued on 04/04/212115 by JOSEPH ESPARZA RN Denosumab (Prolia) 60 Mg/1 Ml Disp.syrin, 60 MG SQ every 6 mos for osteoporosis, (Reported) Entered as Reported by: CAITY CONTRERAS on 03/22/20 125 Last Action: Reviewed on 04/04/212104 by JOSEPH ESPARZA RN Ergocalciferol (Vitamin D2) (Vitamin D2) 50,000 Unit Capsule, 50,000 UNIT PO QWE for vitamin, (Reported) Entered as Reported by: JON RIVAS on 07/12/19 0120 Last Action: Continued on 04/04/212115 by JOSEPH ESPARZA RN Esomeprazole Magnesium (Nexium Capsule) 40 Mg Capsule.dr, 1 CAP PO DAILY for gerd, #30 Ref 5 (Reported) Entered as Reported by: CAITY CONTRERAS on 03/22/201258 Last Action: Converted on 04/04/212115 by JOSEPH ESPARZA RN Famotidine (Pepcid) 20 Mg Tablet, 20 MG PO BID for gerd, (Reported) Entered as Reported by: CAITY CONTRERAS on 03/22/201258 Last Action: Reviewed on 04/04/212104 by JOSEPH ESPARZA RN Gabapentin (Gabapentin ) 100 Mg Capsule, 100 MG PO TID for NEUROGENIC PAIN, (Reported) Entered as Reported by: CAITY CONTRERAS on 03/22/201258 Last Action: Continued on 04/04/212115 by JOSEPH ESPARZA RN Hydralazine Hcl (Hydralazine Hcl) 50 Mg Tablet, 1 TAB PO DAILY for htn, #90 Ref 5 Prescribed by: DONAVAN BONILLA on 01/09/19 1334 Last Action: Reviewed on 04/04/212104 by JOSEPH ESPARZA RN Isosorbide Mononitrate (Isosorbide Mononitrate Er) 30 Mg Tab.er.24h, 60 MG PO DAILY, #30 Prescribed by: YASEMIN TORRES on 06/06/16 1736 Last Action: Continued on 04/04/212115 by JOSEPH ESPARZA RN Losartan Potassium (Losartan Potassium ) 25 Mg Tablet, 100 MG PO DAILY for htn, (Reported) Entered as Reported by: CAITY CONTRERAS on 03/11/18 1203 Last Action: Reviewed on 04/04/212104 by JOSEPH ESPARZA RN Sennosides/Docusate Sodium (Senna Plus Tablet) 1 Each Tablet, 1 EACH PO BID for constipation, (Reported) Entered as Reported by: CAITY CONTRERAS on 03/22/20 1259 Last Action: Continued on 04/04/212115 by JOSEPH ESPARZA RN Scheduled PRN Docusate Sodium (Colace) 100 Mg Capsule, 100 MG PO PRN DAILY PRN for CONSTIPATION, #10 Prescribed by: LONNIE TROTTER MD on 03/29/17 1126 Last Action: Continued on 04/04/212115 by JOSEPH ESPARZA RN Methocarbamol (Robaxin-750) 750 Mg Tablet, 1 TAB PO TID PRN for spasms for 30 Days, #90 Ref 0 (Reported) Entered as Reported by: CAITY CONTRERAS on 03/22/20 1259 Last Action: Continued on 04/04/212115 by JOSEPH ESPARZA RN Nitroglycerin (Nitrostat) 0.4 Mg Tab.subl, 0.4 MG SL PRN Q5MIN PRN for CHEST PAIN, (Reported) Entered as Reported by: CAITY CONTRERAS on 03/22/20 125 Last Action: Continued on 04/04/212115 by JOSEPH ESPARZA RN Oxycodone HCl/Acetaminophen (Percocet 5-325 mg Tablet) 1 Each Tablet, 2 TAB PO QIDPRN PRN for PAIN MDD 4 Tablet(s) for 5 Days, #20 Ref 0 (Reported) Entered as Reported by: CAITY CONTRERAS on 03/22/201258 Last Action: Reviewed on 04/04/212104 by JOSEPH ESPARZA RN Polyethylene Glycol 3350 (Miralax) 17 Gm Powd.pack, 1 PACKET PO DAILY PRN for CONSTIPATION for 2 Days, #2 Ref 0 (Reported) dissolve in water Entered as Reported by: CAITY CONTRERAS on 03/22/201258 Last Action: Continued on 04/04/212115 by JOSEPH ESPARZA RN Sumatriptan Succinate (Imitrex) 25 Mg Tablet, 25 MG PO PRN Q8HRS PRN for MIGRAINE HEADACHE for 30 Days, #3 Prescribed by: ARVIN BAKER MD on 03/10/211106 Last Action: Continued on 04/04/212115 by JOSEPH ESPARZA RN Justicifation of Admission Dx: Justifications for Admission: Justification of Admission Dx: Yes RICHIE ADAN MD Apr 05, 2021 14:50
[2021-04-05] MEDS ORDERED: ONDA4TAB12 PO (14:55)
[2021-04-05] MEDS ORDERED: SUMA25TA3 PO (14:55)
[2021-04-05 15:00] VITALS: BP 97/50
--- NOTE | 2021-04-05 17:40 | NUR ---
Discharge Note: MONY ARMENDARIZ [facility] Discharge instructions and discharge home medications reviewed with Patient and a copy given. All questions have been answered and understanding verbalized. Patient given follow up appointment information with Dr. Chan. Heart monitor applied by This RN before discharge. Education given. The following instructions and handouts were given: Bradycardia, Nausea, Zofran, and Imitrex. Discontinued lines and drains: Peripheral IV intact. Patient discharged to Home or Self Care with Family Member via Wheelchair
[2021-04-06] MEDS ORDERED: ERGOCALCIFEROL (VITAMIN D2) 50,000 UNIT CAPSULE. PO SCH (16:00)
== END 2021-04-05 17:40 | disposition home or self-care (01) | DRG 309 ==
LOC: ER 12:49 → 2 SOUTH 18:10
PROVIDERS: ADMIT Internal Medicine; ATTEND Internal Medicine
DX: R00.1 Bradycardia, unspecified (principal); M48.56XA Collapsed vertebra, not elsewhere classified, lumbar region, initial encounter for fracture; I50.32 Chronic diastolic (congestive) heart failure; I16.0 Hypertensive urgency; E11.42 Type 2 diabetes mellitus with diabetic polyneuropathy; E78.00 Pure hypercholesterolemia, unspecified; E78.5 Hyperlipidemia, unspecified; G47.33 Obstructive sleep apnea (adult) (pediatric); I25.10 Atherosclerotic heart disease of native coronary artery without angina pectoris; F41.9 Anxiety disorder, unspecified; K21.9 Gastro-esophageal reflux disease without esophagitis; R11.0 Nausea; R51.9 Headache, unspecified; I11.0 Hypertensive heart disease with heart failure; G47.00 Insomnia, unspecified; I27.20 Pulmonary hypertension, unspecified; I08.3 Combined rheumatic disorders of mitral, aortic and tricuspid valves; Z82.49 Family history of ischemic heart disease and other diseases of the circulatory system; Z86.73 Personal history of transient ischemic attack (TIA), and cerebral infarction without residual deficits; Z90.49 Acquired absence of other specified parts of digestive tract
CPT/HCPCS: 36415; 70450; 80053; 81001; 82962; 83690; 83735; 84443; 84484; 85025; 87086; 93005; 96361; 96374; 96375; J2405; J3490; J7030; 99285-25; G0378

== ENCOUNTER → 2021-06-07 | Outpatient (CLI) | payer OTHER ==
[~2021-06-07] MED LIST changes: +ONDA4TAB12 PO
--- NOTE | 2021-06-08 11:24 | KCIC ---
EXAM: XR ABDOMEN 2V 06/07/2021 2:50 PM CLINICAL INDICATION: Abdominal bloating, constipation and nausea COMPARISON: CT abdomen pelvis 03/09/2021 TECHNIQUE: AP supine and upright views of abdomen FINDINGS: Bowel gas pattern is nonspecific and nonobstructive. Moderate volume of stool. Multiple ph leboliths are seen in the pelvis. Lung bases are clear. Lower lumbar compression fractures are unchan ged. IMPRESSION: No acute abnormality. Electronically signed by: Elizabeth Muir MD (06/08/2021 11:21 AM) [id number]
== END ==
LOC: KCIC 14:43
PROVIDERS: ATTEND Family Medicine
DX: R14.0 Abdominal distension (gaseous) (principal); M48.56XD Collapsed vertebra, not elsewhere classified, lumbar region, subsequent encounter for fracture with routine healing
CPT/HCPCS: 74021

== ENCOUNTER → 2021-06-13 | Outpatient (CLI) | payer OTHER ==
[~2021-06-13] MED LIST changes: +IOHEXOL 240 MG/ML 50ML VIAL. PO ONE; +IOHEXOL 300 MG/ML 100ML VIAL. IV ONE
--- NOTE | 2021-06-13 12:25 | KCIC ---
EXAMINATION: CT ABDOMEN+PELVIS W CLINICAL HISTORY: LOWER ABDOMINAL PAIN, ABNORMAL SERUM LEVEL OF AMYLASE. Weight loss, abnormal blood work. Decreased appetite. TECHNIQUE: CT of the abdomen and pelvis was performed using standard technique, scanning from just ab ove the dome of the diaphragm to the symphysis pubis following administration of intravenous contrast . CT Dose Reduction Employed: One or more of the following individualized dose reduction techniques wer e utilized for this examination: 1. Automated exposure control 2. Adjustment of the mA and/or kV ac cording to patient size 3. Use of iterative reconstruction technique. COMPARISON: 03/09/2021 FINDINGS: Curvilinear bibasilar subsegmental atelectasis and/or scarring, similar to prior study. Coronary athe rosclerotic calcification, incompletely evaluated. Diffuse hypoattenuation of the hepatic parenchyma, compatible with steatosis. 1 cm cyst posterior sup erior right hepatic lobe, similar to prior study. Biliary ductal prominence status post cholecystecto my, similar to prior study. Bilateral adrenal thickening, nonspecific but similar to prior study and may be related to hyperplasia. Pancreas and spleen unremarkable. Tiny hypoenhancing cortical foci in the bilateral kidneys, too small adequately evaluate but likely b enign. Focal cortical thickening and irregularity in the lower pole the left kidney, possibly scarrin g related to remote infarct. Minimally filled urinary bladder suboptimally evaluated. Uterus and ovaries remain prominent in size for patient's age with calcified uterine fibroids and calcified parametrial vasculature, similar to p rior study. No bowel dilation or definite wall thickening. Colonic diverticulosis without evidence of acute diver ticulitis. Appendix not definitively visualized, possibly surgically absent. Small hiatal hernia. Extensive mixed atherosclerotic plaque throughout the aorta and iliac arteries. Multilevel thoracolumbar degenerative changes with L4 and L5 remote compression fracture deformities and L4 vertebral augmentation. IMPRESSION: No evidence of acute abdominopelvic abnormality or significant interval change. Uterus and ovaries prominent for patient's age with small calcified fibroids, similar to prior study. Colonic diverticulosis without evidence of acute diverticulitis. Multiple additional nonacute findings as described. Electronically signed by: Edwin Davis DO (06/13/2021 12:23 PM) [facility]
== END ==
LOC: KCIC CT 09:34
PROVIDERS: ATTEND Family Medicine
DX: K57.30 Diverticulosis of large intestine without perforation or abscess without bleeding (principal); K44.9 Diaphragmatic hernia without obstruction or gangrene; D25.9 Leiomyoma of uterus, unspecified; R74.8 Abnormal levels of other serum enzymes; K76.89 Other specified diseases of liver; S32.040A Wedge compression fracture of fourth lumbar vertebra, initial encounter for closed fracture; S32.050A Wedge compression fracture of fifth lumbar vertebra, initial encounter for closed fracture; I70.0 Atherosclerosis of aorta; I25.10 Atherosclerotic heart disease of native coronary artery without angina pectoris; I70.8 Atherosclerosis of other arteries; M43.8X6 Other specified deforming dorsopathies, lumbar region; M47.815 Spondylosis without myelopathy or radiculopathy, thoracolumbar region; Z90.49 Acquired absence of other specified parts of digestive tract; X58.XXXA Exposure to other specified factors, initial encounter; Y93.89 Activity, other specified; Y92.89 Other specified places as the place of occurrence of the external cause; Y99.8 Other external cause status
CPT/HCPCS: 74177; Q9966; Q9967

== ENCOUNTER → 2021-08-24 | Outpatient (CLI) | payer OTHER ==
[~2021-08-24] MED LIST changes: +CYCL10TA19 PO; -CYCL10TA2 PO; -IOHEXOL 240 MG/ML 50ML VIAL. PO ONE; -IOHEXOL 300 MG/ML 100ML VIAL. IV ONE; +REGADENOSON 0.4 MG/5 ML DISP.SYRIN. IV ONE; +TIZA-75 PO; -TIZA4TAB2 PO
--- NOTE | 2021-08-24 15:47 | RAD ---
MR#: [id number] Date of Study: 08/24/2021 Ordering Physician: BELA BORGES, Referring Physician: DAVID GARCIA Tech: RT Falguni Mcmahan) (N) APPROVED REPORT Test Type: Pharmacological Stress Nurse/Tech: Judy Parry RN Test Indications: Dyspnea Cardiac History: Hypertension, Diabetes Medications: See Electronic Medical Record Medical History: See Electronic Medical Record Resting ECG: SB Resting Heart Rate: 56 bpm Resting Blood Pressure: 197/78mmHg Pretest Chest Pain: No chest pain Nurse/Tech Notes S1,S2 and lungs diminished throughout. Consent: The procedure was explained to the patient in lay terms. Informed consent was witnessed. Benjie eout was entered into [employer]. History and Stress Test performed by RT Falguni Aranda) (N) Pharm. Details Pharmacologic stress testing was performed using 0.4mg per 5ml of regadenoson given intravenously ove r 7-10 seconds. Stress Symptoms Dyspnea,Nausea POST EXERCISE Reason for Termination: Infusion complete Target HR: No Max HR: 81 bpm 72% of Maximum Predicted HR: 112 bpm Max Blood Pressure: 166/67mmHg Blood Pressure response to exercise: Normal blood pressure response during stress. Heart Rate response to exercise: WNL Chest Pain: No. Arrhythmia: No. ST Change: No. INTERPRETATION Stress EKG Conclusion: Baseline EKG showed sinus rhythm. No ischemic changes at peak stress. No arr hythmias. Rest: Stress: Viability: Radiopharm.Tc99m [id number] Sestamibi Dose10.3mCi 31.4mCi Duration 15min. 15min. Img Date 08/24/2021 08/24/2021 Inj-Img [id number]. 60min. Rest Admin Site:IV - Right HandAdministrator:RT Falguni Mcmahan)(N) Stress Admin Site: IV - Right HandAdministrator: RT Falguni Aranda)(N) STRESS DATA End Diast. Vol.43.0mlAv. Heart Rate66.0bpm End Syst. Vol.8.0mlCO Index BSA0.0L/min Myocardial Mass79.0gEject. Rayjknpb05.0% Stress Rates Pk. Fill Rate3.89EDV/secLVtime Pk. Fill 129.28msec Pk. Empty Rate5.03ESV/secLVtime Pk. Ydhjr276.44msec 1/3 Pk. Fill2.60EDV/sec Stress Scores Regional WT1.00Summed WT7.00 Regional WM0.00Summed WM1.00 Study quality was good. Left Ventricular size was Normal at Rest and Stress. Lung uptake was . Left Ventricular ejection fraction is 79%. The rest and stress images show normal perfusion, normal contraction and thickening. LV Perf. Quant 17 Seg. SSS2.00 17 Seg. SRS3.00 17 Seg. SDS0.00 Stress Defect Extent (% LAD)0.00Rest Defect Extent (% LAD)0.00Rev. Defect Extent (% LAD)0.00 Stress Defect Extent (% LCX) 0.00Rest Defect Extent (% LCX)13.80Rev. Defect Extent (% LCX)0.00 Stress Defect Extent (% RCA)0.00Rest Defect Extent (% RCA)0.00Rev. Defect Extent (% RCA)0.00 Stress Defect Extent (% AYAAN)0.00Rest Defect Extent (% AYAAN)2.40Rev. Defect Extent (% AYAAN)0.00 Conclusion 1. Regadenoson cardioisotope stress test did not show any evidence of ischemia or infarct. 2. Normal left ventricular systolic function with ejection fraction calculated at 79%. 3. Low risk for cardiac events. Signed by : Preston Ruiz, Electronically Approved : 08/24/2021 15:47:36
== END ==
LOC: NM 08:16
PROVIDERS: ATTEND Internal Medicine Cardiovascular Disease
DX: R06.00 Dyspnea, unspecified (principal)
CPT/HCPCS: 78452; 93017; A9500; J2785

== ENCOUNTER 2022-01-08 17:52 | Observation (INO) | payer OTHER ==
[~2022-01-08] VITALS: Ht 149.9 cm; Wt 48.6 kg
[~2022-01-08 17:52] MED LIST changes: -REGADENOSON 0.4 MG/5 ML DISP.SYRIN. IV ONE
[2022-01-08] MEDS ORDERED: IV NORMAL SALINE 1000ML BAG 1,000 ML IV ONE (18:30)
[2022-01-08] MEDS ORDERED: ONDANSETRON PF 4 MG/2 ML VIAL. IVP ONE (18:30)
--- NOTE | 2022-01-08 18:45 | PHYS DOC ---
Past Medical History Past Medical History: CAD, Diabetes-Type II, High Cholesterol, Hypertension Additional Past Medical Histor: Daughter unsure of history, patient unsure of current meds Past Surgical History: Appendectomy, Cholecystectomy, Other Additional Past Surgical Histo: BACK SX Smoking Status: Never Smoker Alcohol Use: None Drug Use: None General Adult EDM: Chief Complaint: NAUSEA/VOMITING/DIARRHEA HPI: HPI: Patient is a 87-year-old female presents to the emergency department complaining of nausea for the past 3 weeks. Patient states she has a hard time sleeping, feels nauseous all day, has not taken any medications for her nausea. States she did see her primary care physician this past Sunday and was started on Percocet to take at night for sleep, patient states it does not help. Patient denies vomiting, diarrhea, or constipation. Denies increased urinary frequency, denies urinary pressure, urinary burning, hematuria or other dysuria. Patient denies chest pain, chest palpitations, chest or nasal congestion. Patient denies syncopal or near syncopal episodes. Patient denies other physical complaints physical concerns. Review of Systems: Review of Systems: 14 body systems of review of systems have been reviewed. See HPI for pertinent positives and negative responses, otherwise all other systems are negative, nonpertinent or noncontributory. Constitutional: Negative except as outlined in HPI above. Skin: Negative except as outlined in HPI above. Eyes: Negative except as outlined in HPI above. HENT: Negative except as outlined in HPI above. Respiratory: Negative except as outlined in HPI above. Cardiovascular: Negative except as outlined in HPI above. GI: Negative except as outlined in HPI above. : Negative except as outlined in HPI above. Musculoskeletal: Negative except as outlined in HPI above. Integument: Negative except as outlined in HPI above. Neurologic: Negative except as outlined in HPI above. Endocrine: Negative except as outlined in HPI above. Lymphatic: Negative except as outlined in HPI above. Psychiatric: Negative except as outlined in HPI above. Heart Score: C/O Chest Pain: No Risk Factors: Risk Factors: DM, Current or recent (<one month) smoker, HTN, HLP, family history of CAD, obesity. Risk Scores: Score 0 - 3: 2.5% MACE over next 6 weeks - Discharge Home Score 4 - 6: 20.3% MACE over next 6 weeks - Admit for Clinical Observation Score 7 - 10: 72.7% MACE over next 6 weeks - Early Invasive Strategies Current Medications: Current Medications Medications (Trade) Dose Ordered Sig/Kimberly Start Time Stop Time Status Last Admin Dose Admin Ondansetron HCl (Zofran) 4 mg 1X ONCE 01/08/22 18:30 01/08/22 18:31 DC Sodium Chloride 1,000 ml @ 1,000 mls/hr 1X ONCE 01/08/22 18:30 01/08/22 19:29 Allergies: Allergies: Allergies Coded Allergies Type Severity Reaction Last Updated Verified No Known Medication Allergies Allergy Intermediate 11/11/19 Yes I S O L A T I O N *CONTACT* Allergy Unknown Unknown 11/11/19 Yes Physical Exam: PE: Constitutional: Well developed, well nourished, no acute distress, non-toxic appearance. 87-year-old female in no apparent distress. HENT: Normocephalic, atraumatic. Oropharynx moist, pink, no deep tissue infectious process appreciated. Patient speaking in normal voice tones. Bi lateral TMs intact and within normal limits. Eyes: Conjunctiva normal, no discharge. Neck: Normal range of motion, no stridor. No meningismus signs, no nuchal rigidity. Cardiovascular: No cyanosis appreciated, distal cap refill less than 2 seconds. Heart rate bradycardic, heart sounds S1-S2 palpitation. Lungs & Thorax: Patient is in no respiratory distress, no audible adventitious lung sounds appreciated. Lung sounds are clear to auscultation all lung noel. Abdomen: Nontender, no abnormalities noted. Normal bowel sounds all 4 quadrants. Skin: Warm, dry, no erythema, no rash. Back: No tenderness, no deformities. Extremities: No tenderness, no cyanosis, no clubbing, ROM intact, no edema. Neurologic: Alert and oriented X 3, normal motor function, normal sensory function, no focal deficits noted. Psychologic: Affect normal, judgement normal, mood normal. Current Patient Data: Labs: Laboratory Tests Test 01/08/22 18:37 01/08/22 18:47 01/08/22 19:15 Influenza Type A Antigen Negative Influenza Type B Antigen Negative SARS-CoV-2 Antigen (Rapid) Negative White Blood Count 9.4 x10^3/uL Red Blood Count 3.72 x10^6/uL Hemoglobin 12.4 g/dL Hematocrit 36.1 % Mean Corpuscular Volume 97 fL Mean Corpuscular Hemoglobin 33 pg Mean Corpuscular Hemoglobin Concent 34 g/dL Red Cell Distribution Width 12.9 % Platelet Count 254 x10^3/uL Neutrophils (%) (Auto) 69 % Lymphocytes (%) (Auto) 21 % Monocytes (%) (Auto) 9 % Eosinophils (%) (Auto) 1 % Basophils (%) (Auto) 1 % Neutrophils # (Auto) 6.5 x10^3/uL Lymphocytes # (Auto) 2.0 x10^3/uL Monocytes # (Auto) 0.8 x10^3/uL Eosinophils # (Auto) 0.0 x10^3/uL Basophils # (Auto) 0.1 x10^3/uL Sodium Level 142 mmol/L Potassium Level 3.9 mmol/L Chloride Level 105 mmol/L Carbon Dioxide Level 27 mmol/L Anion Gap 10 Blood Urea Nitrogen 22 mg/dL Creatinine 1.1 mg/dL Estimated GFR (Cockcroft-Gault) 56.6 BUN/Creatinine Ratio 20 Glucose Level 109 mg/dL Lactic Acid Level 1.9 mmol/L Calcium Level 9.6 mg/dL Magnesium Level 2.4 mg/dL Total Bilirubin 0.3 mg/dL Aspartate Amino Transf (AST/SGOT) 50 U/L Alanine Aminotransferase (ALT/SGPT) 53 U/L Alkaline Phosphatase 99 U/L Troponin I High Sensitivity 8 ng/L HS-Gnp-R-Type Natriuretic Peptide 400 pg/mL Total Protein 7.0 g/dL Albumin 3.5 g/dL Albumin/Globulin Ratio 1.0 Lipase 38 U/L Urine Collection Type Unknown Urine Color (Auto) Yellow Urine Turbidity Clear Urine pH (Auto) 5.5 Urine Specific [place] 1.033 Urine Protein (Auto) Negative mg/dL Urine Glucose (Auto)(UA) Negative mg/dL Urine Ketones (Auto) 20 mg/dL Urine Blood (Auto) Negative Urine Nitrite Negative Urine Bilirubin (Auto) Negative Urine Urobilinogen (Auto) Normal mg/dL Urine Leukocyte Esterase (Auto) Large Urine RBC 0 /HPF Urine WBC 5-10 /HPF Urine Squamous Epithelial Cells Mod /LPF Urine Amorphous Sediment Present /HPF Urine Bacteria 0 /HPF Urine Hyaline Casts Few /HPF Urine Mucus Mod /LPF Urine Yeast Present /HPF Current Medications Medications (Trade) Dose Ordered Sig/Kimberly Route PRN Reason Start Time Stop Time Status Last Admin Dose Admin Sodium Chloride 1,000 ml @ 1,000 mls/hr 1X ONCE IV 01/08/22 18:30 01/08/22 19:29 DC 01/08/22 18:51 Ondansetron HCl (Zofran) 4 mg 1X ONCE IVP 01/08/22 18:30 01/08/22 18:31 DC 01/08/22 18:51 Fluconazole (Diflucan) 200 mg 1X ONCE PO 01/08/22 20:00 01/08/22 20:03 DC 01/08/22 20:06 Vital Signs: Vital Signs Date Time Temp Pulse Resp B/P (MAP) Pulse Ox O2 Delivery O2 Flow Rate FiO2 01/08/22 18:03 98.3 62 18 151/63 (92) 99 Room Air 98.3 EKG: EKG: EKG performed at 1838 shows a sinus bradycardia heart rate 55 bpm, [place] interval 0.130, QTc interval 0.419, no acute STEMI appreciated, EKG interpreted by ED attending physician Dr. Guerra There is inverted T waves noted in leads V1, V2, V3, V4, V5, V6. There is no change in EKG from previous reviewed EKGs on 04/04/2021. Patient did have a negative stress test on 08/24/2021. A repeat EKG was performed related to a bradycardic episode, EKG performed at 2031, heart rate is 51 bpm, no changes from previous EKG. EKG reviewed and interpreted by ED attending physician Dr. Guerra. Radiology/Procedures: Radiology/Procedures: REASON: nausea PROCEDURE: CHEST AP ONLY Exam: Chest one view INDICATION: Nausea TECHNIQUE: Frontal view of the chest Comparisons: 05/11/2019 FINDINGS: The cardiomediastinal silhouette and pulmonary vessels are within normal limits. The lung and pleural spaces are clear. IMPRESSION: No acute cardiopulmonary process. Electronically signed by: Radha Jackson MD (01/08/2022 7:59 PM) [facility] Course & Med Decision Making: Course & Med Decision Making Pertinent Labs and Imaging studies reviewed. (See chart for details) 87-year-old female, vital signs reviewed, resents emerged from concerning nausea for 3 weeks, insomnia. Patient's physical examination is unremarkable. Related to patient's age, history of cardiac disease, and nonspecific chief complaint will order EKG, chest x-ray, CBC, CMP, lactic acid, lipase, magnesium, NT proBNP, high-sensitivity troponin I, rapid influenza Covid testing. Urinalysis assay. Will give 1 L normal saline and Zofran for nausea. Patient's urine shows yeast infection without hematuria. Will start on oral fluconazole 200 mg daily x2 weeks. First dose in ER today. Patient's EKG did show inverted T waves in leads V1 through V6. However in comparison to previous EKGs performed on , there were no EKG changes and in addition patient did have negative stress test on 08/2021. Patient is nontoxic in appearance, denies chest pains or shortness of breath. ED nurse approached me reporting patient's heart rate in the 40s ordered repeat EKG, assess patient at bedside, patient does have bradycardia at 50, is asymptomatic, remains nontoxic in appearance. Discussed with patient recommended admission for ongoing nausea, yeast in urine, insomnia, and bradycardia, patient is amenable to admission planning. Called and discussed patient case and ED work-up with inpatient management physician Dr. Ann who agrees patient case warrants admission to the telemetry unit. Patient is currently awaiting telemetry bed assignment from plumbing warehouse helper. Delilah Disclaimer: Dragmatthias Disclaimer: This electronic medical record was generated, in whole or in part, using a voice recognition dictation system. Departure Departure Impression: Primary Impression: Nausea Additional Impressions: Insomnia Qualified Codes: G47.00 - Insomnia, unspecified Bradycardia Yeast UTI Disposition: ADMITTED INPATIENT Admitting Physician: HIMS (Admit to Dr. Ann to telemetry unit) Condition: GUARDED Referrals: Raymond SHANKS MD (PCP) MATTHEW CORADO APRN Jan 08, 2022 18:45
[2022-01-08 19:15] LABS: BASO # 0.1 x10^3/uL (0.0-0.2); BASO % 1 % (0-3); EOS % 1 % (0-3); HEMATOCRIT 36.1 % (36.0-47.0); HEMOGLOBIN 12.4 g/dL (12.0-15.5); LYMPH % 21 % (24-48); MEAN CORPUSCULAR HEMOGLOBIN 33 pg (25-35); MEAN CORPUSCULAR HGB CONC 34 g/dL (31-37); MEAN CORPUSCULAR VOLUME 97 fL (79-100); MONO # 0.8 x10^3/uL (0.0-1.1); MONO % 9 % (0-9); NEUT # 6.5 x10^3/uL (1.8-7.7); NEUT % 69 % (31-73); PLATELET COUNT 254 x10^3/uL (140-400); RED BLOOD COUNT 3.72 x10^6/uL (3.50-5.40); RED CELL DISTRIBUTION WIDTH 12.9 % (11.5-14.5); WHITE BLOOD COUNT 9.4 x10^3/uL (4.0-11.0)
[2022-01-08 19:21] LABS: INFLUENZA A PATIENT NEGATIVE (NEGATIVE); INFLUENZA B PATIENT NEGATIVE (NEGATIVE)
[2022-01-08 19:22] LABS: CALCIUM 9.6 mg/dL (8.5-10.1); CREATININE 1.1 mg/dL (0.6-1.0); GFR 56.6; POTASSIUM 3.9 mmol/L (3.5-5.1)
[2022-01-08 19:28] LABS: BACTERIA,URINE 0 /HPF (0-FEW); RBC,URINE 0 /HPF (0-2)
[2022-01-08 19:28] LABS: ALBUMIN 3.5 g/dL (3.4-5.0); MAGNESIUM 2.4 mg/dL (1.8-2.4); TOTAL BILIRUBIN 0.3 mg/dL (0.2-1.0)
[2022-01-08 19:29] LABS: AMORPHOUS SEDIMENT,UR PRESENT /HPF
[2022-01-08 19:30] LABS: HYALINE CASTS, URINE FEW /HPF; YEAST,URINE PRESENT /HPF
[2022-01-08] MEDS ORDERED: FLUCONAZOLE 100 MG TABLET. PO ONE (20:00)
--- NOTE | 2022-01-08 20:02 | RAD ---
Exam: Chest one view INDICATION: Nausea TECHNIQUE: Frontal view of the chest Comparisons: 05/11/2019 FINDINGS: The cardiomediastinal silhouette and pulmonary vessels are within normal limits. The lung and pleural spaces are clear. IMPRESSION: No acute cardiopulmonary process. Electronically signed by: Radha Jackson MD (01/08/2022 7:59 PM) JOELLEN
--- NOTE | 2022-01-08 22:00 | NUR ---
ADMISSION NOTE Pt admitted to room 519 from ER. Pt ambulatory in room. Pt states feeling much better than when she came in. Pt states her nausea is almost completely gone. Denies wanting any food at this time, just water. Pt has belongings at beside, reports having her dentures in her mouth and has glasses on. Pt has purse at bedside that she declines to have anything sent to security. Pt is forgetful as far as what her past medical history and current medications are. History taken from admission in 2020. Pt states that her daughter will bring in a medication list tomorrow so we can verify home meds. POC discussed with pt. Explained that heart monitor needs to stay in place to monitor heart rate/rhythm. Pt vu. Will monitor.
[2022-01-08 23:23] VITALS: BP 136/73
--- NOTE | 2022-01-09 00:17 | EKG ---
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
--- NOTE | 2022-01-09 00:18 | EKG ---
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
[2022-01-09 03:45] VITALS: BP 176/64
[2022-01-09] MEDS ORDERED: ONDANSETRON PF 4 MG/2 ML VIAL. IVP PRN (04:30)
[2022-01-09] MEDS ORDERED: ACETAMINOPHEN 325 MG TABLET. PO PRN (04:30)
[2022-01-09 07:00] VITALS: BP 176/64
--- NOTE | 2022-01-09 07:16 | PDOC1 ---
History and Physical Date of Admission Date of Admission DATE: 01/09/22 TIME: 07:08 Identification/Chief Complaint Chief Complaint Dysphagia History of Present Illness History of Present Illness Ms Aldana is an 87yo female w/ PMHx CAD, HTN, HLD, GERD, DM2, prior CVA, NEFTALY on CPAP admitted through ED c/o progressive weakness and nausea for the past 3 weeks. Labs with WBC 9.4, Hb 12.4, platelets 254, NA 142, K3.9, BUN 22, CR 1.1, glucose 109, calcium 9.6, mag 2.4, bilirubin 0.3, AST 50, ALT 53, alk phos 99, albumin 3.5, lipase 38, NT proBNP 400, troponin high-sensitivity is 8, lactic acid 1.9, UA with positive leukoesterase, rapid COVID-19 rapid influenza negative. Chest radiograph by my interpretation no acute cardiopulmonary abnormalities. EKG sinus rate of 51 bpm T flattening in inversions lateral and anterior leads. No ST segment elevations or inversions. QTC 424 hard time sleeping, feels nauseous all day, has not taken any medications for her nausea. States she did see her primary care physician this past Sunday and was started on Pepcid to take at night for sleep, patient states it does not help. Patient denies vomiting, diarrhea, or constipation. She just c/o nausea. Has some increased urinary frequency, denies urinary pressure, urinary burning, hematuria, does have some dysuria. Patient denies chest pain, chest palpitations, chest or nasal congestion. Patient denies syncopal or near sync opal episodes. Patient denies other physical complaints physical concerns. In ED was given Diflucan and Zofran and had some improvement. On further review she had a recent cardiac stress test negative. Patient notes that although she was given the ED for her symptoms. Given IV Rocephin for dysuria and abnormal UA. We will continue with Diflucan. Past Medical History Cardiovascular: CAD, HTN, Hyperlipidemia Pulmonary: Other CENTRAL NERVOUS SYSTEM: Other GI: GERD Heme/Onc: No pertinent hx Hepatobiliary: No pertinent hx Psych: Anxiety Musculoskeletal: low back pain, Osteoarthritis Rheumatologic: No pertinent hx Infectious disease: No pertinent hx Renal/: No pertinent hx Endocrine: Diabetes Past Surgical History Past Surgical History: Appendectomy, Cholecystectomy, Hernia Repair Family History Family History: Heart Disease, Hypertension Social History Smoke: No ALCOHOL: none Drugs: None Current Problem List Problem List Problems Medical Problems: (1) Bradycardia Status: Acute (2) Insomnia Status: Acute (3) Nausea Status: Acute (4) Yeast UTI Status: Acute Current Medications Current Medications Current Medications Sodium Chloride 1,000 ml @ 1,000 mls/hr 1X ONCE IV Last administered on 01/08/22at 18:51; Start 01/08/22 at 18:30; Stop 01/08/22 at 19:29; Status DC Ondansetron HCl (Zofran) 4 mg 1X ONCE IVP Last administered on 01/08/22at 18:51; Start 01/08/22 at 18:30; Stop 01/08/22 at 18:31; Status DC Fluconazole (Diflucan) 200 mg 1X ONCE PO Last administered on 01/08/22at 20:06; Start 01/08/22 at 20:00; Stop 01/08/22 at 20:03; Status DC Acetaminophen (Tylenol) 650 mg PRN Q6HRS PRN PO MILD PAIN / TEMP > 100.3'F Last administered on 01/09/22at 04:25; Start 01/09/22 at 04:30 Ondansetron HCl (Zofran) 4 mg PRN Q6HRS PRN IVP NAUSEA/VOMITING 1ST CHOICE; Start 01/09/22 at 04:30 Active Scripts Active Ondansetron Odt (Ondansetron) 4 Mg Tab.rapdis 4 Mg PO PRN Q4HRS PRN Imitrex (Sumatriptan Succinate) 25 Mg Tablet 25 Mg PO PRN Q8HRS PRN 10 Days Hydralazine Hcl 50 Mg Tablet 1 Tab PO DAILY Colace (Docusate Sodium) 100 Mg Capsule 100 Mg PO PRN DAILY PRN Aspirin Ec (Aspirin) 81 Mg Tablet.dr 81 Mg PO DAILY Isosorbide Mononitrate Er (Isosorbide Mononitrate) 30 Mg Tab.er.24h 60 Mg PO DAILY Reported Nitrostat (Nitroglycerin) 0.4 Mg Tab.subl 0.4 Mg SL PRN Q5MIN PRN Nexium Capsule (Esomeprazole Magnesium) 40 Mg Capsule.dr 1 Cap PO DAILY Prolia (Denosumab) 60 Mg/1 Ml Disp.syrin 60 Mg SQ EVERY 6 MOS Miralax (Polyethylene Glycol 3350) 17 Gm Powd.pack 1 Packet PO DAILY PRN 2 Days dissolve in water Gabapentin (Gabapentin) 100 Mg Capsule 100 Mg PO TID Percocet 5-325 mg Tablet (Oxycodone HCl/Acetaminophen) 1 Each Tablet 2 Tab PO QIDPRN PRN MDD 4 Tablet(s) 5 Days Senna Plus Tablet (Sennosides/Docusate Sodium) 1 Each Tablet 1 Each PO BID Robaxin-750 (Methocarbamol) 750 Mg Tablet 1 Tab PO TID PRN 30 Days Pepcid (Famotidine) 20 Mg Tablet 20 Mg PO BID Vitamin D2 (Ergocalciferol (Vitamin D2)) 50,000 Unit Capsule 50,000 Unit PO QWE Losartan Potassium (Losartan Potassium) 25 Mg Tablet 100 Mg PO DAILY Atorvastatin Calcium 20 Mg Tablet 20 Mg PO HS Amlodipine Besylate 10 Mg Tablet 10 Mg PO DAILY Restasis (Cyclosporine) 1 Each Droperette 1 Drop EACHEYE BID Allergies Allergies: Coded Allergies: No Known Medication Allergies (Verified Allergy, Intermediate, 11/11/19) I S O L A T I O N *CONTACT* (Verified Allergy, Unknown, Unknown, 11/11/19) ROS General: YES: Fatigue, Malaise, Appetite; No: Chills, Night Sweats, Other PSYCHOLOGICAL ROS: YES: Memory difficulties, Sleep disturbances; No: Anxiety, Behavioral Disorder, Concentration difficultie, Decreased libido, Depression, Disorientation, Hallucinations, Hostility, Irritablity, Mood Swings, Obsessive thoughts, Physical abuse, Sexual abuse, Suicidal ideation, Oth er Eyes: No Blurry vision, No Decreased vision, No Double vision, No Dry eyes, No Excessive tearing, No Eye Pain, No Itchy Eyes, No Loss of vision, No Photophobia, No Scotomata, No Uses contacts, No Uses glasses, No Other HEENT: No: Heacaches, Visual Changes, Hearing change, Nasal congestion, Nasal discharge, Oral lesions, Sinus pain, Sore Throat, Epistaxis, Sneezing, Snoring, Tinnitus, Vertigo, Vocal changes, Other ALLERGY AND IMMUNOLOGY: No: Hives, Insect Bite Sensitivity, Itchy/Watery Eyes, Nasal Congestion, Post Nasal Drip, Seasonal Allergies, Other Hematological and Lymphatic: No: Bleeding Problems, Blood Clots, Blood Transfusions, Brusing, Night Sweats, Pallor, Swollen Lymph Nodes, Other ENDOCRINE: No: Breast Changes, Galactorrhea, Hair Pattern Changes, Hot Flashes, Malaise/lethargy, Mood Swings, Palpitations, Polydipsia/polyuria, Skin Changes, Temperature Intolerance, Unexpected Weight Changes, Other Breast: No New/Changing Breast Lumps, No Nipple changes, No Nipple discharge, No Other Respiratory: No: Cough, Hemoptysis, Orthopnea, Pleuritic Pain, Shortness of breath, SOB with excertion, Sputum Changes, Stridor, Tachypnea, Wheezing, Other Cardiovascular: No Chest Pain, No Palpitations, No Orthopnea, No Paroxysmal Noc. Dyspnea, No Edema, No Lt Headedness, No Other Gastrointestinal: Yes Nausea; No Vomiting, No Abdominal Pain, No Diarrhea, No Constipation, No Melena, No Hematochezia, No Other Genitourinary: No Dysuria, No Frequency, No Incontinence, No Hematuria, No Retention, No Discharge, No Urgency, No Pain, No Flank Pain, No Other, No , No , No , No , No , No , No Musculoskeletal: No Gait Disturbance, No Joint Pain, No Joint Stiffness, No Joint Swelling, No Muscle Pain, No Muscular Weakness, No Pain In:, No Swelling In:, No Other Neurological: No Behavorial Changes, No Bowel/Bladder ControlChng, No Confusion, No Dizziness, No Gait Disturbance, No Headaches, No Impaired Coord/balance, No Memory Loss, No Numbness/Tingling, No Seizures, No Speech Problems, No Tremors, No Visual Changes, No Weakness, No Other Skin: No Dry Skin, No Eczema, No Hair Changes, No Lumps, No Mole Changes, No Mottling, No Nail Changes, No Pruritus, No Rash, No Skin Lesion Changes, No Other, No Acne Physical Exam General: Alert, Oriented X3, Cooperative, No acute distress HEENT: Atraumatic, PERRLA, EOMI, Mucous membr. moist/pink Lungs: Clear to auscultation, Normal air movement Heart: S1S2, RRR, no thrills, no rubs, no gallops, no murmurs Abdomen: Normal bowel sounds, Soft, No tenderness, No hepatosplenomegaly, No masses Rectal Exam: not examined Extremities: No clubbing, No cyanosis, No edema, Normal pulses, No tenderness/swelling Skin: No rashes, No breakdown, No significant lesion Neuro: Normal gait, Normal speech, Strength at 5/5 X4 ext, Normal tone, Sensation intact, Cranial nerves 3-12 NL, Reflexes 2+ Psych/Mental Status: Mental status NL, Mood NL Vitals Vitals Vital Signs Date Time Temp Pulse Resp B/P (MAP) Pulse Ox O2 Delivery O2 Flow Rate FiO2 01/09/22 03:45 98.4 51 18 176/64 (101) 96 Room Air 98.4 Labs Labs Laboratory Tests Test 01/08/22 18:37 01/08/22 18:47 01/08/22 19:15 Influenza Type A Antigen Negative (NEGATIVE) Influenza Type B Antigen Negative (NEGATIVE) SARS-CoV-2 Antigen (Rapid) Negative (NEGATIVE) White Blood Count 9.4 x10^3/uL (4.0-11.0) Red Blood Count 3.72 x10^6/uL (3.50-5.40) Hemoglobin 12.4 g/dL (12.0-15.5) Hematocrit 36.1 % (36.0-47.0) Mean Corpuscular Volume 97 fL (79-100) Mean Corpuscular Hemoglobin 33 pg (25-35) Mean Corpuscular Hemoglobin Concent 34 g/dL (31-37) Red Cell Distribution Width 12.9 % (11.5-14.5) Platelet Count 254 x10^3/uL (140-400) Neutrophils (%) (Auto) 69 % (31-73) Lymphocytes (%) (Auto) 21 % (24-48) Monocytes (%) (Auto) 9 % (0-9) Eosinophils (%) (Auto) 1 % (0-3) Basophils (%) (Auto) 1 % (0-3) Neutrophils # (Auto) 6.5 x10^3/uL (1.8-7.7) Lymphocytes # (Auto) 2.0 x10^3/uL (1.0-4.8) Monocytes # (Auto) 0.8 x10^3/uL (0.0-1.1) Eosinophils # (Auto) 0.0 x10^3/uL (0.0-0.7) Basophils # (Auto) 0.1 x10^3/uL (0.0-0.2) Sodium Level 142 mmol/L (136-145) Potassium Level 3.9 mmol/L (3.5-5.1) Chloride Level 105 mmol/L (98-107) Carbon Dioxide Level 27 mmol/L (21-32) Anion Gap 10 (6-14) Blood Urea Nitrogen 22 mg/dL (7-20) Creatinine 1.1 mg/dL (0.6-1.0) Estimated GFR (Cockcroft-Gault) 56.6 BUN/Creatinine Ratio 20 (6-20) Glucose Level 109 mg/dL (70-99) Lactic Acid Level 1.9 mmol/L (0.4-2.0) Calcium Level 9.6 mg/dL (8.5-10.1) Magnesium Level 2.4 mg/dL (1.8-2.4) Total Bilirubin 0.3 mg/dL (0.2-1.0) Aspartate Amino Transf (AST/SGOT) 50 U/L (15-37) Alanine Aminotransferase (ALT/SGPT) 53 U/L (14-59) Alkaline Phosphatase 99 U/L (46-116) Troponin I High Sensitivity 8 ng/L (4-50) DU-Guo-E-Type Natriuretic Peptide 400 pg/mL (0-449) Total Protein 7.0 g/dL (6.4-8.2) Albumin 3.5 g/dL (3.4-5.0) Albumin/Globulin Ratio 1.0 (1.0-1.7) Lipase 38 U/L (73-393) Urine Collection Type Unknown Urine Color (Auto) Yellow Urine Turbidity Clear Urine pH (Auto) 5.5 (<5.0-8.0) Urine Specific [place] 1.033 (1.000-1.030) Urine Protein (Auto) Negative mg/dL (Negative) Urine Glucose (Auto)(UA) Negative mg/dL (Negative) Urine Ketones (Auto) 20 mg/dL (Negative) Urine Blood (Auto) Negative (Negative) Urine Nitrite Negative (Negative) Urine Bilirubin (Auto) Negative (Negative) Urine Urobilinogen (Auto) Normal mg/dL (Normal) Urine Leukocyte Esterase (Auto) Large (Negative) Urine RBC 0 /HPF (0-2) Urine WBC 5-10 /HPF (0-4) Urine Squamous Epithelial Cells Mod /LPF Urine Amorphous Sediment Present /HPF Urine Bacteria 0 /HPF (0-FEW) Urine Hyaline Casts Few /HPF Urine Mucus Mod /LPF Urine Yeast Present /HPF Laboratory Tests Test 01/08/22 18:37 01/08/22 18:47 01/08/22 19:15 Influenza Type A Antigen Negative (NEGATIVE) Influenza Type B Antigen Negative (NEGATIVE) SARS-CoV-2 Antigen (Rapid) Negative (NEGATIVE) White Blood Count 9.4 x10^3/uL (4.0-11.0) Red Blood Count 3.72 x10^6/uL (3.50-5.40) Hemoglobin 12.4 g/dL (12.0-15.5) Hematocrit 36.1 % (36.0-47.0) Mean Corpuscular Volume 97 fL (79-100) Mean Corpuscular Hemoglobin 33 pg (25-35) Mean Corpuscular Hemoglobin Concent 34 g/dL (31-37) Red Cell Distribution Width 12.9 % (11.5-14.5) Platelet Count 254 x10^3/uL (140-400) Neutrophils (%) (Auto) 69 % (31-73) Lymphocytes (%) (Auto) 21 % (24-48) Monocytes (%) (Auto) 9 % (0-9) Eosinophils (%) (Auto) 1 % (0-3) Basophils (%) (Auto) 1 % (0-3) Neutrophils # (Auto) 6.5 x10^3/uL (1.8-7.7) Lymphocytes # (Auto) 2.0 x10^3/uL (1.0-4.8) Monocytes # (Auto) 0.8 x10^3/uL (0.0-1.1) Eosinophils # (Auto) 0.0 x10^3/uL (0.0-0.7) Basophils # (Auto) 0.1 x10^3/uL (0.0-0.2) Sodium Level 142 mmol/L (136-145) Potassium Level 3.9 mmol/L (3.5-5.1) Chloride Level 105 mmol/L (98-107) Carbon Dioxide Level 27 mmol/L (21-32) Anion Gap 10 (6-14) Blood Urea Nitrogen 22 mg/dL (7-20) Creatinine 1.1 mg/dL (0.6-1.0) Estimated GFR (Cockcroft-Gault) 56.6 BUN/Creatinine Ratio 20 (6-20) Glucose Level 109 mg/dL (70-99) Lactic Acid Level 1.9 mmol/L (0.4-2.0) Calcium Level 9.6 mg/dL (8.5-10.1) Magnesium Level 2.4 mg/dL (1.8-2.4) Total Bilirubin 0.3 mg/dL (0.2-1.0) Aspartate Amino Transf (AST/SGOT) 50 U/L (15-37) Alanine Aminotransferase (ALT/SGPT) 53 U/L (14-59) Alkaline Phosphatase 99 U/L (46-116) Troponin I High Sensitivity 8 ng/L (4-50) HH-Tfu-G-Type Natriuretic Peptide 400 pg/mL (0-449) Total Protein 7.0 g/dL (6.4-8.2) Albumin 3.5 g/dL (3.4-5.0) Albumin/Globulin Ratio 1.0 (1.0-1.7) Lipase 38 U/L (73-393) Urine Collection Type Unknown Urine Color (Auto) Yellow Urine Turbidity Clear Urine pH (Auto) 5.5 (<5.0-8.0) Urine Specific [place] 1.033 (1.000-1.030) Urine Protein (Auto) Negative mg/dL (Negative) Urine Glucose (Auto)(UA) Negative mg/dL (Negative) Urine Ketones (Auto) 20 mg/dL (Negative) Urine Blood (Auto) Negative (Negative) Urine Nitrite Negative (Negative) Urine Bilirubin (Auto) Negative (Negative) Urine Urobilinogen (Auto) Normal mg/dL (Normal) Urine Leukocyte Esterase (Auto) Large (Negative) Urine RBC 0 /HPF (0-2) Urine WBC 5-10 /HPF (0-4) Urine Squamous Epithelial Cells Mod /LPF Urine Amorphous Sediment Present /HPF Urine Bacteria 0 /HPF (0-FEW) Urine Hyaline Casts Few /HPF Urine Mucus Mod /LPF Urine Yeast Present /HPF Images Images Chest radiograph: The cardiomediastinal silhouette and pulmonary vessels are within normal limits. The lung and pleural spaces are clear. IMPRESSION: No acute cardiopulmonary process. VTE Prophylaxis Ordered VTE Prophylaxis Devices: Yes VTE Pharmacological Prophylaxi: Yes Assessment/Plan Assessment/Plan Nausea - TWI leads V1, V2, V3, V4, V5, V6. There is no change in EKG from previous reviewed EKGs on 04/04/2021. Patient did have a negative stress test on 08/24/2021. Thrush - will treat with diflucan Dysuria - will treat with macrobid, rocephin x1 Bradycardia; lowest 43 overnight. No pauses. appropriate chronotropic response. 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 FEN - Cardiac ADA diet PPX - lovenox FULL CODE DIspo - observation Justifications for Admission Other Justification ARVIN BAKER MD Jan 09, 2022 07:16
[2022-01-09] MEDS ORDERED: PANTOPRAZOLE 40 MG TABLET.DR. PO SCH (07:30)
[2022-01-09] MEDS ORDERED: oxyCODONE/APAP 5/325 1 TAB TABLET PO PRN (07:30)
[2022-01-09] MEDS ORDERED: NITROGLYCERIN SUBLINGUAL 0.4 MG BOTTLE OF 25. SL PRN (07:30)
[2022-01-09] MEDS ORDERED: POLYETHYLENE GLYCOL 3350 17 GM PACKET. PO PRN (07:30)
[2022-01-09] MEDS ORDERED: ONDANSETRON ODT 4 MG TAB.RAPDIS. PO PRN (07:30)
[2022-01-09] MEDS ORDERED: DOCUSATE SODIUM 100 MG CAPSULE. PO PRN (07:30)
[2022-01-09] MEDS ORDERED: cefTRIAXone IV Push 1 GM VIAL. IVP SCH (08:00)
[2022-01-09] MEDS ORDERED: FLUC100T6 PO (08:43)
[2022-01-09] MEDS ORDERED: NITR100C62 PO (08:43)
[2022-01-09] MEDS ORDERED: ONDA4TAB12 PO (08:45)
--- NOTE | 2022-01-09 08:49 | PDOC3 ---
Discharge Summary Visit Information Date of Admission: Jan 08, 2022 Date of Discharge: Jan 09, 2022 Admitting Diagnosis: Nausea Final Diagnosis Problems Medical Problems: (1) Bradycardia Status: Acute (2) Insomnia Status: Acute (3) Nausea Status: Acute (4) Yeast UTI Status: Acute Brief Hospital Course Allergies Allergies Coded Allergies Type Severity Reaction Last Updated Verified No Known Medication Allergies Allergy Intermediate 11/11/19 Yes I S O L A T I O N *CONTACT* Allergy Unknown Unknown 11/11/19 Yes Vital Signs Vital Signs Date Time Temp Pulse Resp B/P (MAP) Pulse Ox O2 Delivery O2 Flow Rate FiO2 01/09/22 08:25 50 176/64 01/09/22 03:45 98.4 18 96 Room Air 98.4 Lab Results Laboratory Tests Test 01/08/22 18:37 01/08/22 18:47 01/08/22 19:15 01/09/22 07:44 Influenza Type A Antigen Negative (NEGATIVE) Influenza Type B Antigen Negative (NEGATIVE) SARS-CoV-2 Antigen (Rapid) Negative (NEGATIVE) White Blood Count 9.4 x10^3/uL (4.0-11.0) Red Blood Count 3.72 x10^6/uL (3.50-5.40) Hemoglobin 12.4 g/dL (12.0-15.5) Hematocrit 36.1 % (36.0-47.0) Mean Corpuscular Volume 97 fL (79-100) Mean Corpuscular Hemoglobin 33 pg (25-35) Mean Corpuscular Hemoglobin Concent 34 g/dL (31-37) Red Cell Distribution Width 12.9 % (11.5-14.5) Platelet Count 254 x10^3/uL (140-400) Neutrophils (%) (Auto) 69 % (31-73) Lymphocytes (%) (Auto) 21 % (24-48) Monocytes (%) (Auto) 9 % (0-9) Eosinophils (%) (Auto) 1 % (0-3) Basophils (%) (Auto) 1 % (0-3) Neutrophils # (Auto) 6.5 x10^3/uL (1.8-7.7) Lymphocytes # (Auto) 2.0 x10^3/uL (1.0-4.8) Monocytes # (Auto) 0.8 x10^3/uL (0.0-1.1) Eosinophils # (Auto) 0.0 x10^3/uL (0.0-0.7) Basophils # (Auto) 0.1 x10^3/uL (0.0-0.2) Sodium Level 142 mmol/L (136-145) Potassium Level 3.9 mmol/L (3.5-5.1) Chloride Level 105 mmol/L (98-107) Carbon Dioxide Level 27 mmol/L (21-32) Anion Gap 10 (6-14) Blood Urea Nitrogen 22 mg/dL (7-20) Creatinine 1.1 mg/dL (0.6-1.0) Estimated GFR (Cockcroft-Gault) 56.6 BUN/Creatinine Ratio 20 (6-20) Glucose Level 109 mg/dL (70-99) Lactic Acid Level 1.9 mmol/L (0.4-2.0) Calcium Level 9.6 mg/dL (8.5-10.1) Magnesium Level 2.4 mg/dL (1.8-2.4) Total Bilirubin 0.3 mg/dL (0.2-1.0) Aspartate Amino Transf (AST/SGOT) 50 U/L (15-37) Alanine Aminotransferase (ALT/SGPT) 53 U/L (14-59) Alkaline Phosphatase 99 U/L (46-116) Troponin I High Sensitivity 8 ng/L (4-50) VG-Qdt-O-Type Natriuretic Peptide 400 pg/mL (0-449) Total Protein 7.0 g/dL (6.4-8.2) Albumin 3.5 g/dL (3.4-5.0) Albumin/Globulin Ratio 1.0 (1.0-1.7) Lipase 38 U/L (73-393) Urine Collection Type Unknown Urine Color (Auto) Yellow Urine Turbidity Clear Urine pH (Auto) 5.5 (<5.0-8.0) Urine Specific [place] 1.033 (1.000-1.030) Urine Protein (Auto) Negative mg/dL (Negative) Urine Glucose (Auto)(UA) Negative mg/dL (Negative) Urine Ketones (Auto) 20 mg/dL (Negative) Urine Blood (Auto) Negative (Negative) Urine Nitrite Negative (Negative) Urine Bilirubin (Auto) Negative (Negative) Urine Urobilinogen (Auto) Normal mg/dL (Normal) Urine Leukocyte Esterase (Auto) Large (Negative) Urine RBC 0 /HPF (0-2) Urine WBC 5-10 /HPF (0-4) Urine Squamous Epithelial Cells Mod /LPF Urine Amorphous Sediment Present /HPF Urine Bacteria 0 /HPF (0-FEW) Urine Hyaline Casts Few /HPF Urine Mucus Mod /LPF Urine Yeast Present /HPF Glucose (Fingerstick) 91 mg/dL (70-99) Laboratory Tests Test 01/08/22 18:37 01/08/22 18:47 01/08/22 19:15 01/09/22 07:44 Influenza Type A Antigen Negative (NEGATIVE) Influenza Type B Antigen Negative (NEGATIVE) SARS-CoV-2 Antigen (Rapid) Negative (NEGATIVE) White Blood Count 9.4 x10^3/uL (4.0-11.0) Red Blood Count 3.72 x10^6/uL (3.50-5.40) Hemoglobin 12.4 g/dL (12.0-15.5) Hematocrit 36.1 % (36.0-47.0) Mean Corpuscular Volume 97 fL (79-100) Mean Corpuscular Hemoglobin 33 pg (25-35) Mean Corpuscular Hemoglobin Concent 34 g/dL (31-37) Red Cell Distribution Width 12.9 % (11.5-14.5) Platelet Count 254 x10^3/uL (140-400) Neutrophils (%) (Auto) 69 % (31-73) Lymphocytes (%) (Auto) 21 % (24-48) Monocytes (%) (Auto) 9 % (0-9) Eosinophils (%) (Auto) 1 % (0-3) Basophils (%) (Auto) 1 % (0-3) Neutrophils # (Auto) 6.5 x10^3/uL (1.8-7.7) Lymphocytes # (Auto) 2.0 x10^3/uL (1.0-4.8) Monocytes # (Auto) 0.8 x10^3/uL (0.0-1.1) Eosinophils # (Auto) 0.0 x10^3/uL (0.0-0.7) Basophils # (Auto) 0.1 x10^3/uL (0.0-0.2) Sodium Level 142 mmol/L (136-145) Potassium Level 3.9 mmol/L (3.5-5.1) Chloride Level 105 mmol/L (98-107) Carbon Dioxide Level 27 mmol/L (21-32) Anion Gap 10 (6-14) Blood Urea Nitrogen 22 mg/dL (7-20) Creatinine 1.1 mg/dL (0.6-1.0) Estimated GFR (Cockcroft-Gault) 56.6 BUN/Creatinine Ratio 20 (6-20) Glucose Level 109 mg/dL (70-99) Lactic Acid Level 1.9 mmol/L (0.4-2.0) Calcium Level 9.6 mg/dL (8.5-10.1) Magnesium Level 2.4 mg/dL (1.8-2.4) Total Bilirubin 0.3 mg/dL (0.2-1.0) Aspartate Amino Transf (AST/SGOT) 50 U/L (15-37) Alanine Aminotransferase (ALT/SGPT) 53 U/L (14-59) Alkaline Phosphatase 99 U/L (46-116) Troponin I High Sensitivity 8 ng/L (4-50) XI-Erk-L-Type Natriuretic Peptide 400 pg/mL (0-449) Total Protein 7.0 g/dL (6.4-8.2) Albumin 3.5 g/dL (3.4-5.0) Albumin/Globulin Ratio 1.0 (1.0-1.7) Lipase 38 U/L (73-393) Urine Collection Type Unknown Urine Color (Auto) Yellow Urine Turbidity Clear Urine pH (Auto) 5.5 (<5.0-8.0) Urine Specific [place] 1.033 (1.000-1.030) Urine Protein (Auto) Negative mg/dL (Negative) Urine Glucose (Auto)(UA) Negative mg/dL (Negative) Urine Ketones (Auto) 20 mg/dL (Negative) Urine Blood (Auto) Negative (Negative) Urine Nitrite Negative (Negative) Urine Bilirubin (Auto) Negative (Negative) Urine Urobilinogen (Auto) Normal mg/dL (Normal) Urine Leukocyte Esterase (Auto) Large (Negative) Urine RBC 0 /HPF (0-2) Urine WBC 5-10 /HPF (0-4) Urine Squamous Epithelial Cells Mod /LPF Urine Amorphous Sediment Present /HPF Urine Bacteria 0 /HPF (0-FEW) Urine Hyaline Casts Few /HPF Urine Mucus Mod /LPF Urine Yeast Present /HPF Glucose (Fingerstick) 91 mg/dL (70-99) Brief Hospital Course Ms Aldana is an 87yo female w/ PMHx CAD, HTN, HLD, GERD, DM2, prior CVA, NEFTALY on CPAP admitted through ED c/o progressive weakness and nausea for the past 3 weeks. Labs with WBC 9.4, Hb 12.4, platelets 254, NA 142, K3.9, BUN 22, CR 1.1, glucose 109, calcium 9.6, mag 2.4, bilirubin 0.3, AST 50, ALT 53, alk phos 99, albumin 3.5, lipase 38, NT proBNP 400, troponin high-sensitivity is 8, lactic acid 1.9, UA with positive leukoesterase, rapid COVID-19 rapid influenza negative. Chest radiograph by my interpretation no acute cardiopulmonary abnormalities. EKG sinus rate of 51 bpm T flattening in inversions lateral and anterior leads. No ST segment elevations or inversions. QTC 424 hard time sleeping, feels nauseous all day, has not taken any medications for her nausea. States she did see her primary care physician this past Sunday and was started on Pepcid to take at night for sleep, patient states it does not help. Patient denies vomiting, diarrhea, or constipation. She just c/o nausea. Has some increased urinary frequency, denies urinary pressure, urinary burning, hematuria, does have some dysuria. Patient denies chest pain, chest palpitations, chest or nasal congestion. Patient denies syncopal or near syncopal episodes. Patient denies other physical complaints physical concerns. In ED was given Diflucan and Zofran and had some improvement. On further review she had a recent cardiac stress test negative. Patient notes that although she was given the ED for her symptoms. Given IV Rocephin for dysuria and abnormal UA. We will continue with Diflucan. 01/09: Seen bedside after ODT Zofran and Diflucan and Rocephin feeling improved. Counseled to monitor her blood pressure at home give her 3 antihypertensives hold losartan temporarily finished Macrobid and Diflucan and oral dissolving Zofran at home decrease her Percocet dosing at home. Nausea - TWI leads V1, V2, V3, V4, V5, V6. There is no change in EKG from previous reviewed EKGs on 04/04/2021. Patient did have a negative stress test on 08/24/2021. Thrush - will treat with diflucan Dysuria - will treat with macrobid, rocephin x1 Bradycardia; lowest 43 overnight. No pauses. appropriate chronotropic response. 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 Greater than 30 minutes spent on d/c Discharge Information Condition at Discharge: Improved Follow Up: Weeks (1) Disposition/Orders: D/C to Home Scheduled Amlodipine Besylate (Amlodipine Besylate) 10 Mg Tablet, 10 MG PO DAILY, (Reported) Entered as Reported by: ERWIN MORRISON on 06/06/16 1005 Last Action: Continued on 01/09/22718 by ARVIN BAKER MD Aspirin (Aspirin Ec) 81 Mg Tablet.dr, 81 MG PO DAILY, #1 Prescribed by: YASEMIN TORRES on 06/06/16 1736 Last Action: Continued on 01/09/22718 by ARVIN BAKER MD Atorvastatin Calcium (Atorvastatin Calcium) 20 Mg Tablet, 20 MG PO HS for FOR CHOLESTEROL, #30 Ref 0 (Reported) Entered as Reported by: GABRIELLE RUIZ on 10/18/17 1501 Last Action: Continued on 01/09/22718 by ARVIN BAKER MD Cyclosporine (Restasis) 1 Each Droperette, 1 DROP EACHEYE BID, #60 Ref 3 (Reported) Entered as Reported by: ERWIN MORRISON on 06/06/16 1005 Last Action: Continued on 01/09/22718 by ARVIN BAKER MD Denosumab (Prolia) 60 Mg/1 Ml Disp.syrin, 60 MG SQ every 6 mos for osteoporosis, (Reported) Entered as Reported by: CAITY CONTRERAS on 03/22/20 1259 Ergocalciferol (Vitamin D2) (Vitamin D2) 50,000 Unit Capsule, 50,000 UNIT PO QWE for vitamin, (Reported) Entered as Reported by: JON RIVAS on 07/12/19 0120 Famotidine (Pepcid) 20 Mg Tablet, 20 MG PO BID for gerd, (Reported) Entered as Reported by: CAITY CONTRERAS on 03/22/20 1259 Fluconazole (Fluconazole) 100 Mg Tablet, 1 TAB PO DAILY for Thrush for 5 Days, #5 Prescribed by: ARVIN BAKER MD on 01/09/22 0843 Gabapentin (Gabapentin ) 100 Mg Capsule, 100 MG PO TID for NEUROGENIC PAIN, (Reported) Entered as Reported by: CAITY CONTRERAS on 03/22/20 125 Last Action: Continued on 01/09/22718 by ARVIN BAKER MD Isosorbide Mononitrate (Isosorbide Mononitrate Er) 30 Mg Tab.er.24h, 60 MG PO DAILY, #30 Prescribed by: YASEMIN TORRES on 06/06/16 1736 Last Action: Continued on 01/09/22840 by ARVIN BAKER MD Nitrofurantoin Monohyd/M-Cryst (Macrobid 100 Mg Capsule) 100 Mg Capsule, 1 CAP PO BID for UTI for 2 Days, #4 Ref 0 Prescribed by: ARVIN BAKER MD on 01/09/22 0843 Sennosides/Docusate Sodium (Senna Plus Tablet) 1 Each Tablet, 1 EACH PO BID for constipation, (Reported) Entered as Reported by: CAITY CONTRERAS on 03/22/20 125 Scheduled PRN Docusate Sodium (Colace) 100 Mg Capsule, 100 MG PO PRN DAILY PRN for CONSTIPATION, #10 Prescribed by: LONNIE TROTTER MD on 03/29/17 1126 Last Action: Continued on 01/09/22718 by ARVIN BAKER MD Nitroglycerin (Nitrostat) 0.4 Mg Tab.subl, 0.4 MG SL PRN Q5MIN PRN for CHEST PAIN, (Reported) Entered as Reported by: CAITY CONTRERAS on 03/22/201258 Last Action: Continued on 01/09/22718 by ARVIN BAKER MD Ondansetron (Ondansetron Odt) 4 Mg Tab.rapdis, 4 MG PO PRN Q4HRS PRN for NAUSEA for 30 Days, #30 Ref 5 Prescribed by: ARVIN BAKER MD on 01/09/22 0845 Oxycodone HCl/Acetaminophen (Percocet 5-325 mg Tablet) 1 Each Tablet, 2 TAB PO QIDPRN PRN for PAIN MDD 4 Tablet(s) for 5 Days, #20 Ref 0 (Reported) Entered as Reported by: CAITY CONTRERAS on 03/22/20 1259 Polyethylene Glycol 3350 (Miralax) 17 Gm Powd.pack, 1 PACKET PO DAILY PRN for CONSTIPATION for 2 Days, #2 Ref 0 (Reported) dissolve in water Entered as Reported by: CAITY CONTRERAS on 03/22/20 1259 Last Action: Continued on 01/09/22718 by ARVIN BAKER MD Discontinued Medications Esomeprazole Magnesium (Nexium Capsule) 40 Mg Capsule.dr, 1 CAP PO DAILY for gerd, #30 Ref 5 (Reported) Entered as Reported by: CAITY CONTRERAS on 03/22/201258 Last Action: Converted on 01/09/22718 by ARVIN BAKER MD Hydralazine Hcl (Hydralazine Hcl) 50 Mg Tablet, 1 TAB PO DAILY for htn, #90 Ref 5 Prescribed by: DONAVAN BONILLA on 01/09/19 1334 Losartan Potassium (Losartan Potassium ) 25 Mg Tablet, 100 MG PO DAILY for htn, (Reported) Entered as Reported by: CAITY CONTRERAS on 03/11/18 1203 Methocarbamol (Robaxin-750) 750 Mg Tablet, 1 TAB PO TID PRN for spasms for 30 Days, #90 Ref 0 (Reported) Entered as Reported by: CAITY CONTRERAS on 03/22/20 1259 Sumatriptan Succinate (Imitrex) 25 Mg Tablet, 25 MG PO PRN Q8HRS PRN for MIGRAINE HEADACHE for 10 Days, #30 Prescribed by: RICHIE ADAN MD on 04/05/21 1455 Justicifation of Admission Dx: Justifications for Admission: Justification of Admission Dx: Yes ARVIN BAKER MD Jan 09, 2022 08:49
[2022-01-09] MEDS ORDERED: cycloSPORINE 0.05% OPHTH DROPERETTE. OU SCH (09:00)
[2022-01-09] MEDS ORDERED: GABAPENTIN 100 MG CAPSULE. PO SCH (09:00)
[2022-01-09] MEDS ORDERED: ASPIRIN ENTERIC COATED 81 MG TABLET.DR. PO SCH (09:00)
[2022-01-09] MEDS ORDERED: ISOSORBIDE MONONITRATE ER 30 MG TAB.ER.24H PO SCH (09:00)
[2022-01-09] MEDS ORDERED: FLUCONAZOLE 100 MG TABLET. PO ONE (10:30)
--- NOTE | 2022-01-09 10:44 | NUR ---
SW following. Discussed with RN, pt from home with daughter, room air, cardiac diet, rapid COVID-19 negative. Discharge order for home with self care. RN advised no SW needs.
[2022-01-09 11:00] VITALS: BP 159/57
[2022-01-09 11:38] VITALS: BP 159/57
--- NOTE | 2022-01-09 12:33 | NUR ---
Discharge Note: DANIEL ARMENDARIZ LACLEDE Discharge instructions and discharge home medications reviewed with Patient and a copy given. All questions have been answered and understanding verbalized. The following instructions and handouts were given: f/u with PCP within two weeks. Discontinued lines and drains: Peripheral IV intact. Patient discharged to Home or Self Care with Family Member via Wheelchair.
[2022-01-09] MEDS ORDERED: ATORVASTATIN CALCIUM 20 MG TABLET PO SCH (21:00)
== END 2022-01-09 12:33 | disposition home or self-care (01) ==
LOC: ER 17:52 → 5 NORTH 20:30 → INTOOBSV 20:30
PROVIDERS: ADMIT Internal Medicine; ATTEND Internal Medicine
DX: R00.1 Bradycardia, unspecified (principal); Z20.822 Contact with and (suspected) exposure to COVID-19; G47.00 Insomnia, unspecified; R11.0 Nausea; I10 Essential (primary) hypertension; B37.49 Other urogenital candidiasis; E11.9 Type 2 diabetes mellitus without complications; E78.00 Pure hypercholesterolemia, unspecified; E78.5 Hyperlipidemia, unspecified; G47.33 Obstructive sleep apnea (adult) (pediatric); B37.9 Candidiasis, unspecified; I25.10 Atherosclerotic heart disease of native coronary artery without angina pectoris; R13.10 Dysphagia, unspecified; Z86.73 Personal history of transient ischemic attack (TIA), and cerebral infarction without residual deficits; Z90.49 Acquired absence of other specified parts of digestive tract; Z79.82 Long term (current) use of aspirin; Z79.899 Other long term (current) drug therapy; Z98.890 Other specified postprocedural states
CPT/HCPCS: 36415; 71045; 80053; 81001; 82962; 83605; 83690; 83735; 83880; 84484; 85025; 87086; 87428; 93005; 96361; 96374; 96375; 99285; G0378; J0696; J2405; J7030; G0379

== ENCOUNTER 2022-01-24 17:21 | Inpatient (IN) | payer OTHER ==
[~2022-01-24] VITALS: Ht 149.9 cm; Wt 48.0 kg
[~2022-01-24 17:21] MED LIST changes: +FLUC100T6 PO; +NITR100C62 PO
[2022-01-24] MEDS ORDERED: HYDROmorphone 2 MG/ML INJ. IVP ONE (19:45)
[2022-01-24] MEDS ORDERED: LABETALOL 20 MG/4 ML DISP.SYRIN. IVP ONE (19:45)
[2022-01-24] MEDS ORDERED: MORPHINE SULFATE 2 MG/ML INJ. IVP ONE (19:45)
[2022-01-24 20:25] LABS: CALCIUM 9.5 mg/dL (8.5-10.1); CREATININE 0.9 mg/dL (0.6-1.0); GFR 71.3; POTASSIUM 4.2 mmol/L (3.5-5.1)
[2022-01-24 20:26] LABS: BACTERIA,URINE 0 /HPF (0-FEW); RBC,URINE 0 /HPF (0-2)
[2022-01-24 20:29] LABS: ALBUMIN 3.3 g/dL (3.4-5.0); ALBUMIN/GLOBULIN RATIO 0.7 (1.0-1.7); MAGNESIUM 2.2 mg/dL (1.8-2.4); TOTAL BILIRUBIN 0.2 mg/dL (0.2-1.0); TOTAL PROTEIN 7.9 g/dL (6.4-8.2)
[2022-01-24] MEDS ORDERED: IOHEXOL 350 MG/ML 100 ML VIAL. ONE (20:38)
[2022-01-24] MEDS ORDERED: CONTRAST GIVEN. MC PRN (20:45)
[2022-01-24] MEDS ORDERED: IOHEXOL 350 MG/ML 100 ML VIAL. IV ONE (20:45)
--- NOTE | 2022-01-24 20:58 | PHYS DOC ---
Past Medical History Past Medical History: CAD, Diabetes-Type II, GERD, High Cholesterol, Hypertension Additional Past Medical Histor: Poor historian but has med list Additional Past Surgical Histo: BACK SX Smoking Status: Never Smoker Alcohol Use: None Drug Use: None General Adult EDM: Chief Complaint: ABDOMINAL PAIN HPI: HPI: Patient is a 87 year old female who presents with abdominal pain that began this morning. She is a poor historian. Patient denies any precipitating factors, but states that she had unprovoked onset of abdominal pain this morning. Patient denies any nausea, vomiting, diarrhea or constipation associated. She states, "I'm sick. I do not know what is wrong, but I'm not well." While waiting here in the department, she reports she has developed associated chest pain as well. She cannot describe the pain. Patient reports she was recently d ischarged from the hospital and her medications were changed. Since discharge, she states that her pressures have been increasing, which is not an issue that she dealt with in the past. Patient's daughter at bedside states that she asked the primary care provider to "stop everything and start from scratch," but the primary care provider denied the request. Per med list review, it appears the patient has hypertension, hyperlipidemia, GERD, angina, chronic pain and frequent constipation. Review of Systems: Review of Systems: Constitutional: Denies fever or chills Eyes: Denies change in visual acuity, visual field deficits or discharge HENT: Denies ear pain, nasal congestion or sore throat Respiratory: Denies cough or shortness of breath Cardiovascular: See HPI GI: See HPI : Denies dysuria or hematuria Musculoskeletal: Denies back pain or joint pain Integument: Denies rash or other skin lesion Neurologic: Denies headache, focal weakness or sensory changes Heart Score: C/O Chest Pain: Yes HEART Score for Chest Pain: HEART Score for Chest Pain Response (Comments) Value History Slighlty/Non-Suspicious 0 ECG Normal 0 Age > 65 2 Risk Factors >3 Risk Factors or Hx CAD 2 Troponin < Normal Limit 0 Total 4 Risk Factors: Risk Factors: DM, HTN, HLD, persona hx CAD Risk Scores: Score 0 - 3: 2.5% MACE over next 6 weeks - Discharge Home Score 4 - 6: 20.3% MACE over next 6 weeks - Admit for Clinical Observation Score 7 - 10: 72.7% MACE over next 6 weeks - Early Invasive Strategies Current Medications: Current Medications Medications (Trade) Dose Ordered Sig/Kimberly Route PRN Reason Start Time Stop Time Status Last Admin Dose Admin Hydromorphone HCl (Dilaudid) 0.5 mg 1X ONCE IVP 01/24/22 19:45 01/24/22 19:46 DC 01/24/22 20:03 Iohexol (Omnipaque 350 Mg/ml) 100 ml 1X ONCE IV 01/24/22 20:45 01/24/22 20:46 DC 01/24/22 20:44 Allergies: Allergies: Allergies Coded Allergies Type Severity Reaction Last Updated Verified No Known Medication Allergies Allergy Intermediate 01/24/22 Yes I S O L A T I O N *CONTACT* Allergy Unknown Unknown 01/24/22 Yes Physical Exam: PE: Constitutional: Well developed, well nourished, non-toxic appearance, tearful. HENT: Normocephalic, atraumatic, bilateral external ears normal, nose normal. Eyes: EOMI, conjunctiva normal, no discharge. Neck: Normal range of motion, no stridor. Cardiovascular: Heart regular rate and rhythm. Lungs & Thorax: No increased work of breathing, equal thoracic expansion. Abdomen: Bowel sounds normal, soft, no focal tenderness, no rebound or guarding. Skin: Warm, dry, no erythema, no rash. Extremities: No cyanosis, no clubbing, ROM intact. Neurologic: Alert and oriented, no focal deficits noted. Current Patient Data: Labs: Laboratory Tests Test 01/24/22 20:00 Urine Collection Type Unknown Urine Color (Auto) Light yellow Urine Turbidity Clear Urine pH (Auto) 6.5 (<5.0-8.0) Urine Specific [place] 1.015 (1.000-1.030) Urine Protein (Auto) Negative mg/dL (Negative) Urine Glucose (Auto)(UA) Negative mg/dL (Negative) Urine Ketones (Auto) Negative mg/dL (Negative) Urine Blood (Auto) Negative (Negative) Urine Nitrite Negative (Negative) Urine Bilirubin (Auto) Negative (Negative) Urine Urobilinogen (Auto) Normal mg/dL (Normal) Urine Leukocyte Esterase (Auto) Negative (Negative) Urine RBC 0 /HPF (0-2) Urine WBC 1-4 /HPF (0-4) Urine Squamous Epithelial Cells Occ /LPF Urine Bacteria 0 /HPF (0-FEW) Sodium Level 140 mmol/L (136-145) Potassium Level 4.2 mmol/L (3.5-5.1) Chloride Level 105 mmol/L (98-107) Carbon Dioxide Level 28 mmol/L (21-32) Anion Gap 7 (6-14) Blood Urea Nitrogen 11 mg/dL (7-20) Creatinine 0.9 mg/dL (0.6-1.0) Estimated GFR (Cockcroft-Gault) 71.3 BUN/Creatinine Ratio 12 (6-20) Glucose Level 85 mg/dL (70-99) Calcium Level 9.5 mg/dL (8.5-10.1) Magnesium Level 2.2 mg/dL (1.8-2.4) Total Bilirubin 0.2 mg/dL (0.2-1.0) Aspartate Amino Transferase (AST) 46 U/L (15-37) H Alanine Aminotransferase (ALT) 42 U/L (14-59) Alkaline Phosphatase 110 U/L (46-116) Troponin I High Sensitivity 15 ng/L (4-50) Total Protein 7.9 g/dL (6.4-8.2) Albumin 3.3 g/dL (3.4-5.0) L Albumin/Globulin Ratio 0.7 (1.0-1.7) L Lipase 51 U/L (73-393) L Laboratory Tests 01/24/22 20:00 Vital Signs: Vital Signs Date Time Temp Pulse Resp B/P (MAP) Pulse Ox O2 Delivery O2 Flow Rate FiO2 01/24/22 20:03 16 98 01/24/22 18:15 98.7 70 177/69 (105) 98.7 EKG: EKG: EKG Interpreted by Dr. Ching, obtained at 2038: Regular rate and rhythm 61 bpm with no ectopic beats. MA 126 ms QT 390 ms/QTc 394 ms. No STEMI. Course & Med Decision Making: Course & Med Decision Making Pertinent Labs and Imaging studies reviewed. (See chart for details) Patient is an 87-year-old female presenting with nonprovoked abdominal pain that began this morning and chest pain while waiting in the department. Patient's blood pressure is markedly elevated at 220s/100s. Work-up will consist of labs that include troponin and BNP, CT angio chest abdomen pelvis to evaluate for dissection or aneurysm, EKG, chest x-ray, urinalysis. Patient pending CBC and imaging studies. Patient was admitted to hospitalist Dr. Kendall for hypertensive urgency. He gladly accepts to telemetry. Delilah Disclaimer: Delilah Disclaimer: This electronic medical record was generated, in whole or in part, using a voice recognition dictation system. Departure Departure Impression: Primary Impression: Hypertensive urgency Disposition: ADMITTED INPATIENT Admitting Physician: GARFIELD Benz) Condition: GUARDED Referrals: Raymond SHANKS MD (PCP) HAL MANCILLA Jan 24, 2022 20:58
--- NOTE | 2022-01-24 21:11 | PDOC1 ---
History and Physical Date of Admission Date of Admission DATE: 01/24/22 TIME: 21:06 Identification/Chief Complaint Chief Complaint Chest pain, abdominal pain Source Source: Chart review, Patient History of Present Illness History of Present Illness Patient is a 87-year-old female with past medical history HTN, who presents to the ED with complaints of abdominal pain, and chest pain that started today around 12 PM. Upon arrival in the ED her lab work was largely unremarkable, AST 46, ALT 42, albumin 3.3, proBNP 727, troponin 15. Her blood pressure initially was reportedly 220/100 mmHg. This reportedly did come slightly after pain medication, but when I saw the patient in the ED blood pressure was 222/99 mmHg. Patient states that over the past 3 weeks she has been nauseous but denies vomiting. At the time my evaluation, CTA chest/abdomen/pelvis is currently pending. Will admit patient for further medical management.. Past Medical History Cardiovascular: CAD, HTN, Hyperlipidemia Pulmonary: Other CENTRAL NERVOUS SYSTEM: Other GI: GERD Heme/Onc: No pertinent hx Hepatobiliary: No pertinent hx Psych: Anxiety Musculoskeletal: low back pain, Osteoarthritis Rheumatologic: No pertinent hx Infectious disease: No pertinent hx Renal/: No pertinent hx Endocrine: Diabetes Past Surgical History Past Surgical History: Appendectomy, Cholecystectomy, Hernia Repair Family History Family History: Heart Disease, Hypertension Social History ALCOHOL: none Drugs: None Current Medications Current Medications Current Medications Labetalol HCl (Normodyne Iv Push) 20 mg 1X ONCE IVP ; Start 01/24/22 at 19:45; Stop 01/24/22 at 19:37; Status DC Morphine Sulfate (Morphine Sulfate) 1 mg 1X ONCE IVP ; Start 01/24/22 at 19:45; Stop 01/24/22 at 19:37; Status DC Hydromorphone HCl (Dilaudid) 0.5 mg 1X ONCE IVP Last administered on 01/24/22at 20:03; Start 01/24/22 at 19:45; Stop 01/24/22 at 19:46; Status DC Iohexol (Omnipaque 350 Mg/ml) 100 ml 1X ONCE IV Last administered on 01/24/22at 20:44; Start 01/24/22 at 20:45; Stop 01/24/22 at 20:46; Status DC Info (CONTRAST GIVEN -- Rx MONITORING) 1 each PRN DAILY PRN MC SEE COMMENTS; Start 01/24/22 at 20:45; Stop 01/26/22 at 20:44 Iohexol (Omnipaque 350 Mg/ml) 100 ml STK-MED ONCE .ROUTE ; Start 01/24/22 at 20:38; Stop 01/24/22 at 20:38; Status DC Hydralazine HCl (Apresoline Inj) 10 mg 1X ONCE IVP ; Start 01/24/22 at 21:30; Stop 01/24/22 at 21:31 Active Scripts Active Ondansetron Odt (Ondansetron) 4 Mg Tab.rapdis 4 Mg PO PRN Q4HRS PRN 30 Days Macrobid 100 Mg Capsule (Nitrofurantoin Monohyd/M-Cryst) 100 Mg Capsule 1 Cap PO BID 2 Days Fluconazole 100 Mg Tablet 1 Tab PO DAILY 5 Days Colace (Docusate Sodium) 100 Mg Capsule 100 Mg PO PRN DAILY PRN Aspirin Ec (Aspirin) 81 Mg Tablet.dr 81 Mg PO DAILY Isosorbide Mononitrate Er (Isosorbide Mononitrate) 30 Mg Tab.er.24h 60 Mg PO DAILY Reported Nitrostat (Nitroglycerin) 0.4 Mg Tab.subl 0.4 Mg SL PRN Q5MIN PRN Prolia (Denosumab) 60 Mg/1 Ml Disp.syrin 60 Mg SQ EVERY 6 MOS Miralax (Polyethylene Glycol 3350) 17 Gm Powd.pack 1 Packet PO DAILY PRN 2 Days dissolve in water Gabapentin (Gabapentin) 100 Mg Capsule 100 Mg PO TID Percocet 5-325 mg Tablet (Oxycodone HCl/Acetaminophen) 1 Each Tablet 2 Tab PO QIDPRN PRN MDD 4 Tablet(s) 5 Days Senna Plus Tablet (Sennosides/Docusate Sodium) 1 Each Tablet 1 Each PO BID Pepcid (Famotidine) 20 Mg Tablet 20 Mg PO BID Vitamin D2 (Ergocalciferol (Vitamin D2)) 50,000 Unit Capsule 50,000 Unit PO QWE Atorvastatin Calcium 20 Mg Tablet 20 Mg PO HS Amlodipine Besylate 10 Mg Tablet 10 Mg PO DAILY Restasis (Cyclosporine) 1 Each Droperette 1 Drop EACHEYE BID Allergies Allergies: Coded Allergies: No Known Medication Allergies (Verified Allergy, Intermediate, 01/24/22) I S O L A T I O N *CONTACT* (Verified Allergy, Unknown, Unknown, 01/24/22) ROS Review of System GENERAL: No history of weight change, weakness or fevers. SKIN: No bruising, hair changes or rashes. EYES: No blurred, double or loss of vision. NOSE AND THROAT: No history of nosebleeds, hoarseness or sore throat. HEART: Chest pain. Denies palpitations. LUNGS: Denies cough, hemoptysis, wheezing or shortness of breath. GASTROINTESTINAL: Abdominal pain. Denies nausea, vomiting. GENITOURINARY: Denies dysuria, frequency, urgency, hematuria. NEUROLOGIC: Denies history of numbness, tingling, tremor or weakness. PSYCHIATRIC: Denies anxiety, denies depression. ENDOCRINE: No history of heat or cold intolerance, polyuria or polydipsia. EXTREMITIES: Denies muscle weakness, joint pain, pain on walking or stiffness. Physical Exam Physical Exam General: Alert, Oriented X3, Cooperative, moderate distress HEENT: PERRLA, EOMI Lungs: Clear to auscultation, Normal air movement Heart: RRR, no murmurs Cardiovascular: S1, S2 Abdomen: Normal bowel sounds, Soft, No tenderness Extremities: No clubbing, No cyanosis Skin: No rashes, No significant lesion Neuro: Normal speech, Normal tone, Sensation intact Psych/Mental Status: Mental status NL, Mood NL Vitals Vitals Vital Signs Date Time Temp Pulse Resp B/P (MAP) Pulse Ox O2 Delivery O2 Flow Rate FiO2 01/24/22 20:45 78 16 178/89 (118) 100 01/24/22 18:15 98.7 98.7 Labs Labs Laboratory Tests Test 01/24/22 20:00 Urine Collection Type Unknown Urine Color (Auto) Light yellow Urine Turbidity Clear Urine pH (Auto) 6.5 (<5.0-8.0) Urine Specific [place] 1.015 (1.000-1.030) Urine Protein (Auto) Negative mg/dL (Negative) Urine Glucose (Auto)(UA) Negative mg/dL (Negative) Urine Ketones (Auto) Negative mg/dL (Negative) Urine Blood (Auto) Negative (Negative) Urine Nitrite Negative (Negative) Urine Bilirubin (Auto) Negative (Negative) Urine Urobilinogen (Auto) Normal mg/dL (Normal) Urine Leukocyte Esterase (Auto) Negative (Negative) Urine RBC 0 /HPF (0-2) Urine WBC 1-4 /HPF (0-4) Urine Squamous Epithelial Cells Occ /LPF Urine Bacteria 0 /HPF (0-FEW) Sodium Level 140 mmol/L (136-145) Potassium Level 4.2 mmol/L (3.5-5.1) Chloride Level 105 mmol/L (98-107) Carbon Dioxide Level 28 mmol/L (21-32) Anion Gap 7 (6-14) Blood Urea Nitrogen 11 mg/dL (7-20) Creatinine 0.9 mg/dL (0.6-1.0) Estimated GFR (Cockcroft-Gault) 71.3 BUN/Creatinine Ratio 12 (6-20) Glucose Level 85 mg/dL (70-99) Calcium Level 9.5 mg/dL (8.5-10.1) Magnesium Level 2.2 mg/dL (1.8-2.4) Total Bilirubin 0.2 mg/dL (0.2-1.0) Aspartate Amino Transf (AST/SGOT) 46 U/L (15-37) Alanine Aminotransferase (ALT/SGPT) 42 U/L (14-59) Alkaline Phosphatase 110 U/L (46-116) Troponin I High Sensitivity 15 ng/L (4-50) ZW-Vyy-T-Type Natriuretic Peptide 727 pg/mL (0-449) Total Protein 7.9 g/dL (6.4-8.2) Albumin 3.3 g/dL (3.4-5.0) Albumin/Globulin Ratio 0.7 (1.0-1.7) Lipase 51 U/L (73-393) Laboratory Tests Test 01/24/22 20:00 Urine Collection Type Unknown Urine Color (Auto) Light yellow Urine Turbidity Clear Urine pH (Auto) 6.5 (<5.0-8.0) Urine Specific [place] 1.015 (1.000-1.030) Urine Protein (Auto) Negative mg/dL (Negative) Urine Glucose (Auto)(UA) Negative mg/dL (Negative) Urine Ketones (Auto) Negative mg/dL (Negative) Urine Blood (Auto) Negative (Negative) Urine Nitrite Negative (Negative) Urine Bilirubin (Auto) Negative (Negative) Urine Urobilinogen (Auto) Normal mg/dL (Normal) Urine Leukocyte Esterase (Auto) Negative (Negative) Urine RBC 0 /HPF (0-2) Urine WBC 1-4 /HPF (0-4) Urine Squamous Epithelial Cells Occ /LPF Urine Bacteria 0 /HPF (0-FEW) Sodium Level 140 mmol/L (136-145) Potassium Level 4.2 mmol/L (3.5-5.1) Chloride Level 105 mmol/L (98-107) Carbon Dioxide Level 28 mmol/L (21-32) Anion Gap 7 (6-14) Blood Urea Nitrogen 11 mg/dL (7-20) Creatinine 0.9 mg/dL (0.6-1.0) Estimated GFR (Cockcroft-Gault) 71.3 BUN/Creatinine Ratio 12 (6-20) Glucose Level 85 mg/dL (70-99) Calcium Level 9.5 mg/dL (8.5-10.1) Magnesium Level 2.2 mg/dL (1.8-2.4) Total Bilirubin 0.2 mg/dL (0.2-1.0) Aspartate Amino Transf (AST/SGOT) 46 U/L (15-37) Alanine Aminotransferase (ALT/SGPT) 42 U/L (14-59) Alkaline Phosphatase 110 U/L (46-116) Troponin I High Sensitivity 15 ng/L (4-50) QX-Box-Y-Type Natriuretic Peptide 727 pg/mL (0-449) Total Protein 7.9 g/dL (6.4-8.2) Albumin 3.3 g/dL (3.4-5.0) Albumin/Globulin Ratio 0.7 (1.0-1.7) Lipase 51 U/L (73-393) VTE Prophylaxis Ordered VTE Prophylaxis Devices: No VTE Pharmacological Prophylaxi: Yes Assessment/Plan Assessment/Plan Hypertensive emergency Nausea Plan: Discussed with the ER, recommend Cardene drip. Consultation to cardiology We will resume her home medications (amlodipine, Imdur) tomorrow, and consider addition of chlorthalidone if still significantly elevated Zofran as needed FEN - Cardiac diet PPX - Heparin FULL CODE/surrogate decision-maker is her daughter (Radha Carlson) Dispo - inpatient for above Justifications for Admission Other Justification RICHIE ADAN MD Jan 24, 2022 21:11
[2022-01-24] MEDS ORDERED: NITROGLYCERIN SUBLINGUAL 0.4 MG BOTTLE OF 25. SL PRN (21:15)
[2022-01-24] MEDS ORDERED: POLYETHYLENE GLYCOL 3350 17 GM PACKET. PO PRN (21:15)
[2022-01-24] MEDS ORDERED: DOCUSATE SODIUM 100 MG CAPSULE. PO PRN (21:15)
--- NOTE | 2022-01-24 21:26 | RAD ---
EXAM: CT Chest, Abdomen and Pelvis without and with IV contrast CLINICAL HISTORY: Reason: chest and abd pain, htn / Spl. Instructions: [id number] [phone] / History: COMPARISON: CT abdomen from 06/13/2021 TECHNIQUE: Helical CT of the chest, abdomen and pelvis was performed following the administration of intravenous contrast. Axial, coronal and sagittal reformatted images were generated. ---PQRS compliance statement - One or more of the following individualized dose reduction techniques were utilized for this study: 1. Automated exposure control 2. Adjustment of the mA and/or kV according to patient size 3. Use of iterative reconstruction technique--- FINDINGS: CHEST: LUNGS/PLEURA: The pulmonary parenchyma appears within normal limits. No suspicious pulmonary nodules are visualized. Mild bibasilar scarring and/or atelectasis. No pleural effusion or focal pleural lesi on. MEDIASTINUM: No pathologic mediastinal or hilar adenopathy. The thoracic aorta and pulmonary arteries are normal in caliber. No evidence of intramural hematoma on the noncontrast images. The thoracic ao rta tortuous with mixed calcified and noncalcified atherosclerotic plaque with no hemodynamic stenosi s or evidence of dissection. The heart is normal in size. No pericardial effusion. Severe calcified c oronary atherosclerosis. Multiple subcentimeter hypoattenuating nodules within the thyroid gland. Mil d distal esophageal wall thickening may relate to reflux dysphagia process.. AXILLA/SOFT TISSUE: No supraclavicular or axillary adenopathy. Regional soft tissues are within clarisse l limits. Abdomen and Pelvis: Liver and biliary system: Diffuse hypoattenuation of the hepatic parenchyma, consistent with hepatic steatosis. Similar 1 cm cyst in the posterior superior right hepatic lobe. No suspicious hepatic abno rmalities. Gallbladder is absent. Similar biliary ductal prominence likely representing biliary reser voir. Spleen: Unremarkable Pancreas: Unremarkable Adrenal glands: Similar bilateral adrenal thickening, nonspecific favoring adrenal hyperplasia. Kidneys: Symmetric nephrograms. Similar tiny hypoattenuating cortical foci in bilateral kidneys, too small to characterize, favoring benign cyst. Similar scarring in the lower pole the left kidney. Lymph nodes/retroperitoneum: No pathologically enlarged adenopathy or retroperitoneal masses. Vessels: No aneurysmal dilation of the abdominal aorta or major branching vessels. Similar scattered predominantly calcified atherosclerotic disease. Bowel/Peritoneal cavity: Tiny hiatal hernia. Stomach is otherwise unremarkable.. No evidence of bowel obstruction or focal inflammation. Colonic diverticulosis without evidence of acute diverticulitis. Appendix is not definitely visualized. No free intra-abdominal air or free fluid. Abdominal wall: Unremarkable Bladder: Partially decompressed without acute abnormality. Reproductive: Uterus and ovaries are prominent for patient's age with small calcified fibroids, simil ar to prior studies. No suspicious adnexal masses. Bones: Similar multilevel thoracolumbar degenerative changes with remote compression fractures at the L4 and L5 levels with vertebroplasty changes noted at L4. IMPRESSION: 1. No evidence of acute aortic dissection of the chest or abdomen. 2. No evidence of acute abnormality in the chest, abdomen, or pelvis. 3. Colonic diverticulosis without evidence of acute diverticulitis.. 4. Multiple additional nonacute findings, not significantly changed from priors. Electronically signed by: Hussein Stack DO (01/24/2022 9:23 PM) [facility]
[2022-01-24] MEDS ORDERED: CALCIUM CARBONATE 500 MG TAB.CHEW PO PRN (21:30)
[2022-01-24] MEDS ORDERED: hydrALAZINE 20 MG/ML VIAL. IVP ONE (21:30)
[2022-01-24] MEDS ORDERED: MAG HYDROX/ALUMINUM HYD/SIMETH 30 ML ORAL.SUSP PO PRN (21:30)
[2022-01-24] MEDS ORDERED: ACETAMINOPHEN 325 MG TABLET. PO PRN (21:30)
[2022-01-24] MEDS ORDERED: MORPHINE SULFATE 2 MG/ML INJ. IV PRN (21:30)
[2022-01-24] MEDS ORDERED: ZOLPIDEM 5 MG TABLET. PO PRN (21:30)
--- NOTE | 2022-01-24 21:55 | RAD ---
Exam: Chest one view INDICATION: Short of breath TECHNIQUE: Frontal view of the chest Comparisons: 01/08/2022 FINDINGS: The cardiomediastinal silhouette and pulmonary vessels are within normal limits. Strandy opacities at the left lung base. No pleural effusion. IMPRESSION: Left basilar airspace disease, likely atelectasis. Electronically signed by: Radha Jackson MD (01/24/2022 9:52 PM) [facility]
[2022-01-24] MEDS: FAMOTIDINE 20 MG TABLET. PO SCH (22:27)
[2022-01-24] MEDS: GABAPENTIN 100 MG CAPSULE. PO SCH (22:27)
[2022-01-24] MEDS: ATORVASTATIN CALCIUM 20 MG TABLET PO SCH (22:27)
[2022-01-25] VITALS (7 sets, daily range): BP systolic 140–161; BP diastolic 54–67
[2022-01-25] MEDS: ONDANSETRON PF 4 MG/2 ML VIAL. IVP PRN ×2 (02:55→02:56)
[2022-01-25 08:07] LABS: BASO # 0.1 x10^3/uL (0.0-0.2); BASO % 1 % (0-3); EOS # 0.1 x10^3/uL (0.0-0.7); EOS % 1 % (0-3); HEMATOCRIT 40.4 % (36.0-47.0); HEMOGLOBIN 13.7 g/dL (12.0-15.5); LYMPH # 2.4 x10^3/uL (1.0-4.8); LYMPH % 25 % (24-48); MEAN CORPUSCULAR HEMOGLOBIN 33 pg (25-35); MEAN CORPUSCULAR HGB CONC 34 g/dL (31-37); MEAN CORPUSCULAR VOLUME 96 fL (79-100); MONO % 10 % (0-9); NEUT # 5.8 x10^3/uL (1.8-7.7); NEUT % 62 % (31-73); PLATELET COUNT 240 x10^3/uL (140-400); RED BLOOD COUNT 4.19 x10^6/uL (3.50-5.40); RED CELL DISTRIBUTION WIDTH 12.3 % (11.5-14.5); WHITE BLOOD COUNT 9.3 x10^3/uL (4.0-11.0)
[2022-01-25] MEDS: SENNOSIDES/DOCUSATE 8.6/50MG TABLET. PO SCH ×2 (09:00→22:13)
[2022-01-25] MEDS: ASPIRIN ENTERIC COATED 81 MG TABLET.DR. PO SCH (09:47)
[2022-01-25] MEDS: GABAPENTIN 100 MG CAPSULE. PO SCH ×3 (09:48→22:13)
[2022-01-25] MEDS: ISOSORBIDE MONONITRATE ER 30 MG TAB.ER.24H PO SCH (09:48)
[2022-01-25] MEDS: HEPARIN for SUB-Q USE 5,000 UNIT/ML VIAL. SQ SCH ×3 (09:52→22:20)
--- NOTE | 2022-01-25 10:38 | NUR ---
This RN notified Dr. Linn of pt's intermittent chest pain. Cardiology following. Morphine previously administered by this RN with minimal improvement, refer to EMAR for details. Orders received from Dr. Linn for Ativan 0.5 mg PO Q6 PRN. No additional orders received at this time.
[2022-01-25] MEDS ORDERED: LORazepam 0.5 MG TABLET PO PRN (11:00)
[2022-01-25] MEDS: CHLORTHALIDONE 25 MG TABLET. PO SCH (11:38)
--- NOTE | 2022-01-25 11:44 | EKG ---
[facility] [address] [place] [address] Test Date: 2022-01-24 Test Time: 00:00:00 Pat Name: DANIEL ARMENDARIZ Department: Room: 512 1 Gender: F [employer] Team Member: : [id number] Requested By: HAL MANCILLA Order Number: [id number] Reading MD: Conrado Hanna Measurements Intervals [place] Rate: 61 P: 34 [place]: 126 QRS: 4 QRSD: 84 T: 130 QT: 390 QTc: 394 Interpretive Statements SINUS RHYTHM ST & T ABNORMALITY, CONSIDER HIGH LATERAL ISCHEMIA OR LEFT VENTRICULAR STRAIN Electronically Signed On 01-25-2022 16:46:59 CDT by Conrado Hanna
--- NOTE | 2022-01-25 13:17 | PDOC2 ---
FRANCOISE COLUNGA HUMAN SERVICES ASSISTANT 01/25/22 1317: CARDIAC CONSULT DATE OF CONSULT Date of Consult DATE: 01/25/22 TIME: 13:08 REASON FOR CONSULT Reason for Consult: Hypertensive urgency REFERRING PHYSICIAN Referring Physician: ROSA Looney SOURCE Source: Chart review, Patient HISTORY OF PRESENT ILLNESS HISTORY OF PRESENT ILLNESS This is an 87 yo female who presented secondary to abdominal pain. Blood pressure noted to be significantly elevated, which prompted this consult. Patient reports intermittent abdominal pain and nausea for the last 3 weeks. Reports blood pressure has been elevated recently. Reports compliance with medications. She denies any chest pain, palpitations, dizziness, diaphoresis, or shortness of breath. PAST MEDICAL HISTORY Past Medical History Cardiovascular: HTN, Hyperlipidemia Pulmonary: Other (NEFTALY with CPAP) CENTRAL NERVOUS SYSTEM: Other (CVA) GI: GERD Heme/Onc: No pertinent hx Hepatobiliary: No pertinent hx Psych: Anxiety Musculoskeletal: low back pain, Osteoarthritis Rheumatologic: No pertinent hx Infectious disease: No pertinent hx Renal/: No pertinent hx Endocrine: Diabetes PAST SURGICAL HISTORY Past Surgical History Appendectomy, Cholecystectomy, Hernia Repair FAMILY HISTORY Family History Heart Disease, Hypertension SOCIAL HISTORY Smoke: No ALCOHOL: none Drugs: None CURRENT MEDICATIONS CURRENT MEDICATIONS Current Medications Medications (Trade) Dose Ordered Sig/Kimberly Route PRN Reason Start Time Stop Time Status Last Admin Dose Admin Hydromorphone HCl (Dilaudid) 0.5 mg 1X ONCE IVP 01/24/22 19:45 01/24/22 19:46 DC 01/24/22 20:03 Iohexol (Omnipaque 350 Mg/ml) 100 ml 1X ONCE IV 01/24/22 20:45 01/24/22 20:46 DC 01/24/22 20:44 Hydralazine HCl (Apresoline Inj) 10 mg 1X ONCE IVP 01/24/22 21:30 01/24/22 21:31 DC 01/24/22 21:29 Amlodipine Besylate (Norvasc) 10 mg DAILY PO 01/25/22 09:00 01/25/22 09:48 Aspirin (Ecotrin) 81 mg DAILY PO 01/25/22 09:00 01/25/22 09:47 Atorvastatin Calcium (Lipitor) 20 mg HS PO 01/24/22 22:00 01/24/22 22:27 Famotidine (Pepcid) 20 mg QHS PO 01/24/22 22:00 01/24/22 22:27 Gabapentin (Neurontin) 100 mg TID PO 01/24/22 22:00 01/25/22 09:48 Isosorbide Mononitrate (Imdur) 60 mg DAILY PO 01/25/22 09:00 01/25/22 09:48 Ondansetron HCl (Zofran) 4 mg PRN Q6HRS PRN IVP NAUSEA/VOMITING 1ST CHOICE 01/24/22 21:30 01/25/22 02:56 Zolpidem Tartrate (Ambien) 5 mg PRN QHS PRN PO INSOMNIA, MAY REPEAT IN 1HR 01/24/22 21:30 01/24/22 23:34 Morphine Sulfate (Morphine Sulfate) 2 mg PRN Q1HR PRN IV SEVERE PAIN 7-10 01/24/22 21:30 01/25/22 08:32 Heparin Sodium (Porcine) (Heparin Sodium) 5,000 unit Q12HR SQ 01/25/22 09:00 01/25/22 09:52 Lorazepam (Ativan) 0.5 mg PRN Q6HRS PRN PO ANXIETY / AGITATION 01/25/22 11:00 01/25/22 10:56 Chlorthalidone (Thalitone) 25 mg DAILY PO 01/25/22 11:15 01/25/22 11:38 ALLERGIES ALLERGIES: Coded Allergies: No Known Medication Allergies (Verified Allergy, Intermediate, 01/24/22) I S O L A T I O N *CONTACT* (Verified Allergy, Unknown, Unknown, 01/24/22) ROS Review of System 14 point ROS conducted with pertinent positives noted above in HPI PHYSICAL EXAM PHYSICAL EXAM General: Alert, Oriented X3, Cooperative, No acute distress HEENT: Atraumatic, Mucous membr. moist/pink Lungs: Clear to auscultation Heart: Regular rate Abdomen: Soft, No tenderness Extremities: No edema, Normal pulses Skin: No significant lesion Neuro: Normal speech, Sensation intact Psych/Mental Status: Mental status NL, Mood NL MUSCULOSKELETAL: Osteoarthritic changes both hands VITALS/I&O VITALS/I&O: Vital Signs Date Time Temp Pulse Resp B/P (MAP) Pulse Ox O2 Delivery O2 Flow Rate FiO2 01/25/22 11:00 98.1 60 16 150/54 (86) 100 98.1 01/25/22 08:30 Room Air LABS Lab: Laboratory Tests Test 01/24/22 20:00 01/25/22 07:31 Urine Collection Type Unknown Urine Color (Auto) Light yellow Urine Turbidity Clear Urine pH (Auto) 6.5 (<5.0-8.0) Urine Specific [place] 1.015 (1.000-1.030) Urine Protein (Auto) Negative mg/dL (Negative) Urine Glucose (Auto)(UA) Negative mg/dL (Negative) Urine Ketones (Auto) Negative mg/dL (Negative) Urine Blood (Auto) Negative (Negative) Urine Nitrite Negative (Negative) Urine Bilirubin (Auto) Negative (Negative) Urine Urobilinogen (Auto) Normal mg/dL (Normal) Urine Leukocyte Esterase (Auto) Negative (Negative) Urine RBC 0 /HPF (0-2) Urine WBC 1-4 /HPF (0-4) Urine Squamous Epithelial Cells Occ /LPF Urine Bacteria 0 /HPF (0-FEW) Sodium Level 140 mmol/L (136-145) Potassium Level 4.2 mmol/L (3.5-5.1) Chloride Level 105 mmol/L (98-107) Carbon Dioxide Level 28 mmol/L (21-32) Anion Gap 7 (6-14) Blood Urea Nitrogen 11 mg/dL (7-20) Creatinine 0.9 mg/dL (0.6-1.0) Estimated GFR (Cockcroft-Gault) 71.3 BUN/Creatinine Ratio 12 (6-20) Glucose Level 85 mg/dL (70-99) Calcium Level 9.5 mg/dL (8.5-10.1) Magnesium Level 2.2 mg/dL (1.8-2.4) Total Bilirubin 0.2 mg/dL (0.2-1.0) Aspartate Amino Transferase (AST) 46 U/L (15-37) H Alanine Aminotransferase (ALT) 42 U/L (14-59) Alkaline Phosphatase 110 U/L (46-116) Troponin I High Sensitivity 15 ng/L (4-50) ZY-Pgs-X-Type Natriuretic Peptide 727 pg/mL (0-449) H Total Protein 7.9 g/dL (6.4-8.2) Albumin 3.3 g/dL (3.4-5.0) L Albumin/Globulin Ratio 0.7 (1.0-1.7) L Lipase 51 U/L (73-393) L White Blood Count 9.3 x10^3/uL (4.0-11.0) Red Blood Count 4.19 x10^6/uL (3.50-5.40) Hemoglobin 13.7 g/dL (12.0-15.5) Hematocrit 40.4 % (36.0-47.0) Mean Corpuscular Volume 96 fL (79-100) Mean Corpuscular Hemoglobin 33 pg (25-35) Mean Corpuscular Hemoglobin Concent 34 g/dL (31-37) Red Cell Distribution Width 12.3 % (11.5-14.5) Platelet Count 240 x10^3/uL (140-400) Neutrophils (%) (Auto) 62 % (31-73) Lymphocytes (%) (Auto) 25 % (24-48) Monocytes (%) (Auto) 10 % (0-9) H Eosinophils (%) (Auto) 1 % (0-3) Basophils (%) (Auto) 1 % (0-3) Neutrophils # (Auto) 5.8 x10^3/uL (1.8-7.7) Lymphocytes # (Auto) 2.4 x10^3/uL (1.0-4.8) Monocytes # (Auto) 1.0 x10^3/uL (0.0-1.1) Eosinophils # (Auto) 0.1 x10^3/uL (0.0-0.7) Basophils # (Auto) 0.1 x10^3/uL (0.0-0.2) Lactic Acid Level 1.7 mmol/L (0.4-2.0) Laboratory Tests 01/25/22 07:31 Laboratory Tests 01/24/22 20:00 ECHOCARDIOGRAM ECHOCARDIOGRAM <Conclusion> The left ventricular systolic function is normal. The Ejection Fraction is 60-65%. There is normal LV segmental wall motion. Transmitral Doppler flow pattern is Grade I-abnormal relaxation pattern. Doppler and color suggests possible left to right interatrial shunt. Mild to moderate aortic regurgitation. Mild mitral regurgitation. Mild to moderate tricuspid regurgitation. There is mild pulmonary hypertension. The PA pressure was estimated at 37 mmHg. There is no evidence of significant pericardial effusion. DATE: 08/26/18 1210 STRESS TEST STRESS TEST Conclusion 1. Regadenoson cardioisotope stress test did not show any evidence of ischemia or infarct. 2. Normal left ventricular systolic function with ejection fraction calculated at 79%. 3. Low risk for cardiac events. DATE: 08/24/21 [id number] ASSESSMENT/PLAN ASSESSMENT/PLAN 1. Abdominal pain, nausea; CT chest/abdomen/pelvis showed diverticulosis without evidence of acute diverticulitis. No acute findings noted. 2. Accelerated hypertension; remains elevated 3. Hyperlipidemia; statin 4. Diabetes, II 5. NEFTALY with CPAP 6. H/o CVA Recommendations Continue Imdur, amlodipine. Will add losartan Monitor trend and adjust therapy as warranted Workup of abdominal pain as per IM Supportive care BELA BORGES MD 01/25/221958: CARDIAC CONSULT ASSESSMENT/PLAN ASSESSMENT/PLAN Patient seen and examined. I agree with above nurse practitioner note. Initiate antihypertensive therapy. Work-up as noted above. Supportive care. FRANCOISE COLUNGA APRN Jan 25, 2022 13:17 BELA BORGES MD Jan 25, 2022 19:59
--- NOTE | 2022-01-25 13:21 | PDOC ---
[facility] PROGRESS NOTE Date of Service DOS: DATE: 01/25/22 TIME: 12:57 Chief Complaint Chief Complaint Assessment/Plan Hypertensive emergency improved Nausea Bilateral adrenal hyperplasia Plan: Pending renin aldosterone levels Resume Norvasc and Imdur. I have added chlorthalidone Pending cardiology evaluation Zofran as needed FEN - Cardiac diet PPX - Heparin FULL CODE/surrogate decision-maker is her daughter (Radha Carlson) Dispo - inpatient for above History of Present Illness History of Present Illness 87-year-old female with past medical history HTN, who presents to the ED with complaints of abdominal pain, and chest pain that started today around 12 PM. Upon arrival in the ED her lab work was largely unremarkable, AST 46, ALT 42, albumin 3.3, proBNP 727, troponin 15. Her blood pressure initially was reportedly 220/100 mmHg. This reportedly did come slightly after pain medication, but when I saw the patient in the ED blood pressure was 222/99 mmHg. Patient states that over the past 3 weeks she has been nauseous but denies vomiting. At the time my evaluation, CTA chest/abdomen/pelvis is currently pending. Will admit patient for further medical management. 01/25/2022 No acute events overnight. Patient seen examined bedside. Systolic blood pressure in the 160s still. Patient feels a little bit better but still has generalized weakness, nausea but no vomiting. Mild abdominal pain. No dysuria. UA is negative for any UTI. Possibly component of anxiety. Ativan 0.5 IV and p.o. ordered. Patient's chart, labs, images were reviewed and discussed with RN Vitals/I&O Vitals/I&O: Vital Signs Date Time Temp Pulse Resp B/P (MAP) Pulse Ox O2 Delivery O2 Flow Rate FiO2 01/25/22 11:00 98.1 60 16 150/54 (86) 100 98.1 01/25/22 08:30 Room Air Physical Exam General: Alert, Oriented X3, Cooperative Heart: Regular rate Lungs: Clear Abdomen: Normal bowel sounds Extremities: No clubbing Labs Labs: Laboratory Tests Test 01/24/22 20:00 01/25/22 07:31 Urine Collection Type Unknown Urine Color (Auto) Light yellow Urine Turbidity Clear Urine pH (Auto) 6.5 (<5.0-8.0) Urine Specific [place] 1.015 (1.000-1.030) Urine Protein (Auto) Negative mg/dL (Negative) Urine Glucose (Auto)(UA) Negative mg/dL (Negative) Urine Ketones (Auto) Negative mg/dL (Negative) Urine Blood (Auto) Negative (Negative) Urine Nitrite Negative (Negative) Urine Bilirubin (Auto) Negative (Negative) Urine Urobilinogen (Auto) Normal mg/dL (Normal) Urine Leukocyte Esterase (Auto) Negative (Negative) Urine RBC 0 /HPF (0-2) Urine WBC 1-4 /HPF (0-4) Urine Squamous Epithelial Cells Occ /LPF Urine Bacteria 0 /HPF (0-FEW) Sodium Level 140 mmol/L (136-145) Potassium Level 4.2 mmol/L (3.5-5.1) Chloride Level 105 mmol/L (98-107) Carbon Dioxide Level 28 mmol/L (21-32) Anion Gap 7 (6-14) Blood Urea Nitrogen 11 mg/dL (7-20) Creatinine 0.9 mg/dL (0.6-1.0) Estimated GFR (Cockcroft-Gault) 71.3 BUN/Creatinine Ratio 12 (6-20) Glucose Level 85 mg/dL (70-99) Calcium Level 9.5 mg/dL (8.5-10.1) Magnesium Level 2.2 mg/dL (1.8-2.4) Total Bilirubin 0.2 mg/dL (0.2-1.0) Aspartate Amino Transf (AST/SGOT) 46 U/L (15-37) Alanine Aminotransferase (ALT/SGPT) 42 U/L (14-59) Alkaline Phosphatase 110 U/L (46-116) Troponin I High Sensitivity 15 ng/L (4-50) VE-Kya-H-Type Natriuretic Peptide 727 pg/mL (0-449) Total Protein 7.9 g/dL (6.4-8.2) Albumin 3.3 g/dL (3.4-5.0) Albumin/Globulin Ratio 0.7 (1.0-1.7) Lipase 51 U/L (73-393) White Blood Count 9.3 x10^3/uL (4.0-11.0) Red Blood Count 4.19 x10^6/uL (3.50-5.40) Hemoglobin 13.7 g/dL (12.0-15.5) Hematocrit 40.4 % (36.0-47.0) Mean Corpuscular Volume 96 fL (79-100) Mean Corpuscular Hemoglobin 33 pg (25-35) Mean Corpuscular Hemoglobin Concent 34 g/dL (31-37) Red Cell Distribution Width 12.3 % (11.5-14.5) Platelet Count 240 x10^3/uL (140-400) Neutrophils (%) (Auto) 62 % (31-73) Lymphocytes (%) (Auto) 25 % (24-48) Monocytes (%) (Auto) 10 % (0-9) Eosinophils (%) (Auto) 1 % (0-3) Basophils (%) (Auto) 1 % (0-3) Neutrophils # (Auto) 5.8 x10^3/uL (1.8-7.7) Lymphocytes # (Auto) 2.4 x10^3/uL (1.0-4.8) Monocytes # (Auto) 1.0 x10^3/uL (0.0-1.1) Eosinophils # (Auto) 0.1 x10^3/uL (0.0-0.7) Basophils # (Auto) 0.1 x10^3/uL (0.0-0.2) Lactic Acid Level 1.7 mmol/L (0.4-2.0) Assessment and Plan Assessmemt and Plan Problems Medical Problems: (1) Hypertensive urgency Status: Acute Comment Review of Relevant I have reviewed the following items rj (where applicable) has been applied. Medications: Current Medications Medications (Trade) Dose Ordered Sig/Kimberly Route PRN Reason Start Time Stop Time Status Last Admin Dose Admin Hydromorphone HCl (Dilaudid) 0.5 mg 1X ONCE IVP 01/24/22 19:45 01/24/22 19:46 DC 01/24/22 20:03 Iohexol (Omnipaque 350 Mg/ml) 100 ml 1X ONCE IV 01/24/22 20:45 01/24/22 20:46 DC 01/24/22 20:44 Hydralazine HCl (Apresoline Inj) 10 mg 1X ONCE IVP 01/24/22 21:30 01/24/22 21:31 DC 01/24/22 21:29 Amlodipine Besylate (Norvasc) 10 mg DAILY PO 01/25/22 09:00 01/25/22 09:48 Aspirin (Ecotrin) 81 mg DAILY PO 01/25/22 09:00 01/25/22 09:47 Atorvastatin Calcium (Lipitor) 20 mg HS PO 01/24/22 22:00 01/24/22 22:27 Famotidine (Pepcid) 20 mg QHS PO 01/24/22 22:00 01/24/22 22:27 Gabapentin (Neurontin) 100 mg TID PO 01/24/22 22:00 01/25/22 09:48 Isosorbide Mononitrate (Imdur) 60 mg DAILY PO 01/25/22 09:00 01/25/22 09:48 Ondansetron HCl (Zofran) 4 mg PRN Q6HRS PRN IVP NAUSEA/VOMITING 1ST CHOICE 01/24/22 21:30 01/25/22 02:56 Zolpidem Tartrate (Ambien) 5 mg PRN QHS PRN PO INSOMNIA, MAY REPEAT IN 1HR 01/24/22 21:30 01/24/22 23:34 Morphine Sulfate (Morphine Sulfate) 2 mg PRN Q1HR PRN IV SEVERE PAIN 7-10 01/24/22 21:30 01/25/22 08:32 Heparin Sodium (Porcine) (Heparin Sodium) 5,000 unit Q12HR SQ 01/25/22 09:00 01/25/22 09:52 Lorazepam (Ativan) 0.5 mg PRN Q6HRS PRN PO ANXIETY / AGITATION 01/25/22 11:00 01/25/22 10:56 Chlorthalidone (Thalitone) 25 mg DAILY PO 01/25/22 11:15 01/25/22 11:38 Justifications for Admission Other Justification CARLOS DESAI MD Jan 25, 2022 13:21
[2022-01-25] MEDS ORDERED: ERGOCALCIFEROL (VITAMIN D2) 50,000 UNIT CAPSULE. PO SCH (16:00)
[2022-01-25] MEDS: LOSARTAN POTASSIUM 25 MG TABLET. PO SCH (16:00)
[2022-01-25] MEDS: HYDROcodone/APAP 5/325MG 1 TAB TABLET PO PRN (19:55)
[2022-01-25] MEDS: ATORVASTATIN CALCIUM 20 MG TABLET PO SCH (22:13)
[2022-01-25] MEDS: FAMOTIDINE 20 MG TABLET. PO SCH (22:13)
[2022-01-26 03:50] VITALS: BP 133/53
[2022-01-26 07:00] VITALS: BP 138/68
[2022-01-26] MEDS: GABAPENTIN 100 MG CAPSULE. PO SCH (08:12)
[2022-01-26] MEDS: ISOSORBIDE MONONITRATE ER 30 MG TAB.ER.24H PO SCH (08:12)
[2022-01-26] MEDS: SENNOSIDES/DOCUSATE 8.6/50MG TABLET. PO SCH (08:12)
[2022-01-26] MEDS: ASPIRIN ENTERIC COATED 81 MG TABLET.DR. PO SCH (08:12)
[2022-01-26] MEDS: CHLORTHALIDONE 25 MG TABLET. PO SCH (08:12)
[2022-01-26] MEDS: LOSARTAN POTASSIUM 25 MG TABLET. PO SCH (08:13)
[2022-01-26] MEDS: HEPARIN for SUB-Q USE 5,000 UNIT/ML VIAL. SQ SCH (08:16)
[2022-01-26] MEDS: HYDROcodone/APAP 5/325MG 1 TAB TABLET PO PRN (08:45)
--- NOTE | 2022-01-26 09:41 | PDOC ---
FRANCOISE COLUNGA APRN 01/26/22 0941: CARDIO Progress Notes Date and Time Date of Service 01/26/22 Time of Evaluation 1110 Subjective Subjective: No Chest Pain, No shortness of breath, No Palpitations, No Dizziness Vitals Vitals Vital Signs Date Time Temp Pulse Resp B/P (MAP) Pulse Ox O2 Delivery O2 Flow Rate FiO2 01/26/22 09:19 Room Air 01/26/22 08:13 61 138/68 01/26/22 07:00 97.7 18 97 97.7 Weight Weight [ ] Input and Output Intake and Output Intake and Output 01/26/22 07:00 Intake Total 730 ml Balance 730 ml Intake Oral 730 ml # Voids 5 Laboratory Labs Laboratory Tests Test 01/25/22 11:30 Thyroid Stimulating Hormone (TSH) 0.816 uIU/mL (0.358-3.74) Physical Exam HEENT: Neck Supple W Full Motion Chest: Symmetric LUNGS: Clear to Auscultation Heart: RRR Abdomen: Soft N/T Extremities: No Edema Neurology: alert, oriented, follow commands Assessment Assessment 1. Abdominal pain, nausea; CT chest/abdomen/pelvis showed diverticulosis without evidence of acute diverticulitis. No acute findings noted. improved 2. Accelerated hypertension; now controlled 3. Hyperlipidemia; statin 4. Diabetes, II 5. NEFTALY with CPAP 6. H/o CVA Recommendations Continue Imdur, amlodipine, and losartan for BP control Secondary prevention Supportive care Justicifation of Admission Dx: Justifications for Admission: Justification of Admission Dx: Yes BELA BORGES MD 01/26/22 1546: CARDIO Progress Notes Plan Plan The patient was seen and interviewed as well as examined at the bedside. The chart was reviewed. The case was discussed. Agree with the plan of care. FRANCOISE COLUNGA APRN Jan 26, 2022 09:41 BELA BORGES MD Jan 26, 2022 15:46
[2022-01-26] MEDS ORDERED: LOSA25TA54 PO (10:39)
--- NOTE | 2022-01-26 10:42 | SNU/HH DC ---
DISCHARGE WITH HOME HEALTH DISCHARGE INFORMATION: Discharge Date: Jan 26, 2022 Final Diagnosis: Problems Medical Problems: (1) Hypertensive urgency Status: Acute Condition on Discharge: Stable CODE STATUS: Code Status: Full HOME HEALTH: Face to Face: I certify this patient is under my care and that I, or a nurse practitioner or physician's ambulance assistant working with me, had a face to face encounter that meets the physician face to face encounter requirements with this patient on []. Medical Complications: Falls, HTN Senior Care For: Assess & Educate Safety, Assess/Skilled Observatio, Medication Management RN For Eval/Treatment: Yes Physical Therapy For: Evalulation/Treatment Occupational Therapy For: Evaluation/Treatment Home Health Aide For: Self-care Pt Meets Homebound Status: Poor coordination w/ amb., Extreme weakness w/ amb., Limited distance walking, Unable to negotiate home POST DISCHARGE ORDERS: Activity Instructions for Disc: Activity as tolerated Weight Bearing Status after Di: No restrictions, As tolerated DIET AFTER DISCHARGE: ADA Wound/Incision Care: Ice to area for comfort, Other, see below CHECKS AFTER DISCHARGE: Checks after discharge: Check blood press - daily, Check blood sugar, ac/hs, Check your Temp as needed, Weigh Yourself Daily FOLLOW-UP: PCP to follow Home Health: Dr Marrufo Follow up with: PCP within 2 weeks of discharge Follow Up With: Renin and aldosterone levels Additional Instructions: Please have PCP follow-up with renin and aldosterone levels. You have bilateral adrenal hyperplasia may be contributing to your elevated blood pressures TREATMENT/EQUIPMENT ORDERS: Adaptive Equipment Issued: None CERTIFICATION STATEMENT: Certification Statement: Certification Statement: Based on the above finding, I certify that this patient is confined to the home and needs intermittent snf care, physical therapy and/or speech therapy, or continues to need occupational therapy.~ This patient is under my care, and I have initiated the establishment of the plan of care.~ This patient will be followed by myself or a community physician who will periodically review the plan of care. Home Meds Active Scripts Losartan Potassium (LOSARTAN POTASSIUM ) 25 Mg Tablet, 25 MG PO DAILY for blood pressure for 30 Days, #30 TAB Prov:CARLOS DESAI MD 01/26/22 Ondansetron (ONDANSETRON ODT) 4 Mg Tab.rapdis, 4 MG PO PRN Q4HRS PRN for NAUSEA for 30 Days, #30 TAB 5 Refills Prov:RIFFEL,CHRISTOPHER S MD 01/09/22 Docusate Sodium (COLACE) 100 Mg Capsule, 100 MG PO PRN DAILY PRN for CONSTIPATION, #10 CAP Prov:LONNIE TROTTER MD 03/29/17 Aspirin (ASPIRIN EC) 81 Mg Tablet.dr, 81 MG PO DAILY, #1 TAB Prov:YASEMIN TORRES MD 06/06/16 Isosorbide Mononitrate (ISOSORBIDE MONONITRATE ER) 30 Mg Tab.er.24h, 60 MG PO DAILY, #30 TAB Prov:YASEMIN TORRES MD 06/06/16 Reported Medications Nitroglycerin (NITROSTAT) 0.4 Mg Tab.subl, 0.4 MG SL PRN Q5MIN PRN for CHEST PAIN, BOTTLE 03/22/20 Denosumab (PROLIA) 60 Mg/1 Ml Disp.syrin, 60 MG SQ every 6 mos for osteoporosis, DIS.SYR 03/22/20 Polyethylene Glycol 3350 (MIRALAX) 17 Gm Powd.pack, 1 PACKET PO DAILY PRN for CONSTIPATION for 2 Days, #2 PACKET 0 Refills dissolve in water 03/22/20 Gabapentin (GABAPENTIN ) 100 Mg Capsule, 100 MG PO TID for NEUROGENIC PAIN, CAP 03/22/20 Sennosides/Docusate Sodium (SENNA PLUS TABLET) 1 Each Tablet, 1 EACH PO BID for constipation, TAB 03/22/20 Famotidine (PEPCID) 20 Mg Tablet, 20 MG PO BID for gerd, TAB 03/22/20 Ergocalciferol (Vitamin D2) (VITAMIN D2) 50,000 Unit Capsule, 97392 UNIT PO QWE for vitamin 07/12/19 Atorvastatin Calcium (ATORVASTATIN CALCIUM) 20 Mg Tablet, 20 MG PO HS for FOR CHOLESTEROL, #30 TAB 0 Refills 10/18/17 Amlodipine Besylate (AMLODIPINE BESYLATE) 10 Mg Tablet, 10 MG PO DAILY, TAB 06/06/16 Cyclosporine (RESTASIS) 1 Each Droperette, 1 DROP EACHEYE BID, #60 VIAL 3 Refills 06/06/16 Discontinued Reported Medications Oxycodone HCl/Acetaminophen (Percocet 5-325 mg Tablet) 1 Each Tablet, 2 TAB PO QIDPRN PRN for PAIN MDD 4 Tablet(s) for 5 Days, #20 TAB 0 Refills 03/22/20 Discontinued Scripts Nitrofurantoin Monohyd/M-Cryst (MACROBID 100 MG CAPSULE) 100 Mg Capsule, 1 CAP PO BID for UTI for 2 Days, #4 CAP 0 Refills Prov:ARVIN BAKER MD 01/09/22 Fluconazole (FLUCONAZOLE) 100 Mg Tablet, 1 TAB PO DAILY for Thrush for 5 Days, #5 TAB Prov:ARVIN BAKER MD 01/09/22 CARLOS DESAI MD Jan 26, 2022 10:42
[2022-01-26 10:54] VITALS: BP 109/55
--- NOTE | 2022-01-26 13:31 | NUR ---
Discharge Note: PT DISCHARGED HOME WITH SELF CARE. PT LEFT FACILITY VIA PRIVATE VEHICLE WITH DAUGHTER AT 1330. PT STABLE AND ALERT UPON DISCHARGE. PT PIV REMOVED FROM L AC WITHOUT COMPLICATIONS, BANDAGE APPLIED. PT TELE MONITOR REMOVED. PT EDUCATED ABOUT DISCHARGE INSTRUCTIONS, DISCHARGE MEDICATIONS, AND FOLLOW-UP CARE INSTRUCTIONS. NO CONCERNS VOICED AT THIS TIME. PT GIVEN LIST OF PCP PROVIDERS IN THE AREA PRIOR TO DISCHARGE. PT LEFT WITH ALL PERSONAL BELONGINGS. DAIJA ARMENDARIZ Discharge instructions and discharge home medications reviewed with Patient and a copy given. All questions have been answered and understanding verbalized.
--- NOTE | 2022-01-29 10:20 | PDOC3 ---
[facility]-Discharge Summary Date of Admission: Date of Admission: Jan 24, 2022 Date of Discharge: Date of Discharge: Jan 26, 2022 Discharge Diagnosis: Discharge Diagnosis: Hypertensive emergency improved Nausea Bilateral adrenal hyperplasia Consults: Consults: Per cardiology: Recommendations Continue Imdur, amlodipine, and losartan for BP control Secondary prevention Supportive care Procedures: Procedures: PROCEDURE: CT ANGIO CHEST ABD PELVIS EXAM: CT Chest, Abdomen and Pelvis without and with IV contrast CLINICAL HISTORY: Reason: chest and abd pain, htn / Spl. Instructions: [id number] [phone] / History: COMPARISON: CT abdomen from 06/13/2021 TECHNIQUE: Helical CT of the chest, abdomen and pelvis was performed following the administration of intravenous contrast. Axial, coronal and sagittal reformatted images were generated. ---PQRS compliance statement - One or more of the following individualized dose reduction techniques were utilized for this study: 1. Automated exposure control 2. Adjustment of the mA and/or kV according to patient size 3. Use of iterative reconstruction technique--- FINDINGS: CHEST: LUNGS/PLEURA: The pulmonary parenchyma appears within normal limits. No suspicious pulmonary nodules are visualized. Mild bibasilar scarring and/or atelectasis. No pleural effusion or focal pleural lesion. MEDIASTINUM: No pathologic mediastinal or hilar adenopathy. The thoracic aorta and pulmonary arteries are normal in caliber. No evidence of intramural hematoma on the noncontrast images. The thoracic aorta tortuous with mixed calcified and noncalcified atherosclerotic plaque with no hemodynamic stenosis or evidence of dissection. The heart is normal in size. No pericardial effusion. Severe calcified coronary atherosclerosis. Multiple subcentimeter hypoattenuating nodules within the thyroid gland. Mild distal esophageal wall thickening may relate to reflux dysphagia process.. AXILLA/SOFT TISSUE: No supraclavicular or axillary adenopathy. Regional soft tissues are within normal limits. Abdomen and Pelvis: Liver and biliary system: Diffuse hypoattenuation of the hepatic parenchyma, consistent with hepatic steatosis. Similar 1 cm cyst in the posterior superior right hepatic lobe. No suspicious hepatic abnormalities. Gallbladder is absent. Similar biliary ductal prominence likely representing biliary reservoir. Spleen: Unremarkable Pancreas: Unremarkable Adrenal glands: Similar bilateral adrenal thickening, nonspecific favoring adren al hyperplasia. Kidneys: Symmetric nephrograms. Similar tiny hypoattenuating cortical foci in bilateral kidneys, too small to characterize, favoring benign cyst. Similar scarring in the lower pole the left kidney. Lymph nodes/retroperitoneum: No pathologically enlarged adenopathy or retroperitoneal masses. Vessels: No aneurysmal dilation of the abdominal aorta or major branching vessels. Similar scattered predominantly calcified atherosclerotic disease. Bowel/Peritoneal cavity: Tiny hiatal hernia. Stomach is otherwise unremarkable.. No evidence of bowel obstruction or focal inflammation. Colonic diverticulosis without evidence of acute diverticulitis. Appendix is not definitely visualized. No free intra-abdominal air or free fluid. Abdominal wall: Unremarkable Bladder: Partially decompressed without acute abnormality. Reproductive: Uterus and ovaries are prominent for patient's age with small calcified fibroids, similar to prior studies. No suspicious adnexal masses. Bones: Similar multilevel thoracolumbar degenerative changes with remote compression fractures at the L4 and L5 levels with vertebroplasty changes noted at L4. IMPRESSION: 1. No evidence of acute aortic dissection of the chest or abdomen. 2. No evidence of acute abnormality in the chest, abdomen, or pelvis. 3. Colonic diverticulosis without evidence of acute diverticulitis.. 4. Multiple additional nonacute findings, not significantly changed from priors. Hospital Course: Hospital Course: 87-year-old female with past medical history HTN, who presents to the ED with complaints of abdominal pain, and chest pain that started today around 12 PM. Upon arrival in the ED her lab work was largely unremarkable, AST 46, ALT 42, albumin 3.3, proBNP 727, troponin 15. Her blood pressure initially was reportedly 220/100 mmHg. This reportedly did come slightly after pain medication, but when I saw the patient in the ED blood pressure was 222/99 mmHg. Patient states that over the past 3 weeks she has been nauseous but denies vomiting. At the time my evaluation, CTA chest/abdomen/pelvis is currently pending. Will admit patient for further medical management. 01/25/2022 No acute events overnight. Patient seen examined bedside. Systolic blood pressure in the 160s still. Patient feels a little bit better but still has generalized weakness, nausea but no vomiting. Mild abdominal pain. No dysuria. UA is negative for any UTI. Possibly component of anxiety. Ativan 0.5 IV and p.o. ordered. Patient's chart, labs, images were reviewed and discussed with RN By day of discharge patient was clinically stable. Her abdominal pain improved and she was tolerating diet. Blood pressure of 109/55 and 138/68. Renin and aldosterone levels were sent to the lab. Please follow-up on these results. Instructed patient to follow-up closely with PCP as well. Patient will also go home with home with home health. Rest of hospital course was uneventful. Disposition: Disposition/Orders: D/C to Home, D/C to Home w/ HH Activity: Activity: Resume previous activity Diet: Diet: Cardiac Medications: Home Meds Active Scripts Losartan Potassium (LOSARTAN POTASSIUM ) 25 Mg Tablet, 25 MG PO DAILY for blood pressure for 30 Days, #30 TAB Prov:CARLOS DESAI MD 01/26/22 Ondansetron (ONDANSETRON ODT) 4 Mg Tab.rapdis, 4 MG PO PRN Q4HRS PRN for NAUSEA for 30 Days, #30 TAB 5 Refills Prov:ARVIN BAKER MD 01/09/22 Docusate Sodium (COLACE) 100 Mg Capsule, 100 MG PO PRN DAILY PRN for CONSTIPATION, #10 CAP Prov:LONNIE TROTTER MD 03/29/17 Aspirin (ASPIRIN EC) 81 Mg Tablet.dr, 81 MG PO DAILY, #1 TAB Prov:YASEMIN TORRES MD 06/06/16 Isosorbide Mononitrate (ISOSORBIDE MONONITRATE ER) 30 Mg Tab.er.24h, 60 MG PO DAILY, #30 TAB Prov:YASEMIN TORRES MD 06/06/16 Reported Medications Nitroglycerin (NITROSTAT) 0.4 Mg Tab.subl, 0.4 MG SL PRN Q5MIN PRN for CHEST PAIN, BOTTLE 03/22/20 Denosumab (PROLIA) 60 Mg/1 Ml Disp.syrin, 60 MG SQ every 6 mos for osteoporosis, DIS.SYR 03/22/20 Polyethylene Glycol 3350 (MIRALAX) 17 Gm Powd.pack, 1 PACKET PO DAILY PRN for CONSTIPATION for 2 Days, #2 PACKET 0 Refills dissolve in water 03/22/20 Gabapentin (GABAPENTIN ) 100 Mg Capsule, 100 MG PO TID for NEUROGENIC PAIN, CAP 03/22/20 Sennosides/Docusate Sodium (SENNA PLUS TABLET) 1 Each Tablet, 1 EACH PO BID for constipation, TAB 03/22/20 Famotidine (PEPCID) 20 Mg Tablet, 20 MG PO BID for gerd, TAB 03/22/20 Ergocalciferol (Vitamin D2) (VITAMIN D2) 50,000 Unit Capsule, 26924 UNIT PO QWE for vitamin 07/12/19 Atorvastatin Calcium (ATORVASTATIN CALCIUM) 20 Mg Tablet, 20 MG PO HS for FOR CHOLESTEROL, #30 TAB 0 Refills 10/18/17 Amlodipine Besylate (AMLODIPINE BESYLATE) 10 Mg Tablet, 10 MG PO DAILY, TAB 06/06/16 Cyclosporine (RESTASIS) 1 Each Droperette, 1 DROP EACHEYE BID, #60 VIAL 3 Refills 06/06/16 Discontinued Reported Medications Oxycodone HCl/Acetaminophen (Percocet 5-325 mg Tablet) 1 Each Tablet, 2 TAB PO QIDPRN PRN for PAIN MDD 4 Tablet(s) for 5 Days, #20 TAB 0 Refills 03/22/20 Discontinued Scripts Nitrofurantoin Monohyd/M-Cryst (MACROBID 100 MG CAPSULE) 100 Mg Capsule, 1 CAP PO BID for UTI for 2 Days, #4 CAP 0 Refills Prov:ARVIN BAKER MD 01/09/22 Fluconazole (FLUCONAZOLE) 100 Mg Tablet, 1 TAB PO DAILY for Thrush for 5 Days, #5 TAB Prov:ARVIN BAKER MD 01/09/22 Scheduled Amlodipine Besylate (Amlodipine Besylate), 10 MG PO DAILY, (Reported) Aspirin (Aspirin Ec), 81 MG PO DAILY Atorvastatin Calcium (Atorvastatin Calcium), 20 MG PO HS, (Reported) Cyclosporine (Restasis), 1 DROP EACHEYE BID, (Reported) Denosumab (Prolia), 60 MG SQ every 6 mos, (Reported) Ergocalciferol (Vitamin D2) (Vitamin D2), 50,000 UNIT PO QWE, (Reported) Famotidine (Pepcid), 20 MG PO BID, (Reported) Gabapentin (Gabapentin ), 100 MG PO TID, (Reported) Isosorbide Mononitrate (Isosorbide Mononitrate Er), 60 MG PO DAILY Losartan Potassium (Losartan Potassium ), 25 MG PO DAILY Sennosides/Docusate Sodium (Senna Plus Tablet), 1 EACH PO BID, (Reported) Scheduled PRN Docusate Sodium (Colace), 100 MG PO PRN DAILY PRN for CONSTIPATION Nitroglycerin (Nitrostat), 0.4 MG SL PRN Q5MIN PRN for CHEST PAIN, (Reported) Ondansetron (Ondansetron Odt), 4 MG PO PRN Q4HRS PRN for NAUSEA Polyethylene Glycol 3350 (Miralax), 1 PACKET PO DAILY PRN for CONSTIPATION, (Reported) Discontinued Medications Fluconazole (Fluconazole), 1 TAB PO DAILY Nitrofurantoin Monohyd/M-Cryst (Macrobid 100 Mg Capsule), 1 CAP PO BID Oxycodone HCl/Acetaminophen (Percocet 5-325 mg Tablet), 2 TAB PO QIDPRN PRN for PAIN, (Reported) Total Time: Total Time: Total time spent was 34 minutes in preparing scripts, discharge planning with SWI and RN and preparing this discharge summary Patient seen and examined on day of discharge. No acute abnormal findings. Justicifation of Admission Dx: Justifications for Admission: Justification of Admission Dx: Yes CARLOS DESAI MD January 29, 2022 10:20
== END 2022-01-26 13:30 | disposition home or self-care (01) | DRG 392 ==
LOC: ER 17:21 → 5 NORTH 21:01
PROVIDERS: ADMIT Family Medicine; ATTEND Family Medicine
DX: K57.90 Diverticulosis of intestine, part unspecified, without perforation or abscess without bleeding (principal); I16.1 Hypertensive emergency; E11.9 Type 2 diabetes mellitus without complications; E27.8 Other specified disorders of adrenal gland; E78.00 Pure hypercholesterolemia, unspecified; E78.5 Hyperlipidemia, unspecified; G47.33 Obstructive sleep apnea (adult) (pediatric); G89.29 Other chronic pain; I10 Essential (primary) hypertension; K21.9 Gastro-esophageal reflux disease without esophagitis; K59.00 Constipation, unspecified; Z82.49 Family history of ischemic heart disease and other diseases of the circulatory system; Z86.73 Personal history of transient ischemic attack (TIA), and cerebral infarction without residual deficits; F41.9 Anxiety disorder, unspecified; M19.90 Unspecified osteoarthritis, unspecified site
CPT/HCPCS: 36415; 71045; 71275; 74174; 80053; 81001; 82088; 83605; 83690; 83735; 83880; 84244; 84443; 84484; 85025; 93005; 96374; 96375; J0360; J1170; J1644; J2270; J2405; Q9967; 97116-GP; 97535-GO; 99285-25; G0378